=== PATIENT | female | born 1955 | race Caucasian/White ===

== ENCOUNTER 2018-04-08 07:31 | Emergency (ER) | payer MEDICAID, SELFPAY ==
[2018-04-08 07:36] VITALS: BP 130/79; PULSE 72; RESP 18; TEMP 36.3; O2SAT 100
--- NOTE | 2018-04-08 08:12 | DI.REPORT_ITS ---
SYMPTOM/DIAGNOSIS; DISTANT TRAUMA, LT WRIST AND ELBOW PAIN, 'GOUT' LEFT FOREARM: Comparison is made with left elbow dated 19 Oct 2017. Noted is a previous resection of the radial head and severe degenerative changes of the elbow joint. There is no evidence of an acute fracture/dislocation.
--- NOTE | 2018-04-08 08:29 | ED.GENADUL ---
Disposition Clinical Impression: Gouty arthritis left arm Disposition: HOME Condition: Good Instructions: Gout (ED) Additional Instructions: Take medications as prescribed Continue your regular medications. Return to the emergency room for any acute concerns or if you develop fever, or redness. Sling to reduce pain. May use Tylenol in addition to the above medicines. May apply ice to reduce discomfort. Perform range of motion exercises daily. Prescriptions: Colchicine 0.6 mg PO DAILY 4 Days #4 tab Prednisone 40 mg PO DAILY #10 tablet Medical Decision Making - Lab Data Laboratory Results - last 24 hr 04/08/18 04/08/18 08:27 08:27 WBC 14.28 H RBC 4.62 Hgb 14.8 Hct 43.9 MCV 95.0 MCH 32.0 MCHC 33.7 RDW 13.6 Plt Count 227 MPV 10.8 Immature Gran % 0.3 Neutrophils % 65.8 Lymphocytes % 17.8 Monocytes % 15.5 Eosinophils % 0.4 Basophils % 0.2 Absolute Neutrophils 9.40 H Absolute Lymphocytes 2.54 Absolute Monocytes 2.21 H Absolute Eosinophils 0.06 Absolute Basophils 0.03 Sodium 140 Potassium 3.8 Chloride 105 Carbon Dioxide 27.1 Anion Gap 7.9 BUN 11 Creatinine 0.68 Estimated GFR/1.73 m2 >= 60.00 Glucose 110 H Uric Acid 4.0 Calcium 9.0 C-Reactive Protein 5.68 H Results reviewed for labs ordered during visit: Yes - Radiology Data Radiology results: report reviewed, image reviewed - Medical Decision Making 62-year-old female with history of gout presents with left elbow and wrist pain over hours time. She is afebrile, well-appearing. Diffusely tender throughout her forearm including elbow and wrist joints, no significant joint effusion. No fever or redness, do not feel cellulitis is likely, she does not have pain with passive joint movement, as above no significant joint effusion amenable to aspiration. X-ray with no radial or ulnar shaft fracture. Degenerative changes of the humeral ulnar joint. Degenerative changes in the radiocarpal joint. Given her history of gout, elevated CRP, stress demargination of white blood cell count, I do feel gouty arthritis is most likely. We will treat with a short, low-dose course of colchicine as well as steroids. She understands follow-up precautions if not improving. History of Present Illness - General Chief complaint: Orthopedic Stated complaint: GOUT Time Seen by Provider: 04/08/18 08:11 Source: patient, RN notes reviewed Mode of arrival: ambulatory Limitations: no limitations - History of Present Illness Initial comments: Left arm pain: 62-year-old female with a history of gout as well as traumatic left elbow injury distantly. She presents with the gradual onset over hours time yesterday of an achy, moderate to severe, left elbow pain that is worse with movement and radiates with movement. It is ameliorated with rest. She has not had fever. She has not had any new motor weakness. She denies any new traumatic injury - Related Data Ergocalciferol (Vitamin D2) [Vitamin D] 2 tab-cap PO DAILY tab-cap 04/21/16 Nicotine [Nicoderm Cq] 1 each TD DAILY #30 script 10/29/16 Estradiol [Vagifem] 10 mcg VG Twice Weekly #24 tab-cap 04/15/17 Omeprazole 1 cap PO DAILY #90 tab-cap 04/15/17 Topiramate [Topamax] 2 tab PO HS #180 tab-cap 04/15/17 Albuterol Sulfate [Proair Hfa] 1 - 2 puff IH Q4H PRN #2 inhaler 05/31/17 Diphenhydramine HCl [Benadryl] 2 cap PO HS 10/19/17 Lactobacillus Acidophilus [Probiotic] 1 each PO DAILY 12/29/17 Magnesium Oxide 400 mg PO DAILY 03/17/18 Riboflavin 100 mg PO DAILY 03/17/18 Tears Naturale Ii 2 drop OU QID 03/17/18 Colchicine 0.6 mg PO DAILY 4 Days #4 tab 04/08/18 Prednisone 40 mg PO DAILY #10 tablet 04/08/18 Allergies Allergy/AdvReac Type Severity Reaction Status Date / Time ceftriaxone Allergy Intermediate ITCHING; Unverified 04/08/18 07:41 RASH Sulfa (Sulfonamide Allergy Intermediate ITCHY RASH Unverified 04/08/18 07:41 Antibiotics) rosuvastatin AdvReac Intermediate NAUSEA Unverified 04/08/18 07:41 sertraline AdvReac Intermediate diarrhea Unverified 04/08/18 07:41 Review of Systems Other: 6 systems reviewed, otherwise negative Past Medical History - Past Medical History Medical history: GERD, hyperlipidemia Migraine headache - Social History Alcohol use: none General Exam - General Limitations: no limitations General appearance: alert, in no apparent distress, anxious - Head Head exam: Present: atraumatic, normocephalic - Eye Eye exam: Present: normal apperance, PERRL, EOMI - Neck Neck exam: Present: normal inspection, full ROM - Respiratory Respiratory exam: Present: normal lung sounds bilaterally. Absent: respiratory distress - Cardiovascular Cardiovascular Exam: Present: regular rate, normal rhythm - GI/Abdominal GI/Abdominal exam: Present: soft. Absent: distended, tenderness - Extremities Exam Extremities exam: Present: tenderness, normal capillary refill, other (2+ radial pulse bilateral upper extremity. Right upper extremity unremarkable. Left upper extremity swollen tender at the elbow and left wrist. These joints are tender with movement. Patient able to tolerate nearly full range of passive movement. Active movement limited by pain. Motor would rate of 4 out of 5 throughout the left upper extremity. Sensation intact throughout) - Back Exam Back exam: Present: normal inspection. Absent: tenderness, vertebral tenderness - Neurological Exam Neurological exam: Present: alert, oriented X3 - Psychiatric Psychiatric exam: Present: normal affect, normal mood, anxious, other (Mildly anxious) - Skin Skin exam: Present: warm, dry, intact. Absent: rash Course Vital Signs - 24 hr 04/08/18 07:36 Temperature 36.3 C L Pulse 72 Respiratory 18 Rate Blood Pressure 130/79 Pulse Oximetry 100
[2018-04-08 08:34] LABS: Abs Immature Grans 0.04 k/cumm (0.0-0.09); Absolute Basophil Count 0.03 k/cumm (0.0-0.2); Absolute Lymphocyte Count 2.54 k/cumm (1.2-3.4); Absolute Monocyte Count 2.21 k/cumm (0.11-0.7); Basophils % 0.2; Eosinophils % 0.4; HCT 43.9 % (36.0-46.0); HGB 14.8 g/dL (12.0-15.5); Immature Grans % 0.3; Lymphocytes % 17.8; Mean Corp. HGB Concentration 33.7 g/dL (32.0-36.0); Mean Platelet Volume 10.8 fL (8.0-11.0); Monocytes % 15.5; Neutrophils % 65.8; Platelet Count 227 x1000/uL (130-400); RBC 4.62 m/cumm (4.00-5.20); RBC Distribution Width 13.6 % (11.7-14.6); White Blood Cell Count 14.28 k/cumm (4.4-10.8)
[2018-04-08 08:35] LABS: Absolute Eosinophil Count 0.06 k/cumm (0.0-0.7)
[2018-04-08 08:44] LABS: Anion Gap 7.9 mmol/L (3-11); BUN 11 mg/dL (7-18); C-Reactive Protein 5.68 mg/dL (0.0-0.3); CO2 27.1 mmol/L (21.0-32.0); CREATININE 0.68 mg/dL (0.55-1.02); Chloride 105 mmol/L (98-107); Glucose 110 mg/dL (70-100); Potassium 3.8 mmol/L (3.5-5.1); Sodium 140 mmol/L (136-145)
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
[2018-04-08 10:20] VITALS: TEMP 37
== END 2018-04-08 10:20 | disposition home or self-care (01) ==
PROVIDERS: Emergency Provider Emergency Medicine; PCP Emergency Medicine
DX: M10.9 Gout, unspecified (principal)
CPT/HCPCS: 80048; 99283; 73090; 84550; 85025; 86140; L3650

== ENCOUNTER 2018-04-19 15:30 | Outpatient (RCR) | payer MEDICAID, SELFPAY ==
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
--- NOTE | 2018-03-30 11:47 | PTTR_ITS ---
DATE: 03/30/18 SUBJECTIVE: Lubna states she saw Josie Ch DPT for a vestibular eval. I talked to Lubna about having a conversation with Josie, as well, discussing the Halpike and Yuly correction maneuver. She states these did not really seem to effect her symptoms that much, but overall is feeling less dizzy with rotation to the right. OBJECTIVE: Manual therapy: ([id number]). Cervical mobs, up slips, down slopes, lateral glides, METs into rotation left and right. She achieved 70 of right rotation without any episodes of dizziness. * [x] Electrical Stim Unattended - 05389l[1]: x15 min. Direct treatment time: 8:30 til 9:00 A.M. JOSE C/marianne
--- NOTE | 2018-04-10 09:00 | PTTR_ITS ---
DATE: 04/10/18 Co-treat with supervising PT Delta Paul DPT. OBJECTIVE: Manual therapy: (17604u8). Soft tissue mobilization while in supine consisting of PRT to upper traps, lev scap and splenius capitis. Tendon massage along the occiput and cervical vertebrae was also performed. Therapeutic procedures (11422j1). * x HEP review: Issued phase 1 isometric cervical stab program, which she was able to demonstrate appropriately while in clinic today. Given written instructions, see photocopy located in patient's file. 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 Direct treatment time: 25 minutes Total treatment time: 25 minutes
--- NOTE | 2018-04-10 11:41 | PTTR_ITS ---
DATE: 04/10/18 SUBJECTIVE: Lubna states she had a difficult weekend, dealing with gout in her left elbow. Had to go to the E.R. Did receive meds for this. Is complaining of right sided cervical spine pain. She had a good visit with Neurology. She does not need to go back for 6 mos. Denies any balance deficits at this time. OBJECTIVE: Manual therapy: (65209c1). Performed cervical mobs, up slips, down slopes, lateral glides, OA release followed by hold relax mobs into rotation in both directions achieving 70 to 75 right and 80 left. Then performed upper trapezius stretching in supine position using hold relax techniques through the upper trapezius. Direct treatment time: 8:30 til 9:00 A.M. Soft tissue mobs were performed by the YARN INSPECTOR to the right cervical paraspinals as well as instruction in cervical spine stabilization strengthening: Phase 1 Plan: Continue as indicated above progressing cervical stabilization to tolerance. MM/gc
--- NOTE | 2018-04-19 14:02 | PTTR_ITS ---
DATE: 04/19/18 SUBJECTIVE: Lubna reports that her neck has been feeling great. Hasn't had any dizziness, and is now able to drive with the windows open in her car without feeling light headed or dizzy. Does feel as though the vestibular correction helped. OBJECTIVE: Manual therapy: (00138u1). Cervical mobs, up slips, down slopes, lateral glides and OA release followed by soft tissue mobs consisting of PRTs to bilateral upper traps, friction massage over the origin of the levator scap on the right and we discussed further POC. Reviewed her HEP of cervical stabs. Direct treatment time: 30 minutes Plan: Recheck Lubna x3 wks. If she is doing well at that time will D/c. MM/gc
== END 2018-04-28 23:59 | disposition home or self-care (01) ==
LOC: PT 15:30
PROVIDERS: PCP Emergency Medicine; Referring Provider Emergency Medicine; Visit Provider Emergency Medicine
DX: M54.2 Cervicalgia (principal); M47.22 Other spondylosis with radiculopathy, cervical region; R42 Dizziness and giddiness
CPT/HCPCS: 97014; 97110; 97112; 97140; 97162

== ENCOUNTER 2019-01-01 10:11 | Outpatient (REF) | payer MEDICAID, SELFPAY ==
--- NOTE | 2019-01-01 10:00 | PAPFT_PTH ---
PATIENT: Lubna Handley LOC: [facility] U#:[id number] AGE/SX: 63/F ROOM: RE01/01/[address]: PATTI Ayers : 1955 BED: DIS: 01/01/2019 SPEC #: [id number] RECD: 01/01/19 12:53 STATUS: CECY REQ #: [id number] CHARLEY: 01/01/19 10:[address]: Adri Anna DEPT: [facility] Cytology RECD BY: Michaelle Morataya ENTERED: 01/01/19 12:53 SP TYPE: PAPFT DAVID DR: Hua Hernandez, Tissues: 1 - CX/ENDOCX FOR PAP SMEARS Procedures: PAP THIN PREP/UVM Screening HPV DNA PROBE Comments: [id number]
== END 2019-01-01 10:31 ==
LOC: LBN 10:11
PROVIDERS: PCP Emergency Medicine; Visit Provider Nurse Practitioner Family
DX: Z12.4 Encounter for screening for malignant neoplasm of cervix (principal); Z11.51 Encounter for screening for human papillomavirus (HPV)
CPT/HCPCS: 88142; 87624

== ENCOUNTER 2019-01-09 01:03 | Outpatient (CLI) | payer MEDICAID, SELFPAY ==
--- NOTE | 2019-01-09 08:33 | DI.MAMMO_ITS ---
SYMPTOM/DIAGNOSIS: SCREENING, PERSONAL H/O BREAST CA, Z12.31 MAMMOGRAMS: Mammograms were interpreted according to the usual protocol including computer analysis with CAD system, tomosynthesis and C view imaging. The patient has a history of lumpectomy in the upper outer quadrant of the left breast. Comparison is made with exams from 1298-3102. The breasts are composed of scattered fibroglandular densities, breast density, Category B. The area of scarring in the upper outer quadrant of the left breast appears unchanged. No new masses or suspicious calcifications are identified in either breast. IMPRESSION: Category 2, negative mammogram with benign findings. Yearly screening mammography is recommended. MQSA ASSESSMENT OF FINDINGS: Negative with benign findings. Category 2. Patient will receive a letter notifying them of these results. BI-RADS category B. There are scattered areas of fibroglandular density.
== END 2019-01-09 01:23 ==
PROVIDERS: PCP Emergency Medicine; Visit Provider Nurse Practitioner Family
DX: Z12.31 Encounter for screening mammogram for malignant neoplasm of breast (principal); Z85.3 Personal history of malignant neoplasm of breast; Z98.890 Other specified postprocedural states
CPT/HCPCS: 77063; 77067

== ENCOUNTER 2019-03-30 09:03 | Day surgery (SDC) | payer MEDICAID, SELFPAY ==
[2019-03-30 09:15] VITALS: BP 130/75; PULSE 80; RESP 16; TEMP 36.2; O2SAT 97
[2019-03-30] MEDS: Lactated Ringers 1,000 ML 80 ML IV (09:45)
--- NOTE | 2019-03-30 09:49 | W.PM.DSUDISC ---
Discharge Plan Disposition Patient Disposition: HOME Condition: Good Discharge Details Reason For Visit: EGD, colonoscopy Attending Provider: Mary Schmidt Primary Care Provider: Hua Hernandez Home Meds and New Rx's Prescriptions: Continued cannabidiol (CBD) extract 100 mg/mL solution See Rx Instructions PO QHS RF: 0 riboflavin (vitamin B2) 250 mg tablet extended release 250 mg PO RF: 0 ergocalciferol (vitamin D2) 400 UNIT tablet 2 tab-cap PO DAILY RF: 0 Probiotic 1 EACH capsule 1 ea PO DAILY RF: 0 tears naturale ii 2 drp OU QID RF: 0 magnesium oxide 400 MG tablet 400 mg PO DAILY Qty: 90 RF: 3 albuterol sulfate [ProAir HFA] 90 mcg/actuation HFA aerosol inhaler 1 - 2 puff Inhalation Q4H PRN Qty: 2 RF: 6 estradiol [Vagifem] 10 mcg tablet 10 mcg VG Twice Weekly Qty: 24 RF: 0 omeprazole 20 mg capsule,delayed release(DR/EC) 20 mg PO DAILY Qty: 90 RF: 3 Discontinued polyethylene glycol 3350 17 gram/dose powder 238 g PO ONCE Qty: 238 RF: 0 bisacodyl [Dulcolax (bisacodyl)] 5 mg tablet,delayed release (DR/EC) 5 mg PO ONCE Qty: 4 RF: 0 Discharge Instructions Additional Instructions: Your EGD showed a small hiatal hernia. No Barretts esophagus was noted. One small polyp was removed from the colon. My office will send a letter with biopsy results. Activity:: Activity as Tolerated Diet:: As Tolerated Discharge Orders Discharge Orders: Discharge Order (Routine); Ordered 03/30/19 Ordered By: Mary Schmidt DS: Diagnosis Discharge Diagnosis (1) Colon polyp: Start date: 03/30/19 Start time: 10:48 Status: Acute (2) S/P colonoscopy:
[2019-03-30] MEDS: Sodium Citrate 30 ML CUP (10:00)
--- NOTE | 2019-03-30 10:35 | BOWEL_PTH ---
PATIENT: Lubna Handley LOC: [facility] U#:[id number] AGE/SX: 63/F ROOM: RE03/30/[address]: Mary Schmidt MD : 1955 BED: DIS: 03/30/2019 SPEC #: [id number] RECD: 03/30/19 12:26 STATUS: CECY REQ #: [id number] CHARLEY: 03/30/19 10:[address]: Mary Schmidt DEPT: Surgical Specimen RECD BY: Michaelle Morataya ENTERED: 03/30/19 12:26 SP TYPE: Bowel OTHR DR: Hua Hernandez DO Tissues: 1 - BIOPSY BOWEL Procedures: GROSS AND MICRO LEVEL 4 Comments: [id number]
[2019-03-30 11:15] VITALS: BP 110/72; PULSE 68; RESP 18; TEMP 36.2; O2SAT 95
--- NOTE | 2019-03-30 13:36 | ROE_ITS ---
DATE OF PROCEDURE: March 30, 2019 PREOPERATIVE DIAGNOSIS: 1. Reflux. 2. History of Kuhn's esophagus. 3. Screening colonoscopy. POSTOPERATIVE DIAGNOSIS: 1. Small hiatal hernia. 2. Rectal polyp. PROCEDURE: 1. Esophagogastroduodenoscopy. 2. Colonoscopy with biopsy. SURGEON: Mary Schmidt M.D. ANESTHESIA: Monitored Anesthesia Care. INDICATIONS: This is a 63-year-old woman whose last screening colonoscopy in 2008 was unremarkable. She has no family history of colon cancer or symptoms. The patient also reports a history of Soham t's esophagus, although apparently her most-recent in 2015 was negative for Kuhn's. She does repo rt poorly-controlled reflux. No dysphagia. PROCEDURE: She was placed in the left Chao position. Propofol was titrated to sedation. The scope was advanced into her esophagus under direct visualization and down into the stomach and duodenum. T here was no duodenitis or ulcers noted. The stomach itself appeared normal, including on retroflex v iew of the fundus and lesser curvature. She was noted to have a small hiatal hernia. The GE junctio n was carefully inspected and showed no evidence of Kuhn's, inflammation or strictures. The air w as suctioned from the stomach and the scope withdrawn with no other esophageal lesions found. Digital rectal examination revealed no abnormalities. The scope was advanced to the cecum without di fficulty. The ileocecal valve and appendiceal orifice were clearly identified. Her prep was good. The scope was slowly withdrawn with no abnormalities seen within the ascending, transverse, descendin g or sigmoid colon. In the distal rectum there was a < 1 cm polyp that was removed with the cold for ceps. This does have the appearance of a hyperplastic polyp. Retroflex view showed no other abnorma lities. She tolerated the procedure well and was stable to recovery. I don't think follow-up EGD's will be indicated, although certainly should be done for worsening symp toms or dysphagia. She will need a follow-up colonoscopy either in five to ten years depending on the polyp pathology. My office will contact her with pathology results and recommendations. cc: Hua Hernandez D.O.
== END 2019-03-30 11:30 | disposition home or self-care (01) ==
PROVIDERS: PCP Emergency Medicine; Visit Provider Surgery
PROC: (CPT 45380; principal; 2019-03-30 10:00)
DX: Z12.11 Encounter for screening for malignant neoplasm of colon (principal); Z86.010 Personal history of colon polyps; K20.9 Esophagitis, unspecified; K62.1 Rectal polyp; K62.6 Ulcer of anus and rectum; K44.9 Diaphragmatic hernia without obstruction or gangrene
CPT/HCPCS: 45380; 43239; 88305

== ENCOUNTER 2019-05-01 16:09 | Outpatient (CLI) | payer MEDICAID, SELFPAY ==
--- NOTE | 2019-05-01 12:15 | DI.RAD_ITS ---
SYMPTOMS/DIAGNOSIS: CERVICALGIA WITH TENDERNESS C4, C5 IN MIDLINE, NECK PAIN, M54.2 CERVICAL SPINE: Comparison is made with [id number]. There is again noted to be fusion at C 5 - 6. There is narrowing of the C 4 - 5 as well as C 6 - 7 disc spaces and endplate osteophytes which have enlarged when compared with the previous exam. There is now severe right neural foraminal narrowing at C 6 - 7 and mild left sided neural foraminal narrowing at C 6 - 7. Neural foraminal narrowing is also noted on the right at C 3 - 4 and C 4 - 5. IMPRESSION: Degenerative changes greatest at C 6 - 7 where there is bilateral neural foraminal narrowing, right greater than left.
== END 2019-05-01 16:29 ==
PROVIDERS: PCP Emergency Medicine; Visit Provider Family Medicine
DX: M54.2 Cervicalgia (principal); M50.323 Other cervical disc degeneration at C6-C7 level; Z98.1 Arthrodesis status
CPT/HCPCS: 72050

== ENCOUNTER 2019-05-29 00:49 | Outpatient (CLI) | payer MEDICAID, SELFPAY ==
--- NOTE | 2019-05-29 15:10 | DI.MRI_ITS ---
EXAM: MR CERVICAL SPINE WO CLINICAL HISTORY: CERVICALGIA X YEARS, M54.2, HX CERVICAL FUSION WITH 2 DISCS REMOVED, RT NECK TRAPE ZIUS PAIN, RT ARM PAIN TECHNIQUE: Multiplanar multisequence MRI of the cervical spine was performed without intravenous con trast. COMPARISON: No exams were available for comparison FINDINGS: BONES: There are postsurgical changes of a fusion of the C5-C6 disc space. Intervertebral disc space s are normal. There is straightening of the normal cervical lordosis. Endplate degenerative signal c hanges are noted at C4-5 and C6-C7. CERVICAL CORD: Craniovertebral junction is unremarkable. The cervical cord is normal size and signal intensity. SOFT TISSUES: Unremarkable. C2-3: No disc herniation or bulge is identified. C3-4: No disc herniation or bulge is identified. There is prominence of the osteophyte-disc complex. There are hypertrophic changes of the right uncovertebral joint. This causes moderate narrowing of the right neural foramen. There is mild narrowing of the central spinal canal. C4-5: No disc herniation or bulge is identified. There is prominence of the osteophyte-disc complex. There is effacement of the anterior subarachnoid space. There is mild narrowing of the central spin al canal. There are degenerative changes of the uncovertebral joints. This results in mild narrowin g of the neural foramina bilaterally. C5-6: No disc herniation or bulge is identified. No central spinal canal or neural foraminal stenosi s is present. C6-7: No disc herniation or bulge is identified. There are degenerative changes at the uncovertebral joints. There is moderate left neural foraminal narrowing. No significant central spinal canal emma nosis or right neural foraminal stenosis is present C7-T1: No disc herniation or bulge is identified. No central spinal canal or neural foraminal stenos is is present. IMPRESSION: Multilevel degenerative changes of the cervical spine. The findings result in multilevel central spi nal canal and neural foraminal stenosis as described above.
== END 2019-05-29 01:09 ==
PROVIDERS: PCP Emergency Medicine; Visit Provider Nurse Practitioner
DX: M54.2 Cervicalgia (principal); Z98.1 Arthrodesis status; M50.30 Other cervical disc degeneration, unspecified cervical region; M48.02 Spinal stenosis, cervical region; M99.51 Intervertebral disc stenosis of neural canal of cervical region
CPT/HCPCS: 72141

== ENCOUNTER 2019-10-05 13:54 | Emergency (ER) | payer MEDICAID, SELFPAY ==
[2019-10-05 13:58] VITALS: BP 187/120; PULSE 90; RESP 18; TEMP 36.8; O2SAT 100
--- NOTE | 2019-10-05 14:17 | ED.GENADUL_ITS ---
Discharge Plan Disposition Patient Disposition: HOME Condition: Stable Discharge Details Chief Complaint: Orthopedic Clinical Impression: Gout attack Primary Care Provider: Hua Hernandez ED Provider: Jordyn Eason Home Meds and New Rx's Prescriptions: New prednisolone sodium phosphate 30 mg tablet,disintegrating 30 mg PO DAILY Qty: 7 RF: 0 colchicine 0.6 mg tablet 0.6 mg PO DAILY Qty: 7 RF: 0 clindamycin HCl 300 mg capsule 300 mg PO BID 7 Days Qty: 14 RF: 0 Continued riboflavin (vitamin B2) 250 mg tablet extended release 250 mg PO RF: 0 ergocalciferol (vitamin D2) 400 UNIT tablet 2 tab-cap PO DAILY RF: 0 Probiotic 1 EACH capsule 1 ea PO DAILY RF: 0 tears naturale ii 2 drp OU QID RF: 0 albuterol sulfate [ProAir HFA] 90 mcg/actuation HFA aerosol inhaler 1 - 2 puff Inhalation Q4H PRN Qty: 2 RF: 6 estradiol [Vagifem] 10 mcg tablet 10 mcg VG Twice Weekly Qty: 24 RF: 0 omeprazole 20 mg capsule,delayed release(DR/EC) 20 mg PO DAILY Qty: 90 RF: 3 magnesium oxide 400 mg (241.3 mg magnesium) tablet 400 mg PO DAILY Qty: 90 RF: 3 Discharge Instructions Instructions: Gout (ED) Additional Instructions: Take medications as directed. Follow up with primary care provider in 3-5 days. Return to ED sooner if any worsening or concerns. Increase oral fluids. Return sooner if any worsening swelling, worsening pain, red streaks up the arm or fever. Referrals: Hua Hernandez, [Primary Care Provider] - Medical Decision Making 63-year-old female presents with right hand and wrist pain and swelling. Patient states that started this morning. She does have a history of gout and thinks that this is a gout flare denies trauma, fever or chills. Labs obtained including CBC CMP and a uric acid 3 view x-ray obtained of her right wrist. Uric acid was within normal limits, does have white blood cell count of 12 with a left shift. CMP is within normal limits. X-ray shows an internal hardware of her right wrist and previous right ulnar surgery. Nothing acute noted on the x-ray. Upon further questioning of the patient she states that she broke her arm in 6 grade and had reconstructive surgery in the 90s. Given the patient's history of gout being treated for gout in the past this is most likely a gout flare. However I cannot fully exclude cellulitis at this time. Discussed treatment options with patient, verbalizes understanding. Prescribed Clindamycin for possible cellulitis. Also given Prednisolone and Colchicine. Patient given 1 tablet Hydrocodone-Acetametaphin 5/325mg in department. This text was generated using [employer] dictation system, please disregard any oddities of phrase or misspellings. HPI General Mode of arrival: ambulatory . Date/Time Provider Initiated Documentation: 10/05/19 13:58 . Limitations to Documentation: no limitations . Information obtained by: patient . HPI Narrative: 63-year-old female presents to the ED with right hand, wrist swelling and tenderness. She states I have gout. She believes she has undiagnosed gout. Denies drinking alcohol. She is a smoker. Denies any trauma or falls. No fever, no chills. No right axillary lymphadenopathy. Related Data Home Medications Medication Instructions Recorded Confirmed ergocalciferol (vitamin D2) 2 tab-cap PO DAILY tab-cap 04/21/10/05/19 Probiotic 1 ea PO DAILY 12/29/17 10/05/19 Tears Naturale Ii 2 drp OU QID 03/17/18 10/05/19 albuterol sulfate 90 mcg/actuation 1 - 2 puff INHALATION Q4H PRN #2 11/24/18 10/05/19 aerosol inhaler inhaler estradiol 10 mcg vaginal tablet 10 mcg VG Twice Weekly #24 tab-cap 12/07/18 10/05/19 omeprazole 20 mg capsule,delayed 20 mg PO DAILY #90 tab-cap 12/07/18 10/05/19 release riboflavin (vitamin B2) 250 mg 250 mg PO tab 01/01/19 05/29/19 tablet,extended release magnesium oxide 400 mg (241.3 mg 400 mg PO DAILY #90 tab 07/02/19 10/05/19 magnesium) tablet clindamycin HCl 300 mg PO BID 7 Days #14 cap 10/05/19 colchicine 0.6 mg PO DAILY #7 tab 10/05/19 prednisolone sodium phosphate 30 mg PO DAILY #7 tab 10/05/19 Previous Rx's Medication Instructions Recorded albuterol sulfate 90 mcg/actuation 1 - 2 puff INHALATION Q4H PRN #2 11/24/18 aerosol inhaler inhaler estradiol 10 mcg vaginal tablet 10 mcg VG Twice Weekly #24 tab-cap 12/07/18 omeprazole 20 mg capsule,delayed 20 mg PO DAILY #90 tab-cap 12/07/18 release magnesium oxide 400 mg (241.3 mg 400 mg PO DAILY #90 tab 07/02/19 magnesium) tablet clindamycin HCl 300 mg PO BID 7 Days #14 cap 10/05/19 colchicine 0.6 mg PO DAILY #7 tab 10/05/19 prednisolone sodium phosphate 30 mg PO DAILY #7 tab 10/05/19 Allergies Allergy/AdvReac Type Severity Reaction Status Date / Time ceftriaxone Allergy Intermediate ITCHING; Verified 10/05/19 14:02 RASH Sulfa (Sulfonamide Allergy Intermediate ITCHY RASH Verified 10/05/19 14:02 Antibiotics) rosuvastatin AdvReac Intermediate NAUSEA Verified 10/05/19 14:02 sertraline AdvReac Intermediate diarrhea Verified 10/05/19 14:02 General Stated Complaint: Orthopedic ANTHONY: 3 Review of Systems Narrative: Constitutional: Negative for weight loss, alert and oriented, well groomed, normal body habitus, appears uncomfortable. HEENT: Denies trauma, headaches, blurry vision, nasal discharge, sore throat, trouble swallowing. Chest: Denies chest pain, palpitations, irregular rhythm, hypertension. Respiratory: Denies Shortness of breath, cough, hemoptysis. GI: Denies abdominal pain, nausea, vomiting, diarrhea, constipation. : Denies dysuria, hematuria, flank pain, rectal bleeding. Neuro: Denies dizziness, blurry vision, weakness, syncope, headache or facial numbness. Hematologic: Denies easy bruising, intolerance to heat or cold, hair loss. Extremities: Right hand and wrist swelling mild erythema noted. Reports right hand pain which radiates up into her right forearm PFSH Medical History Anxiety (Chronic) Kuhn's esophagus (Chronic) EGD neg 2016 Cervical radiculopathy at C6 (Acute) Colon polyp (Acute) Depressive disorder (Chronic) Esophagitis (Chronic 05/19/16) Gastritis (Chronic 05/19/16) Gastroesophageal reflux disease (Chronic) gastritis; HH Hiatal hernia (Chronic) Hyperlipidemia (Chronic 01/02/13) Malignant neoplasm of female breast (Chronic 07/28/93) stage I; lumpectomy, radiation, axillary resection Migraine with aura (Chronic) Neural foraminal stenosis of cervical spine (Acute) Peripheral neuralgia (Chronic) Seborrheic keratosis (Chronic 01/29/16) Smoker (Chronic) Surgical History Biopsy of breast (~2001) Breast, Lumpectomy (~1993) left Cholecystectomy EGD - IV Sedation (05/10/16) Ligation of fallopian tube Reduction mammoplasty (~1994) right S/P colonoscopy (Acute) 03/30/19 Tonsillectomy (~195) Family History Mother Personal history of malignant neoplasm SKIN Father Essential hypertension Hyperlipidemia Stroke Grandfather No problems noted. Grandfather No problems noted. Grandmother Personal history of malignant neoplasm BREAST Grandmother No problems noted. Brother Essential hypertension Personal history of malignant neoplasm THYROID Hyperlipidemia Brother No problems noted. Brother No problems noted. Brother No problems noted. Daughter No problems noted. Daughter No problems noted. Social History Smoking/Tobacco Use Status: Current every day Tobacco Type: cigarettes Alcohol Intake: current Alcohol Intake frequency: holidays/special occasions only Drug use: Never Substance use type: does not use What type of physical activity do you participate in: none Do you feel safe at home: Yes Do you feel safe in your relationship?: Yes History History 3 Para 2 Hx # Term Pregnancies Multiple births Hx # Pregnancies Ectopic pregnancies AB induced Hx Number of Living Children AB spontaneous Exam Narrative Exam Narrative: Constitutional: Allert and oriented x3. Appears stated age. Normal body habitus. Head: Normocephalic, no trauma. Eyes: Pupils PERRLA, Red reflex noted, EOM's intact. Chest: RRR, Normal S1, S2, distal radial pulses intact. Resp: Lungs clear to auscultation bilaterally, no wheezes, rales, or rhonchi. Musculoskeletal: Normal gait, Right hand swelling and tenderness. Skin: No suspicious rashes or lesions. Capillary refill less than 2 sec. Mildly ereythemic right hand and significant swelling noted. Neurologic: Alert and oriented x 3. Hematologic/Lymphatic: No ecchymosis, no lymphadenopathy. Course Vital Signs Vital signs: Vital Signs Temperature 36.8 C 10/05/19 13:58 Pulse 90 10/05/19 13:58 Respiratory Rate 18 10/05/19 13:58 Blood Pressure 187/120 H 10/05/19 13:58 Pulse Oximetry 100 10/05/19 13:58 Temperature 36.8 C 10/05/19 13:58 Temperature Source Temporal Artery Scan 10/05/19 13:58 Pulse 90 10/05/19 13:58 Respiratory Rate 18 10/05/19 13:58 Respiratory Effort Non-Labored 10/05/19 14:04 Blood Pressure 187/120 H 10/05/19 13:58 Pulse Oximetry 100 10/05/19 13:58 Oxygen Delivery Method Room Air 10/05/19 13:58 Oxygen Flow Rate 0 10/05/19 13:58 Pain Level 10 10/05/19 14:14
[2019-10-05] MEDS: predniSONE 20 MG TAB 40 MG PO (14:23)
[2019-10-05] MEDS: Colchicine 0.6 MG TAB PO (14:23)
[2019-10-05 14:35] LABS: Abs Immature Grans 0.03 k/cumm (0.0-0.09); Absolute Eosinophil Count 0.15 k/cumm (0.0-0.7); Absolute Lymphocyte Count 3.53 k/cumm (1.2-3.4); Absolute Monocyte Count 1.15 k/cumm (0.11-0.7); Basophils % 0.2; Eosinophils % 1.2; HCT 42.5 % (36.0-46.0); HGB 14.4 g/dL (12.0-15.5); Immature Grans % 0.2 %; Lymphocytes % 29.2; Mean Corp. HGB Concentration 33.9 g/dL (32.0-36.0); Mean Corpuscular Hemoglobin 32.6 pg (27.0-33.0); Mean Corpuscular Volume 96.2 fL (80-95); Mean Platelet Volume 10.6 fL (8.0-11.0); Monocytes % 9.5; Neutrophils % 59.7; Platelet Count 279 x1000/uL (130-400); RBC 4.42 m/cumm (4.00-5.20); RBC Distribution Width 12.5 % (11.7-14.6)
[2019-10-05 14:36] LABS: Absolute Basophil Count 0.02 k/cumm (0.0-0.2); Absolute Neutrophil Count 7.22 k/cumm (1.2-6.7)
--- NOTE | 2019-10-05 14:41 | DI.RAD_ITS ---
EXAM: XR WRIST RT COMPLETE CLINICAL HISTORY: Right wrist swelling, pain TECHNIQUE: COMPARISON: No exams were available for comparison FINDINGS: Three views were obtained. There is resection of the distal ulna sparing the most distal portion of the ulna which is affixed to distal radius with the a single fixation screw. There is flattening of the navicular and radius at the radial navicular joint. There is malalignment at the navicular capi burns joint. Moderate degenerative changes noted. No acute fracture seen. IMPRESSION:
[2019-10-05 14:46] LABS: ALT 19 U/L (14-59); AST 20 U/L (15-37); Alkaline Phosphatase 62 U/L (46-116); Anion Gap 10.6 mmol/L (3-11); BUN 10 mg/dL (7-18); Bilirubin, Total 0.3 mg/dL (0.2-1.0); CO2 26.4 mmol/L (21.0-32.0); CREATININE 0.74 mg/dL (0.55-1.02); Calcium 9.2 mg/dL (8.5-10.1); Chloride 105 mmol/L (98-107); Glucose 91 mg/dL (74-106); Potassium 4.2 mmol/L (3.5-5.1); Sodium 142 mmol/L (136-145); Total Protein 7.3 g/dL (6.4-8.2)
[2019-10-05 14:55] LABS: Uric Acid 4.6 mg/dL (2.6-6.0)
[2019-10-05] MEDS: HYDROcodone 5/Acetaminophen 325 TAB PO (15:24)
== END 2019-10-05 15:33 | disposition home or self-care (01) ==
PROVIDERS: Emergency Provider Registered Nurse Emergency; PCP Emergency Medicine
DX: M10.9 Gout, unspecified (principal)
CPT/HCPCS: 36415; 80053; 99283; 73110; 84550; 85025; J7512

== ENCOUNTER 2019-12-14 13:33 | Outpatient (REF) | payer MEDICAID, SELFPAY | END 2019-12-14 13:53 | LOC: LBN 13:33 | PROVIDERS: PCP Emergency Medicine; Visit Provider Surgery | DX: Z22.322 Carrier or suspected carrier of Methicillin resistant Staphylococcus aureus (principal) | CPT/HCPCS: 87081 ==

== ENCOUNTER 2020-01-24 08:22 | Outpatient (CLI) | payer MEDICAID, SELFPAY ==
--- NOTE | 2020-01-24 06:00 | DI.RAD_ITS ---
EXAM: XR PAIN CLINIC CERVICAL SP 2V CLINICAL HISTORY: Dx: Cervical Radiculopathy,CERVICAL EPIDURAL STEROID INJECTION TECHNIQUE: Fluoroscopy was provided for the referring physician for guidance with performing injecti on procedure. COMPARISON: No exams were available for comparison FINDINGS: Please see procedure note for details. FLUORO TIME: 53.3 seconds RADIATION DOSE DELIVERED:
[2020-01-24 08:41] VITALS: BP 114/72; PULSE 74; RESP 16; TEMP 36.8; O2SAT 98
[2020-01-24] MEDS: Lactated Ringers 1,000 ML 80 ML IV (09:48)
[2020-01-24] MEDS: Midazolam 2 MG/2 ML VIAL IVP (09:51)
[2020-01-24 10:11] VITALS: BP 137/76; PULSE 64; RESP 13; O2SAT 96
--- NOTE | 2020-01-24 10:13 | PDOC.PAIN ---
Pain Clinic Procedure Note Procedure Note Procedure Note: Cervical Epidural Steroid Injection BOBBY CARROLL has been referred to the [facility] for cervical epidural steroid injection. COMMENTS: SHe was evaluated in our clinic on 10/30/19 and I did review that note. She had a cervical MRI on 05/29/19 and I did review the imaging. She has had lumbar injections in the past and believes that she needed something to relax. I did give her 1 mg of Versed via IV. DX: Cervical radiculopathy GLEN was interviewed and the medical record reviewed. There were no medical, pharmacologic, radiographic or other structural contraindications to attempting fluoroscopically guided epidural steroid injection. Risks and expected side effects as well as potential benefit of the procedure were reviewed with GLEN , and GLEN voiced concerns addressed. The printed consent form was signed and witnessed. Standard time-out procedure was performed. The patient was placed in the prone position on the fluoroscopy table and automated blood pressure cuff and pulse oximeter applied. The skin entry point for entering the epidural space by a midline C7-T1 interlaminar approach was identified under fluoroscopy and marked. Following thorough Chlorhexadine preparation of the skin and draping and 1% lidocaine infiltration of the skin entry point and subcutaneous tissues, an 18 gauge Tuohy needle was placed under fluoroscopic guidance and with loss of resistance technique into the C7-T1 epidural space. Upon needle placement and loss of resistance there were no paresthesiae or return of blood or CSF through the needle. 1 cc of Omnipaque 240 was injected with clear epidural spread in the A/P, lateral and oblique views. 15 mg of preservative free Dexomethasone was injected with no unusual discomfort expressed by GLEN. This was flushed with 1 cc of normal saline. GLEN 's vital signs were stable throughout the procedure and were as recorded in the docflowsheet by the nursing staff. Follow up plans and appointments were discussed with the GLEN. Post procedure instruction was given as documented in nursing documentation and having met discharge criteria, GLEN was discharged from the [facility]. COMMENTS: *If she does well with the procedure, it can be completed up to 3 times every 12 months. CC: Hua Hernandez,
[2020-01-24] MEDS: Dexamethasone Sod. Phos./Pres-Free 10 MG/ML VIAL IJ (10:20)
[2020-01-24] MEDS: Omnipaque 240 MG/ML 50 ML BTL IJ (10:20)
== END 2020-01-24 08:42 ==
PROVIDERS: PCP Emergency Medicine; Visit Provider Preventive Medicine Occupational Medicine
DX: M54.12 Radiculopathy, cervical region (principal)
CPT/HCPCS: 62321; 72040; J2250; Q9967

== ENCOUNTER 2020-02-28 00:57 | Outpatient (CLI) | payer MEDICAID, SELFPAY ==
--- NOTE | 2020-02-28 07:00 | DI.US_ITS ---
EXAM: US PELVIS TRANSVAGINAL CLINICAL HISTORY: LLQ pain, R10.32. TECHNIQUE: Transabdominal and transvaginal pelvic ultrasound was performed using standard protocol. COMPARISON: US PELVIS TRANSVAG from 05/28/2010 FINDINGS: KIDNEYS: Kidneys are symmetric in size. No evidence of renal calculi. No evidence of hydronephrosis. No renal mass or cyst identified. UTERUS: Position: Anteverted. Size: 5.0 long by 2.5 AP by 4.3 transverse cm Endometrium: 0.2 cm. Normal for patient's menstrual status. Myometrium: Unremarkable. Cervix: Unremarkable. OVARIES: Right: 2 x 1.3 x 1.3 cm Cyst or mass: None. Left: 1.7 x 1.1 x 1.2 cm Cyst or mass: None. DOPPLER: Color: Symmetric and uniform flow to both ovaries. No hyperemia. Duplex: Normal ovarian arterial waveforms visualized. CUL-DE-SAC: Free fluid: None. Other: None. IMPRESSION: 1. Normal sonographic appearance of the kidneys. 2. Normal-appearing uterus with endometrial stripe within normal limits. 3. Unremarkable bilateral ovaries. DATA REPOSITORY:
--- NOTE | 2020-02-28 09:40 | DI.MAMMO_ITS ---
EXAM: MG MAMMO SCREENING 60 MIN DUR CLINICAL HISTORY: breast cancer screening, Z12.39, PERSONAL H/O LT BREAST CA TECHNIQUE: Bilateral full field digital CC and MLO mammographic images were obtained with 3D tomosyn thesis and utilizing computer aided detection (CAD). COMPARISON: Available for comparison. FINDINGS: Masses/Architectural Distortion: Patient is status post left lumpectomy. No suspicious masses are pr esent. Microcalcifications: No suspicious pleomorphic-type are seen. Skin Thickening/Nipple Retraction: None. IMPRESSION: 1. No significant interval change with no specific features of malignancy noted. 2. Unless there is more urgent need, screening mammography is recommended, as per [employer] guidelines. BI-RADS Category 2 - Benign Findings Breast Density - Category B - Scattered areas of fibroglandular density The findings were discussed with the patient on the date of the examination. A negative radiographic report should not delay biopsy if a dominant or clinically suspicious mass is present. Up to ten percent of cancers are not identified on mammography. A negative report may reinforce clinical impression. Adenosis and dense breasts may obscure an underlying neoplasm. False positive reports average 6 to 10%. Patient will receive a letter notifying them of these results.
== END 2020-02-28 01:17 ==
PROVIDERS: PCP Emergency Medicine; Visit Provider Nurse Practitioner Family
DX: Z12.31 Encounter for screening mammogram for malignant neoplasm of breast (principal); Z85.3 Personal history of malignant neoplasm of breast; R10.32 Left lower quadrant pain
CPT/HCPCS: 77063; 77067; 76830; 76856

== ENCOUNTER 2020-03-04 00:43 | Outpatient (CLI) | payer MEDICAID, SELFPAY ==
--- NOTE | 2020-03-04 10:50 | DI.MRI_ITS ---
EXAM: MR CERVICAL SPINE WO CLINICAL HISTORY: RADICULOPATHY OF CERVICAL REGION, M54.12, PROGRESSING RT ARM NUMBNESS AND L TECHNIQUE: Multiplanar multisequence MRI of the cervical spine was performed without intravenous con trast. COMPARISON: MR MR CERVICAL SPINE WO from 05/29/2019 CR XR WRIST RT COMPLETE from 10/05/2019 FINDINGS: BONES: Vertebral body heights are maintained. Alignment is normal. Bone marrow signal intensity is wi thin normal limits. CERVICAL CORD: Craniovertebral junction is unremarkable. The cervical cord is normal size and signal intensity. SOFT TISSUES: Unremarkable. C2-3: No disc herniation or bulge is identified. No narrowing of the central canal or neural foramen . C3-4: There are again noted to be disc osteophytes eccentric toward the right, causing severe right n eural foraminal narrowing as well as narrowing of the AP dimension of the central canal. There are ri ght-sided facet degenerative changes. C4-5: There are circumferential disc osteophytes causing effacement of the central canal as well as b oth neural foramen. C5-6: Prior surgery with fusion at the disc space. No narrowing of the central canal or neural raudel en. C6-7: There is loss of disc height and circumferential disc osteophytes which mildly efface the anter ior CSF space. There is severe neural foraminal narrowing greater on the right. C7-T1: No disc herniation or bulge is identified. IMPRESSION: Postsurgical changes at C5-6. Degenerative disc changes and facet degenerative changes at C3-4, C4-5 and C6-7 causing bilateral amari ral foraminal narrowing. Narrowing of the AP dimension of the central canal is seen greatest at C4-5 . DATA REPOSITORY:
== END 2020-03-04 01:03 ==
PROVIDERS: PCP Emergency Medicine; Visit Provider Nurse Practitioner
DX: M54.12 Radiculopathy, cervical region (principal); M79.601 Pain in right arm; R20.0 Anesthesia of skin; M50.31 Other cervical disc degeneration, high cervical region; M50.321 Other cervical disc degeneration at C4-C5 level; M50.323 Other cervical disc degeneration at C6-C7 level
CPT/HCPCS: 72141

== ENCOUNTER 2020-04-17 00:27 | Outpatient (CLI) | payer MEDICAID, SELFPAY ==
--- NOTE | 2020-04-17 08:38 | DI.RAD_ITS ---
EXAM: XR CERVICAL SP MARIE TRAUMA 2-3V CLINICAL HISTORY: RADICULOPATHY CERVICAL REGION,M54.12, S/P ACDF 03/28/20. TECHNIQUE: 2D digital imaging was performed. COMPARISON: CR XR cervical spine comp 4-5V from 05/01/2019 DX c-spine from 05/10/2019 MR MR CERVICAL SPINE WO from 03/04/2020 FINDINGS: The patient is now status post fusion with disc spacers at the C3-4 and C4-5 levels. Previous fusion at the C5-6 level is noted. Degenerative disc changes are with narrowing and endplate osteophyte fo rmation is seen at C6-7. There are prominent facet degenerative changes at C3-4 and C6-7 as well as C7-T1. The airway is unremarkable. There is no abnormal gas collection.. IMPRESSION: Degenerative and postsurgical changes. DATA REPOSITORY: RADIATION DOSE DELIVERED:
== END 2020-04-17 00:47 ==
PROVIDERS: PCP Emergency Medicine; Visit Provider Neurological Surgery
DX: M50.11 Cervical disc disorder with radiculopathy, high cervical region (principal); M50.323 Other cervical disc degeneration at C6-C7 level; Z98.1 Arthrodesis status
CPT/HCPCS: 72040

== ENCOUNTER 2020-08-08 03:30 | Outpatient (CLI) | payer MEDICAID, SELFPAY ==
[2020-08-10 17:10] LABS: COVID-19 RT-PCR Result NEGATIVE (Negative)
== END 2020-08-08 03:50 ==
PROVIDERS: PCP Emergency Medicine; Visit Provider Emergency Medicine
DX: Z11.59 Encounter for screening for other viral diseases (principal)
CPT/HCPCS: U0003

== ENCOUNTER 2020-09-19 01:38 | Outpatient (CLI) | payer MEDICAID, SELFPAY ==
[2020-09-20 17:48] LABS: COVID-19 RT-PCR Result Positive (Negative)
== END 2020-09-19 01:58 ==
PROVIDERS: PCP Emergency Medicine; Visit Provider Emergency Medicine
DX: Z20.822 Contact with and (suspected) exposure to COVID-19 (principal)
CPT/HCPCS: U0003

== ENCOUNTER 2020-09-30 01:05 | Outpatient (CLI) | payer MEDICAID, SELFPAY ==
--- NOTE | 2020-09-30 07:00 | DI.US_ITS ---
EXAM: US BREAST LT COMPLETE CLINICAL HISTORY: Pain in left breast, ? lump,personal h/o breast ca,z85.3, TECHNIQUE: Ultrasound left breast performed using standard protocol. COMPARISON: Comparison is made with prior mammograms. FINDINGS: There is an area of architectural distortion at the 1 o'clock position of the left breast 3 cm from t he nipple corresponding to the patient's lumpectomy site. The area appears represent surgical scar t issue. The area measures 0.4 x 0.8 x 1.5 cm. No discrete mass is appreciated. All 4 quadrants of t he breast were evaluated sonographically. A sonographically benign-appearing lymph node is seen in t he left axilla. It measures 1.3 x 0.5 x 1.0 cm. IMPRESSION: 1. Area at the 1 o'clock position of the left breast 3 cm from the nipple corresponds to the patient' s lumpectomy site and sonographically suggest scar tissue. No discrete mass is seen. 2. Findings were discussed with the patient on the date of the examination. BI-RADS Category 2 - Benign Findings DATA REPOSITORY:
== END 2020-09-30 01:06 | disposition home or self-care (01) ==
LOC: DI 01:05
PROVIDERS: PCP Emergency Medicine; Visit Provider Physical Therapy Assistant
DX: N64.4 Mastodynia (principal); Z85.3 Personal history of malignant neoplasm of breast
CPT/HCPCS: 76642

== ENCOUNTER 2020-12-17 07:19 | Emergency (ER) | payer MEDICAID, SELFPAY ==
[2020-12-17 07:26] VITALS: BP 157/97; PULSE 101; RESP 18; TEMP 36.8; O2SAT 98
--- NOTE | 2020-12-17 07:45 | DI.RAD_ITS ---
EXAM: XR WRIST RT COMPLETE CLINICAL HISTORY: R wrist pain, r/o acute fx. TECHNIQUE: 2D digital imaging was performed. COMPARISON: CR XR WRIST RT COMPLETE from 10/05/2019 FINDINGS: Again noted is resection of distal ulna with sparing of the most distal aspect of the ulna which is a ffixed to the distal radius with a single fixation screw. There are significant degenerative changes in the radiocarpal joint, most evident between the distal radius and the scaphoid-navicular bone. S mall ossified density seen off the lateral aspect of this joint. Malalignment of the navicular-capit ate joint is again noted. IMPRESSION: As above but no obvious acute fracture. Minimal if any significant radiographic change compared to F ebruary 2019. DATA REPOSITORY: RADIATION DOSE DELIVERED:
--- NOTE | 2020-12-17 07:52 | W.ED.GENAD ---
Discharge Plan Disposition Patient Disposition: HOME Condition: Stable Discharge Details Clinical Impression: Sprain of right wrist, Chronic pain of right wrist, History of surgery on right wrist Primary Care Provider: Hua Hernandez ED Provider: Sanna Rai Home Meds and New Rx's Prescriptions: New oxycodone 5 mg tablet 5 mg PO Q6H PRN (Reason: pain) Qty: 10 RF: 0 ibuprofen 600 mg tablet 600 mg PO Q6H Qty: 20 RF: 0 Continued riboflavin (vitamin B2) 250 mg tablet extended release 250 mg PO DAILY AM RF: 0 Probiotic 1 EACH capsule 1 ea PO DAILY RF: 0 tears naturale ii 2 drp OU QID RF: 0 albuterol sulfate [ProAir HFA] 90 mcg/actuation HFA aerosol inhaler 1 - 2 puff Inhalation Q4H PRN Qty: 2 RF: 6 estradiol [Vagifem] 10 mcg tablet 10 mcg VG Twice Weekly Qty: 24 RF: 0 magnesium oxide 400 mg (241.3 mg magnesium) tablet 400 mg PO DAILY Qty: 90 RF: 3 ergocalciferol (vitamin D2) 10 mcg (400 unit) tablet 20 mcg PO DAILY Qty: 180 RF: 0 omeprazole 20 mg capsule,delayed release(DR/EC) 20 mg PO DAILY Qty: 90 RF: 3 colchicine 0.6 mg tablet 0.6 mg PO DAILY Qty: 7 RF: 0 Discharge Instructions Instructions: Chronic Pain (ED), Wrist Sprain (ED) Additional Instructions: Rest, ice, and elevate the affected area as much as possible. Your prescriptions have been sent electronically to your pharmacy. Call the pharmacy to make sure your prescriptions are ready before pickup. Take the prescriptions as directed. Call the orthopedics office today to schedule a follow-up appointment for reevaluation in the next 1 to 2 weeks. Return immediately to the emergency department if you develop any worsening or new concerning symptoms. Referrals: Kevin Deng MD [ [facility] STAFF PHYSICIAN] - Discharge Data Discharge Date/Time-TO BE ENTERED AT DEPARTURE: 12/17/20 08:00 Discharge Physician: Sanna Rai Medical Decision Making 65-year-old female with a history of chronic right wrist pain status post fracture as a child with surgery for chronic ulnar malformation and pain in her 30s presents for right wrist pain for the past few weeks, worse since last night. She states she was active yesterday at home cleaning around the house. She is right-handed. She does not take any medication for pain. Her right hand and wrist appears mild to moderately edematous. There is no erythema and the area is not hot to touch. She does have a history of gout but states this feels different than this. Suspect most likely wrist and hand sprain, strain, overuse injury. Does not appear consistent with septic arthritis. Will give a dose of oxycodone ibuprofen and obtain a right wrist x-ray. Right wrist x-ray notes degenerative changes but no acute findings. Patient reassessed and her pain is improved. Will place a right wrist splint. She is advised on importance of RICE. She is advised to take ibuprofen every 6 hours for the next few days and take oxycodone as needed for breakthrough pain. Patient was placed on orthopedic follow-up list to reassess within the next 1 to 2 weeks as she may need additional imaging, physical therapy, or steroid injection, etc. Usual and customary return precautions given prior to discharge. Medical Records Medical records reviewed: Yes I reviewed the patient's medical records. Imaging Data Radiologic Study: Radiologist's impression: XR WRIST RT COMPLETE CLINICAL HISTORY: R wrist pain, r/o acute fx. TECHNIQUE: 2D digital imaging was performed. COMPARISON: CR XR WRIST RT COMPLETE from 10/05/2019 FINDINGS: Again noted is resection of distal ulna with sparing of the most distal aspect of the ulna which is affixed to the distal radius with a single fixation screw. There are significant degenerative changes in the radiocarpal joint, most evident between the distal radius and the scaphoid-navicular bone. Small ossified density seen off the lateral aspect of this joint. Malalignment of the navicular-capitate joint is again noted. IMPRESSION: As above but no obvious acute fracture. Minimal if any significant radiographic change compared to September 2019. HPI General Mode of arrival: ambulatory. Date/Time Provider Initiated Documentation: 12/17/20 07:38. Limitations to Documentation: no limitations. Information obtained by: patient. HPI Narrative: Pt is a 65-year-old female with a history of chronic right wrist pain status post fracture as a child with surgery for chronic ulnar malformation and pain in her 30s presents for right wrist pain for the past few weeks, worse since last night. She denies any known injury but states she is right handed and has been doing a lot of housework lately. Pt states she has been having difficulty moving her wrist or hand since yesterday due to pain. Pt has not taken anything for pain today. Related Data Home Medications Medication Instructions Recorded Confirmed Probiotic 1 ea PO DAILY 12/29/17 09/12/20 Tears Naturale Ii 2 drp OU QID 03/17/18 09/12/20 riboflavin (vitamin B2) 250 mg 250 mg PO DAILY AM tab 01/01/19 12/17/20 tablet,extended release colchicine 0.6 mg PO DAILY #7 tab 10/05/19 09/12/20 albuterol sulfate 90 mcg/actuation 1 - 2 puff INHALATION Q4H PRN #2 02/01/20 12/17/20 aerosol inhaler inhaler estradiol 10 mcg vaginal tablet 10 mcg VG Twice Weekly #24 tab-cap 08/12/20 12/17/20 magnesium oxide 400 mg (241.3 mg 400 mg PO DAILY #90 tab 08/23/20 12/17/20 magnesium) tablet ergocalciferol (vitamin D2) 10 mcg 20 mcg PO DAILY #180 tab-cap 11/07/20 12/17/20 (400 unit) tablet omeprazole 20 mg capsule,delayed 20 mg PO DAILY #90 tab-cap 11/25/20 12/17/20 release ibuprofen 600 mg PO Q6H #20 tab 12/17/20 oxycodone 5 mg PO Q6H PRN #10 tab 12/17/20 Previous Rx's Medication Instructions Recorded colchicine 0.6 mg PO DAILY #7 tab 10/05/19 albuterol sulfate 90 mcg/actuation 1 - 2 puff INHALATION Q4H PRN #2 02/01/20 aerosol inhaler inhaler estradiol 10 mcg vaginal tablet 10 mcg VG Twice Weekly #24 tab-cap 08/12/20 magnesium oxide 400 mg (241.3 mg 400 mg PO DAILY #90 tab 08/23/20 magnesium) tablet ergocalciferol (vitamin D2) 10 mcg 20 mcg PO DAILY #180 tab-cap 11/07/20 (400 unit) tablet omeprazole 20 mg capsule,delayed 20 mg PO DAILY #90 tab-cap 11/25/20 release ibuprofen 600 mg PO Q6H #20 tab 12/17/20 oxycodone 5 mg PO Q6H PRN #10 tab 12/17/20 Allergies Allergy/AdvReac Type Severity Reaction Status Date / Time ceftriaxone Allergy Intermediate ITCHING; Verified 12/17/20 07:31 RASH Sulfa (Sulfonamide Allergy Intermediate ITCHY RASH Verified 12/17/20 07:31 Antibiotics) rosuvastatin AdvReac Intermediate NAUSEA Verified 12/17/20 07:31 sertraline AdvReac Intermediate diarrhea Verified 12/17/20 07:31 General Stated Complaint: Orthopedic ANTHONY: 3 Review of Systems All systems reviewed & are unremarkable except as noted in HPI and below PFSH Medical History Anxiety Kuhn's esophagus EGD neg 2016 Cervical radiculopathy at C6 Colon polyp Depressive disorder Esophagitis (05/19/16) Gastritis (05/19/16) Gastroesophageal reflux disease gastritis; HH Hiatal hernia Hyperlipidemia (01/02/13) Malignant neoplasm of female breast (07/28/93) stage I; lumpectomy, radiation, axillary resection Migraine with aura MRSA exposure Neural foraminal stenosis of cervical spine Peripheral neuralgia Pseudogout of hand Seborrheic keratosis (01/29/16) Smoker Surgical History (Updated 12/17/20 @ 08:49 by Sanna Rai DO) Biopsy of breast (~2001) Breast, Lumpectomy (~1993) left Cholecystectomy EGD - IV Sedation (05/10/16) Ligation of fallopian tube Reduction mammoplasty (~1994) right S/P colonoscopy 03/30/19 Tonsillectomy (~1958) Family History Mother Personal history of malignant neoplasm SKIN Father Essential hypertension Hyperlipidemia Stroke Grandfather No problems noted. Grandfather No problems noted. Grandmother Personal history of malignant neoplasm BREAST Grandmother No problems noted. Brother Essential hypertension Personal history of malignant neoplasm THYROID Hyperlipidemia Brother No problems noted. Brother No problems noted. Brother No problems noted. Daughter No problems noted. Daughter No problems noted. Social History (Updated 10/30/19 @ 09:54 by Emili Cano) Smoking/Tobacco Use Status: Current every day Tobacco Type: cigarettes Smoking risk assessment performed?: Yes Alcohol Intake: never Drug use: Never Substance use type: does not use Household members: significant other and family Housing: house Number of Children: 2 current occupation: Disabled What type of physical activity do you participate in: walking and independent ambulation Do you feel safe at home: Yes Do you feel safe in your relationship?: Yes History History 3 Para 2 Hx # Term Pregnancies Multiple births Hx # Pregnancies Ectopic pregnancies AB induced Hx Number of Living Children AB spontaneous Exam Const General: cooperative, healthy appearing and no acute distress HENMT Head: normal to inspection Mouth: oral mucosae normal Eyes General: appearance normal, both eyes and all related structures Neck Neck: normal visual inspection Resp Effort & Inspection: normal respiratory effort and able to speak in complete sentences Cardio Rate: regular rate Skin General skin exam: no rashes or lesions noted Neuro General: patient alert, patient awake and patient oriented x3 Motor: muscle tone normal throughout Extrem Other: Tenderness to palpation of right dorsal and volar wrist. Mild to moderate edema noted to right wrist and throughout entire hand. There is no erythema and hand and wrist does not feel hot to touch. She has limitation of range of motion of right hand and wrist which appears to be due to pain. Right radial and ulnar pulses intact. Psych Appearance: grossly normal Affect: normal affect Course Vital Signs Vital signs: Vital Signs Temperature 98.2 F 12/17/20 07:26 Pulse 101 H 12/17/20 07:26 Respiratory Rate 18 12/17/20 07:26 Blood Pressure 157/97 H 12/17/20 07:26 Pulse Oximetry 98 12/17/20 07:26 Temperature 98.2 F 12/17/20 07:26 Temperature Source Temporal Artery Scan 12/17/20 07:26 Pulse 101 H 12/17/20 07:26 Respiratory Rate 18 12/17/20 07:26 Blood Pressure 157/97 H 12/17/20 07:26 Blood Pressure Position Sitting 12/17/20 07:26 Pulse Oximetry 98 12/17/20 07:26 Oxygen Delivery Method Room Air 12/17/20 07:26 Oxygen Flow Rate 0 12/17/20 07:26 Pain Level 10 12/17/20 07:26
[2020-12-17] MEDS: Ibuprofen 600 MG TAB PO (07:57)
[2020-12-17] MEDS: oxyCODONE 5 MG TAB PO (07:58)
== END 2020-12-17 08:00 | disposition home or self-care (01) ==
PROVIDERS: Emergency Provider Physician Assistant; PCP Emergency Medicine
DX: S63.591A Other specified sprain of right wrist, initial encounter (principal); X58.XXXA Exposure to other specified factors, initial encounter; G89.29 Other chronic pain; M25.531 Pain in right wrist
CPT/HCPCS: 29125; 99283; 73110

== ENCOUNTER 2021-03-03 02:59 | Outpatient (CLI) | payer MEDICAID, SELFPAY ==
--- NOTE | 2021-03-03 08:30 | DI.MAMMO_ITS ---
Exam(s) MG MAMMO SCREENING 60 MIN DUR EXAM: MG MAMMO SCREENING 60 MIN DUR CLINICAL HISTORY: breast cancer screening,PERSONAL H/O BREAST CA,Z85.3,Z12.39 TECHNIQUE: Bilateral full field digital CC and MLO mammographic images were obtained with 3D tomosyn thesis and utilizing computer aided detection (CAD). COMPARISON: Available for comparison. FINDINGS: Masses/Architectural Distortion: Status post left lumpectomy. No suspicious masses. Microcalcifications: No suspicious pleomorphic-type are seen. Skin Thickening/Nipple Retraction: None. IMPRESSION: 1. No significant interval change with no specific features of malignancy noted. 2. Unless there is more urgent need, screening mammography is recommended, as per [place] [employer] guidelines. 3. Findings were discussed with the patient on the date of the examination. BI-RADS Category 2 - Benign Findings Breast Density - Category B - Scattered areas of fibroglandular density Breast density category C or D implies that the patient has dense breast tissue. Dense breast tissue is very common and is not abnormal but dense breast tissue can make it harder to find cancer on a ma mmogram. Also, dense breast tissue may increase their breast cancer risk. This information about the result of the mammogram report was provided to the patient to raise their awareness. Use this report when you speak with the patient about their risks for breast cancer, which includes their family hist ory. At that time, you may recommend for more screening tests (Ultrasound or MRI) as they might be us eful based on their risk. A negative radiographic report should not delay biopsy if a dominant or clinically suspicious mass is present. Up to ten percent of cancers are not identified on mammography. A negative report may reinforce clinical impression. Adenosis and dense breasts may obscure an underlying neoplasm. False positive reports average 6 to 10%. Patient will receive a letter notifying them of these results.
== END 2021-03-03 03:19 ==
PROVIDERS: PCP Emergency Medicine; Visit Provider Emergency Medicine
DX: Z12.31 Encounter for screening mammogram for malignant neoplasm of breast (principal); R92.8 Other abnormal and inconclusive findings on diagnostic imaging of breast; Z85.3 Personal history of malignant neoplasm of breast
CPT/HCPCS: 77063; 77067

== ENCOUNTER 2021-03-19 01:38 | Outpatient (CLI) | payer MEDICAID, SELFPAY ==
--- NOTE | 2021-03-19 07:00 | DI.CT_ITS ---
Exam(s) CT HEAD CERVICAL SPINE WO EXAM: CT HEAD CERVICAL SPINE WO CLINICAL HISTORY: dizziness,headache,dysequilibrium,r42,r51.9. TECHNIQUE: Imaging Protocol: Axial computed tomography images with coronal and sagittal reformatted images were created and reviewed COMPARISON: No exams were available for comparison FINDINGS: BRAIN: There are no skull fractures nor fluid in the visualized paranasal sinuses. There is no evidence of intracranial hemorrhage, mass effect, or shift of midline structures. There are no extra-axial fluid collections. The ventricles are not enlarged or shifted and there is no blo od within the ventricular system nor within the basal cisterns. CERVICAL SPINE: There is evidence of previous surgery. There are intervertebral disc space devices at C 3-4 and C4-5 levels as well as a fusion device at the C5-6 level with affective fusion at this level. Advanced c hronic degenerative disc space narrowing at C6-7 level is noted. None of the intervertebral disc spa ce devices extend beyond the posterior cortices of the vertebral bodies. There are no fractures evident. There is facet arthropathy on the right side at C2-3. C3-4 facets a re fused. Moderate degenerative changes right facet C4-5 and below. On the left side the C 3-4 face ts are not truly fused but exhibits some degenerative change as does facet joints at C4-5 level. Par tial fusion left facet C5-6. there is no evidence of facet joint malalignment. No osseous lesions. Difficult to determine if there disc herniations here given the amount of artifact. However, there i s no tight spinal canal stenosis. IMPRESSION: No acute intracranial findings on this noninfused CT scan of the brain. No evidence of cervical spine fracture, malalignment, nor acute compromise of the cervical spinal can al. Multilevel surgical findings in the cervical spine as described above at C 3-4, C4-5, and C5-6 l evels. There is no evidence of tight spinal canal stenosis. RADIATION DOSE DELIVERED: 1,014.47mGy.cm Total DLP DATA REPOSITORY: All CT scans at this facility are submitted to the National Radiology Data Registry (NRDR) Dose Index Registry (DIR) with the [employer] ([employer]). RADIATION OPTIMIZATION: All CT scans at this facility use at least one of these dose optimization te chniques: automated exposure control; mA and/or kV adjustment per patient size (includes targeted exa ms where dose is matched to clinical indication); or iterative reconstruction.
== END 2021-03-19 01:58 ==
PROVIDERS: PCP Emergency Medicine; Visit Provider Nurse Practitioner
DX: R42 Dizziness and giddiness (principal); R51.9 Headache, unspecified
CPT/HCPCS: 70450; 72125

== ENCOUNTER 2021-06-29 02:18 | Outpatient (CLI) | payer MEDICAID, SELFPAY ==
[2021-06-29 11:31] LABS: Source Nasal/Nares
[2021-06-29 16:27] LABS: COVID-19 PCR Negative (Negative)
== END 2021-06-29 02:19 | disposition home or self-care (01) ==
LOC: LBO 02:18
PROVIDERS: PCP Emergency Medicine; Visit Provider Student in an Organized Health Care Education/Training Program
DX: Z20.822 Contact with and (suspected) exposure to COVID-19 (principal)
CPT/HCPCS: 87635

== ENCOUNTER 2021-06-30 11:52 | Day surgery (SDC) | payer MEDICAID, SELFPAY ==
[2021-06-30 12:39] VITALS: BP 141/66; PULSE 90; RESP 18; TEMP 36.3; O2SAT 98
[2021-06-30] MEDS: Lactated Ringers 1,000 ML 80 ML IV (13:01)
--- NOTE | 2021-06-30 14:31 | W.PM.DSUDISC ---
Discharge Plan Disposition Patient Disposition: HOME Condition: Good Discharge Details Reason For Visit: Right wrist painful hardware/CTS Attending Provider: Fidel Nam Primary Care Provider: Hua Hernandez Home Meds and New Rx's Prescriptions: New acetaminophen 500 mg tablet 500 mg PO Q6H PRN (Reason: pain) Qty: 60 RF: 2 ibuprofen 600 mg tablet 600 mg PO TID PRN (Reason: pain) Qty: 60 RF: 0 hydrocodone-acetaminophen 5-325 mg tablet 1 tab PO Q6H PRN (Reason: severe pain) Qty: 6 RF: 0 Continued riboflavin (vitamin B2) 250 mg tablet extended release 250 mg PO DAILY AM RF: 0 colchicine 0.6 mg tablet 0.6 mg PO DAILY PRNRF: 0 albuterol sulfate [ProAir HFA] 90 mcg/actuation HFA aerosol inhaler 1 - 2 puff Inhalation Q4H PRN Qty: 2 RF: 6 Probiotic 1 EACH capsule 1 ea PO DAILY RF: 0 tears naturale ii 2 drp OU QID RF: 0 estradiol [Vagifem] 10 mcg tablet 10 mcg VG Twice Weekly Qty: 24 RF: 0 magnesium oxide 400 mg (241.3 mg magnesium) tablet 400 mg PO DAILY Qty: 90 RF: 3 ergocalciferol (vitamin D2) 10 mcg (400 unit) tablet 20 mcg PO DAILY Qty: 180 RF: 0 omeprazole 20 mg capsule,delayed release(DR/EC) 20 mg PO HS RF: 0 Discontinued ibuprofen 600 mg tablet 600 mg PO Q6H Qty: 60 RF: 2 Discharge Instructions Additional Instructions: Wrist Hardware Removal/Carpal Tunnel Release/Injection Under Fluroscopy Discharge Instructions Activity: You should keep the hand/wrist elevated for the first few days. You may use the other fingers as tolerated but avoid trying to do too much too soon. You may perform light activities with the dressing in place. Dressing/Cast: Your dressing may stay in place for 2-3 days. You can then bathe and dry the incision. Cover with a light dressing or band-aide daily until follow-up. Medications: - You should take Tylenol and Ibuprofen for baseline pain control. - You have been prescribed a stronger pain medication, Hydrocodone, for breakthrough pain. - You may apply ice over the wrist, just double bag so it doesn't get wet. Follow-up: 10-14 days Stand Alone Forms: [place] C. Tunnel Release Activity:: Elevate Remove Dressings/Wound Care:: 72 hours Shower/Bathe:: 72 hours Diet:: As Tolerated Discharge Orders Discharge Orders: Discharge Order (Routine); Ordered 06/30/21 Ordered By: Hedy Etienne DS: Diagnosis Discharge Diagnosis (1) Chronic pain of right wrist: Status: Acute (2) History of surgery on right wrist: Status: Acute (3) Arthritis of right wrist: Status: Acute (4) Painful orthopaedic hardware: Status: Acute (5) Carpal tunnel syndrome of right wrist: Status: Acute
--- NOTE | 2021-06-30 14:43 | ANES.PREOP_ITS ---
General Info Date of Service Date Performed: 06/30/21 Height: 5 ft 2 in Weight: 74.1 kg Body Mass Index (BMI): 29.8 Surgical Procedure: Operation Date: 06/30/21 13:55 Proposed Procedures Side Surgeon p Wrist ECTR Right Fidel Nam MD s Injection rt wrist with fluro Right Fidel Nam MD s Hardware removal rt wrist Right Fidel Nam MD Meds Allergies and Home Medications Allergies Allergy/AdvReac Type Severity Reaction Status Date / Time ceftriaxone Allergy Intermediate ITCHING; Verified 06/30/21 12:50 RASH Sulfa (Sulfonamide Allergy Intermediate ITCHY RASH Verified 06/30/21 12:50 Antibiotics) rosuvastatin AdvReac Intermediate NAUSEA Verified 06/30/21 12:50 sertraline AdvReac Intermediate diarrhea Verified 06/30/21 12:50 Home Medication Medication Instructions Recorded Probiotic 1 ea PO DAILY 12/29/17 Tears Naturale Ii 2 drp OU QID 03/17/18 riboflavin (vitamin B2) 250 mg 250 mg PO DAILY AM tab 01/01/19 tablet,extended release estradiol 10 mcg vaginal tablet 10 mcg VG Twice Weekly #24 tab-cap 08/12/20 magnesium oxide 400 mg (241.3 mg 400 mg PO DAILY #90 tab 08/23/20 magnesium) tablet ergocalciferol (vitamin D2) 10 mcg 20 mcg PO DAILY #180 tab-cap 11/07/20 (400 unit) tablet colchicine 0.6 mg tablet 0.6 mg PO DAILY PRN tab 03/17/21 albuterol sulfate 90 mcg/actuation 1 - 2 puff INHALATION Q4H PRN #2 04/23/21 aerosol inhaler inhaler omeprazole 20 mg PO HS 06/29/21 acetaminophen 500 mg PO Q6H PRN #60 tab 06/30/21 hydrocodone-acetaminophen 1 tab PO Q6H PRN #6 tab 06/30/21 ibuprofen 600 mg PO TID PRN #60 tab 06/30/21 Current Visit Medications: Current Medications Generic Name Dose Route Start Last Admin Trade Name Freq PRN Reason Stop Dose Admin Acetaminophen 650 mg 06/30/21 14:30 Acetaminophen 325 Mg Tab PO Q4H PRN PRN Hydrocodone Bitart/Acetaminophen 0 tab 06/30/21 14:30 Hydrocodone 5/Acetaminophen 325 Tab PO Q3H PRN PRN Pain Ringer's Solution 1,000 mls @ 80 mls/hr 06/30/21 06:00 06/30/21 13:01 IV 07/29/21 23:59 80 mls/hr INFUSION OSMANI Administration Cefazolin Sodium/Dextrose 2 gm in 50 mls @ 100 mls/hr 06/30/21 06:00 Ancef Duplex IVPB 07/29/21 23:59 PREOP OSMANI IV Miscellaneous Supplies 1 each 06/30/21 06:00 Iv Access IV 07/29/21 23:59 DIRECTED OSMANI Sodium Chloride 0 ml 06/30/21 06:00 Normal Saline Flush 10 Ml Syr IV 07/29/21 23:59 PRN PRN Sodium Chloride 0 ml 06/30/21 06:00 Normal Saline 10 Ml Vial IJ 07/29/21 23:59 DIRECTED PRN Sterile Water 0 ml 06/30/21 06:00 Water,Injection,Sterile 10 Ml Vial IJ 07/29/21 23:59 DIRECTED PRN PFSH Active Problems Active Problems: Problem Status Onset Code Carpal tunnel syndrome of right wrist G56.01 Concussion ~1975 S06.0X9A Encounter for screening colonoscopy Z12.11 Visual field defect H53.40 Status post tonsillectomy Z90.89 Status post cholecystectomy Z90.49 Status post breast lumpectomy Z98.890 Status post breast biopsy Z98.890 History of cervical discectomy Z98.890 History of bilateral ligation of fallopian tubes Z98.51 Sprain of right wrist S63.501A Chronic pain of right wrist M25.531, G89.29 History of surgery on right wrist Z98.890 Arthritis of right wrist M19.031 Dizziness R42 Disequilibrium R42 Headache R51.9 Painful orthopaedic hardware T84.84XA MRSA exposure Z20.818 Pseudogout of hand M11.249 Neural foraminal stenosis of cervical spine M99.81 Cervical radiculopathy at C6 M54.12 Colon polyp K63.5 Esophagitis 05/19/16 K20.9 Gastritis 05/19/16 K29.70 Gastroesophageal reflux disease K21.9 Smoker F17.200 Seborrheic keratosis 01/29/16 L82.1 Peripheral neuralgia M79.2 Migraine with aura G43.109 Malignant neoplasm of female breast 07/28/93 C50.919 Hyperlipidemia 01/02/13 E78.5 Hiatal hernia K44.9 Depressive disorder F32.9 Kuhn's esophagus K22.70 Anxiety F41.9 Medical History Medical History Anxiety Kuhn's esophagus EGD neg 2015 Carpal tunnel syndrome of right wrist Cervical radiculopathy at C6 Colon polyp COVID-19 08/2020 Depressive disorder Esophagitis (05/19/16) Gastritis (05/19/16) Gastroesophageal reflux disease gastritis; HH Hiatal hernia Hyperlipidemia (01/02/13) Malignant neoplasm of female breast (07/28/93) stage I; lumpectomy, radiation, axillary resection Migraine with aura MRSA exposure Neural foraminal stenosis of cervical spine Peripheral neuralgia Pseudogout of hand Seborrheic keratosis (01/29/16) Smoker Surgical History Surgical History Biopsy of breast (~2001) Breast, Lumpectomy (~1993) left Cholecystectomy EGD - IV Sedation (05/10/16) Ligation of fallopian tube Reduction mammoplasty (~1994) right S/P colonoscopy 03/30/19 Tonsillectomy (~1958) Tobacco Smoking/Tobacco Use Status: Current every day Tobacco Type: cigarettes Smoking c igarettes per day: 10 Passive smoking exposure: No Alcohol Alcohol Intake: never Substance Use Substance use: Never Substance use type: does not use Prental History History 3 Para 2 Hx # Term Pregnancies Multiple births Hx # Pregnancies Ectopic pregnancies AB induced Hx Number of Living Children AB spontaneous Vital Signs and Lab Results Vital Signs Most Recent Vital Signs in EMR: Most Recent Vital Signs Temp Pulse Resp BP Pulse Ox 36.3 C L 90 18 141/66 H 98 06/30/21 12:39 06/30/21 12:39 06/30/21 12:39 06/30/21 12:39 06/30/21 12:39 Lab Results Blood Type / Crossmatch: No Data to Display Complete Blood Count: No Data to Display Complete Metabolic Panel: No Data to Display Liver Function Panel: No Data to Display Coagulation Panel: No Data to Display Cardiac Panel: No Data to Display Arterial Blood Gas: No Data to Display Venous Blood Gas: No Data to Display Pancreas Panel: No Data to Display Thyroid Panel: No Data to Display Infectious Disease: Coronavirus (COVID-19)(PCR) Negative (Negative) 06/29/21 09:10 06/29/21 Coronavirus 2019 Source Nasal/Nares 06/29/21 09:10 06/29/21 Blood Cultures: No Data to Display Toxicology Panel: No Data to Display Anesthesia Assessment and Plan Anesthesia History Personal History: No History of Anesthesia Complications Family History: No Family History of Anesthesia Complications Exercise Tolerance Exercise Tolerance: Metabolic Equivalents>4 Pertinent Negatives Pertinent Negatives: No Symptoms of GERD, No Major Cardiovascular Symptoms or Complaints, No Major Pulmonary Symptoms or Complaints and No History of CVA/TIA Cardiac & Pulmonary Exam Cardiac Exam: Normal S1/S2 Heart Sounds Pulmonary Exam: Clear Bilateral Breath Sounds Airway Exam Known Difficult Airway: No Mallampati Class: 2 Mouth Opening: Normal (> 3cm) Thyromental Distance: Greater than 3 cm Neck Range of Motion: Full ROM Neck Circumference: Normal Teeth Condition: Generalized Poor Dentition and Removable Dentures/Plates Upper ASA Classification ASA Score: ASA 3 Emergency Case?: No NPO Status NPO Status: NPO Clears >2 hours, Solids >8 hours Anesthesia Plan Resuscitation Status: Full Code Anesthesia Technique: General Anesthesia Airway Planned: Natural Airway Monitors Used: Standard Monitors
--- NOTE | 2021-06-30 14:45 | DI.RAD_ITS ---
Exam(s) XR WRIST RT LIMITED EXAM: XR WRIST RT LIMITED CLINICAL HISTORY: injection w/fluro; hardware removal. TECHNIQUE: 2D and realtime digital imaging was performed. CONTRAST MATERIAL: Oral barium Oral water soluble contrast was administered. COMPARISON: No exams were available for comparison FINDINGS: Fluoroscopy was fight a during wrist arthrogram. Images reveal contrast in injected into the radioca rpal joint. Total fluoroscopy time 0.03 seconds. IMPRESSION: RADIATION DOSE DELIVERED: Marryr=0.0061 mGy
--- NOTE | 2021-06-30 15:05 | HPE_ITS ---
Date of service: 06/30/21 Time of Service: 15:06 Assessment and Plan Assessment and plan (1) Carpal tunnel syndrome of right wrist: Status: Acute (2) Chronic pain of right wrist: Status: Acute (3) Arthritis of right wrist: Status: Acute (4) Painful orthopaedic hardware: Status: Acute Assessment and plan: Lubna is a 65-year-old who has carpal tunnel syndrome of the right hand as well as painful hardware and a painful right wrist with arthritis. Under the recommendations of [facility] I offered endoscopic carpal tunnel release, hardware removal, and intra-articular right wrist injection. I discussed this with her in detail. I reviewed the risk of the procedure to include bleeding, infection, pain, stiffness, damage to nerves and vessels, damage to muscles and tendons, continued numbness. Despite these risk, she elects to proceed. History of Present Illness History of Present Illness Chief Complaint: Right Hand Numbness and Pain Narrative: Lubna is a 65-year-old who I seen previously for right hand pain and numbness and tingling. She has a complex history about her hand with previous distal ulnar fusion and significant carpal arthritis. She was seen at [facility] who recommended carpal tunnel release, hardware removal, and wrist injection under fluoroscopy. She desired that this be done locally which I agreed to proceed with. She continues to have the pain and the numbness about the hand. Review of Systems All systems reviewed & are unremarkable except as noted in HPI and below PFSH Medical History Anxiety Kuhn's esophagus EGD neg 2015 Carpal tunnel syndrome of right wrist Cervical radiculopathy at C6 Colon polyp COVID-19 08/2020 Depressive disorder Esophagitis (05/19/16) Gastritis (05/19/16) Gastroesophageal reflux disease gastritis; HH Hiatal hernia Hyperlipidemia (01/02/13) Malignant neoplasm of female breast (07/28/93) stage I; lumpectomy, radiation, axillary resection Migraine with aura MRSA exposure Neural foraminal stenosis of cervical spine Peripheral neuralgia Pseudogout of hand Seborrheic keratosis (01/29/16) Smoker Surgical History Biopsy of breast (~2001) Breast, Lumpectomy (~1993) left Cholecystectomy EGD - IV Sedation (05/10/16) Ligation of fallopian tube Reduction mammoplasty (~1994) right S/P colonoscopy 03/30/19 Tonsillectomy (~1958) Family History Mother Personal history of malignant neoplasm SKIN Father Essential hypertension Hyperlipidemia Stroke Grandfather No problems noted. Grandfather No problems noted. Grandmother Personal history of malignant neoplasm BREAST Grandmother No problems noted. Brother Essential hypertension Personal history of malignant neoplasm THYROID Hyperlipidemia Brother No problems noted. Brother No problems noted. Brother No problems noted. Daughter No problems noted. Daughter No problems noted. Social History Smoking/Tobacco Use Status: Current every day Tobacco Type: cigarettes Smoking risk assessment performed?: Yes Alcohol Intake: never Drug use: Never Substance use type: does not use Household members: significant other and family Housing: house Number of Children: 2 current occupation: Disabled What type of physical activity do you participate in: walking and independent ambulation Do you feel safe at home: Yes Do you feel safe in your relationship?: Yes History History 3 Para 2 Hx # Term Pregnancies Multiple births Hx # Pregnancies Ectopic pregnancies AB induced Hx Number of Living Children AB spontaneous Meds Allergies and Home Medications Allergies Allergy/AdvReac Type Severity Reaction Status Date / Time ceftriaxone Allergy Intermediate ITCHING; Verified 06/30/21 12:50 RASH Sulfa (Sulfonamide Allergy Intermediate ITCHY RASH Verified 06/30/21 12:50 Antibiotics) rosuvastatin AdvReac Intermediate NAUSEA Verified 06/30/21 12:50 sertraline AdvReac Intermediate diarrhea Verified 06/30/21 12:50 Home Medications Medication Instructions Recorded Confirmed Type Probiotic 1 ea PO DAILY 12/29/17 06/30/21 History Tears Naturale Ii 2 drp OU QID 03/17/18 06/30/21 History riboflavin (vitamin B2) 250 mg 250 mg PO DAILY AM tab 01/01/19 06/30/21 History tablet,extended release estradiol 10 mcg vaginal tablet 10 mcg VG Twice Weekly #24 tab-cap 08/12/20 06/30/21 Rx magnesium oxide 400 mg (241.3 mg 400 mg PO DAILY #90 tab 08/23/20 06/30/21 Rx magnesium) tablet ergocalciferol (vitamin D2) 10 mcg 20 mcg PO DAILY #180 tab-cap 11/07/20 06/30/21 Rx (400 unit) tablet colchicine 0.6 mg tablet 0.6 mg PO DAILY PRN tab 03/17/21 06/30/21 History albuterol sulfate 90 mcg/actuation 1 - 2 puff INHALATION Q4H PRN #2 04/23/21 06/30/21 Rx aerosol inhaler inhaler omeprazole 20 mg PO HS 06/29/21 06/30/21 History acetaminophen 500 mg PO Q6H PRN #60 tab 06/30/21 Rx hydrocodone-acetaminophen 1 tab PO Q6H PRN #6 tab 06/30/21 Rx ibuprofen 600 mg PO TID PRN #60 tab 06/30/21 Rx Exam Narrative Exam Narrative: Evaluation of the right hand shows well-healed incision. There is a radial tilt to the wrist. The screw of the distal ulna is prominent. This is also painful to palpation. Slight decrease sensation in the median nerve distribution. No overlying skin changes or abnormalities. Resp Effort & Inspection: normal respiratory effort Auscultation: clear to auscultation bilaterally Cardio Rate: regular rate Rhythm: regular rhythm Results Last Vital Signs Temp 36.3 C L 06/30/21 12:39 Pulse 90 06/30/21 12:39 Resp 18 06/30/21 12:39 BP 141/66 H 06/30/21 12:39 Pulse Ox 98 06/30/21 12:39
[2021-06-30 15:16] VITALS: BMI 29.8
[2021-06-30] MEDS: ceFAZolin 2 GM/50 ML BAG IVPB (15:50)
[2021-06-30] MEDS: Bupivacaine 0.5% Pres-Free 30 ML VIAL (16:00)
[2021-06-30] MEDS: methylPREDNISolone ACETATE 80 MG/ML VIAL (16:00)
[2021-06-30] MEDS: Omnipaque 300 MG/ML 50 ML BTL (16:00)
[2021-06-30 16:16] VITALS: BP 120/66; PULSE 77; RESP 22; TEMP 36.4; O2SAT 96
--- NOTE | 2021-06-30 16:18 | W.ANESPOSTOP ---
Postoperative Evaluation Date, Time and Location Date Performed: 06/30/21 Time Performed: 16:18 Patient Location: Day Surgery Unit Vital Signs Most Recent Imported Vital Signs: Most Recent Vital Signs Temp Pulse Resp BP Pulse Ox 36.3 C L 90 18 141/66 H 98 06/30/21 12:39 06/30/21 12:39 06/30/21 12:39 06/30/21 12:39 06/30/21 12:39 Most Recent Manually Entered Vital Signs: Adult Blood Pressure: 120/66 Heart Rate: 75 Respirations: 19 Oxygen Saturation (%): 99 Temperature (C): 36.4 C Pain Score (0-10 Scale): 0 Pain Score Most Recent Pain Score: Most Recent Pain Score Pain Level 0 06/30/21 12:39 Assessment Mental Status: Awake (Alert & Oriented to Patient Baseline) Airway and Respiratory Function: Patent airway with normal (patient baseline) respiratory exam Cardiovascular Function: Hemodynamically Stable Hydration Status: Adequately Hydrated Nausea & Vomiting: No Nausea or Vomiting Pain: Pt. Denies Any Pain Peripheral Nerve Block: Patient did not receive a nerve block
[2021-06-30 16:19] VITALS: BP 120/66; PULSE 75; RESP 19; TEMPC 36.4; O2SAT 99
[2021-06-30] MEDS: HYDROcodone 5/Acetaminophen 325 TAB PO (16:37)
[2021-06-30 16:45] VITALS: BP 148/84; PULSE 67; RESP 18; TEMP 36.4; O2SAT 95
--- NOTE | 2021-07-01 21:25 | ROE_ITS ---
Date of service: 06/30/21 Time of Service: 14:26 Operative Note Operative Note DATE OF PROCEDURE: 06/30/21 PRE-OP DIAGNOSIS: Right Carpal Tunnel Syndrome, Right Wrist Arthritis, Painful Retained Orthopaedic Hardware of Right Wrist POST-OP DIAGNOSIS: same PROCEDURE: Right Endoscopic Carpal Tunnel Release, Removal of Hardware (Deep) from the Right Wrist, Right Wrist Injection under Fluoroscopic Guidance SURGEON: Fidel Nam ANESTHESIA TYPE: General:No Airway Refer to Anesthesia Record ESTIMATED BLOOD LOSS: 0 PATHOLOGY: none sent TOURNIQUET TIME: 8 COMPLICATIONS: None Patient was transported to: same day Patient's condition: stable Indications: I have seen Lubna in clinic for symptoms of carpal tunnel syndrom e. The numbness, tingling, and pain limited function. She also continued to have pain about the right wrist as well as pain from a prominent screw from previous distal ulnar surgery. Nonoperative measures such as bracing, time, activity modifications had been tried but disability and pain persisted. I discussed carpal tunnel release with the patient as well as fluoroscopic wrist injection and removal of the screw. I reviewed the risks of the procedure to include, but not limited to, bleeding, infection, pain, stiffness, incomplete release, damage to nerves or vessels, persistent numbness, recurrence. Despite these risks, the patient elected to proceed. Findings: The carpal tunnel didn't feel exquisitely tight but was somewhat oddly positioned and entered without difficulty. This was dilated and released successfully with the endoscopic with increased space within the tunnel. The antebrachial fascia was released proximally freeing the median nerve at the wrist. The single screw from the distal ulna was removed. Additionally, a fluoroscopically guided injection of the wrist joint was performed with confirmation of Omnipaque solution into the radiocarpal joint. Procedure Description: Lubna was greeted in the preoperative holding area where the correct side was identified and marked. The consent was reviewed with the patient and signed. The history and physical was updated. All questions were answered. Lubna was taken back to the operating room. The patient was placed into the supine position on the operating room table with the right arm on an arm board. All bony prominences were well padded. Prophylactic antibiotics in the form of Cefazolin were administered. The right arm was then prepped with Chloraprep and draped in a standard fashion with stockinette and extremity drape. A timeout to confirm correct identity, side and site, procedure, allergies, anesthesia, and medical concerns was performed. The surgical site was marked in the volar wrist creases in line with the radial border of the fourth ray. This area was anesthetized with approximately 6cc of 1% Lidocaine. The limb was then exsanguinated with an Esmarch and an Esmarch tourniquet was applied to the forearm since IV access had to be on this side. The skin was incised with a 15 blade, approximately 1cm. The skin only was cut and the deeper tissue was dissected bluntly with a tenotomy scissor, avoiding passing nerve and venous structures. The fascia was penetrated and opened bl untly. A two-prong skin hook was placed under this proximal fascial edge. A series of hamate finders were used to identify and dilate the carpal tunnel. Synovial elevator was used to free synovial attachments to the underside of the transverse carpal ligament. My thumb was kept in the palm to nicole the distal extent of the carpal tunnel and correctly position the hand. The orientation of the carpal tunnel was somewhat different given the positioning of her wrist and her hand compared to her forearm. However, the Microaire endoscope was inserted without difficulty and without resistance. Excellent visualization showed horizontally running fibers of the transverse carpal ligament (TCL). The distal extent of the TCL was visualized and the end of the scope palpated with the thumb. The blade was elevated and withdrawn from distal to proximal. The TCL was split into two flaps. The endoscope was reinserted to confirm complete release and any remnant ligament was incised. The scope was withdrawn and the proximal aspect of the carpal tunnel was grossly inspected and appeared release with the median nerve visible. The antebrachial fascia at the level of the wrist was then freed from the overlying skin and then the underlying median nerve with blunt dissection. This was transected longitudinally for about 3cm proximal to the wrist incision. The wound was then irrigated with easy flow of irrigant distally and proximally. The incision was closed with a single 4-0 Nylon suture. The screw from the distal ulna was then removed. An approximately 1 second incision was made overlying the screw. Deeper dissection was carried down through the deep fascia and the periosteum of the distal ulna. Screw was identified in the periosteal tissue was elevated around the screw. Screw was then removed without significant difficulty. This wound was closed with a single 4-0 nylon suture. Lastly, using fluoroscopy, a radiocarpal injection was performed. With a distal radial starting point between the radius and the scaphoid, a needle was inserted into the radiocarpal joint. A small amount of Omnipaque solution was injected which confirmed to correctly be within the radiocarpal joint I then injected the joint with 1.5 cc of 0.5% bupivacaine and 40 mg of Depo-Medrol. The 2 wounds were dressed with Xeroform, Gauze, Kerlix and Magno. The tourniquet was deflated with the initial dressing and held with some pressure. Blood flow returned easily to all digits with capillary refill less than 2 seconds. The patient tolerated the procedure well and was returned to the Same Day Surgery area in a stable condition suffering no known complication.
== END 2021-06-30 17:12 | disposition home or self-care (01) ==
PROVIDERS: PCP Emergency Medicine; Visit Provider Student in an Organized Health Care Education/Training Program
PROC: 01N54ZZ Release Median Nerve, Percutaneous Endoscopic Approach (ICD-10-PCS; CPT 29848; principal; 2021-06-30 13:45)
PROC: (CPT 29848; 2021-06-30 13:45)
PROC: (CPT 29848; 2021-06-30 13:45)
DX: G56.01 Carpal tunnel syndrome, right upper limb (principal); M19.031 Primary osteoarthritis, right wrist; T84.84XA Pain due to internal orthopedic prosthetic devices, implants and grafts, initial encounter; G89.29 Other chronic pain; M25.531 Pain in right wrist
CPT/HCPCS: 29848; 20680; 20605; 76000; 73100; J0690; J1040; J2001; J2405; Q9967

== ENCOUNTER 2021-09-09 14:46 | Outpatient (REF) | payer MEDICAID, SELFPAY | END 2021-09-09 14:47 | disposition home or self-care (01) | LOC: LBN 14:46 | PROVIDERS: PCP Emergency Medicine; Visit Provider Nurse Practitioner Women's Health | DX: R30.0 Dysuria (principal) | CPT/HCPCS: 87086 ==

== ENCOUNTER 2021-09-28 14:48 | Outpatient (REF) | payer MEDICAID, SELFPAY | END 2021-09-28 14:49 | disposition home or self-care (01) | LOC: LBN 14:48 | PROVIDERS: PCP Family Medicine; Visit Provider Nurse Practitioner Women's Health | DX: R30.0 Dysuria (principal); N76.0 Acute vaginitis | CPT/HCPCS: 87086; 87480; 87510; 87660 ==

== ENCOUNTER 2022-01-01 10:26 | Outpatient (CLI) | payer MEDICARE, MEDICAID, SELFPAY ==
--- NOTE | 2022-01-01 10:15 | RT.EKG_ITS ---
APPROVED REPORT Exam: Resting ECG Reason for Exam: welcome to medicare Patient Location: O HR:70 bpm ECG Measurements Heart Rate 70 AXIS PA 177 P 54 QRSd 86 QRS -66 QT 388 T 23 QTc 419 Conclusion Sinus rhythm...normal P axis, V-rate 60- 99 LAFB Poor R wave progression
== END 2022-01-01 10:27 | disposition home or self-care (01) ==
LOC: DI.CM 10:28
PROVIDERS: PCP Family Medicine; Visit Provider Family Medicine
DX: Z00.00 Encounter for general adult medical examination without abnormal findings (principal)
CPT/HCPCS: 93010

== ENCOUNTER 2022-01-08 02:46 | Outpatient (CLI) | payer OTHER, MEDICAID, SELFPAY ==
[2022-01-08 07:23] LABS: HCT 42.4 % (36.0-46.0); HGB 13.8 g/dL (11.2-15.7); MCH 31.7 pg (27.0-33.0); MCHC 32.5 % (32.0-36.0); MCV 97 fL (80-95); MPV 10.2 fL (8.0-11.0); Platelet Count 290 10^3/uL (130-400); RBC 4.36 10^6/uL (3.93-5.22); RDW 12.9 % (11.7-14.6); RDW-SD 46.2 fL; WBC 10.42 10^3/uL (4.4-10.8)
[2022-01-08 08:23] LABS: ALT 17 U/L (14-59); AST 14 U/L (15-37); Albumin 3.9 g/dL (3.4-5.0); Alkaline Phosphatase 67 U/L (46-116); Anion Gap 8.9 mmol/L (3-11); BUN 13 mg/dL (7-18); Bilirubin, Total 0.4 mg/dL (0.2-1.0); CO2 30.1 mmol/L (21.0-32.0); CREATININE 0.8 mg/dL (0.55-1.02); Calcium 9.2 mg/dL (8.5-10.1); Calculated LDL 209 mg/dL (<100); Chloride 106 mmol/L (98-107); Cholesterol 301 mg/dL (<200); Glucose 89 mg/dL (74-106); HDL Cholesterol 35 mg/dL (40-60); Potassium 4.8 mmol/L (3.5-5.1); Sodium 145 mmol/L (136-145); Total Protein 7.1 g/dL (6.4-8.2); Triglyceride 289 mg/dL (<150)
[2022-01-08 08:32] LABS: Lipase 102 U/L (73-393)
[2022-01-11 10:22] LABS: Hepatitis C Ab w Rflx HCV PCR Negative (Negative)
[2022-01-11 10:48] LABS: HIV-1/2 Ag & Ab Screen Negative (Negative)
== END 2022-01-08 02:47 | disposition home or self-care (01) ==
LOC: LBO 02:47
PROVIDERS: PCP Nurse Practitioner Family; Visit Provider Family Medicine
DX: E78.5 Hyperlipidemia, unspecified (principal); F17.200 Nicotine dependence, unspecified, uncomplicated; F32.9 Major depressive disorder, single episode, unspecified; Z11.59 Encounter for screening for other viral diseases; Z13.6 Encounter for screening for cardiovascular disorders; I10 Essential (primary) hypertension; R10.9 Unspecified abdominal pain
CPT/HCPCS: 36415; 80053; 80061; 83690; 85027; 86803; 87389

== ENCOUNTER 2022-02-04 02:47 | Outpatient (CLI) | payer OTHER, MEDICAID, SELFPAY ==
[2022-02-04] MEDS: Albuterol HFA 18 GM 200 PUFF INH IH (08:51)
[2022-02-04] MEDS: Inhaler, Assist Device 1 EACH MC (08:51)
--- NOTE | 2022-02-05 07:51 | W.PFT ---
Date of service: 02/04/22 Time of Service: 08:07 Pulmonary Function Test Result Requesting Provider Jose Baldwin Indications: COPD FAULKNER Interpretation Spirometry: There is no airflow limitation. There is no significant bronchodilator response. Impression Normal spirometry Clinical Correlation therefore is recommended.
== END 2022-02-04 02:48 | disposition home or self-care (01) ==
LOC: RT 02:47
PROVIDERS: PCP Nurse Practitioner Family; Visit Provider Family Medicine
DX: F17.210 Nicotine dependence, cigarettes, uncomplicated (principal); J44.9 Chronic obstructive pulmonary disease, unspecified
CPT/HCPCS: 94060

== ENCOUNTER → 2022-02-12 00:31 | Outpatient (CLI) | payer OTHER, MEDICAID, SELFPAY ==
--- NOTE | 2022-02-12 07:15 | DI.DEXA_ITS ---
Exam(s) XR DEXA BONE DENSITY W/WO KRISTIAN EXAM: XR DEXA BONE DENSITY W/WO KRISTIAN CLINICAL HISTORY: SCREENING FOR OSTEOPOROSIS IN POSTMENOPAUSAL WOMAN,Z78.0 TECHNIQUE: COMPARISON: CR LEFT FOREARM from 04/08/2018 FINDINGS: DEXA scan was performed according to the usual protocol. Please see the accompanying data sheets. F indings for left hip scanning are T-score -1.1 with left femoral neck T-score -2.0. Findings for lumbar spine scanning are T-score -0.4. Findings for left forearm scanning are T-score -0.5. IMPRESSION: DEXA scan findings consistent with osteopenia according to WHO criteria. The lateral vertebral scano gram shows no evidence of a vertebral compression fracture. RADIATION DOSE DELIVERED: Total DLP
== END ==
PROVIDERS: PCP Nurse Practitioner Family; Visit Provider Family Medicine
DX: Z78.0 Asymptomatic menopausal state; Z13.820 Encounter for screening for osteoporosis
CPT/HCPCS: 77080

== ENCOUNTER → 2022-02-22 02:23 | Outpatient (CLI) | payer OTHER, MEDICAID, SELFPAY ==
--- NOTE | 2022-02-22 07:45 | DI.CTLCSR_ITS ---
Exam(s) CT CHEST LUNG CANCER SCREEN EXAM: CT CHEST LUNG CANCER SCREEN CLINICAL HISTORY: Screening for lung cancer,SMOKER, F17.210. TECHNIQUE: Imaging Protocol: Low Dose Technique CONTRAST MATERIAL: None COMPARISON: No exams were available for comparison FINDINGS: CHEST: LUNGS: Left apical scarring noted. There are no ominous pulmonary nodules. There are no confluent in filtrates. No pleural effusions. MEDIASTINUM: There is no obvious hilar nor mediastinal adenopathy. CARDIAC: Heart size is normal. There is slight thickening of the pericardium over the cardiac apex, exhibiting a thickness of 5 millimeters, consistent with small pericardial effusion. Caliber thoraci c aorta is within normal limits. OTHER: Gallbladder surgically absent. No adrenal masses evident. Area of hypodensity in the medial aspect of the right hepatic lobe, difficult to evaluate on this type of noninfused low-dose study. T his area measures approximately 2.2 x 1.4 cm. OSSEOUS: No significant osseous lesions.Schmorl's node invagination in the superior endplates of few lower thoracic vertebral bodies incidentally noted. There are no compression. No listhesis. IMPRESSION: 1. No significant concerning pulmonary nodules nor infiltrates. 2. No pleural effusions nor intrathoracic adenopathy. Small pericardial effusion evident. 3. Lung RADS Cat 1S - Negative: No nodules and definitely benign nodules Is note that this patient has small pericardial effusion Lung-RADS 1.0 CATEGORIES: Category 0 - Prior chest CT exam(s) being located for comparison. Category 1 - Annual screening in 12 months. No nodules or definitely benign nodules. Category 2 - Annual screening in 12 months. Benign appearance. Nodules with low likelihood of becomin g active cancer. Category 3 - 6-month follow-up. Probably benign. Short-term follow-up suggested. Nodules with low lik elihood of becoming active cancer. Category 4A - 3-month follow-up and CT/PET if >8 mm in size. Suspicious finding. Findings which requi re additional testing. Category 4B - Findings which require additional testing and tissue sampling. Category 4X - Category 3 or 4 nodules with additional features or imaging findings that increases the suspicion of malignancy. Modifier S- Potentially clinically significant findings (non lung cancer) RADIATION DOSE DELIVERED: 69.51mGy.cm Total DLP 1.84mGy CTDIvol DATA REPOSITORY: All CT scans at this facility are submitted to the National Radiology Data Registry (NRDR) Dose Index Registry (DIR) with the [employer] (ACR). RADIATION OPTIMIZATION: All CT scans at this facility use at least one of these dose optimization te chniques: automated exposure control; mA and/or kV adjustment per patient size (includes targeted exa ms where dose is matched to clinical indication); or iterative reconstruction.
--- NOTE | 2022-02-22 14:45 | DI.US_ITS ---
APPROVED REPORT EXAM: Comprehensive 2D, Doppler, and color-flow Echocardiogram Patient Location: Out-Patient [employer]: Suni Lloyd RDCS (AE) Indications: Abnormal EKG Other Information Study Quality: Adequate Conclusion Normal left ventricular wall thickness and chamber size. Estimated ejection fraction is 55 to 60%. Wall motion is normal Normal right ventricular size and systolic function Both atria are normal in size There is no structural or hemodynamically significant valvular disease Wall motion Left Ventricle The left ventricle is normal size. The left ventricular systolic function is normal. The left ventric ular ejection fraction is within the normal range. There is normal left ventricular wall thickness. T here is normal LV segmental wall motion. There is no ventricular septal defect visualized. LVEF is 56 %. Right Ventricle The right ventricle is normal size. The right ventricular systolic function is normal. Atria The left atrium size is normal. The right atrium size is normal. The interatrial septum is intact wit h no evidence for an atrial septal defect. Aortic Valve The aortic valve is normal in structure. Aortic valve is trileaflet. There is no aortic valvular sten osis. No aortic regurgitation is present. Mitral Valve The mitral valve is normal in structure. No evidence of mitral valve stenosis. Trace mitral regurgita tion. Tricuspid Valve The tricuspid valve is normal in structure. There is no tricuspid valve stenosis. Trace tricuspid reg urgitation. Unable to assess PA pressure. Pulmonic Valve The pulmonary valve is normal in structure. There is no pulmonic valvular stenosis. Trace pulmonic re gurgitation. Great Vessels The aortic root is normal in size. The ascending aorta is normal in size. Aortic arch is not well vis ualized. IVC is normal in size and collapses >50% with inspiration. Pericardium There is no pericardial effusion. 2D Dimensions IVSD d PLAX 0.88 cm F: 0.6-1.0 LV Vol A2C d MOD 57.4 mL LVPW d PLAX 0.82 cm F: 0.6 - 1.0 LV Vol A4C d MOD 69.3 mL LVID d PLAX 4.41 cm F: 3.8 - 5.2 LA vol/ BSA A2C s A-L 27.1 mL/m2 LVDs 3.20 cm F: 2.2 - 3.5 LA vol/ BSA A4C s A-L 19.5 mL/m2 Ao Root d 2.77 cm F: 2.7 - 3.3 LA Vol/ BSA Biplane s A-L 23.3 mL/m2 RA Area A4C 9.10 cm2 LA Area A4C s MOD 14.00 cm2 RA Vol/ BSA A4C s A-L 10.4 mL/m2 LA Area A2C s MOD 16.27 cm2 Ao Asc Diam d 2.62 cm F: 2.3 - 3.1 LV EF A4C MOD 57.8 % LV EF Teichholz 51.9 % LV EF A2C MOD 56.6 % LVEF (Argueta's) 57.76 % F: 54 - 74 LV EF Biplane MOD 57.8 % LV Volume 50.83 mL F: 46 - 106 SV 37.28 mL LV Volume Index 29.21 mL/m2 F: 29 - 61 SV Index 21.44 mL/m2 LV Vol Biplane MOD 64.5 mL FS 26.35 % M-Mode TAPSE 2.17 cm (M/F) >1.7 LV Diastology MV E' medial 0.073 (>0.07 m/s) E/A Ratio 1.5 LV E/e MED 14.90 (<14) MV E Vmax 1.09 (0.4-1.3 m/s) MV E' lateral 0.097 (>0.1 m/s) MV A Vmax 0.75 (0.4-1.3 m/s) LV E/e LAT 11.30 (<14) MV E/A Ratio 1.39 MV E/E' medial 14.92 MV E/E' lateral 11.31 Aortic Valve LVOT Area 2.67 cm2 AoV Area Vmax 2.24 cm2 LVOT Vmax 1.03 m/s AoV Area/ BSA (Vmax) 1.29 cm2/m2 LVOT Mean Charles. 0.80 m/s UNIQUE Mean Charles. 2.47 cm2 LVOT Peak Grad 4.2 mmHg UNIQUE Mean Charles. Index 1.42 cm2/m2 LVOT Mean Grad 2.8 mmHg LVOT VTI 0.223 m LVOT Diam s 1.80 cm AoV Vmax 1.22 m/s Velocity Ratio 0.84 AoV Mean Charles. 0.87 m/s AoV Peak Grad 6.0 mmHg LVOT SV 59.57 mL AoV Mean Grad 3.3 mmHg AoV VTI 0.270 m AoV Area VTI 2.21 cm2 AoV Area/ BSA (VTI) 1.27 cm/m2 Mitral Valve MV DT 174 (160-240 msec) MV PHT 50 msec MV Area PHT 4.36 cm2 MV VTI 0.289 m MV Area VTI 2.06 (4.0-6.0 cm2) Pulmonary Valve PV Vmax 1.34 (0.5-1.5 m/s) RVOT Peak Gr. 2.06 mmHg PV Peak Grad 7.2 mmHg RVOT Mean Gr. 1.20 mmHg PV Mean Grad 3.2 mmHg RVOT VTI 0.166 m PV VTI 0.260 m RVOT Vmax 0.72 m/s
== END ==
PROVIDERS: PCP Nurse Practitioner Family; Visit Provider Family Medicine
DX: R94.31 Abnormal electrocardiogram [ECG] [EKG] (principal); F17.210 Nicotine dependence, cigarettes, uncomplicated
CPT/HCPCS: 71271; 93306

== ENCOUNTER → 2022-02-25 01:27 | Outpatient (CLI) | payer OTHER, MEDICAID, SELFPAY ==
--- NOTE | 2022-02-25 05:45 | ETT_ITS ---
APPROVED REPORT Exam: Exercise Treadmill Patient Location: Out-Patient Room/Bed: Stress Nurse: Kristal Cortez RN Ordering Provider:LINSEY YEN, Contact Number: [phone] BMI: 29.26 Baseline Rhythm: Sinus Rhythm Indications: Dyspnea on exertion. Smoker. Diaphoresis Medical History Medical History: COPD. GERD. Current smoker. HLD. Cardiac Medications: Albuterol. Omeprazole Allergies: Sulfa. Ceftriaxone. Rosuvastatin. Sertraline. Cardiac Risk Factors: Family Hx. Current smoker. HLD. Asthma. Previous Cardiac Procedures: None Pretest Chest Pain Characteristics: None Exercise History: Sedentary Physical Disabilities: None Lung Sounds: Clear to auscultation Heart Sounds: Regular Stress Test Details Test: Exercise stress testing was performed using a Ronak protocol. Rest Stress HR Resting HR Supine: 74 bpm Max Heart Rate (APMHR): 155 bpm Resting HR Standin bpm Target HR (85% APMHR): 131 bpm Max HR Achieved: 143 bpm % of APMHR: 92 Recovery HR: 90 bpm HR response to stress: Normal HR response to stress BP Resting BP Supine: 116/78 mmHg Resting BP Standin/76 mmHg Max BP: 154/68 mmHg Recovery BP: 122/72 mmHg BP response to stress: Normal blood pressure response to stress. ECG Resting ECG: Sinus Rhythm Ectopy: None Stress ECG: Sinus Tachycardia ST Change: No significant ST segment changes noted Arrhythmia: None Recovery ECG: Sinus Rhythm Recovery ST Change: No significant ST segment changes noted Recovery Arrhythmia: None Clinical Reason for Termination: Dyspnea, Fatigue Stress Symptoms: Dyspnea, General Fatigue Exercise duration: 6 min0 sec Highest Stage Reached: Stage 2: 2.5 mph at 12% grade. Exercise capacity: 7 METs Angina Score: None Lin Treadmill Score: 5.7 Rate Pressure Product: [id number] Stress ECG Conclusion 1. The resting electrocardiogram shows left anterior fascicular block, poor R wave progression 2. The patient exercised on the Ronak protocol and completed a workload of 7 METS, limited by shortne ss of breath and general fatigue 3. Normal heart rate and blood pressure response to exercise. Patient achieved 92% of predicted hear t rate for age 4. There was no electrocardiographic evidence of myocardial ischemia 5. There were no dysrhythmias Lin Treadmill Score is 5.7 which is Low risk. Stress Test Summary STAGE Time (mins) Speed (mph) Grade (%) HR BP SYMPTOMS METS Supine 74 116/78 SP02 98% Standing 98 106/76 1 3 1.7 10 94 118/76 4.6 2 6 2.5 12 97 132/70 Moderate dyspnea, SP02 97% 7 1 min recovery 130 122/60 3 min recovery 94 154/68 Dyspnea resolved, SP02 98% 6 min recovery 90 122/72
== END ==
PROVIDERS: PCP Nurse Practitioner Family; Visit Provider Family Medicine
DX: F17.200 Nicotine dependence, unspecified, uncomplicated (principal); R06.00 Dyspnea, unspecified; R61 Generalized hyperhidrosis
CPT/HCPCS: 93016; 93018; 93017

== ENCOUNTER 2022-03-08 03:04 | Outpatient (CLI) | payer OTHER, MEDICAID, SELFPAY | END 2022-03-08 03:05 | disposition home or self-care (01) | LOC: LOS 03:04 | PROVIDERS: PCP Nurse Practitioner Family; Visit Provider Family Medicine ==

== ENCOUNTER 2022-03-11 02:23 | Outpatient (CLI) | payer OTHER, MEDICAID, SELFPAY ==
[2022-03-15 20:26] LABS: TB Interpretation Negative (Negative); TB1 Ag minus Nil 0.03 IU/ml; TB2 Ag minus Nil 0.07 IU/mL
== END 2022-03-11 02:24 | disposition home or self-care (01) ==
LOC: LBO 02:23
PROVIDERS: PCP Nurse Practitioner Family; Visit Provider Family Medicine
DX: R06.00 Dyspnea, unspecified (principal); R61 Generalized hyperhidrosis; I31.3 Pericardial effusion (noninflammatory)
CPT/HCPCS: 36415; 84443; 86480

== ENCOUNTER → 2022-03-12 00:28 | Outpatient (CLI) | payer OTHER, MEDICAID, SELFPAY ==
--- NOTE | 2022-03-12 10:42 | DI.MAMMO_ITS ---
Exam(s) MG MAMMO SCREENING 60 MIN DUR EXAM: MG MAMMO SCREENING 60 MIN DUR CLINICAL HISTORY: breast cancer screening,h/o breast ca, z85.3,z12.39 TECHNIQUE: Bilateral full field digital CC and MLO mammographic images were obtained with 3D tomosyn thesis and utilizing computer aided detection (CAD). COMPARISON: Available for comparison. FINDINGS: Masses/Architectural Distortion: The patient is status post left lumpectomy. The scarring in the upp er outer quadrant of the left breast appears stable. No suspicious masses are present. Microcalcifications: No suspicious pleomorphic-type are seen. Skin Thickening/Nipple Retraction: None. IMPRESSION: 1. No significant interval change with no specific features of malignancy noted. 2. Unless there is more urgent need, screening mammography is recommended, as per [employer] guidelines. 3. Results of this exam have been verbally communicated with provider. BI-RADS Category 2 - Benign Findings Breast Density - Category B - Scattered areas of fibroglandular density Breast density category C or D implies that the patient has dense breast tissue. Dense breast tissue is very common and is not abnormal but dense breast tissue can make it harder to find cancer on a ma mmogram. Also, dense breast tissue may increase their breast cancer risk. This information about the result of the mammogram report was provided to the patient to raise their awareness. Use this report when you speak with the patient about their risks for breast cancer, which includes their family hist ory. At that time, you may recommend for more screening tests (Ultrasound or MRI) as they might be us eful based on their risk. A negative radiographic report should not delay biopsy if a dominant or clinically suspicious mass is present. Up to ten percent of cancers are not identified on mammography. A negative report may reinforce clinical impression. Adenosis and dense breasts may obscure an underlying neoplasm. False positive reports average 6 to 10%. Patient will receive a letter notifying them of these results.
== END ==
PROVIDERS: PCP Nurse Practitioner Family; Visit Provider Family Medicine
DX: Z12.31 Encounter for screening mammogram for malignant neoplasm of breast (principal); Z85.3 Personal history of malignant neoplasm of breast; Z98.890 Other specified postprocedural states
CPT/HCPCS: 77063; 77067

== ENCOUNTER 2022-09-02 02:25 | Outpatient (CLI) | payer OTHER, MEDICAID, SELFPAY ==
[2022-09-02 12:13] LABS: Calculated LDL 190 mg/dL (<100); Cholesterol 271 mg/dL (<200); HDL Cholesterol 43 mg/dL (40-60); Magnesium 1.9 mg/dL (1.8-2.4); Triglyceride 192 mg/dL (<150)
[2022-09-02 12:14] LABS: Vitamin B12 > 2000 pg/mL (193-986)
[2022-09-02 12:22] LABS: Vitamin D 25 Total 34.3 ng/mL (30-100)
[2022-09-06 16:31] LABS: Metanephrines, U 58 mcg/24 h; Normetanephrine, U 227 mcg/24 h; Total Metanephrines, U 285 mcg/24 h; Urine Volume 800 mL
[2022-09-08 12:41] LABS: Urine Volume 800 mL
== END 2022-09-02 02:26 | disposition home or self-care (01) ==
LOC: LBO 02:25
PROVIDERS: PCP Nurse Practitioner; Visit Provider Nurse Practitioner
DX: E55.9 Vitamin D deficiency, unspecified (principal); R20.8 Other disturbances of skin sensation; E78.5 Hyperlipidemia, unspecified; R61 Generalized hyperhidrosis
CPT/HCPCS: 36415; 80061; 82306; 81050; 82384; 82607; 83735; 83835

== ENCOUNTER 2022-09-12 08:56 | Emergency (ER) | payer OTHER, MEDICAID, SELFPAY ==
[2022-09-12 09:13] VITALS: BP 107/76; PULSE 84; RESP 16; TEMP 36.8; O2SAT 99
--- NOTE | 2022-09-12 09:15 | RT.EKG_ITS ---
APPROVED REPORT Exam: Resting ECG Reason for Exam: back pain radiating to shoulder Patient Location: E HR:73 bpm ECG Measurements Heart Rate 73 AXIS SD 161 P 51 QRSd 83 QRS -74 QT 353 T 28 QTc 390 Conclusion Sinus rhythm...normal P axis, V-rate 60- 99 Inferior infarct, old...Q >35mS, II III aVF sinus rhythm, left axis, normal intervals, non ischemic
[2022-09-12 09:47] LABS: Bilirubin Negative (Negative); Blood Trace-lysed (Negative); Clarity Cloudy (Clear); Glucose Negative (Negative); Ketones Negative (Negative); Leukocyte Esterase Moderate (Negative); Nitrite Negative (Negative); Specific Gravity 1.025 (1.005-1.025); Urobilinogen 0.2 EU/dL (Up TO 0.2); pH 5.5 (5-8)
[2022-09-12 09:58] LABS: Bacteria Many HPF (Negative); C & S Indicated? No/Sq. Contamination; Casts Negative LPF (Negative); Crystals Negative HPF (Negative); Epithelial Cells Many HPF (Negative); Mucus Negative (Negative); RBC 0-2 HPF (0-2); WBC >50 HPF (0-5)
[2022-09-12 10:05] LABS: Abs Immature Grans 0.03 10^3/uL (0.0-0.06); Absolute Eosinophil Count 0.16 10^3/uL (0.0-0.7); Absolute Neutrophil Count 6.72 10^3/uL (1.2-6.7); Basophils % 0.5; Eosinophils % 1.5; HCT 43.6 % (36.0-46.0); HGB 14.2 g/dL (11.2-15.7); Immature Grans % 0.3; Lymphocytes % 25.7; MCH 31.8 pg (27.0-33.0); MCHC 32.6 % (32.0-36.0); MCV 98 fL (80-95); MPV 10.9 fL (8.0-11.0); Monocytes % 10.4; Neutrophils % 61.6; Platelet Count 245 10^3/uL (130-400); RBC 4.46 10^6/uL (3.93-5.22); RDW 12.1 % (11.7-14.6); RDW-SD 43.8 fL; WBC 10.91 10^3/uL (4.4-10.8)
[2022-09-12 10:08] LABS: Absolute Basophil Count 0.05 10^3/uL (0.0-0.2); Absolute Monocyte Count 1.13 10^3/uL (0.1-0.8)
[2022-09-12] MEDS: diazePAM 2 MG TAB PO (10:19)
[2022-09-12] MEDS: Acetaminophen 500 MG TAB 1000 MG PO (10:19)
[2022-09-12 10:28] VITALS: BP 150/64; PULSE 70; RESP 18; TEMP 37.2; O2SAT 98
[2022-09-12 10:51] LABS: ALT 11 U/L (14-59); AST 12 U/L (15-37); Albumin 3.6 g/dL (3.4-5.0); Alkaline Phosphatase 76 U/L (46-116); Anion Gap 5.7 mmol/L (3-11); BUN 20 mg/dL (7-18); Bilirubin, Total 0.3 mg/dL (0.2-1.0); CO2 28.3 mmol/L (21.0-32.0); Calcium 8.9 mg/dL (8.5-10.1); Chloride 107 mmol/L (98-107); Estimated GFR 62.52 (mL/min/1.73m2); Glucose 110 mg/dL (74-106); Lipase 78 U/L (73-393); Potassium 3.9 mmol/L (3.5-5.1); Sodium 141 mmol/L (136-145); Total Protein 6.9 g/dL (6.4-8.2); Troponin I < 50 ng/L (<or=60)
[2022-09-12 10:58] LABS: D-Dimer 513 ng/mlFEU (<500)
--- NOTE | 2022-09-12 11:00 | DI.RAD_ITS ---
Exam(s) XR CHEST 2V PA LATERAL EXAM: XR CHEST 2V PA LATERAL CLINICAL HISTORY: flank and chest pain TECHNIQUE: 2D digital imaging was performed of the chest. Two images were obtained. PA and lateral views were obtained. COMPARISON: No exams were available for comparison FINDINGS: MEDIASTINUM: Normal. HEART: Normal. PULMONARY VASCULATURE: Normal. LUNGS: Clear. PLEURAL SPACE: No pleural effusion or pneumothorax. BONE:Within normal limits for the patient's age. OTHER FINDINGS:Normal. IMPRESSION: No acute pulmonary findings. DATA REPOSITORY: RADIATION DOSE DELIVERED:
--- NOTE | 2022-09-12 11:22 | ED.GENADUL_ITS ---
Discharge Plan Disposition Patient Disposition: Home Condition: Stable Discharge Details Clinical Impression: Acute pyelonephritis Primary Care Provider: Delisa Velazquez ED Provider: Michaelle Martini Home Meds and New Rx's Prescriptions: New ciprofloxacin HCl [Cipro] 500 mg tablet 500 mg PO BID Qty: 14 0RF oxycodone 5 mg capsule 5 mg PO BID PRNQty: 5 0RF Continued omeprazole 20 mg capsule,delayed release(DR/EC) 20 mg PO BID Qty: 180 3RF ibuprofen 600 mg tablet 600 mg PO TID PRN (Reason: pain) Qty: 60 3RF clonidine HCl 0.1 mg tablet 0.1 mg PO QHS Qty: 20 1RF riboflavin (vitamin B2) 250 mg tablet extended release 250 mg PO DAILY AM colchicine 0.6 mg tablet 0.6 mg PO DAILY PRN Label Comments: 12/17/20 has not been taking lately Probiotic 1 EACH capsule 1 ea PO DAILY Label Comments: Patient may take more than 1 per day, depends on bloating. ct tears naturale ii 2 drp OU QID magnesium oxide 400 mg (241.3 mg magnesium) tablet 400 mg PO DAILY Qty: 90 3RF ergocalciferol (vitamin D2) 10 mcg (400 unit) tablet 20 mcg PO DAILY Qty: 180 0RF albuterol sulfate [ProAir HFA] 90 mcg/actuation HFA aerosol inhaler 1 - 2 puff Inhalation Q4H PRN Qty: 2 6RF estradiol [Vagifem] 10 mcg tablet 10 mcg VG Twice Weekly Qty: 24 12RF bupropion HCl [Wellbutrin SR] 150 mg tablet sustained-release 12 hr 150 mg PO BID Qty: 60 5RF acetaminophen 500 mg tablet 500 mg PO Q6H PRN (Reason: pain) Qty: 60 2RF Discharge Instructions Instructions: Urinary Tract Infection in Women (ED) Additional Instructions: Please follow-up with your primary care physician for reassessment You have been started on antibiotics for a suspected urinary tract infection we will call you if there is any discrepancy with your urine culture Please be rechecked by your primary care physician in 24 to 48 hours Take Tylenol as needed for pain You have also been prescribed oxycodone, this medication is addictive and can make you constipated, use caution while taking it Please return earlier should he develop fever, chills, or with any new or worsen ing complaints Referrals: Delisa Velazquez NP [Primary Care Provider] - Discharge Data Discharge Date/Time-TO BE ENTERED AT DEPARTURE: 09/12/22 13:32 Medical Decision Making This 66-year-old female with history of cervical and breast cancer, hypertension, hyperlipidemia presents with report of back pain in the upper thoracic and flank region which started approximately 3 days ago., Secondary to age and comorbidities will order chest x-ray and CT abdomen and pelvis Chest x-ray was ordered secondary to thoracic discomfort and was negative per radiology interpretation my review CT abdomen pelvis is ordered secondary to greater than 50 red blood cells in urine with flank pain, there is no evidence of obstructive uropathy on this scan per radiology interpretation my review diagnostic labs showed very mild leukocytosis at 10.8, D-dimer 513, using age-adjusted no indication for emergent CTA of patient's chest Patient is afebrile and nontoxic throughout this encounter, her predominant complaint is pain, she was treated for pain and given a small amount of opiate analgesia with risk of addiction associated reviewed Opiate consent obtained Placed on antibiotics, secondary to patient's allergies, she was written for ciprofloxacin, 10-day supply with suspected pyelonephritis She is encouraged to follow-up with her primary care physician tomorrow Return precautions reviewed and patient expressed understanding She is remained stable throughout this encounter Medical Records Medical records reviewed: Yes I reviewed the patient's medical records. Lab Data Lab results reviewed: Yes I reviewed the patient's lab results. HPI General Date/Time Provider Initiated Documentation: 09/12/22 09:20 . HPI Narrative: This 66-year-old female presents with upper flank and thoracic back pain on the left which started approximately 3 days ago. Denies history of same. Denies known traumatic injury. Worsens with movement and intermittently with breathing. Denies fever or chills. Denies any nausea or vomiting. Denies any anterior chest pain or abdominal pain. Related Data Home Medications Medication Instructions Recorded Confirmed Lactobacillus acidophilus 10 1 ea PO DAILY 12/29/17 09/12/22 billion cell capsule (Probiotic) Tears Naturale Ii 2 drp OU QID 03/17/18 09/12/22 riboflavin (vitamin B2) 250 mg 250 mg PO DAILY AM 01/01/19 09/12/22 tablet,extended release colchicine 0.6 mg tablet 0.6 mg PO DAILY PRN 03/17/21 09/12/22 acetaminophen 500 mg tablet 500 mg PO Q6H PRN pain #60 tabs 06/30/21 09/12/22 ergocalciferol (vitamin D2) 10 mcg 20 mcg PO DAILY #180 tab-caps 08/25/21 09/12/22 (400 unit) tablet magnesium oxide 400 mg (241.3 mg 400 mg PO DAILY #90 tabs 08/25/21 09/12/22 magnesium) tablet omeprazole 20 mg capsule,delayed 20 mg PO BID #180 caps 01/26/22 09/12/22 release ibuprofen 600 mg tablet 600 mg PO TID PRN pain #60 tabs 02/23/22 09/12/22 albuterol sulfate 90 mcg/actuation 1 - 2 puff inhalation Q4H PRN ##2 03/11/22 09/12/22 aerosol inhaler (ProAir HFA) estradiol 10 mcg vaginal tablet 10 mcg vaginal Twice Weekly #24 06/07/22 09/12/22 (Vagifem) tab-caps bupropion HCl 150 mg tablet,12 hr 150 mg PO BID #60 tabs 07/07/22 09/12/22 sustained-release (Wellbutrin SR) clonidine HCl 0.1 mg tablet 0.1 mg PO QHS #20 tabs 09/09/22 09/12/22 ciprofloxacin HCl 500 mg tablet 500 mg PO BID #14 tabs 09/12/22 (Cipro) oxycodone 5 mg capsule 5 mg PO BID PRN #5 caps 09/12/22 Previous Rx's Medication Instructions Recorded acetaminophen 500 mg tablet 500 mg PO Q6H PRN pain #60 tabs 06/30/21 ergocalciferol (vitamin D2) 10 mcg 20 mcg PO DAILY #180 tab-caps 08/25/21 (400 unit) tablet magnesium oxide 400 mg (241.3 mg 400 mg PO DAILY #90 tabs 08/25/21 magnesium) tablet omeprazole 20 mg capsule,delayed 20 mg PO BID #180 caps 01/26/22 release ibuprofen 600 mg tablet 600 mg PO TID PRN pain #60 tabs 02/23/22 albuterol sulfate 90 mcg/actuation 1 - 2 puff inhalation Q4H PRN ##2 03/11/22 aerosol inhaler (ProAir HFA) estradiol 10 mcg vaginal tablet 10 mcg vaginal Twice Weekly #24 06/07/22 (Vagifem) tab-caps bupropion HCl 150 mg tablet,12 hr 150 mg PO BID #60 tabs 07/07/22 sustained-release (Wellbutrin SR) clonidine HCl 0.1 mg tablet 0.1 mg PO QHS #20 tabs 09/09/22 ciprofloxacin HCl 500 mg tablet 500 mg PO BID #14 tabs 09/12/22 (Cipro) oxycodone 5 mg capsule 5 mg PO BID PRN #5 caps 09/12/22 Allergies Allergy/AdvReac Type Severity Reaction Status Date / Time ceftriaxone Allergy Intermediate ITCHING; Verified 09/12/22 09:17 RASH Sulfa (Sulfonamide Allergy Intermediate ITCHY RASH Verified 09/12/22 09:17 Antibiotics) rosuvastatin AdvReac Intermediate NAUSEA Verified 09/12/22 09:17 sertraline AdvReac Intermediate diarrhea Verified 09/12/22 09:17 General Stated Complaint: Nk/Back Pain ANTHONY: 3 Review of Systems All systems reviewed & are unremarkable except as noted in HPI and below PFSH All Active Problems (Updated 09/12/22 @ 13:17 by DAVID Almodovar) Acute pyelonephritis (Acute) Cervical cancer screening (Acute) To 2021. Previous testing 2015. Currently overdue. Generalized hyperhidrosis (Acute) COPD (chronic obstructive pulmonary disease) (Chronic) 01/2022-clinical diagnosis recurrent mild wheezing a smoker, normal PFTs Nicotine dependence (Acute) 12/2021- 1/4-1/2 ppd, 25 pk yr hx Visual field defect (Acute) Painful orthopaedic hardware (Acute) Pseudogout of hand (Acute) Cervical radiculopathy at C6 (Acute) Gastroesophageal reflux disease (Chronic) gastritis; HH Peripheral neuralgia (Chronic) Migraine with aura (Chronic) Malignant neoplasm of female breast (Chronic 07/28/93) stage I; lumpectomy, radiation, axillary resection, occurred remotely in her 30s as of 12/2021 no sign of recurrence, yearly mammogram Hyperlipidemia (Chronic 01/02/13) Depressive disorder (Chronic) Kuhn's esophagus (Chronic) EGD neg 2016 Anxiety (Chronic) Medical History (Updated 09/12/22 @ 13:17 by DAVID Almodovar) COVID-19 08/2020 Surgical History (Updated 08/03/22 @ 11:19 by Staci Kendall) Biopsy of breast (~2001) Breast, Lumpectomy (~1993) left Cholecystectomy EGD - IV Sedation (05/10/16) H/O right wrist surgery Ligation of fallopian tube Reduction mammoplasty (~1994) right S/P colonoscopy 03/30/19 Tonsillectomy (~1958) Family History Mother Personal history of malignant neoplasm SKIN Father Essential hypertension Hyperlipidemia Stroke Grandfather No problems noted. Grandfather No problems noted. Grandmother Personal history of malignant neoplasm BREAST Grandmother No problems noted. Brother Essential hypertension Personal history of malignant neoplasm THYROID Hyperlipidemia Brother No problems noted. Brother No problems noted. Brother No problems noted. Daughter No problems noted. Daughter No problems noted. Social History (Updated 09/11/22 @ 17:20 by Rebecca Rangel MD) Smoking/Tobacco Use Status: Current every day Tobacco Type: cigarettes Years smoked: 50 Quit status: considering quitting Smoking risk assessment performed?: Yes Alcohol Intake: current Alcohol Intake frequency: holidays/special occasions only Drug use: Occasionally Substance use type: marijuana Adopted: No Caregiver/Support person: No Foster care: No Household members: family Housing: house Number of Children: 2 number of grandchildren: 3 Communication Needs: None and Corrective Lenses Education Level: high school Do you need help understanding health information?: Rarely current occupation: Disabled-has results of issues related to her breast cancer surgery Pets and animals: Yes Pets and animals: dog(s) Do you think of yourself as: straight/heterosexual Current gender identity: female What is your relationship status?: living with partner How often do you talk on the phone with friends or family?: decline to answer How often do you get together with friends or relatives?: decline to answer How often do you attend pentecostal or quaker services?: decline to answer Do you belong to any clubs or organized social groups?: no Panel score (0-1 are the most socially isolated patients): 1 What type of physical activity do you participate in: none Jessenia/[employer]-Ism: [employer] Seatbelt use: always Helmet use: No Drive intox or ride w/intox route driver salesperson: No Working smoke detector in home: Yes Fire extinguisher in home: Yes Carbon monox detector in home: Yes Do you feel safe at home: Yes Do you feel safe in your relationship?: Yes History History 3 Para 2 Hx # Term Pregnancies Multiple births Hx # Pregnancies Ectopic pregnancies AB induced Hx Number of Living Children AB spontaneous Exam Const General: cooperative, comfortable and no acute distress HENMT Head: normal to inspection Eyes Sclera: sclerae normal Resp Effort & Inspection: normal respiratory effort Auscultation: clear to auscultation bilaterally Cardio Rate: regular rate Rhythm: regular rhythm Other: Distal pulses intact GI Other: Mild left CVA tenderness, no anterior abdominal tenderness Back/Spine/Pelvis Back/spine/pelvis image: 1. Tenderness with palpation, no rashes or lesions, no crepitus Skin General skin exam: no rashes or lesions noted Neuro General: patient alert and patient oriented x3 Course Vital Signs Vital signs: Vital Signs Temperature 36.8 C 09/12/22 09:13 Pulse 84 09/12/22 09:13 Respiratory Rate 16 09/12/22 09:13 Blood Pressure 107/76 09/12/22 09:13 Pulse Oximetry 99 09/12/22 09:13 Temperature 37.2 C 09/12/22 10:28 Temperature Source Tympanic 09/12/22 10:28 Pulse 70 09/12/22 10:28 Respiratory Rate 18 09/12/22 10:28 Respiratory Effort 09/12/22 09:17 Blood Pressure 150/64 H 09/12/22 10:28 Blood Pressure Position Sitting 09/12/22 09:13 Pulse Oximetry 98 09/12/22 10:28 Oxygen Delivery Method Room Air 09/12/22 10:28 Oxygen Flow Rate 0 09/12/22 10:28 Pain Level 3 09/12/22 10:28 Lab/Test Results Lab/Test Results: Laboratory Tests Range/Units 09/12/22 09/12/22 09/12/22 09:40 09:55 09:55 WBC (4.4-10.8) 10^3/uL 10.91 H RBC (3.93-5.22) 10^6/uL 4.46 Hgb (11.2-15.7) g/dL 14.2 Hct (36.0-46.0) % 43.6 MCV (80-95) fL 98 H MCH (27.0-33.0) pg 31.8 MCHC (32.0-36.0) % 32.6 RDW (11.7-14.6) % 12.1 Plt Count (130-400) 10^3/uL 245 MPV (8.0-11.0) fL 10.9 Immature Gran % 0.3 Neutrophils % 61.6 Lymphocytes % 25.7 Monocytes % 10.4 Eosinophils % 1.5 Basophils % 0.5 Nucleated RBC % (0.0-0.3) % 0.0 Absolute Neutrophils (1.2-6.7) 10^3/uL 6.72 H Absolute Lymphocytes (1.2-3.4) 10^3/uL 2.80 Absolute Monocytes (0.1-0.8) 10^3/uL 1.13 H Absolute Eosinophils (0.0-0.7) 10^3/uL 0.16 Absolute Basophils (0.0-0.2) 10^3/uL 0.05 D-Dimer (<500) ng/mlFEU Sodium (136-145) mmol/L 141 Potassium (3.5-5.1) mmol/L 3.9 Chloride (98-107) mmol/L 107 Carbon Dioxide (21.0-32.0) mmol/L 28.3 Anion Gap (3-11) mmol/L 5.7 BUN (7-18) mg/dL 20 H Creatinine (0.55-1.02) mg/dL 1.0 Est GFR (CKD-EPI 2020) (mL/min/1.73m2) 62.52 Glucose (74-106) mg/dL 110 H Calcium (8.5-10.1) mg/dL 8.9 Total Bilirubin (0.2-1.0) mg/dL 0.3 AST (15-37) U/L 12 L ALT (14-59) U/L 11 L Alkaline Phosphatase (46-116) U/L 76 Troponin I (<or=60) ng/L < 50 Total Protein (6.4-8.2) g/dL 6.9 Albumin (3.4-5.0) g/dL 3.6 Lipase (73-393) U/L 78 Urine Color (Yellow) Yellow Urine Clarity (Clear) Cloudy Urine pH (5-8) 5.5 Ur Specific [place] (1.005-1.025) 1.025 Urine Protein (Negative) mg/dL Negative Urine Ketones (Negative) mg/dL Negative Urine Blood (Negative) Trace-lysed H Urine Nitrite (Negative) Negative Urine Bilirubin (Negative) Negative Urine Urobilinogen (Up TO 0.2) EU/dL 0.2 Ur Leukocyte Esterase (Negative) Moderate H Urine RBC (0-2) HPF 0-2 Urine WBC (0-5) HPF >50 H Ur Epithelial Cells (Negative) HPF Many Urine Crystals (Negative) HPF Negative Urine Bacteria (Negative) HPF Many Urine Casts (Negative) LPF Negative Urine Mucus (Negative) Negative Ur Culture Indicated? No/Sq. Contamination Urine Glucose (Negative) mg/dL Negative Range/Units 09/12/22 10:24 WBC (4.4-10.8) 10^3/uL RBC (3.93-5.22) 10^6/uL Hgb (11.2-15.7) g/dL Hct (36.0-46.0) % MCV (80-95) fL MCH (27.0-33.0) pg MCHC (32.0-36.0) % RDW (11.7-14.6) % Plt Count (130-400) 10^3/uL MPV (8.0-11.0) fL Immature Gran % Neutrophils % Lymphocytes % Monocytes % Eosinophils % Basophils % Nucleated RBC % (0.0-0.3) % Absolute Neutrophils (1.2-6.7) 10^3/uL Absolute Lymphocytes (1.2-3.4) 10^3/uL Absolute Monocytes (0.1-0.8) 10^3/uL Absolute Eosinophils (0.0-0.7) 10^3/uL Absolute Basophils (0.0-0.2) 10^3/uL D-Dimer (<500) ng/mlFEU 513 H Sodium (136-145) mmol/L Potassium (3.5-5.1) mmol/L Chloride (98-107) mmol/L Carbon Dioxide (21.0-32.0) mmol/L Anion Gap (3-11) mmol/L BUN (7-18) mg/dL Creatinine (0.55-1.02) mg/dL Est GFR (CKD-EPI 2020) (mL/min/1.73m2) Glucose (74-106) mg/dL Calcium (8.5-10.1) mg/dL Total Bilirubin (0.2-1.0) mg/dL AST (15-37) U/L ALT (14-59) U/L Alkaline Phosphatase (46-116) U/L Troponin I (<or=60) ng/L Total Protein (6.4-8.2) g/dL Albumin (3.4-5.0) g/dL Lipase (73-393) U/L Urine Color (Yellow) Urine Clarity (Clear) Urine pH (5-8) Ur Specific [place] (1.005-1.025) Urine Protein (Negative) mg/dL Urine Ketones (Negative) mg/dL Urine Blood (Negative) Urine Nitrite (Negative) Urine Bilirubin (Negative) Urine Urobilinogen (Up TO 0.2) EU/dL Ur Leukocyte Esterase (Negative) Urine RBC (0-2) HPF Urine WBC (0-5) HPF Ur Epithelial Cells (Negative) HPF Urine Crystals (Negative) HPF Urine Bacteria (Negative) HPF Urine Casts (Negative) LPF Urine Mucus (Negative) Ur Culture Indicated? Urine Glucose (Negative) mg/dL
--- NOTE | 2022-09-12 11:30 | DI.CT_ITS ---
Exam(s) CT ABDOMEN PELVIS WO EXAM: CT ABDOMEN PELVIS WO CLINICAL HISTORY: left flank pain. TECHNIQUE: Imaging Protocol: Axial computed tomography images with coronal and sagittal reformatted images were created and reviewed. COMPARISON: No exams were available for comparison FINDINGS: ABDOMEN: Lung Bases: Normal where visualized. Liver: Normal density. Hepatic cysts are present. The largest measures 1.6 cm. No follow-up is iliana mmended. Gallbladder and biliary tract: Status post cholecystectomy. No significant biliary ductal dilatation . Pancreas: Normal density, no abnormal calcifications or inflammatory process. Spleen: Normal. Kidneys: Normal size, contour and axis.No radiodense stones or obstructive uropathy. No masses seen. Note is made of a retroaortic left renal vein. Adrenal glands: No mass is seen. Lymph nodes: Within normal limits. Abdominal Aorta: Abdominal portion non-dilated. Atherosclerosis is present. PELVIS: Bladder:Symmetric distention, no gross wall thickening. Bowel: No obstruction or bowel wall thickening. No evidence of appendicitis. There are few scattered diverticula but no evidence of acute diverticulitis. Peritoneal cavity: No ascites, collection or mesenteric inflammatory response. No free air. Reproductive organs: Unremarkable as visualized. Bones: Within normal limits. Soft Tissues: Within normal limits. IMPRESSION: No evidence of nephrolithiasis or hydronephrosis. RADIATION DOSE DELIVERED: 980.33mGy.cm Total DLP DATA REPOSITORY: All CT scans at this facility are submitted to the National Radiology Data Registry (NRDR) Dose Index Registry (DIR) with the [employer] ([employer]). RADIATION OPTIMIZATION: All CT scans at this facility use at least one of these dose optimization te chniques: automated exposure control; mA and/or kV adjustment per patient size (includes targeted exa ms where dose is matched to clinical indication); or iterative reconstruction.
[2022-09-12] MEDS: Omnipaque 350 MG/ML 100 ML BTL IJ (11:31)
[2022-09-12] MEDS: Normal Saline - Diluent 50 ML VIAL IV (11:32)
[2022-09-12] MEDS: Normal Saline Flush 10 ML SYR IJ (11:33)
[2022-09-12 11:54] VITALS: PULSE 68; O2SAT 98
--- NOTE | 2022-09-12 12:06 | DI.VRAD_ITS ---
PROCEDURE INFORMATION: Exam: XR Chest Exam date and time: 09/12/2022 11:28 AM Age: 66 years old Clinical indication: Other: Flank and chest pain TECHNIQUE: Imaging protocol: Radiologic exam of the chest. Views: 2 views. COMPARISON: CT CHEST LUNG CANCER SCREEN 02/22/2022 2:03 PM FINDINGS: Lungs: Unremarkable. No consolidation. Pleural spaces: Unremarkable. No pleural effusion. No pneumothorax. Heart/Mediastinum: Unremarkable. No cardiomegaly. Bones/joints: Unremarkable. IMPRESSION: No acute findings. Dictated and Authenticated by: Alisson Aguilar MD. Ordering:MILADIS Braswell MD
--- NOTE | 2022-09-12 12:32 | DI.VRAD_ITS ---
PROCEDURE INFORMATION: Exam: CT Abdomen And Pelvis Without Contrast Exam date and time: 09/12/2022 11:44 AM Age: 66 years old Clinical indication: Abdominal pain; Prior surgery TECHNIQUE: Imaging protocol: Computed tomography of the abdomen and pelvis without contrast. COMPARISON: CT ABDOMEN PELVIS W 09/12/2022 11:29 AM FINDINGS: Lungs: Right basilar atelectasis Liver: 17 mm simple cyst right lobe of the liver . No follow-up imaging recommended . Subcentimeter low attenuation area in the liver is too small for characterization. Gallbladder and bile ducts: Cholecystectomy Pancreas: Normal. No ductal dilation. Spleen: Normal. No splenomegaly. Adrenal glands: Normal. No mass. Kidneys and ureters: Mild dilatation of the right collecting system. No dilatation of the right ureter. No ureteral calculus.. There is no evidence of renal or ureteral calcifications. Stomach and bowel: Unremarkable. No obstruction. No mucosal thickening. Appendix: Normal appendix Intraperitoneal space: Unremarkable. No free air. No significant fluid collection. Vasculature: Unremarkable. No abdominal aortic aneurysm. Lymph nodes: Unremarkable. No enlarged lymph nodes. Urinary bladder: Unremarkable as visualized. Reproductive: Unremarkable as visualized. Bones/joints: Unremarkable. No acute fracture. Soft tissues: Unremarkable. IMPRESSION: Mild dilatation of the right collecting system. No dilatation of the right ureter. No ureteral calculus.. The findings could be due to a recently passed stone, a noncalcified stone or clot or soft tissue process in the right ureter, or an infectious/inflammatory process of the right collecting system. Dictated and Authenticated by: Alisson Aguilar MD. Ordering:MILADIS Braswell MD
[2022-09-12 13:20] VITALS: BP 174/83; PULSE 72; TEMP 36.5; O2SAT 98
== END 2022-09-12 13:32 | disposition home or self-care (01) ==
PROVIDERS: Emergency Provider Physician Assistant; PCP Nurse Practitioner
DX: N10 Acute pyelonephritis (principal); I10 Essential (primary) hypertension; D72.829 Elevated white blood cell count, unspecified; M54.6 Pain in thoracic spine
CPT/HCPCS: 80053; 83690; 93005; 96374; 99284; 71046; 74176; 81003; 81015; 84484; 85025; 85379; 93010; J3490

== ENCOUNTER → 2022-09-16 10:13 | Outpatient (BNVA) | payer OTHER, MEDICAID, SELFPAY | PROVIDERS: PCP Nurse Practitioner; Referring Provider Nurse Practitioner; Visit Provider Surgery | DX: J44.9 Chronic obstructive pulmonary disease, unspecified (principal); K21.9 Gastro-esophageal reflux disease without esophagitis; G43.109 Migraine with aura, not intractable, without status migrainosus; C50.919 Malignant neoplasm of unspecified site of unspecified female breast; K22.70 Barrett's esophagus without dysplasia | CPT/HCPCS: 99212; 99214 ==

== ENCOUNTER 2022-09-24 09:50 | Day surgery (SDC) | payer OTHER, MEDICAID, SELFPAY ==
[2022-09-24 11:28] VITALS: BP 124/92; PULSE 95; RESP 16; TEMP 36.4; O2SAT 97
[2022-09-24] MEDS: Lactated Ringers 1,000 ML 80 ML IV (11:45)
--- NOTE | 2022-09-24 12:38 | ANES.PREOP_ITS ---
General Info Date of Service Date Performed: 09/24/22 Height: 5 ft 2 in Weight: 74.7 kg Body Mass Index (BMI): 30.1 Surgical Procedure: Operation Date: 09/24/22 12:05 Proposed Procedure Side Surgeon p Gastroscopy w/Biopsy Prasanth Jj MD Meds Allergies and Home Medications Allergies Allergy/AdvReac Type Severity Reaction Status Date / Time ceftriaxone Allergy Intermediate ITCHING; Verified 09/24/22 11:20 RASH Sulfa (Sulfonamide Allergy Intermediate ITCHY RASH Verified 09/24/22 11:20 Antibiotics) rosuvastatin AdvReac Intermediate NAUSEA Verified 09/24/22 11:20 sertraline AdvReac Intermediate diarrhea Verified 09/24/22 11:20 Home Medication Medication Instructions Recorded Lactobacillus acidophilus 10 1 ea PO DAILY 12/29/17 billion cell capsule (Probiotic) Tears Naturale Ii 2 drp OU QID 03/17/18 riboflavin (vitamin B2) 250 mg 250 mg PO DAILY AM 01/01/19 tablet,extended release colchicine 0.6 mg tablet 0.6 mg PO DAILY PRN 03/17/21 acetaminophen 500 mg tablet 500 mg PO Q6H PRN pain #60 tabs 06/30/21 ergocalciferol (vitamin D2) 10 mcg 20 mcg PO DAILY #180 tab-caps 08/25/21 (400 unit) tablet magnesium oxide 400 mg (241.3 mg 400 mg PO DAILY #90 tabs 08/25/21 magnesium) tablet ibuprofen 600 mg tablet 600 mg PO TID PRN pain #60 tabs 02/23/22 albuterol sulfate 90 mcg/actuation 1 - 2 puff inhalation Q4H PRN ##2 03/11/22 aerosol inhaler (ProAir HFA) estradiol 10 mcg vaginal tablet 10 mcg vaginal Twice Weekly #24 06/07/22 (Vagifem) tab-caps bupropion HCl 150 mg tablet,12 hr 150 mg PO BID #60 tabs 07/07/22 sustained-release (Wellbutrin SR) clonidine HCl 0.1 mg tablet 0.1 mg PO QHS #20 tabs 09/09/22 oxycodone 5 mg capsule 5 mg PO BID PRN #5 caps 09/12/22 cyclobenzaprine 5 mg tablet 5 mg PO BID #20 tabs 09/13/22 pantoprazole 40 mg tablet,delayed 40 mg PO DAILY #30 tabs 09/16/22 release (Protonix) Current Visit Medications: Current Medications Generic Name Dose Route Start Last Admin Trade Name Freq PRN Reason Stop Dose Admin Ringer's Solution 1,000 mls @ 80 mls/hr 09/24/22 06:00 09/24/22 11:45 IV 10/23/22 23:59 80 mls/hr INFUSION OSMANI Administration IV Miscellaneous Supplies 1 each 09/24/22 06:00 Iv Access IV 10/23/22 23:59 DIRECTED OSMANI Sodium Chloride 0 ml 09/24/22 06:00 Normal Saline Flush 10 Ml Syr IV 10/23/22 23:59 PRN PRN Sodium Chloride 0 ml 09/24/22 06:00 Normal Saline 10 Ml Vial IJ 10/23/22 23:59 DIRECTED PRN Sterile Water 0 ml 09/24/22 06:00 Water,Injection,Sterile 10 Ml Vial IJ 10/23/22 23:59 DIRECTED PRN PFSH Active Problems Active Problems: Problem Status Onset Code Anxiety F41.9 Kuhn's esophagus K22.70 Depressive disorder F32.9 Gastroesophageal reflux disease K21.9 Hyperlipidemia 01/02/13 E78.5 Malignant neoplasm of female breast 07/28/93 C50.919 Migraine with aura G43.109 Peripheral neuralgia M79.2 Cervical radiculopathy at C6 M54.12 Visual field defect H53.40 Pseudogout of hand M11.249 Painful orthopaedic hardware T84.84XA Nicotine dependence F17.200 COPD (chronic obstructive pulmonary disease) J44.9 Generalized hyperhidrosis R61 Cervical cancer screening Z12.4 Acute pyelonephritis N10 Episodic cannabis use F12.90 Medical History Medical History COVID-19 08/2020 Surgical History Surgical History (Updated 09/24/22 @ 11:26 by Romy Carballo) Biopsy of breast (~2001) Breast, Lumpectomy (~1993) left Cholecystectomy EGD - IV Sedation (05/10/16) H/O right wrist surgery Hx of neck surgery Ligation of fallopian tube Reduction mammoplasty (~1994) right S/P colonoscopy 03/30/19 Tonsillectomy (~1958) Tobacco Smoking/Tobacco Use Status: Current every day Tobacco Type: cigarettes Smoking cigarettes per day: 1 Years smoked: 50 Passive smoking exposure: No Alcohol Alcohol Intake: current Alcohol intake frequency: holidays/special occasions only Alcohol type: hard liquor Substance Use Substance use: Occasionally Substance use type: marijuana Details: last alcohol: new years. Marijuana: t-14 Prental History History 3 Para 2 Hx # Term Pregnancies Multiple births Hx # Pregnancies Ectopic pregnancies AB induced Hx Number of Living Children AB spontaneous Vital Signs and Lab Results Vital Signs Most Recent Vital Signs in EMR: Most Recent Vital Signs Temp Pulse Resp BP Pulse Ox 36.4 C L 95 H 16 124/92 H 97 09/24/22 11:28 09/24/22 11:28 09/24/22 11:28 09/24/22 11:28 09/24/22 11:28 Lab Results Blood Type / Crossmatch: No Data to Display Complete Blood Count: White Blood Count 10.91 10^3/uL (4.4-10.8) H 09/12/22 09:55 Red Blood Count 4.46 10^6/uL (3.93-5.22) 09/12/22 09:55 Hemoglobin 14.2 g/dL (11.2-15.7) 09/12/22 09:55 Hematocrit 43.6 % (36.0-46.0) 09/12/22 09:55 Platelet Count 245 10^3/uL (130-400) 09/12/22 09:55 Complete Metabolic Panel: Sodium 141 mmol/L (136-145) 09/12/22 09:55 Potassium 3.9 mmol/L (3.5-5.1) 09/12/22 09:55 Chloride 107 mmol/L (98-107) 09/12/22 09:55 Carbon Dioxide 28.3 mmol/L (21.0-32.0) 09/12/22 09:55 BUN 20 mg/dL (7-18) H 09/12/22 09:55 Creatinine 1.0 mg/dL (0.55-1.02) 09/12/22 09:55 Est GFR (CKD-EPI 2020) 62.52 (mL/min/1.73m2) 09/12/22 09:55 Magnesium 1.9 mg/dL (1.8-2.4) 09/02/22 10:55 Calcium 8.9 mg/dL (8.5-10.1) 09/12/22 09:55 Albumin 3.6 g/dL (3.4-5.0) 09/12/22 09:55 Glucose 110 mg/dL (74-106) H 09/12/22 09:55 Liver Function Panel: Alanine Aminotransferase (ALT/SGPT) 11 U/L (14-59) L 09/12/22 0 9:55 Aspartate Amino Transf (AST/SGOT) 12 U/L (15-37) L 09/12/22 09: 55 Coagulation Panel: D-Dimer 513 ng/mlFEU (<500) H 09/12/22 10:24 Cardiac Panel: Troponin I < 50 ng/L (<or=60) 09/12/22 Arterial Blood Gas: 2 No Data to Display Venous Blood Gas: No Data to Display Pancreas Panel: Lipase 78 U/L (73-393) 09/12/22 09:55 Thyroid Panel: No Data to Display Infectious Disease: No Data to Display Blood Cultures: No Data to Display Toxicology Panel: No Data to Display Imaging and Studies Imaging and Studies Study information below may be from another EMR and interpreted by another provider. Please see original notes in EMR for more complete details. Stress Test Summary: 02/25/2022: Stress ECG Conclusion 1. The resting electrocardiogram shows left anterior fascicular block, poor R wave progression 2. The patient exercised on the Ronak protocol and completed a workload of 7 METS, limited by shortness of breath and general fatigue 3. Normal heart rate and blood pressure response to exercise. Patient achieved 92% of predicted heart rate for age 4. There was no electrocardiographic evidence of myocardial ischemia 5. There were no dysrhythmias Lin Treadmill Score is 5.7 which is Low risk. Echocardiogram Summary: 02/22/2022: Conclusion Normal left ventricular wall thickness and chamber size. Estimated ejection fraction is 55 to 60%. Wall motion is normal Normal right ventricular size and systolic function Both atria are normal in size There is no structural or hemodynamically significant valvular disease Pulmonary Function Summary: 02/05/2022: Interpretation Spirometry: There is no airflow limitation. There is no significant bronchodilator response. Impression Normal spirometry Clinical Correlation therefore is recommended. Anesthesia Assessment and Plan Anesthesia History Personal History: No History of Anesthesia Complications Family History: No Family History of Anesthesia Complications Exercise Tolerance Exercise Tolerance: Metabolic Equivalents>4 Pertinent Negatives Pertinent Negatives: No Major Cardiovascular Symptoms or Complaints and No Major Pulmonary Symptoms or Complaints Cardiac & Pulmonary Exam Cardiac Exam: Normal S1/S2 Heart Sounds Pulmonary Exam: Clear Bilateral Breath Sounds Implantable Cardiac Device Does patient have a Pacemaker or an ICD?: No Airway Exam Known Difficult Airway: No Mallampati Class: 2 Mouth Opening: Normal (> 3cm) Thyromental Distance: Greater than 3 cm Neck Range of Motion: Full ROM Neck Circumference: Normal Teeth Condition: Generalized Poor Dentition and Removable Dentures/Plates Upper ASA Classification ASA Score: ASA 2 Emergency Case?: No NPO Status NPO Status: NPO Clears >2 hours, Solids >8 hours Anesthesia Plan Resuscitation Status: Full Code Anesthesia Technique: General Anesthesia Airway Planned: Natural Airway Monitors Used: Standard Monitors
[2022-09-24 12:42] VITALS: BMI 30.1
--- NOTE | 2022-09-24 12:56 | STOM_PTH ---
PATIENT: Lubna Handley LOC: [facility] U#:[id number] AGE/SX: 66/F ROOM: RE09/24/[address]: Prasanth Jj : 1955 BED: DIS: 09/24/2022 SPEC #: [id number] RECD: 09/24/22 16:43 STATUS: CECY RE #: [id number] CHARLEY: 09/24/22 12:[address]: Prasanth Jj DEPT: Surgical Specimen RECD BY: Michaelle Morataya ENTERED: 09/24/22 16:44 SP TYPE: STOMACH OTHR DR: Delisa Velazquez APRN Tissues: 1 - STOMACH BIOPSY 2 - ESOPHAGUS BIOPSY Procedures: GROSS AND MICRO LEVEL 4 Comments: [id number]
--- NOTE | 2022-09-24 13:04 | ENDO_ITS ---
Date of service: 09/24/22 Time of Service: 13:04 Endoscopy Report PROCEDURE DESCRIPTION: Procedures performed: 1.? 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 She has had these issues for years and does not have any usual/typical risk factors. BMI is borderline at 30. Findings: - D3, D2 and D1 - normal - no inflammation or ulcers - Pylorus - patent.? No bile reflux visualized during procedure. - Antrum - looks normal visually - biopsies taken to rule out incidental H. pylori - Stomach Body - normal appearance, no polyps or inflammation.? - Fundus -? Normal.? No polyps. - Hiatus - Retroflexion showed a moderate?size type III paraesophageal hernia. The GE junction slides and overall is about 3-4 cm above the hiatus. - Esophagus - distal esophagus does not look visibly inflamed however some small mucosal breaks are present consistent with grade a esophagitis. Cold forceps b iopsies were taken here.? No stricture or visible evidence of Kuhn's.? The mid and proximal esophagus were normal. - Cords/hypopharynx - Normal OVERALL - moderate?size type III paraesophageal hernia is the likely contributor to her reflux which is causing the mild esophagitis found. Surveillance/follow-up recommendations: In the absence of other risk factors, for patients at borderline BMI I recommend aggressive(10?pound min) weight loss and strict dietary structure. If these changes do not resolve the reflux it can be concluded that the paraesophageal hernia is the underlying problem and repair can/should be considered. Complications: None Blood loss: Minimal Specimens:? YES Procedure in detail: Written consent was obtained from the patient who was in agreement with the risks, benefits and indications of the procedure.? We went to the endoscopy suite and laid the patient in left lateral decubitus position.? Anesthesia was administered which was tolerated well.? A timeout was performed and when we are all in agreement we began the procedure. A well?lubricated endoscope was advanced without difficulty down the esophagus, into the stomach, through a patent pylorus and into the duodenum.? It was then slowly pulled back with findings noted above. The scope was then removed and the patient tolerated the procedure well and was then turned for the colonoscopy portion of the procedure (see separate procedure note)
[2022-09-24 13:10] VITALS: BP 118/76; PULSE 90; RESP 16; TEMP 36.4; O2SAT 96
[2022-09-24 13:30] VITALS: BP 124/92; PULSE 80; RESP 16; TEMP 36.2; O2SAT 95
--- NOTE | 2022-09-24 15:48 | W.ANESPOSTOP ---
Postoperative Evaluation Date, Time and Location Date Performed: 09/24/22 Time Performed: 13:10 Patient Location: Day Surgery Unit Vital Signs Most Recent Imported Vital Signs: Most Recent Vital Signs Temp Pulse Resp BP Pulse Ox 36.2 C L 80 16 124/92 H 95 09/24/22 13:30 09/24/22 13:30 09/24/22 13:30 09/24/22 13:30 09/24/22 13:30 Pain Score Most Recent Pain Score: Most Recent Pain Score Pain Level 0 09/24/22 13:30 Assessment Mental Status: Awake (Alert & Oriented to Patient Baseline) Airway and Respiratory Function: Patent airway with normal (patient baseline) respiratory exam Cardiovascular Function: Hemodynamically Stable Hydration Status: Adequately Hydrated Nausea & Vomiting: No Nausea or Vomiting Pain: Pt. Denies Any Pain Peripheral Nerve Block: Patient did not receive a nerve block
== END 2022-09-24 14:19 | disposition home or self-care (01) ==
PROVIDERS: PCP Nurse Practitioner; Visit Provider Student in an Organized Health Care Education/Training Program
PROC: 0DJ68ZZ Inspection of Stomach, Via Natural or Artificial Opening Endoscopic (ICD-10-PCS; CPT 43235; principal; 2022-09-24 12:00)
DX: K21.00 Gastro-esophageal reflux disease with esophagitis, without bleeding (principal); K44.9 Diaphragmatic hernia without obstruction or gangrene
CPT/HCPCS: 43239; 88305; J2704

== ENCOUNTER 2023-03-21 03:14 | Outpatient (CLI) | payer OTHER, MEDICAID, SELFPAY ==
--- NOTE | 2023-03-21 07:30 | DI.CTLCSR_ITS ---
Exam(s) CT CHEST LUNG CANCER SCREEN EXAM: CT CHEST LUNG CANCER SCREEN CLINICAL HISTORY: Screening for lung cancer,CURRENT SMOKER, F17.210 TECHNIQUE: Imaging Protocol: Axial computed tomography images with coronal and sagittal reformatted images were created and reviewed COMPARISON: CT CT CHEST LUNG CANCER SCREEN from 02/22/[address] ABDOMEN PELVIS WO from 09/12/2022 FINDINGS: Tracheobronchial tree: Patent where visualized. Pulmonary parenchyma: No consolidation or dominant measurable mass. Small subpleural blebs are seen i n the lungs. No focal consolidating infiltrates are seen. Nonspecific ground-glass opacities are pr esent in the lungs. This may reflect atelectasis. Nonspecific infectious or inflammatory process ca nnot be excluded. Lung Nodules: None. Mediastinum and Alexia: No dominant adenopathy or fluid collection. The esophagus is unremarkable. Thyroid gland: Unremarkable. Lymph nodes: Unremarkable. Pleura: No effusion or pneumothorax. Heart: The heart is not dilated. Mild coronary artery calcification. No pericardial effusion. Aorta: Thoracic aorta non-dilated.Atherosclerosis. Upper abdomen: There are known hepatic cysts. The patient is status post cholecystectomy. Soft Tissues: Scarring is seen in the left breast consistent with the patient's prior lumpectomy. Bones: Within normal limits. IMPRESSION: 1. No pulmonary nodules. 2. Nonspecific ground-glass opacities in the lungs. This may reflect atelectasis. Nonspecific infla mmatory infectious process cannot be excluded. Please correlate clinically. Lung RADS Cat 1S - Negative: No nodules and definitely benign nodules. Other: Clinically Significant or Potentially Clinically Significant Findings (non lung cancer) Lung-RADS 1.0 CATEGORIES: Category 0 - Prior chest CT exam(s) being located for comparison. Category 1 - Annual screening in 12 months. No nodules or definitely benign nodules. Category 2 - Annual screening in 12 months. Benign appearance. Nodules with low likelihood of becomin g active cancer. Category 3 - 6-month follow-up. Probably benign. Short-term follow-up suggested. Nodules with low lik elihood of becoming active cancer. Category 4A - 3-month follow-up and CT/PET if >8 mm in size. Suspicious finding. Findings which requi re additional testing. Category 4B - Findings which require additional testing and tissue sampling. Suspicious finding. Category 4X - Category 3 or 4 nodules with additional features or imaging findings that increases the suspicion of malignancy. Modifier S- Potentially clinically significant finding. (Non lung cancer) RADIATION DOSE DELIVERED: Total DLP Total DLP DATA REPOSITORY: All CT scans at this facility are submitted to the National Radiology Data Registry (NRDR) Dose Index Registry (DIR) with the [employer] (A[employer]). RADIATION OPTIMIZATION: All CT scans at this facility use at least one of these dose optimization te chniques: automated exposure control; mA and/or kV adjustment per patient size (includes targeted exa ms where dose is matched to clinical indication); or iterative reconstruction.
--- NOTE | 2023-03-21 07:30 | DI.MAMMO_ITS ---
Exam(s) MG MAMMO SCREENING 60 MIN DUR EXAM: MG MAMMO SCREENING 60 MIN DUR CLINICAL HISTORY: breast cancer screening,PERSONAL H/O BREAST CA,C50.919,Z12.39 TECHNIQUE: Bilateral full field digital CC and MLO mammographic images were obtained with 3D tomosyn thesis and utilizing computer aided detection (CAD). COMPARISON: Available for comparison. FINDINGS: Masses/Architectural Distortion: The patient is status post left lumpectomy. Stable scarring is seen in the upper outer quadrant of the left breast. Microcalcifications: No suspicious pleomorphic-type are seen. Stable calcifications are seen in the l eft breast. Skin Thickening/Nipple Retraction: None. IMPRESSION: 1. No significant interval change with no specific features of malignancy noted. 2. Unless there is more urgent need, screening mammography is recommended, as per [employer] guidelines. 3. Findings were discussed with the patient on the date of the examination. BI-RADS Category 2 - Benign Findings Breast Density - Category B - Scattered areas of fibroglandular density Breast density category C or D implies that the patient has dense breast tissue. Dense breast tissue is very common and is not abnormal but dense breast tissue can make it harder to find cancer on a ma mmogram. Also, dense breast tissue may increase their breast cancer risk. This information about the result of the mammogram report was provided to the patient to raise their awareness. Use this report when you speak with the patient about their risks for breast cancer, which includes their family hist ory. At that time, you may recommend for more screening tests (Ultrasound or MRI) as they might be us eful based on their risk. A negative radiographic report should not delay biopsy if a dominant or clinically suspicious mass is present. Up to ten percent of cancers are not identified on mammography. A negative report may reinforce clinical impression. Adenosis and dense breasts may obscure an underlying neoplasm. False positive reports average 6 to 10%. Patient will receive a letter notifying them of these results.
== END 2023-03-21 03:34 ==
LOC: DI 03:15
PROVIDERS: PCP Nurse Practitioner; Visit Provider Nurse Practitioner
DX: F17.210 Nicotine dependence, cigarettes, uncomplicated (principal); Z12.2 Encounter for screening for malignant neoplasm of respiratory organs; Z12.31 Encounter for screening mammogram for malignant neoplasm of breast
CPT/HCPCS: 71271; 77063; 77067

== ENCOUNTER 2023-03-30 08:28 | Emergency (ER) | payer OTHER, MEDICAID, SELFPAY ==
[2023-03-30] VITALS (13 sets, daily range): BP systolic 164–176; BP diastolic 80–91; PULSE 72–91; RESP 22; TEMP 36.4; O2SAT 84–100
--- NOTE | 2023-03-30 08:45 | DI.RAD_ITS ---
Exam(s) XR SHOULDER RT COMPLETE 2+V EXAM: XR SHOULDER RT COMPLETE 2+V CLINICAL HISTORY: right shoulder. TECHNIQUE: 2D digital imaging was performed. COMPARISON: No exams were available for comparison FINDINGS: Two views. There is anterior dislocation of the humeral head relative to the glenoid fossa. No obvious fracture s identified. AC joint appears unremarkable as does the clavicle. No adjacent rib fractures noted. IMPRESSION: Anterior dislocation of the humeral head. DATA REPOSITORY: RADIATION DOSE DELIVERED:
--- NOTE | 2023-03-30 08:49 | ED.GENADUL_ITS ---
Discharge Plan Disposition Patient Disposition: Home Discharge Details Clinical Impression: Anterior dislocation of left shoulder Primary Care Provider: Delisa Velazquez ED Provider: Michaelle Martini Home Meds and New Rx's Prescriptions: New ondansetron HCl 4 mg tablet 4 mg PO DAILY 5 Days Qty: 5 0RF Continued ibuprofen 600 mg tablet 600 mg PO TID PRN (Reason: pain) Qty: 60 3RF vit B [id number]-[id number] ac-zinc 800 mcg- 12.5 mg tablet 1 tab PO DAILY doxycycline monohydrate 100 mg capsule 100 mg PO BID Qty: 14 0RF albuterol sulfate [ProAir HFA] 90 mcg/actuation HFA aerosol inhaler 1 - 2 puff Inhalation Q4H PRN Qty: 2 6RF cyclobenzaprine 5 mg tablet 5 mg PO BID Qty: 20 0RF pantoprazole [Protonix] 40 mg tablet,delayed release (DR/EC) 40 mg PO DAILY Qty: 30 12RF Probiotic 1 EACH capsule 1 ea PO DAILY Patient Comments: Patient may take more than 1 per day, depends on bloating. ct tears naturale ii 2 drp OU QID magnesium oxide 400 mg (241.3 mg magnesium) tablet 400 mg PO DAILY Qty: 90 3RF estradiol [Vagifem] 10 mcg tablet 10 mcg VG Twice Weekly Qty: 24 12RF bupropion HCl [Wellbutrin SR] 150 mg tablet sustained-release 12 hr 150 mg PO BID Qty: 180 3RF acetaminophen 500 mg tablet 500 mg PO Q6H PRN (Reason: pain) Qty: 60 2RF Discharge Instructions Additional Instructions: You have suffered from a shoulder dislocation, keep your sling in place Refrain from using your shoulder until you are cleared by orthopedics, call them to follow-up if you do not hear from them tomorrow Please continue to move your fingers in your hand and you may lightly move the shoulder in your sling Should you develop recurrent symptoms of pain, strength or sensation change, or with any new or worsening complaints, please be reassessed I am giving you several tablets of Zofran, this is for nausea if you need it You should not any pain medication but may take Tylenol as needed for discomfort Referrals: Kevin Deng MD [ [facility] STAFF PHYSICIAN] - Discharge Data Discharge Date/Time-TO BE ENTERED AT DEPARTURE: 03/30/23 13:47 Medical Decision Making 67-year-old female presents after a fall while tripping over her dog, landed on right shoulder, x-ray shows evidence of anterior dislocation, GCS 15, no visible sign of head trauma or neck pain, no abdominal pain, chest pain, pupils equal round reactive to light and accommodation, alert and oriented x4 Given increments of Dilaudid, 2 mg of Dilaudid given, with Mejia reduction of shoulder dislocation, patient tolerated this procedure with slight difficulty and that she had nausea and vomiting likely secondary to opioid analgesia And her vitals remained stable She was given several antiemetics and able to tolerate p.o. challenge, repeat x- ray was ordered with successful reduction of patient's shoulder dislocation on right She is asymptomatic at time of reassessment, feels symptomatically improved, placed on orthopedic list for follow-up and placed in sling Return precautions reviewed and patient expressed understanding, several exams performed without any additional acute injuries noted HPI General Date/Time Provider Initiated Documentation: 03/30/23 08:47 . HPI Narrative: This 67-year-old female with history of hyperlipidemia, breast cancer, GERD presents with report of trip and fall over her dog landing directly on her right shoulder. She denies any additional injuries. She states she is in excruciating pain and I am also able to move her shoulder since the event occurred approximately half an hour prior to arrival. Denies any neck pain. Denies any history of anticoagulation. Related Data Home Medications Medication Instructions Recorded Confirmed Lactobacillus acidophilus 10 1 ea PO DAILY 12/29/17 02/17/23 billion cell capsule (Probiotic) Tears Naturale Ii 2 drp OU QID 03/17/18 02/17/23 acetaminophen 500 mg tablet 500 mg PO Q6H PRN pain #60 tabs 06/30/21 03/30/23 magnesium oxide 400 mg (241.3 mg 400 mg PO DAILY #90 tabs 08/25/21 03/30/23 magnesium) tablet ibuprofen 600 mg tablet 600 mg PO TID PRN pain #60 tabs 02/23/22 03/30/23 estradiol 10 mcg vaginal tablet 10 mcg vaginal Twice Weekly #24 06/07/22 03/30/23 (Vagifem) tab-caps cyclobenzaprine 5 mg tablet 5 mg PO BID #20 tabs 09/13/22 02/17/23 pantoprazole 40 mg tablet,delayed 40 mg PO DAILY #30 tabs 09/16/22 03/30/23 release (Protonix) albuterol sulfate 90 mcg/actuation 1 - 2 puff inhalation Q4H PRN ##2 02/17/23 03/30/23 aerosol inhaler (ProAir HFA) bupropion HCl 150 mg tablet,12 hr 150 mg PO BID #180 tabs 02/17/23 03/30/23 sustained-release (Wellbutrin SR) doxycycline monohydrate 100 mg 100 mg PO BID #14 caps 02/17/23 02/17/23 capsule vitamin B complex with vit C-folic 1 tab PO DAILY 02/17/23 03/30/23 acid 800 mcg-zinc 12.5 mg tablet ondansetron HCl 4 mg tablet 4 mg PO DAILY 5 days #5 tabs 03/30/23 Previous Rx's Medication Instructions Recorded acetaminophen 500 mg tablet 500 mg PO Q6H PRN pain #60 tabs 06/30/21 magnesium oxide 400 mg (241.3 mg 400 mg PO DAILY #90 tabs 08/25/21 magnesium) tablet ibuprofen 600 mg tablet 600 mg PO TID PRN pain #60 tabs 02/23/22 estradiol 10 mcg vaginal tablet 10 mcg vaginal Twice Weekly #24 06/07/22 (Vagifem) tab-caps cyclobenzaprine 5 mg tablet 5 mg PO BID #20 tabs 09/13/22 pantoprazole 40 mg tablet,delayed 40 mg PO DAILY #30 tabs 09/16/22 release (Protonix) albuterol sulfate 90 mcg/actuation 1 - 2 puff inhalation Q4H PRN ##2 02/17/23 aerosol inhaler (ProAir HFA) bupropion HCl 150 mg tablet,12 hr 150 mg PO BID #180 tabs 02/17/23 sustained-release (Wellbutrin SR) doxycycline monohydrate 100 mg 100 mg PO BID #14 caps 02/17/23 capsule ondansetron HCl 4 mg tablet 4 mg PO DAILY 5 days #5 tabs 03/30/23 Allergies Allergy/AdvReac Type Severity Reaction Status Date / Time ceftriaxone Allergy Intermediate ITCHING; Verified 03/30/23 08:40 RASH Sulfa (Sulfonamide Allergy Intermediate ITCHY RASH Verified 03/30/23 08:40 Antibiotics) rosuvastatin AdvReac Intermediate NAUSEA Verified 03/30/23 08:40 sertraline AdvReac Intermediate diarrhea Verified 03/30/23 08:40 General Stated Complaint: Orthopedic ANTHONY: 3 PFSH All Active Problems (Updated 03/30/23 @ 12:38 by DAVID Almodovar) Anterior dislocation of left shoulder (Acute) Anxiety (Chronic) Kuhn's esophagus (Chronic) EGD neg 2015 Depressive disorder (Chronic) Gastroesophageal reflux disease (Chronic) gastritis; HH Hyperlipidemia (Chronic 01/02/13) Malignant neoplasm of female breast (Chronic 07/28/93) stage I; lumpectomy, radiation, axillary resection, occurred remotely in her 30s as of 12/2021 no sign of recurrence, yearly mammogram Migraine with aura (Chronic) Peripheral neuralgia (Chronic) Cervical radiculopathy at C6 (Acute) Visual field defect (Acute) Pseudogout of hand (Acute) Painful orthopaedic hardware (Acute) Nicotine dependence (Acute) 12/2021- 09/01-08/30 ppd, 25 pk yr hx COPD (chronic obstructive pulmonary disease) (Chronic) 01/2022-clinical diagnosis recurrent mild wheezing a smoker, normal PFTs Generalized hyperhidrosis (Acute) Cervical cancer screening (Acute) To 2021. Previous testing 2015. Currently overdue. Episodic cannabis use (Acute) Medical History (Updated 03/30/23 @ 12:38 by DAVID Almodovar) COVID-19 08/2020 Surgical History (Updated 09/24/22 @ 11:26 by Romy Carballo) Biopsy of breast (~2001) Breast, Lumpectomy (~1993) left Cholecystectomy EGD - IV Sedation (05/10/16) H/O right wrist surgery Hx of neck surgery Ligation of fallopian tube Reduction mammoplasty (~1994) right S/P colonoscopy 03/30/19 Tonsillectomy (~1958) Family History Mother Personal history of malignant neoplasm SKIN Father Essential hypertension Hyperlipidemia Stroke Grandfather No problems noted. Grandfather No problems noted. Grandmother Personal history of malignant neoplasm BREAST Grandmother No problems noted. Brother Essential hypertension Personal history of malignant neoplasm THYROID Hyperlipidemia Brother No problems noted. Brother No problems noted. Brother No problems noted. Daughter No problems noted. Daughter No problems noted. Social History Smoking/Tobacco Use Status: Current every day Tobacco Type: cigarettes Years smoked: 50 Quit status: considering quitting Smoking risk assessment performed?: Yes Alcohol Intake: current Alcohol Intake frequency: holidays/special occasions only Alcohol type: hard liquor Drug use: Occasionally Substance use type: marijuana Details: last alcohol: new years. Marijuana: t-14 Adopted: No Caregiver/Support person: No Foster care: No Household members: family Housing: house Number of Children: 2 number of grandchildren: 3 Communication Needs: None and Corrective Lenses Education Level: high school Do you need help understanding health information?: Rarely current occupation: Disabled-has results of issues related to her breast cancer surgery Pets and animals: Yes Pets and animals: dog(s) Do you think of yourself as: straight/heterosexual Current gender identity: female What is your relationship status?: living with partner How often do you talk on the phone with friends or family?: decline to answer How often do you get together with friends or relatives?: decline to answer How often do you attend confucianist or anabaptism services?: decline to answer Do you belong to any clubs or organized social groups?: no Panel score (0-1 are the most socially isolated patients): 1 What type of physical activity do you participate in: none Jessenia/Faith: Moravian Seatbelt use: always Helmet use: No Drive intox or ride w/intox haul truck driver: No Working smoke detector in home: Yes Fire extinguisher in home: Yes Carbon monox detector in home: Yes Do you feel safe at home: Yes Do you feel safe in your relationship?: Yes History History 3 Para 2 Hx # Term Pregnancies Multiple births Hx # Pregnancies Ectopic pregnancies AB induced Hx Number of Living Children AB spontaneous Course Vital Signs Vital signs: Vital Signs Temperature 36.4 C 03/30/23 08:34 Pulse 86 03/30/23 08:34 Respiratory Rate 22 03/30/23 08:34 Blood Pressure 176/80 H 03/30/23 08:34 Pulse Oximetry 98 03/30/23 08:34 Temperature 36.4 C 03/30/23 08:34 Pulse 86 03/30/23 08:34 Respiratory Rate 22 03/30/23 08:34 Respiratory Effort Normal, Non-Labored 03/30/23 08:37 Blood Pressure 176/80 H 03/30/23 08:34 Pulse Oximetry 98 03/30/23 08:34 Oxygen Delivery Method Room Air 03/30/23 08:34 Oxygen Flow Rate 0 03/30/23 08:34 Comment BP left calf 03/30/23 08:34 Procedures Orthopedic Joint Reduction Joint #1: Time Out Performed: Yes Side: right Joint Reduction Location: shoulder Analgesia: hematoma block Local Anesthesia: Bupivicaine 0.25% Amount of anesthesic used (mL): 10 Shoulder Technique Used (if applicable): Jackie Post-reduction neuro exam: intact Post-reduction vascular: intact Post Reduction X-Ray Results: reduced Splint Applied: Yes Patient Tolerated Procedure: well PAWSS Have you Been Recently Intoxicated or Drunk Within the Last 30 days?: No Have you Ever Experienced Previous Episodes of Alcohol Withdrawal?: No Have you ever Experienced Withdrawal Seizures?: No Have you ever Experienced Delirium Tremens(DT)s?: No Have you ever undergone Alcohol Rehabilitation Treatment (i.e, inpt ot outpatient treatment programs)?: No Have you ever Experienced Blackouts?: No Have you ever Combined Alcohol with other Downers within the last 90 days?: No Have you ever Combined Alcohol with any other Substance of Abuse during the last 90 days?: No Result: 0
[2023-03-30] MEDS: HYDROmorphone 2 MG/ML SYR 0.5 MG IVP ×2 (09:04→09:27)
[2023-03-30] MEDS: HYDROmorphone 2 MG/ML SYR 1 MG IVP ×2 (10:28)
--- NOTE | 2023-03-30 10:29 | NUR.NOTE ---
Nursing Note: PA ordered two individual 1 mg doses of Dilaudid in attempt to give one dose of pain management and then one dose for reduction. PA at the bedside stated to give them back to back in attempt to control pain. No reduction attempted.
--- NOTE | 2023-03-30 10:45 | DI.RAD_ITS ---
Exam(s) XR SHOULDER RT COMPLETE 2+V EXAM: XR SHOULDER RT COMPLETE 2+V CLINICAL HISTORY: right shoulder. TECHNIQUE: 2D digital imaging was performed. COMPARISON: CR XR SHOULDER RT COMPLETE 2+V from 03/30/2023 FINDINGS: Four views. There has been successful realignment of the glenohumeral joint. No fracture evident in the humeral head and osseous glenoid. Subacromial space is not diminished. AC joint not distracted. IMPRESSION: Successful realignment of the right glenohumeral joint. No fractures evident. DATA REPOSITORY: RADIATION DOSE DELIVERED:
[2023-03-30] MEDS: Ondansetron 4 MG/2 ML VIAL ×2 (11:10→11:44)
[2023-03-30] MEDS: Prochlorperazine 10 MG/2 ML VIAL 5 MG IVP (13:06)
--- NOTE | 2023-03-30 13:26 | NUR.NOTE ---
Nursing Note: this RN Assisted patient to commode at BedSide. Patient reports no dizzyness just tired. appears steady on feet call light within reach of patient at this time of writing.
== END 2023-03-30 13:47 | disposition home or self-care (01) ==
PROVIDERS: Emergency Provider Physician Assistant; PCP Nurse Practitioner
DX: S43.014A Anterior dislocation of right humerus, initial encounter (principal); W01.0XXA Fall on same level from slipping, tripping and stumbling without subsequent striking against object, initial encounter
CPT/HCPCS: 23650; 23655; 96374; 96375; 96376; 99284; 73030; J0780; J1170; J2405

== ENCOUNTER → 2023-04-13 12:32 | Outpatient (BNVA) | payer OTHER, MEDICAID, SELFPAY | PROVIDERS: PCP Nurse Practitioner; Referring Provider Nurse Practitioner; Visit Provider Student in an Organized Health Care Education/Training Program | DX: S43.014A Anterior dislocation of right humerus, initial encounter (principal); W01.0XXA Fall on same level from slipping, tripping and stumbling without subsequent striking against object, initial encounter | CPT/HCPCS: 99203; 99213 ==

== ENCOUNTER 2023-04-19 04:58 | Outpatient (CLI) | payer OTHER, MEDICAID, SELFPAY ==
[2023-04-19] MEDS: Inhaler, Assist Device 1 EACH MC (14:15)
[2023-04-19] MEDS: Albuterol HFA 18 GM 200 PUFF INH IH (14:15)
--- NOTE | 2023-04-22 07:07 | W.PFT ---
Date of service: 04/19/23 Time of Service: 13:01 Pulmonary Function Test Result Indications: ILD Interpretation Spirometry: There is no airflow limitation.No significant bronchodilator response. Lung Volumes: Normal lung volumes. Diffusion Capacity: Normal diffusion Airway Pressure: Normal airways resistance Impression Normal pulmonary function testing. Clinical Correlation therefore is recommended.
== END 2023-04-19 04:59 | disposition home or self-care (01) ==
LOC: RT 04:58
PROVIDERS: PCP Nurse Practitioner; Visit Provider Student in an Organized Health Care Education/Training Program
DX: J84.9 Interstitial pulmonary disease, unspecified (principal)
CPT/HCPCS: 94060; 94726; 94729

== ENCOUNTER 2023-04-22 02:23 | Outpatient (CLI) | payer OTHER, MEDICAID, SELFPAY ==
[2023-04-22 18:42] LABS: Rheumatoid Factor <8.6 IU/mL (<12.0)
[2023-04-25 08:27] LABS: Cyclic Citrullinated Peptide <2.5 U/mL (<5.0)
[2023-04-26 14:23] LABS: ANA Interpretation Positive (Negative)
== END 2023-04-22 02:24 | disposition home or self-care (01) ==
LOC: LOS 02:23
PROVIDERS: PCP Nurse Practitioner; Visit Provider Student in an Organized Health Care Education/Training Program
DX: J84.9 Interstitial pulmonary disease, unspecified (principal)
CPT/HCPCS: 36415; 86200; 86038; 86431

== ENCOUNTER 2023-05-03 05:56 | Day surgery (SDC) | payer OTHER, MEDICAID, SELFPAY ==
--- NOTE | 2023-05-02 18:23 | W.ANESPRE ---
General Info Date of Service Date Performed: 05/03/23 Height: 5 ft 2 in Weight: 74.843 kg Body Mass Index (BMI): 30.2 Surgical Procedure: Operation Date: 05/03/23 07:40 Proposed Procedure Side Surgeon p Bronchoscopy w/BAL and Transbronchial Biopsies Skylar Lopez MD Meds Allergies and Home Medications Allergies Allergy/AdvReac Type Severity Reaction Status Date / Time ceftriaxone Allergy Intermediate ITCHING; Verified 05/03/23 06:38 RASH Sulfa (Sulfonamide Allergy Intermediate ITCHY RASH Verified 05/03/23 06:38 Antibiotics) rosuvastatin AdvReac Intermediate NAUSEA Verified 05/03/23 06:38 sertraline AdvReac Intermediate diarrhea Verified 05/03/23 06:38 Home Medication Medication Instructions Recorded Lactobacillus acidophilus 10 1 ea PO DAILY 12/29/17 billion cell capsule (Probiotic) Tears Naturale Ii 2 drp OU QID 03/17/18 acetaminophen 500 mg tablet 500 mg PO Q6H PRN pain #60 tabs 06/30/21 magnesium oxide 400 mg (241.3 mg 400 mg PO DAILY #90 tabs 08/25/21 magnesium) tablet ibuprofen 600 mg tablet 600 mg PO TID PRN pain #60 tabs 02/23/22 estradiol 10 mcg vaginal tablet 10 mcg vaginal Twice Weekly #24 06/07/22 (Vagifem) tab-caps pantoprazole 40 mg tablet,delayed 40 mg PO DAILY #30 tabs 09/16/22 release (Protonix) albuterol sulfate 90 mcg/actuation 1 - 2 puff inhalation Q4H PRN ##2 02/17/23 aerosol inhaler (ProAir HFA) bupropion HCl 150 mg tablet,12 hr 150 mg PO BID #180 tabs 02/17/23 sustained-release (Wellbutrin SR) vitamin B complex with vit C-folic 1 tab PO DAILY 02/17/23 acid 800 mcg-zinc 12.5 mg tablet Current Visit Medications: Current Medications Generic Name Dose Route Start Last Admin Trade Name Freq PRN Reason Stop Dose Admin Ringer's Solution 1,000 mls @ 80 mls/hr 05/03/23 06:00 IV 05/03/23 23:59 INFUSION OSMANI IV Miscellaneous Supplies 1 each 05/03/23 06:00 Iv Access IV 05/03/23 23:59 DIRECTED OSMANI Sodium Chloride 0 ml 05/03/23 06:00 Normal Saline Flush 10 Ml Syr IV 05/03/23 23:59 PRN PRN Sodium Chloride 0 ml 05/03/23 06:00 Normal Saline 10 Ml Vial IJ 05/03/23 23:59 DIRECTED PRN Sterile Water 0 ml 05/03/23 06:00 Water,Injection,Sterile 10 Ml Vial IJ 05/03/23 23:59 DIRECTED PRN PFSH Active Problems Active Problems: Problem Status Onset Code Anterior dislocation of right shoulder 03/30/23 S43.014A ILD (interstitial lung disease) J84.9 Anxiety F41.9 Kuhn's esophagus K22.70 Depressive disorder F32.9 Gastroesophageal reflux disease K21.9 Hyperlipidemia 01/02/13 E78.5 Malignant neoplasm of female breast 07/28/93 C50.919 Migraine with aura G43.109 Peripheral neuralgia M79.2 Cervical radiculopathy at C6 M54.12 Visual field defect H53.40 Pseudogout of hand M11.249 Painful orthopaedic hardware T84.84XA Nicotine dependence F17.200 Generalized hyperhidrosis R61 Cervical cancer screening Z12.4 Episodic cannabis use F12.90 Medical History Medical History COVID-19 08/2020 Surgical History Surgical History Biopsy of breast (~2001) Breast, Lumpectomy (~1993) left Cholecystectomy EGD - IV Sedation (05/10/16) H/O right wrist surgery Hx of neck surgery Ligation of fallopian tube Reduction mammoplasty (~1994) right S/P colonoscopy 03/30/19 Tonsillectomy (~1958) Tobacco Smoking/Tobacco Use Status: Current every day Tobacco Type: cigarettes Smoking cigarettes per day: 2 Years smoked: 50 Passive smoking exposure: No Alcohol Alcohol Intake: current Alcohol intake frequency: holidays/special occasions only Alcohol type: hard liquor Substance Use Substance use: Occasionally Substance use type: marijuana Details: last alcohol: new years. Marijuana: t-14 Prental History History 3 Para 2 Hx # Term Pregnancies Multiple births Hx # Pregnancies Ectopic pregnancies AB induced Hx Number of Living Children AB spontaneous Vital Signs and Lab Results Vital Signs Most Recent Vital Signs in EMR: Temp Pulse Resp BP Pulse Ox 36.6 C 95 H 20 150/85 H 91 L 05/03/23 06:40 05/03/23 06:40 05/03/23 06:40 05/03/23 06:40 05/03/23 06:40 Lab Results Blood Type / Crossmatch: No Data to Display Complete Blood Count: No Data to Display Complete Metabolic Panel: No Data to Display Liver Function Panel: No Data to Display Coagulation Panel: No Data to Display Cardiac Panel: No Data to Display Arterial Blood Gas: No Data to Display Venous Blood Gas: No Data to Display Pancreas Panel: No Data to Display Thyroid Panel: No Data to Display Infectious Disease: No Data to Display Blood Cultures: No Data to Display Toxicology Panel: No Data to Display Imaging and Studies Imaging and Studies Study information below may be from another EMR and interpreted by another provider. Please see original notes in EMR for more complete details. EKG Summary: 09/20: sinus. Stress Test Summary: 02/25/2022: Stress ECG Conclusion 1. The resting electrocardiogram shows left anterior fascicular block, poor R wave progression 2. The patient exercised on the Ronak protocol and completed a workload of 7 METS, limited by shortness of breath and general fatigue 3. Normal heart rate and blood pressure response to exercise. Patient achieved 92% of predicted heart rate for age 4. There was no electrocardiographic evidence of myocardial ischemia 5. There were no dysrhythmias Lin Treadmill Score is 5.7 which is Low risk. Echocardiogram Summary: 02/22/2022: Conclusion Normal left ventricular wall thickness and chamber size. Estimated ejection fraction is 55 to 60%. Wall motion is normal Normal right ventricular size and systolic function Both atria are normal in size There is no structural or hemodynamically significant valvular disease Pulmonary Function Summary: 04/20: normal. 02/05/2022: Interpretation Spirometry: There is no airflow limitation. There is no significant bronchodilator response. Impression Normal spirometry Clinical Correlation therefore is recommended. Anesthesia Assessment and Plan Anesthesia History Personal History: No History of Anesthesia Complications Family History: No Family History of Anesthesia Complications Exercise Tolerance Exercise Tolerance: Metabolic Equivalents>4 Cardiac & Pulmonary Exam Cardiac Exam: Normal S1/S2 Heart Sounds Pulmonary Exam: Clear Bilateral Breath Sounds Implantable Cardiac Device Does patient have a Pacemaker or an ICD?: No Airway Exam Known Difficult Airway: No Mallampati Class: 2 Mouth Opening: Normal (> 3cm) Thyromental Distance: Greater than 3 cm Neck Range of Motion: Full ROM Neck Circumference: Normal Teeth Condition: Generalized Poor Dentition and Removable Dentures/Plates Upper ASA Classification ASA Score: ASA 2 Emergency Case?: No NPO Status NPO Status: NPO Clears >2 hours, Solids >8 hours Anesthesia Plan Resuscitation Status: Full Code Anesthesia Technique: General Anesthesia Airway Planned: Endotracheal Tube Monitors Used: Standard Monitors Preoperative Comments:: 67 yo female for bronch. Sig PMHx: barretts (GERD), anxiety/depression, smoker, occ EtOH. Previous Anes: - EGD, prop, natural airway, no issues. - ECTR, prop, natural airway, no issues. - colo/egd, prop, natural airway, no issues.
[2023-05-03] VITALS (9 sets, daily range): BP systolic 138–166; BP diastolic 60–85; PULSE 59–95; RESP 14–20; TEMP 36.2–36.6; O2SAT 91–99; BMI 30.2
--- NOTE | 2023-05-03 | DI.RAD_ITS ---
Exam(s) XR PORTABLE CHEST AP EXAM: XR PORTABLE CHEST AP CLINICAL HISTORY: s/p transbronchial biopsies, assess for PNX. TECHNIQUE: 2D digital imaging was performed. COMPARISON: CR,XR XR CHEST 2V PA LATERAL from 09/12/2022 FINDINGS: Single AP portable view. Heart size normal. Mediastinum is not widened There is significant infiltrate bilaterally. The left side this is most prominent in the left lower lobe. Right-sided infiltrate in the parahilar and infrahilar regions noted. Possible small amount o f pleural fluid on the left. No obvious pleural fluid on the right. No pneumothorax. No fractures. IMPRESSION: Significant bilateral lung infiltrates now evident. Also probable small left pleural effusion. DATA REPOSITORY: RADIATION DOSE DELIVERED:
--- NOTE | 2023-05-03 07:00 | DI.RAD_ITS ---
Exam(s) XR FLOURO OR C-ARM <1 HR EXAM: XR FLOURO OR C-ARM <1 HR CLINICAL HISTORY: Bronchoscopy with biopsies - ILD. TECHNIQUE: 2D digital imaging was performed. COMPARISON: No exams were available for comparison FINDINGS: Proximally was provided during bronchoscopy See procedure report for details. Total fluoroscopy time 21.7 seconds IMPRESSION: Radiation exposure index/cumulative dose: Marryr= 2.23mGy DATA REPOSITORY: RADIATION DOSE DELIVERED:
[2023-05-03] MEDS: Lactated Ringers 1,000 ML 80 ML IV (07:06)
--- NOTE | 2023-05-03 08:01 | PAPNONF_PTH ---
PATIENT: Lubna Handley LOC: [facility] U#:[id number] AGE/SX: 67/F ROOM: RE05/03/[address]: Skylar Lopez MD : [id number] BED: DIS: 05/03/2023 SPEC #: [id number] RECD: 05/03/23 13:27 STATUS: CECY REQ #: [id number] CHARLEY: 05/03/23 08:[address]: Skylar Lopez DEPT: [facility] Cytology RECD BY: Michaelle Morataya ENTERED: 05/03/23 13:27 SP TYPE: KEILY HERNANDEZ DR: Delisa Velazquez APRN Tissues: 1 - BODY FLUID CYTO(NOT S/U/N/EM)[facility] Procedures: BODY FLUID CYTO(NOT SPU/UR/NIP/ENDOM)[facility] Comments: [id number] (TV = 15 ml, [facility] (REFR[facility]ATED)
[2023-05-03] MEDS: Lidocaine 1% Pres-Free 30 ML VIAL (08:49)
--- NOTE | 2023-05-03 08:58 | ROE_ITS ---
Date of service: 05/03/23 Time of Service: 07:30 Operative Note Operative Note Refer to Anesthesia Record Procedure Description: Bronchoscopy Indication:Interstitial Lung Disease Procedure performed: Flexible bronchoscopy with BAL and transbronchial biopsies of RUL and RLL Sedation plan: General anesthesia Informed consent was obtained after the risks and benefits or the procedure were discussed. The patient was sedated and intubated by anesthesia. A proper and complete OR compliant time out was performed. The therapeutic 6.2mm Olympus bronchoscope was inserted through the endotracheal tube. The bronch oscope was inserted into the airways, were 3cc in total of 1% topical lidocaine was used the anesthetize the airways. The trachea was midline and without lesion or injury. The mucosa appeared normal and there were no signs of tracheomalacia. The lucinda was sharp. All bronchial subsegments were visualized within each lobe and showed scant white and easy to suction secretions. There were also a moderate amount of diverticuli present. A bronchoalveolar lavage was performed in the RUL . A total of 120 cc of saline was administered with a return of 75 cc. The fluid was slightly cloudy in appearance with visible mucus plugs. Next 2 attempts at a RUL transbronchial biopsy were made with one attempt only having mucus present. The second transbronchial biopsy in the RUL had satisfactory tissue. 3cc cold saline was used to improve visualization and hemostasis. Next 2 transbronchial biopsies were obtain in the RLL with satisfactory tissue present. Again 3 cc colid saline used for irrigation and hemostasis. All biopsies completed under fluroscopy guidance. Airway exam confirmed lack of active bleeding. No evidence of PNX on fluoroscopy at any point during the procedure. CXR completed in PACUS shows no pneumothorax. The bronchoscope was then removed and the case terminated. The patient was taken to PACU in stable condition. Samples collected:RUL BAL, bronchial washings, RUL transbronchial biopsy x1, RLL transbronchial biopsy x2 Testing ordered:Bacteria, fungal, AFB cultures, cytopathology, cell diff, biopsies are for Envisia testing and sent seperately. Complications:None Skylar Lopez MD Pulmonary & Critical Care Medicine
--- NOTE | 2023-05-03 09:09 | W.ANESPOSTOP ---
Postoperative Evaluation Date, Time and Location Date Performed: 05/03/23 Time Performed: 09:09 Patient Location: PACU Vital Signs Most Recent Imported Vital Signs: Most Recent Vital Signs Temp Pulse Resp BP Pulse Ox 36.2 C L 69 15 140/60 97 05/03/23 08:50 05/03/23 08:50 05/03/23 08:50 05/03/23 08:50 05/03/23 08:50 Assessment Mental Status: Awake (Alert & Oriented to Patient Baseline) Airway and Respiratory Function: Patent airway with normal (patient baseline) respiratory exam Cardiovascular Function: Hemodynamically Stable Hydration Status: Adequately Hydrated Nausea & Vomiting: No Nausea or Vomiting Pain: Pt. Denies Any Pain Peripheral Nerve Block: Patient did not receive a nerve block
[2023-05-03] MEDS: fentaNYL 100 MCG/2 ML VIAL IVP (09:20)
[2023-05-04 10:28] LABS: Lymphocytes Fluid Relative 2 %; Mono/Macrophage Fluid Relative 92 %; Neutrophils Fluid Relative 5 %
[2023-05-04 10:29] LABS: Eosinophils Fluid Relative 1 %
[2023-05-05 12:21] LABS: Gram Smear Result Neutrophils Present
[2023-05-31 13:42] LABS: Fungus Smear No Fungi Seen
[2023-05-31 14:06] LABS: Fungus Smear No Fungi Seen
[2023-06-09 08:16] LABS: Result See Comments
[2023-06-09 08:17] LABS: Result See Comments
== END 2023-05-03 11:17 | disposition home or self-care (01) ==
PROVIDERS: PCP Nurse Practitioner; Visit Provider Student in an Organized Health Care Education/Training Program
PROC: 0BJ08ZZ Inspection of Tracheobronchial Tree, Via Natural or Artificial Opening Endoscopic (ICD-10-PCS; CPT 31622; principal; 2023-05-03 07:30)
DX: J84.9 Interstitial pulmonary disease, unspecified (principal); Z79.899 Other long term (current) drug therapy
CPT/HCPCS: 31628; 31624; 31632; 76000; 80162; 87070; 87102; 87116; 87205; 87206; 71045; 87107; 88104; J2250; J2405; J2704; J3010; J3490

== ENCOUNTER 2023-05-06 14:00 | Outpatient (CLI) | payer OTHER, MEDICAID, SELFPAY ==
[2023-05-09 12:03] LABS: Myeloperoxidase Ab IgG <0.2 U; Proteinase 3 Ab (PR3) <0.2 U; Scl 70 Antibodies, IgG <0.2 U
[2023-05-10 13:18] LABS: dsDNA Ab, IgG <12.3 IU/mL (<30.0)
[2023-05-10 14:50] LABS: SS-A Antibody 2.1 Units (<20.0); SS-B (La) Ab, IgG 1.1 Units (<20.0); Sm (Smith) Ab, IgG 1.3 Units (<20.0)
[2023-05-21 02:11] LABS: Anti-EJ Ab Negative (Negative); Anti-Jo-1 Ab <20 Units (<20); Anti-Ku Ab Negative (Negative); Anti-MDA-5 Ab (CADM-140) <20 Units (<20); Anti-Mi-2-Ab Negative (Negative); Anti-NXP-2 (P140) Ab <20 Units (<20); Anti-OJ Ab Negative (Negative); Anti-PL-12 Ab Negative (Negative); Anti-PL-7 Ab Negative (Negative); Anti-PM/Scl-100 Ab <20 Units (<20); Anti-SRP Ab Negative (Negative); Anti-SS-A 52kD Ab, IgG <20 Units (<20); Anti-TIF-1gamma Ab <20 Units (<20); Anti-U1 RNP Ab <20 Units (<20); Anti-U2 RNP Ab Negative (Negative); Anti-U3 RNP (Fibrillarin) Negative (Negative)
== END 2023-05-06 14:01 | disposition home or self-care (01) ==
LOC: LBO 14:00
PROVIDERS: PCP Nurse Practitioner; Visit Provider Student in an Organized Health Care Education/Training Program
DX: J84.9 Interstitial pulmonary disease, unspecified (principal)
CPT/HCPCS: 36415; 83516; 86235; 86225

== ENCOUNTER → 2023-06-14 12:55 | Outpatient (BNVA) | payer OTHER, MEDICAID, SELFPAY | PROVIDERS: PCP Nurse Practitioner; Referring Provider Nurse Practitioner; Visit Provider Student in an Organized Health Care Education/Training Program | DX: X58.XXXA Exposure to other specified factors, initial encounter (principal); M75.101 Unspecified rotator cuff tear or rupture of right shoulder, not specified as traumatic; S42.014A Posterior displaced fracture of sternal end of right clavicle, initial encounter for closed fracture | CPT/HCPCS: 99213 ==

== ENCOUNTER → 2023-06-27 02:29 | Outpatient (CLI) | payer OTHER, MEDICAID, SELFPAY ==
--- NOTE | 2023-06-27 09:00 | DI.MRI_ITS ---
Exam(s) MR UPPER JOINT RT WO EXAM: MR UPPER JOINT RT WO CLINICAL HISTORY: RECENT DISLOCATION ANTERIOR RT SHOULDER, S43.014A. TECHNIQUE: Multiplanar multisequence MRI was performed. COMPARISON: Plain film April 20 FINDINGS: Exam mildly limited by motion. BONES: There is no fracture or contusion pattern. JOINTS:The acromioclavicular joint shows mild spurring and a small amount of fluid. The glenohumeral joint shows a small amount of fluid. TENDONS: Supraspinatus: Thickening and edema without visible focal tear. Infraspinatus: Unremarkable. Subscapularis: Unremarkable. Teres Minor: Unremarkable. Biceps and [place]: Unremarkable. MUSCLES: Unremarkable. GLENOID LABRUM: Unremarkable on this noncontrast examination. SOFT TISSUES: Unremarkable. OTHER: Subacromial and subdeltoid bursae show small amount of fluid.. Foot small amount fluid in toussaint bcoracoid bursa. IMPRESSION: Thickening of the supraspinatus tendon but no focal tear. Small joint effusion. No evidence of Hill-Sachs or Bankart lesions. DATA REPOSITORY:
== END ==
PROVIDERS: PCP Nurse Practitioner; Visit Provider Student in an Organized Health Care Education/Training Program
DX: S43.014A Anterior dislocation of right humerus, initial encounter (principal); X58.XXXA Exposure to other specified factors, initial encounter
CPT/HCPCS: 73221

== ENCOUNTER → 2023-07-05 12:59 | Outpatient (BNVA) | payer OTHER, MEDICAID, SELFPAY | PROVIDERS: PCP Nurse Practitioner; Referring Provider Nurse Practitioner; Visit Provider Student in an Organized Health Care Education/Training Program | DX: S43.014D Anterior dislocation of right humerus, subsequent encounter (principal); X58.XXXD Exposure to other specified factors, subsequent encounter | CPT/HCPCS: 99213 ==

== ENCOUNTER 2023-09-24 02:22 | Emergency (ER) | payer OTHER, MEDICAID, SELFPAY ==
[2023-09-24] VITALS (24 sets, daily range): BP systolic 107–173; BP diastolic 67–138; PULSE 53–99; RESP 11–27; O2SAT 94–100
--- NOTE | 2023-09-24 02:15 | RT.EKG_ITS ---
APPROVED REPORT Exam: Resting ECG Reason for Exam: chest pain Patient Location: E HR:70 bpm ECG Measurements Heart Rate 70 AXIS ME 162 P 50 QRSd 87 QRS 259 QT 387 T 105 QTc 419 Conclusion Sinus rhythm...normal P axis, V-rate 60- 99 Inferior infarct, acute...ST>0.10mV, T upright, II III aVF Probable anterolateral infarct, acute...ST >0.15mV, V2-V6,I,aVL Agree, ST elevation in II, III, aVF, with Q waves and reciprocal changes in I and aVL. Mild ST eleva tion in V1-V3. (+) STEMI. Significantly changed from previous.
[2023-09-24] MEDS: nitroGLYcerin 0.4 MG TAB SL (02:28)
[2023-09-24] MEDS: nitroGLYcerin in D5W 50 MG/250 ML BTL IV (02:30)
--- NOTE | 2023-09-24 02:30 | DI.CT_ITS ---
Exam(s) CT CHEST PE CTA EXAM: CT CHEST PE CTA CLINICAL HISTORY: rule out aortic dissection. TECHNIQUE: Imaging Protocol: Axial CT angiography was performed with multi-slice acquisition and mu lti-planar and/or 3D reconstructions. CONTRAST MATERIAL: Intravenous: Omnipaque 350 contrast volume:100 mL COMPARISON: CT CT CHEST LUNG CANCER SCREEN from 02/22/[address] ABDOMEN PELVIS WO from 09/12/2022 MG MG MAMMO SCREENING 60 MIN DUR from 03/21/[address] CHEST LUNG CANCER SCREEN from 03/21/2023 FINDINGS: Tracheobronchial tree: Patent where visualized. Pulmonary parenchyma: Mild paraseptal emphysematous changes. No architectural distortion. Pulmonary Arteries: No evidence of filling defect to suggest pulmonary emboli. Mediastinum and Alexia: No dominant adenopathy or fluid collection. The esophagus is unremarkable. Visualized thyroid gland: Unremarkable. Pleura: No effusion or pneumothorax. Heart: The heart is not dilated. No coronary artery calcifications are seen. No pericardial effusion. Aorta: Thoracic aorta non-dilated. No evidence of dissection. Mild atherosclerosis. Upper abdomen: There is a stable hepatic cyst. The patient is status post cholecystectomy. Soft tissues: The patient is status post left lumpectomy. There is scarring again seen in the upper outer quadrant of the left breast. Bones: Within normal limits for the patient's age. IMPRESSION: No evidence of pulmonary embolism, thoracic aortic dissection or aneurysm. RADIATION DOSE DELIVERED: 477.64mGy.cm Total DLP DATA REPOSITORY: All CT scans at this facility are submitted to the National Radiology Data Registry (NRDR) Dose Index Registry (DIR) with the [employer] (ACR). RADIATION OPTIMIZATION: All CT scans at this facility use at least one of these dose optimization te chniques: automated exposure control; mA and/or kV adjustment per patient size (includes targeted exa ms where dose is matched to clinical indication); or iterative reconstruction.
[2023-09-24] MEDS: Clopidogrel 300 MG TAB PO ×2 (02:31→03:02)
--- NOTE | 2023-09-24 02:37 | ED.GENADUL_ITS ---
HPI General Date/Time Provider Initiated Documentation: 09/24/23 02:37 . Limitations to Documentation: no limitations . Information obtained by: patient and EMS . HPI Narrative: Time seen was on arrival in bed 2. The patient is a 67-year-old female, previous smoker with a history of hyperlipidemia who has had substernal chest pain radiating to the back for 2 days. The chest pain initially was intermittent and became constant about an hour prior to arrival. EMS was called and the patient had minimal pain when they arrived. They gave her a full loading dose of aspirin and 1 sublingual nitroglycerin and shortly thereafter her chest pain became worse. A repeat EKG showed changes which were dynamic and consistent with unstable angina possibly acute IA with inferior ST depression and ST elevation in aVR. The patient states the pain is severe and radiating to the back. She was noted to be diaphoretic. She was not hypotensive or bradycardic on arrival. She has no known history of coronary artery disease. She describes the chest pain as heartburn but it is located in the center of her chest. She denies any shortness of breath or pleuritic chest pain. She denies any dizziness fever or chills. Related Data Home Medications Medication Instructions Recorded Confirmed Lactobacillus acidophilus 10 1 ea PO DAILY 12/29/17 09/24/23 billion cell capsule (Probiotic) Tears Naturale Ii 2 drp OU QID 03/17/18 09/24/23 acetaminophen 500 mg tablet 500 mg PO Q6H PRN pain #60 tabs 06/30/21 09/24/23 magnesium oxide 400 mg (241.3 mg 400 mg PO DAILY #90 tabs 08/25/21 09/24/23 magnesium) tablet ibuprofen 600 mg tablet 600 mg PO TID PRN pain #60 tabs 02/23/22 09/24/23 estradiol 10 mcg vaginal tablet 10 mcg vaginal Twice Weekly #24 06/07/22 09/24/23 (Vagifem) tab-caps albuterol sulfate 90 mcg/actuation 1 - 2 puff inhalation Q4H PRN ##2 02/17/23 09/24/23 aerosol inhaler (ProAir HFA) bupropion HCl 150 mg tablet,12 hr 150 mg PO BID #180 tabs 02/17/23 09/24/23 sustained-release (Wellbutrin SR) vitamin B complex with vit C-folic 1 tab PO DAILY 02/17/23 09/24/23 acid 800 mcg-zinc 12.5 mg tablet pantoprazole 40 mg tablet,delayed See Rx Instructions .Route 07/17/23 09/24/23 release .COMPLEX #30 tabs cholecalciferol (vitamin D3) 10 10 mcg PO DAILY 09/24/23 09/24/23 mcg (400 unit) capsule Previous Rx's Medication Instructions Recorded acetaminophen 500 mg tablet 500 mg PO Q6H PRN pain #60 tabs 06/30/21 magnesium oxide 400 mg (241.3 mg 400 mg PO DAILY #90 tabs 08/25/21 magnesium) tablet ibuprofen 600 mg tablet 600 mg PO TID PRN pain #60 tabs 02/23/22 estradiol 10 mcg vaginal tablet 10 mcg vaginal Twice Weekly #24 06/07/22 (Vagifem) tab-caps albuterol sulfate 90 mcg/actuation 1 - 2 puff inhalation Q4H PRN ##2 02/17/23 aerosol inhaler (ProAir HFA) bupropion HCl 150 mg tablet,12 hr 150 mg PO BID #180 tabs 02/17/23 sustained-release (Wellbutrin SR) pantoprazole 40 mg tablet,delayed See Rx Instructions .Route 07/17/23 release .COMPLEX #30 tabs Allergies Allergy/AdvReac Type Severity Reaction Status Date / Time ceftriaxone Allergy Intermediate ITCHING; Verified 09/24/23 02:36 RASH Sulfa (Sulfonamide Allergy Intermediate ITCHY RASH Verified 09/24/23 02:36 Antibiotics) rosuvastatin AdvReac Intermediate NAUSEA Verified 09/24/23 02:36 sertraline AdvReac Intermediate diarrhea Verified 09/24/23 02:36 General Stated Complaint: Chest Pain ANTHONY: 1 Review of Systems Narrative: see hpi Exam Narrative Exam Narrative: The patient is a well-developed well-nourished female who is ill-appearing. She is normotensive. She is not bradycardic. She is diaphoretic and pale. She is alert and oriented her GCS is 15. Const General: cooperative, healthy appearing, well developed, well groomed and well hydrated Nutritional Appearance: average body habitus and well nourished Orientation: alert, awake and oriented x3 HENMT Head: normal to inspection, normocephalic and atraumatic Ears: hearing grossly normal bilaterally and external ears normal General nose exam: external nose normal, nares normal and no nasal discharge Face and sinus: normal facial exam, sinuses nontender and face symmetric Mouth: oral mucosae normal, lip normal, tongue normal, oropharynx normal, moist mucous membranes and other (Normal phonation. The patient is handling secretions.) Throat: posterior oropharynx normal and uvula midline Eyes General: appearance normal, both eyes and all related structures Eyelids: eyelids normal Conjunctivae: conjunctivae normal Sclera: sclerae normal Cornea: corneas normal Pupils: PERRL EOM: EOM intact bilaterally and No nystagmus Neck Neck: normal visual inspection, full ROM, no lymphadenopathy, no meningeal signs, trachea midline and supple Lymphatic: no lymphadenopathy noted Chest Chest: normal inspection of the chest Other: Surgical scars of the left breast. Radiation tattoos noted Resp Effort & Inspection: normal respiratory effort, able to speak in complete sentences, no audible wheezes, no nasal flaring, no respiratory distress, no retractions, no stridor, not tachypneic, no tracheal deviation, no use of acces flower muscles, No prolonged expiratory phase and other (Normal inspiratory to expiratory ratio.) Auscultation: clear to auscultation bilaterally, no rales, no rhonchi, no wheeze s and no rubs Tactile Fremitus: tactile fremitus absent Cardio Jugular venous pressure: no JVD Palpation: normal PMI Rate: regular rate Rhythm: regular rhythm Heart Sounds: S1 normal, S2 normal, no gallops, no murmurs and no rubs Pulses: brachial pulses present GI Inspection: normal to inspection and non-distended Palpation: soft, no hepatosplenomegaly, no guarding and nontender Percussion: normal to percussion Auscultation: normal bowel sounds General: No CVA tenderness Back/Spine/Pelvis Back: no CVA tenderness and No back tenderness Cervical Spine: normal cervical lordosis, cervical ROM normal, No cervical muscular tenderness, No pain with cervical ROM, No cervical spinal tenderness and No step off deformity Thoracic/Lumbar Spine: thoracic and lumbar spine normal to inspection, No thoracic spinal tenderness and No lumbar spinal tenderness Pelvis: no pain with anterior-posterior compression and no pain with lateral compression Skin General skin exam: no rashes or lesions noted, turgor normal, no petechiae and no purpura Lesions: no lesions Rashes: no rashes Trauma: no lacerations or abrasions Other: Diaphoretic and pale Neuro General: patient alert, patient awake, patient oriented x3, moves all extremities, no meningeal signs, no focal motor deficits and CN's II-XI intact bilaterally Cranial Nerves: CN's II-XI intact bilaterally, PERRL, accommodation normal, EOM intact bilaterally, no nystagmus, facial strength normal, tongue midline, hearing normal and no nystagmus Cognition: normal cognition Speech: speech normal Motor: muscle tone normal throughout and strength 5/5 throughout Sensory Exam: no sensory deficits noted Extrem General: normal to inspection, full ROM, capillary refill normal, no clubbing, cyanosis or edema and no calf tenderness Psych Appearance: grossly normal Affect: normal affect Attitude: cooperative Thought Process: normal Thought Content: normal Insight: insight good Judgment: judgment good Other: The patient appears to have capacity make medical decisions. Course 2:44 AM I have reviewed the patient's prehospital EKG as well as EKG. She is having ST elevation IA in leads II III and F with reciprocal changes. I have spoken with cardiology at [facility] and we have transmitted the EKG to them and I discussed the case with the transfer center. I have ordered a CTA of the chest to rule out dissection since the patient's chest pain is radiating to the back. 2:52 AM I have discussed the case with Dr. Barrientos on-call for cardiology. She has accepted the patient. She wanted an additional [address] Osuna this is the accepting physician and he will be going straight to the Education Research Analyst 3:30 AM patient is currently pain-free. Vital Signs Vital signs: Vital Signs Pulse 78 09/24/23 02:25 Respiratory Rate 18 09/24/23 02:25 Blood Pressure 143/93 H 09/24/23 02:25 Pulse Oximetry 94 09/24/23 02:25 Pulse 78 09/24/23 02:25 Respiratory Rate 20 09/24/23 02:33 Respiratory Effort Incrsd Work of Breathing 09/24/23 02:33 Respiratory Depth Normal 09/24/23 02:33 Respiratory Pattern Normal 09/24/23 02:33 Blood Pressure 143/93 H 09/24/23 02:25 Blood Pressure Position Sitting 09/24/23 02:25 Pulse Oximetry 94 09/24/23 02:25 Oxygen Delivery Method Nasal Cannula 09/24/23 02:25 Oxygen Flow Rate 4 09/24/23 02:25 Pain Level 10 09/24/23 02:33 Lab/Test Results Lab/Test Results: Pending at the time of discharge Medical Decision Making This is a 67-year-old female who presents with substernal chest pain radiating to the back. Her EKG is consistent with inferior septal IA. She received aspirin en route. We will give her Plavix and start her on a nitro drip with heparin. I will repeat 3 sublingual nitroglycerin in the department and consult cardiology. Because she is inferior changes with back pain I will order a CT angio of her chest to rule out thoracic dissection. I will not wait for her lab work before obtaining that exam. We will watch for bradycardia and hypotension associated with inferior myocardial infarction. We will check a comprehensive metabolic panel to evaluate her electrolytes renal function liver function and glucose. I will obtain a CBC to evaluate for anemia. We will titrate her nitro drip and consult cardiology at [facility] which is where she is requesting to be transported if necessary. She does have risk factors of hyperlipidemia tobacco use. She denies cocaine use. Differential Diagnosis Differential Diagnosis: Inferior IA, right-sided IA, aortic dissection Medical Records Medical records reviewed: Yes I reviewed the patient's medical records. Imaging Data Radiologic Study: Imaging: CT Scan (CT angio chest) Radiologist's impression: vRad impression:No acute abnormality in the chest. No evidence of thoracic aortic dissection as clinically questioned. No pulmonary emboli. Lab Data Lab results reviewed: Yes I reviewed the patient's lab results. ECG Data Attestation: I personally reviewed and interpreted this ECG (s) as follows: Prior ECG tracings: available for review Core Measures AMI Core Measures Followed: Yes Quality:[facility] Health Related Social Needs: No Data to Display Critical Care Time Critical Care Time Total Critical Care Time: 41 Attestation: This includes time at the bedside. Review of the patient's prehospital and ED EKGs. This includes review of medications and discussion with cardiology at [facility]. This includes review of the CT scans and past medical record and discussion and updating the patient's on her condition. Review of the lab work [facility] All Active Problems (Updated 09/24/23 @ 09:48 by Rose Barajas MD) ST elevation (STEMI) myocardial infarction (Acute) Right rotator cuff tear (Acute) Anterior dislocation of right shoulder (Acute 03/30/23) ILD (interstitial lung disease) (Acute) Anxiety (Chronic) Kuhn's esophagus (Chronic) EGD neg 2016 Depressive disorder (Chronic) Gastroesophageal reflux disease (Chronic) gastritis; HH Hyperlipidemia (Chronic 01/02/13) Malignant neoplasm of female breast (Chronic 07/28/93) stage I; lumpectomy, radiation, axillary resection, occurred remotely in her 30s as of 12/2021 no sign of recurrence, yearly mammogram Migraine with aura (Chronic) Peripheral neuralgia (Chronic) Cervical radiculopathy at C6 (Acute) Visual field defect (Acute) Pseudogout of hand (Acute) Painful orthopaedic hardware (Acute) Nicotine dependence (Acute) 12/2021- 09/01-08/30 ppd, 25 pk yr hx Generalized hyperhidrosis (Acute) Cervical cancer screening (Acute) To 2021. Previous testing 2015. Currently overdue. Episodic cannabis use (Acute) Medical History COVID-19 08/2020 Surgical History Hx of neck surgery H/O right wrist surgery S/P colonoscopy 03/30/19 Ligation of fallopian tube Tonsillectomy (~1958) EGD - IV Sedation (05/10/16) Cholecystectomy Reduction mammoplasty (~1994) right Breast, Lumpectomy (~1993) left Biopsy of breast (~2001) Family History Mother Personal history of malignant neoplasm SKIN Father Essential hypertension Hyperlipidemia Stroke Grandfather No problems noted. Grandfather No problems noted. Grandmother Personal history of malignant neoplasm BREAST Grandmother No problems noted. Brother Essential hypertension Personal history of malignant neoplasm THYROID Hyperlipidemia Brother No problems noted. Brother No problems noted. Brother No problems noted. Daughter No problems noted. Daughter No problems noted. Social History Smoking/Tobacco Use Status: Current every day Tobacco Type: cigarettes Years smoked: 50 Quit status: considering quitting Smoking risk assessment performed?: Yes Alcohol Intake: current Alcohol Intake frequency: 0-2 drinks per day Alcohol type: hard liquor Drug use: Occasionally Substance use type: marijuana Adopted: No Caregiver/Support person: No Foster care: No Household members: family Housing: house Number of Children: 2 number of grandchildren: 3 Communication Needs: None and Corrective Lenses Education Level: high school Do you need help understanding health information?: Rarely current occupation: Disabled-has results of issues related to her breast cancer surgery Pets and animals: Yes Pets and animals: dog(s) Do you think of yourself as: straight/heterosexual Current gender identity: female What is your relationship status?: living with partner How often do you talk on the phone with friends or family?: decline to answer How often do you get together with friends or relatives?: decline to answer How often do you attend islam or mandaeism services?: decline to answer Do you belong to any clubs or organized social groups?: no Panel score (0-1 are the most socially isolated patients): 1 What type of physical activity do you participate in: none Jessenia/Restorationist: Temple Seatbelt use: always Helmet use: No Drive intox or ride w/intox driver license examiner: No Working smoke detector in home: Yes Fire extinguisher in home: Yes Carbon monox detector in home: Yes Do you feel safe at home: Yes History History 3 Para 2 Hx # Term Pregnancies Multiple births Hx # Pregnancies Ectopic pregnancies AB induced Hx Number of Living Children AB spontaneous Discharge Plan Disposition Patient Disposition: Transfer-Acute Inpatient Care Specific Acute Inpt Facility: [facility] Discharge Details Clinical Impression: Hyperlipidemia, ST elevation (STEMI) myocardial infarction Primary Care Provider: Delisa Velazquez ED Provider: Rose Barajas Home Meds and New Rx's Prescriptions: No Action ibuprofen 600 mg tablet 600 mg PO TID PRN (Reason: pain) Qty: 60 3RF vit B [id number] ac-zinc 800 mcg- 12.5 mg tablet 1 tab PO DAILY albuterol sulfate [ProAir HFA] 90 mcg/actuation HFA aerosol inhaler 1 - 2 puff Inhalation Q4H PRN Qty: 2 6RF Probiotic 1 EACH capsule 1 ea PO DAILY Patient Comments: Patient may take more than 1 per day, depends on bloating. ct tears naturale ii 2 drp OU QID magnesium oxide 400 mg (241.3 mg magnesium) tablet 400 mg PO DAILY Qty: 90 3RF estradiol [Vagifem] 10 mcg tablet 10 mcg VG Twice Weekly Qty: 24 12RF bupropion HCl [Wellbutrin SR] 150 mg tablet sustained-release 12 hr 150 mg PO BID Qty: 180 3RF pantoprazole 40 mg tablet,delayed release (DR/EC) See Rx Instructions .ROUTE .COMPLEX Qty: 30 0RF Dose Instruction: TAKE 1 TABLET BY MOUTH DAILY Rx Instructions: TAKE 1 TABLET BY MOUTH DAILY cholecalciferol (vitamin D3) 10 mcg (400 unit) capsule 10 mcg PO DAILY acetaminophen 500 mg tablet 500 mg PO Q6H PRN (Reason: pain) Qty: 60 2RF Discharge Data Discharge Date/Time-TO BE ENTERED AT DEPARTURE: 09/24/23 03:48 Discharge Physician: Rose Barajas
[2023-09-24] MEDS: fentaNYL 100 MCG/2 ML VIAL (02:41)
[2023-09-24] MEDS: Heparin in 0.45% NaCl 25,000 UNIT/250 ML BAG 10 UNIT IV (02:48)
[2023-09-24 02:51] LABS: Abs Immature Grans 0.03 10^3/uL (0.0-0.06); Absolute Basophil Count 0.08 10^3/uL (0.0-0.2); Absolute Eosinophil Count 0.15 10^3/uL (0.0-0.7); Absolute Lymphocyte Count 3.82 10^3/uL (1.2-3.4); Absolute Monocyte Count 1.47 10^3/uL (0.1-0.8); Basophils % 0.6; Eosinophils % 1.1; HCT 38.7 % (36.0-46.0); Immature Grans % 0.2; Lymphocytes % 28.9; MCHC 33.6 % (32.0-36.0); MCV 92 fL (80-95); MPV 10.1 fL (8.0-11.0); Monocytes % 11.1; Neutrophils % 58.1; Platelet Count 286 10^3/uL (130-400); RBC 4.19 10^6/uL (3.93-5.22); RDW 12.3 % (11.7-14.6); RDW-SD 41.6 fL; WBC 13.23 10^3/uL (4.4-10.8)
[2023-09-24 02:54] LABS: Absolute Neutrophil Count 7.69 10^3/uL (1.2-6.7)
[2023-09-24 03:04] LABS: INR 1.3 (0.9-1.1); PTT Activated 28.3 sec (23.6-32.8); Prothrombin Time 12.4 sec (9.1-11.1)
--- NOTE | 2023-09-24 03:09 | NUR.NOTE ---
Nursing Note: Patient arrived at 0220 ASA 324mg and 1 nitro 0.4mg administered by EMS, 20G R AC established by EMS 0228 SL nitro 0.4mg given 0230 nitro gtt @5mcg/min 0231 clopidogrel 300mg PO 0235 Nitro gtt increased to 10mcg/min 0242 SL nitro 0.4mg 0246 hep bolus 10ml/hr, 4900unit initial bolus 0247 SL nitro 0.4mg 0250 CT scan 0301 300mg clopidgrel 0304 Pain free at this time
[2023-09-24] MEDS: Omnipaque 350 MG/ML 100 ML BTL IJ (03:11)
[2023-09-24] MEDS: Normal Saline - Diluent 50 ML VIAL IJ (03:12)
[2023-09-24 03:13] LABS: ALT 19 U/L (14-59); AST 17 U/L (15-37); Albumin 3.7 g/dL (3.4-5.0); Alkaline Phosphatase 63 U/L (46-116); BUN 17 mg/dL (7-18); Bilirubin, Total 0.4 mg/dL (0.2-1.0); Calcium 10.5 mg/dL (8.5-10.1); Chloride 104 mmol/L (98-107); Estimated GFR 62.13 (mL/min/1.73m2); Glucose 132 mg/dL (74-106); NT-proBNP 166 pg/mL (<300); Potassium 3.8 mmol/L (3.5-5.1); Sodium 145 mmol/L (136-145); Total Protein 7.2 g/dL (6.4-8.2); Troponin I 53 ng/L (< or =60)
[2023-09-24] MEDS: Normal Saline Flush 10 ML SYR IVP (03:13)
--- NOTE | 2023-09-24 04:54 | DI.VRAD_ITS ---
PROCEDURE INFORMATION: Exam: CTA Chest With Contrast Exam date and time: 09/24/2023 2:55 AM Age: 67 years old Clinical indication: Chest pressure and chest wall pain; Additional info: R/O aortic dissection TECHNIQUE: Imaging protocol: Computed tomographic angiography of the chest with contrast. Exam focused on the arteries. 3D rendering (Not supervised by radiologist): MIP and/or 3D reconstructed images were created by the technologist. Contrast material: OMNI 350; Contrast volume: 100 ml; Contrast route: INTRAVENOUS (IV); COMPARISON: CT CHEST LUNG CANCER SCREEN 03/21/2023 10:27 AM FINDINGS: Pulmonary arteries: No filling defects in the central, lobar, or proximal segmental pulmonary arteries to suggest pulmonary emboli. Normal caliber main pulmonary artery. Aorta: Normal caliber thoracic aorta with very mild atherosclerotic mural calcification. No aneurysm or dissection. Lungs: Mild upper lobe predominant paraseptal emphysema. No consolidation or mass. The trachea and central main airways are patent and normal in caliber. Pleural spaces: No pleural effusion or pneumothorax. Heart: Heart size is normal. There are no visible coronary artery calcifications. No pericardial effusion. Lymph nodes: Unremarkable. No pathologically enlarged mediastinal, hilar, or axillary lymph nodes. Bones/joints: Degenerative changes. No suspicious osseous lesions. Soft tissues: Unremarkable. IMPRESSION: No acute abnormality in the chest. No evidence of thoracic aortic dissection as clinically questioned. No pulmonary emboli. Dictated and Authenticated by: Carol Mcleod MD. Ordering:CLAUDIA Rose MD
--- NOTE | 2023-09-26 09:40 | NUR.NOTE ---
Accessed chart to determine orders for EKG and to determine whether or not one needs to be cancelled. Duplicate order cancelled. Nursing Note:
== END 2023-09-24 03:48 | disposition short-term general hospital (02) ==
PROVIDERS: Emergency Provider Emergency Medicine Emergency Medical Services; PCP Nurse Practitioner
DX: I21.3 ST elevation (STEMI) myocardial infarction of unspecified site (principal); R07.9 Chest pain, unspecified; E78.5 Hyperlipidemia, unspecified; F17.210 Nicotine dependence, cigarettes, uncomplicated; Z79.899 Other long term (current) drug therapy
CPT/HCPCS: 71275; 80053; 93005; 96365; 96375; 96376; 99291; 83735; 83880; 84484; 85025; 85610; 85730; 93010; J1644; J2305; J3010; J3490

== ENCOUNTER 2023-09-27 12:40 | Observation (INO) | payer OTHER, MEDICAID, SELFPAY ==
[2023-09-27] VITALS (62 sets, daily range): BP systolic 96–139; BP diastolic 44–95; PULSE 60–88; RESP 7–21; TEMP 36.5; O2SAT 89–100
--- NOTE | 2023-09-27 12:30 | RT.EKG_ITS ---
APPROVED REPORT Exam: Resting ECG Reason for Exam: Chest Pain Patient Location: E HR:58 bpm ECG Measurements Heart Rate 58 AXIS MS 181 P 227 QRSd 81 QRS -75 QT 412 T 152 QTc 406 Conclusion Sinus or ectopic atrial bradycardia...P axis (-45,135), rate< 60 Multiform ventricular premature complexes...short R-R, variable morphology Sinus pause with ventricular escape...long R-R interval, wide QRS Aberrant conduction of SV complex(es)...aberrant shape, MS 80-220 Inferior infarct, old...Q >35mS, II III aVF Nonspecific T abnormalities, lateral leads...T <-0.10mV, I aVL V5 V6 Physician: notable improvement from prior stemi 3 days ago
--- NOTE | 2023-09-27 12:44 | W.ED.GENAD ---
HPI General Date/Time Provider Initiated Documentation: 09/27/23 12:43. HPI Narrative: 67 year-old female presents to ED today by EMS with a chief complaint of chest pain with onset just prior to arrival, 20-30 minutes. Patient was seen her Tuesday for STEMI, transferred to [facility] and had two stents placed. Quality described as exactly the same as her chest pain on Tuesday, no radiation to sweating, endorses shortness of breath, and heavy chest pain, denies nausea/weakness, denies syncope, denies fever or cough since procedure. Severity is described as 7/10 at onset, 2/10 now. Palliating factors include 1 dose SL nitro at-home and 324mg chewable ASA by EMS with improvement. Provoking factors include nothing specific. Patient not anticoagulated. Related Data Home Medications Medication Instructions Recorded Confirmed Lactobacillus acidophilus 10 1 ea PO DAILY 12/29/17 09/27/23 billion cell capsule (Probiotic) Tears Naturale Ii 2 drp OU QID 03/17/18 09/27/23 acetaminophen 500 mg tablet 500 mg PO Q6H PRN pain #60 tabs 06/30/21 09/27/23 magnesium oxide 400 mg (241.3 mg 400 mg PO DAILY #90 tabs 08/25/21 09/27/23 magnesium) tablet ibuprofen 600 mg tablet 600 mg PO TID PRN pain #60 tabs 02/23/22 09/27/23 estradiol 10 mcg vaginal tablet 10 mcg vaginal Twice Weekly #24 06/07/22 09/27/23 (Vagifem) tab-caps albuterol sulfate 90 mcg/actuation 1 - 2 puff inhalation Q4H PRN ##2 02/17/23 09/27/23 aerosol inhaler (ProAir HFA) bupropion HCl 150 mg tablet,12 hr 150 mg PO BID #180 tabs 02/17/23 09/27/23 sustained-release (Wellbutrin SR) vitamin B complex with vit C-folic 1 tab PO DAILY 02/17/23 09/27/23 acid 800 mcg-zinc 12.5 mg tablet pantoprazole 40 mg tablet,delayed See Rx Instructions .Route 07/17/23 09/27/23 release .COMPLEX #30 tabs cholecalciferol (vitamin D3) 10 10 mcg PO DAILY 09/24/23 09/27/23 mcg (400 unit) capsule aspirin 81 mg tablet,delayed 81 mg PO DAILY 09/27/23 09/27/23 release atorvastatin 80 mg tablet 80 mg PO QPM 09/27/23 09/27/23 clopidogrel 75 mg tablet 75 mg PO DAILY 09/27/23 09/27/23 doxycycline monohydrate 100 mg 100 mg PO 2XD 09/27/23 09/27/23 capsule lisinopril 10 mg tablet 10 mg PO DAILY 09/27/23 09/27/23 metoprolol tartrate 25 mg tablet 25 mg PO 2XD 09/27/23 09/27/23 nitroglycerin 0.4 mg sublingual 0.4 mg sublingual PRN chest pain 09/27/23 tablet Previous Rx's Medication Instructions Recorded acetaminophen 500 mg tablet 500 mg PO Q6H PRN pain #60 tabs 06/30/21 magnesium oxide 400 mg (241.3 mg 400 mg PO DAILY #90 tabs 08/25/21 magnesium) tablet ibuprofen 600 mg tablet 600 mg PO TID PRN pain #60 tabs 02/23/22 estradiol 10 mcg vaginal tablet 10 mcg vaginal Twice Weekly #24 06/07/22 (Vagifem) tab-caps albuterol sulfate 90 mcg/actuation 1 - 2 puff inhalation Q4H PRN ##2 02/17/23 aerosol inhaler (ProAir HFA) bupropion HCl 150 mg tablet,12 hr 150 mg PO BID #180 tabs 02/17/23 sustained-release (Wellbutrin SR) pantoprazole 40 mg tablet,delayed See Rx Instructions .Route 07/17/23 release .COMPLEX #30 tabs Allergies Allergy/AdvReac Type Severity Reaction Status Date / Time ceftriaxone Allergy Intermediate ITCHING; Verified 09/27/23 12:40 RASH Sulfa (Sulfonamide Allergy Intermediate ITCHY RASH Verified 09/27/23 12:40 Antibiotics) rosuvastatin AdvReac Intermediate NAUSEA Verified 09/27/23 12:40 sertraline AdvReac Intermediate diarrhea Verified 09/27/23 12:40 General Stated Complaint: Chest Pain ANTHONY: 3 Review of Systems All systems reviewed & are unremarkable except as noted in HPI and below Exam Narrative Exam Narrative: GENERAL APPEARANCE: Well-nourished, non-toxic, awake and alert, atraumatic, no acute distress. SKIN: Warm, pink, dry, intact, mild bruising to R radial wrist HEAD: Normocephalic, atraumatic, normal hair distribution for gender/age. EYES: Pupils PERRLA, EOMs intact without nystagmus, normal conjunctiva, no exudates on lids/lashes. ENT: Nares patent, no circumoral cyanosis, no facial swelling NECK: Supple, trachea midline, painless cervical ROM. LUNGS/CHEST: Lungs CTA bilaterally- no rhonchi/rales/wheezes diffusely, non-labored respirations, normal A/P diameter, symmetrical expansion, no chest wall deformity HEART (CV/PV): Regular rate and rhythm without murmur, no peripheral edema, no JVD. ABDOMEN: Soft, non-distended, no guarding, no tenderness. MSK: Normal ROM, no swelling/deformity to bilateral UEs or LEs, moving all extremities without weakness, no cyanosis, spine midline without tenderness, normal curvature. NEURO: Mental Status AAOx4 - alert to person, place, time, events No facial droop, no forehead involvement. Motor: No focal weakness - strength 5/5 in bilateral UEs and LEs, proximal and distal, symmetric. Sensory: sensation intact to light touch globally. Gait normal: patient ambulated without ataxia into ED room. PSYCH: euthymic, cooperative, pleasant, appropriate speech Course Vital Signs Vital signs: Vital Signs Pulse 69 09/27/23 12:34 Respiratory Rate 18 09/27/23 12:34 Blood Pressure 130/65 09/27/23 12:34 Pulse Oximetry 97 09/27/23 12:34 Pulse 69 09/27/23 12:34 Respiratory Rate 18 09/27/23 12:34 Respiratory Effort Normal 09/27/23 12:39 Blood Pressure 130/65 09/27/23 12:34 Pulse Oximetry 97 09/27/23 12:34 Oxygen Delivery Method Room Air 09/27/23 12:34 Oxygen Flow Rate 0 09/27/23 12:34 Medical Decision Making This dictation utilizes [id number] dictation software and may contain unedited grammatical errors. 67 y/o F presents to ED today with a chief complaint of onset of chest pain, seen here Tuesday for STEMI, took 1 SL nitro and 324mg ASA prior to arrival with almost complete resolution of chest pain. Patient had two stents placed at [facility] two days ago. Patient denies severe dizziness, diaphoresis, endorses some shortness of breath at onset, denies fever/cough since procedure. Patients' medical history: STEMI, anxiety, interstitial lung disease, GERD, peripheral neuralgia, nicotine dependence. Family and social history: lives at home with . Pertinent exam findings / vital signs include benign cardiopulmonary exam, no murmur to auscultation, lungs CTA, neuro baseline, benign abdomen, mild bruising to right radial wrist. Differential / pathologies of concern include Re-infarction, ACS, stent thrombosis, unlikely aortic dissection. Diagnostic studies of: -EKG, CBC, CMP, lipase, BNP, troponin I. -EKG shows sinus rhythm at 58 bpm multifocal P waves question movement artifact, poor R wave progression, no ST elevation/depressions. -CBC shows WBCs 11.38 trending down from priors, HgB wnl -CMP shows no major electrolyte abnormality, renal function wnl, mild BUN elev -lipase wnl -BNP 222 -Trop I initial 192, [facility] Interventions of: -none in ED, 324 mg ASA and 1 nitro completely controlled CP. Will obtain [facility] consult after trending troponin for timing of follow-up vs transfer. ED Course/Assessment/Plan: 67-year-old female was seen here Tuesday for STEMI and transferred to [facility] where she had 2 stents placed, she had resurgence of chest pain today 30 minutes prior to arrival that was completely controlled with 124 mg aspirin and 1 dose nitro, her EKG shows no STEMI at this time, initial troponin 192 with other labs within normal limits, plan to get a 3-hour troponin value to gauge for reinfarction and consult with [facility] for disposition planning. Patient signed out to [facility] provider Tati Eason at shift change. Findings not consistent with large re-infarction. Disposition of Chest Pain of Uncertain Cause. Patient verbalized understanding of the plan and return to ED criteria and engaged in shared decision making. Medical Records Medical records reviewed: Yes I reviewed the patient's medical records. Lab Data Lab results reviewed: Yes I reviewed the patient's lab results. Labs: Laboratory Tests Range/Units 09/27/23 13:05 WBC (4.4-10.8) 10^3/uL 11.38 H RBC (3.93-5.22) 10^6/uL 4.08 Hgb (11.2-15.7) g/dL 12.7 Hct (36.0-46.0) % 38.7 MCV (80-95) fL 95 MCH (27.0-33.0) pg 31.1 MCHC (32.0-36.0) % 32.8 RDW (11.7-14.6) % 12.5 Plt Count (130-400) 10^3/uL 273 MPV (8.0-11.0) fL 10.4 Immature Gran % 0.4 Neutrophils % 59.5 Lymphocytes % 27.3 Monocytes % 11.0 Eosinophils % 1.2 Basophils % 0.6 Nucleated RBC % (0.0-0.3) % 0.0 Absolute Neutrophils (1.2-6.7) 10^3/uL 6.77 H Absolute Lymphocytes (1.2-3.4) 10^3/uL 3.11 Absolute Monocytes (0.1-0.8) 10^3/uL 1.25 H Absolute Eosinophils (0.0-0.7) 10^3/uL 0.14 Absolute Basophils (0.0-0.2) 10^3/uL 0.07 Sodium (136-145) mmol/L 141 Potassium (3.5-5.1) mmol/L 4.3 Chloride (98-107) mmol/L 103 Carbon Dioxide (21.0-32.0) mmol/L 30.1 Anion Gap (3-11) mmol/L 7.9 BUN (7-18) mg/dL 22 H Creatinine (0.55-1.02) mg/dL 1.0 Est GFR (CKD-EPI 2020) (mL/min/1.73m2) 62.13 Glucose (74-106) mg/dL 95 Calcium (8.5-10.1) mg/dL 9.6 Total Bilirubin (0.2-1.0) mg/dL 0.3 AST (15-37) U/L 34 ALT (14-59) U/L 34 Alkaline Phosphatase (46-116) U/L 67 Troponin I (< or =60) ng/L 192 H* NT-Pro-B Natriuret Pep (<300) pg/mL 222 Total Protein (6.4-8.2) g/dL 7.5 Albumin (3.4-5.0) g/dL 3.9 Lipase (16-77) U/L 30 Quality:SDOH Health Related Social Needs: No Data to Display PFSH All Active Problems (Updated 09/27/23 @ 14:53 by DAVID Franco) Chest pain of uncertain etiology (Acute) ST elevation (STEMI) myocardial infarction (Acute) Right rotator cuff tear (Acute) Anterior dislocation of right shoulder (Acute 03/30/23) ILD (interstitial lung disease) (Acute) Anxiety (Chronic) Kuhn's esophagus (Chronic) EGD neg 2015 Depressive disorder (Chronic) Gastroesophageal reflux disease (Chronic) gastritis; HH Hyperlipidemia (Chronic 01/02/13) Malignant neoplasm of female breast (Chronic 07/28/93) stage I; lumpectomy, radiation, axillary resection, occurred remotely in her 30s as of 12/2021 no sign of recurrence, yearly mammogram Migraine with aura (Chronic) Peripheral neuralgia (Chronic) Cervical radiculopathy at C6 (Acute) Visual field defect (Acute) Pseudogout of hand (Acute) Painful orthopaedic hardware (Acute) Nicotine dependence (Acute) 12/2021- 09/01-08/30 ppd, 25 pk yr hx Generalized hyperhidrosis (Acute) Cervical cancer screening (Acute) To 2021. Previous testing 2015. Currently overdue. Episodic cannabis use (Acute) Medical History COVID-19 08/2020 Surgical History Hx of neck surgery H/O right wrist surgery S/P colonoscopy 03/30/19 Ligation of fallopian tube Tonsillectomy (~1958) EGD - IV Sedation (05/10/16) Cholecystectomy Reduction mammoplasty (~1994) right Breast, Lumpectomy (~1993) left Biopsy of breast (~2001) Family History Mother Personal history of malignant neoplasm SKIN Father Essential hypertension Hyperlipidemia Stroke Grandfather No problems noted. Grandfather No problems noted. Grandmother Personal history of malignant neoplasm BREAST Grandmother No problems noted. Brother Essential hypertension Personal history of malignant neoplasm THYROID Hyperlipidemia Brother No problems noted. Brother No problems noted. Brother No problems noted. Daughter No problems noted. Daughter No problems noted. Social History Smoking/Tobacco Use Status: Current every day Tobacco Type: cigarettes Years smoked: 50 Quit status: considering quitting Smoking risk assessment performed?: Yes Alcohol Intake: current Alcohol Intake frequency: 0-2 drinks per day Alcohol type: hard liquor Drug use: Occasionally Substance use type: marijuana Adopted: No Caregiver/Support person: No Foster care: No Household members: family Housing: house Number of Children: 2 number of grandchildren: 3 Communication Needs: None and Corrective Lenses Education Level: high school Do you need help understanding health information?: Rarely current occupation: Disabled-has results of issues related to her breast cancer surgery Pets and animals: Yes Pets and animals: dog(s) Do you think of yourself as: straight/heterosexual Current gender identity: female What is your relationship status?: living with partner How often do you talk on the phone with friends or family?: decline to answer How often do you get together with friends or relatives?: decline to answer How often do you attend anabaptist or yazdanism services?: decline to answer Do you belong to any clubs or organized social groups?: no Panel score (0-1 are the most socially isolated patients): 1 What type of physical activity do you participate in: none Jessenia/Buddhism: Uatsdin Seatbelt use: always Helmet use: No Drive intox or ride w/intox trailer driver: No Working smoke detector in home: Yes Fire extinguisher in home: Yes Carbon monox detector in home: Yes Do you feel safe at home: Yes History History 3 Para 2 Hx # Term Pregnancies Multiple births Hx # Pregnancies Ectopic pregnancies AB induced Hx Number of Living Children AB spontaneous Discharge Plan Discharge Details Chief Complaint: Chest Pain Clinical Impression: Chest pain of uncertain etiology Primary Care Provider: Delisa Velazquez ED Provider: Raulito Roman Home Meds and New Rx's Prescriptions: No Action ibuprofen 600 mg tablet 600 mg PO TID PRN (Reason: pain) Qty: 60 3RF vit B [id number] ac-zinc 800 mcg- 12.5 mg tablet 1 tab PO DAILY albuterol sulfate [ProAir HFA] 90 mcg/actuation HFA aerosol inhaler 1 - 2 puff Inhalation Q4H PRN Qty: 2 6RF Probiotic 1 EACH capsule 1 ea PO DAILY Hold Instructions: ran out Patient Comments: Patient may take more than 1 per day, depends on bloating. ct tears naturale ii 2 drp OU QID magnesium oxide 400 mg (241.3 mg magnesium) tablet 400 mg PO DAILY Qty: 90 3RF estradiol [Vagifem] 10 mcg tablet 10 mcg VG Twice Weekly Qty: 24 12RF bupropion HCl [Wellbutrin SR] 150 mg tablet sustained-release 12 hr 150 mg PO BID Qty: 180 3RF pantoprazole 40 mg tablet,delayed release (DR/EC) See Rx Instructions .ROUTE .COMPLEX Qty: 30 0RF Dose Instruction: TAKE 1 TABLET BY MOUTH DAILY Rx Instructions: TAKE 1 TABLET BY MOUTH DAILY cholecalciferol (vitamin D3) 10 mcg (400 unit) capsule 10 mcg PO DAILY aspirin 81 mg tablet,delayed release (DR/EC) 81 mg PO DAILY Patient Comments: TAKE 1 TABLET BY MOUTH DAILY atorvastatin 80 mg tablet 80 mg PO QPM Patient Comments: TAKE 1 TABLET BY MOUTH EVERY EVENING clopidogrel 75 mg tablet 75 mg PO DAILY Patient Comments: TAKE 1 TABLET BY MOUTH DAILY doxycycline monohydrate 100 mg capsule 100 mg PO 2XD Patient Comments: TAKE 1 CAPSULE BY MOUTH TWICE DAILY lisinopril 10 mg tablet 10 mg PO DAILY Patient Comments: TAKE 1 TABLET BY MOUTH DAILY metoprolol tartrate 25 mg tablet 25 mg PO 2XD Patient Comments: TAKE 1 TABLET BY MOUTH TWICE DAILY nitroglycerin 0.4 mg tablet, sublingual 0.4 mg sublingual PRN (Reason: chest pain) Patient Comments: DISSOLVE ONE TABLET UNDER TONGUE NEEDED FOR CHEST PAIN EVERY 5 MINUTES FOR UP TO 3 DOSES acetaminophen 500 mg tablet 500 mg PO Q6H PRN (Reason: pain) Qty: 60 2RF
[2023-09-27 13:08] LABS: Abs Immature Grans 0.04 10^3/uL (0.0-0.06); Absolute Basophil Count 0.07 10^3/uL (0.0-0.2); Absolute Eosinophil Count 0.14 10^3/uL (0.0-0.7); Absolute Lymphocyte Count 3.11 10^3/uL (1.2-3.4); Absolute Monocyte Count 1.25 10^3/uL (0.1-0.8); Absolute Neutrophil Count 6.77 10^3/uL (1.2-6.7); Basophils % 0.6; Eosinophils % 1.2; HCT 38.7 % (36.0-46.0); HGB 12.7 g/dL (11.2-15.7); Immature Grans % 0.4; Lymphocytes % 27.3; MCH 31.1 pg (27.0-33.0); MCHC 32.8 % (32.0-36.0); MCV 95 fL (80-95); MPV 10.4 fL (8.0-11.0); Neutrophils % 59.5; Platelet Count 273 10^3/uL (130-400); RBC 4.08 10^6/uL (3.93-5.22); RDW 12.5 % (11.7-14.6); RDW-SD 43.5 fL; WBC 11.38 10^3/uL (4.4-10.8)
[2023-09-27 13:30] LABS: ALT 34 U/L (14-59); AST 34 U/L (15-37); Albumin 3.9 g/dL (3.4-5.0); Alkaline Phosphatase 67 U/L (46-116); Anion Gap 7.9 mmol/L (3-11); BUN 22 mg/dL (7-18); Bilirubin, Total 0.3 mg/dL (0.2-1.0); CO2 30.1 mmol/L (21.0-32.0); Calcium 9.6 mg/dL (8.5-10.1); Chloride 103 mmol/L (98-107); Estimated GFR 62.13 (mL/min/1.73m2); Glucose 95 mg/dL (74-106); Lipase 30 U/L (16-77); NT-proBNP 222 pg/mL (<300); Potassium 4.3 mmol/L (3.5-5.1); Sodium 141 mmol/L (136-145); Total Protein 7.5 g/dL (6.4-8.2)
[2023-09-27 13:31] LABS: Troponin I 192 ng/L (< or =60)
--- NOTE | 2023-09-27 15:05 | W.EDPROG ---
Date of service: 09/27/23 Time of Service: 15:05 Medical Decision Making Care assumed from provider (DAVID Bueno) Please see their initial HPI, PE, and documentation. Discussed patient details and case and pending workup and disposition. Patient is hemodynamically stable, and alert and oriented. At the time of signout awaiting serial troponin and possible [facility] consult with cardiology. In short patient is a 67-year-old female who is recently seen for chest pain few days ago was transferred to [facility] had two stents placed presents with chest pain approximately 2 hours prior to arrival which was relieved by 1 nitro and aspirin. Chest pain is currently resolved. Serial troponin 194, Initial trop 192. 1635: [facility] Called to consult cardiology. Patient has remained Chest Pain free throughout the remainder of her stay. 1745: Dr. Espinal with cardiology consulted he states that inflammatory markers could be checked, he states that he would recommend admission overnight to trend troponins and observe. Will discuss options with patient and offer admission. He also recommends eventual cardiac rehab. Discussed options with patient and family, they are agreeable to admission and observation for trending troponins. Will page Hospitalist. 1823: Spoke with Dr. Saavedra he request ED admission orders for observation and Atorvastatin 80mg. Orders placed. This text was generated using [employer] dictation system, please disregard any oddities of phrase or misspellings. Lab Data Lab results reviewed: Yes I reviewed the patient's lab results. Quality:[facility] Health Related Social Needs: No Data to Display Sign Out Sign Out Data: Sign Out Comment: Patient had 2 stents placed [facility] 2 days ago post-stemi seen here, CP resolved with ASA/nitro pre-arrival. Needs repeat trop at 1605, consult [facility] for follow-up timeline vs transfer Last updated by Raulito Roman PA at 09/27/23 14:54 Discharge Plan Disposition Patient Disposition: Admit to [facility] Condition: Stable Discharge Details Clinical Impression: Chest pain of uncertain etiology, Status post coronary artery stent placement Admit Date/Time: 09/27/23 18:21 Admit Provider: Fidel Inman Attending Provider: Fidel Inman Primary Care Provider: Delisa Velazquez ED Provider: Jordyn Eason Discharge Data Discharge Date/Time-TO BE ENTERED AT DEPARTURE: 09/27/23 19:10
[2023-09-27 16:27] LABS: Troponin I 194 ng/L (< or =60)
--- NOTE | 2023-09-27 19:13 | HPE_ITS ---
Date of service: 09/27/23 Time of Service: 19:13 Assessment and Plan Assessment and plan (1) Atypical chest pain: Start date: 09/27/23 Status: Acute Assessment and plan: This is a 67-year-old lady with recent STEMI and having post stenting pain which is similar to her angina upon presentation of 09/24/2023. She took 1 aspirin 1 nitroglycerin at home and the pain did resolve and has not returned. Troponin was slightly elevated but trending down. Continue to trend troponins and increase activity with discussion with [facility] cardiology before discharge. We may advance her metoprolol if her blood pressure tolerates or if needed. She states her blood pressure has been slightly increased since her heart attack. It is normal now. She is having some slight discomfort in her abdomen with diarrhea that does not appear to be causing her chest discomfort. She has had no cough or respiratory symptoms does have a history of interstitial lung disease having quit smoking just this last fall in 2022. She will be continued on her usual medications with CRP to be checked in the morning. As stated, we should discuss with [facility] cardiology prior to discharge with patient having follow-up with them in October which is 1 month from now. She is a full code. (2) Status post coronary artery stent placement: Status: Resolved Assessment and plan: Patient had a STEMI in the inferior region. Stents were placed x 2 presumed in the right coronary artery system records can be checked as to procedure notes. Continue Plavix and aspirin. (3) ST elevation (STEMI) myocardial infarction: Status: Resolved Assessment and plan: Status post inferior STEMI with EKG showing no acute changes with recurrent chest pain. Check inflammatory markers, trend troponins which are going down and follow-up at [facility]. Qualifiers: Involved coronary artery: right coronary artery Qualified Code(s): I 21.11 - ST elevation (STEMI) myocardial infarction involving right coronary artery (4) Diarrhea: Start date: 09/27/23 Status: Acute Assessment and plan: Check C. difficile antigen and if negative will give Imodium for symptomatic care. This may be functional with her recent stress. Qualifiers: Diarrhea type: unspecified type Qualified Code(s): R19.7 - Diarrhea, unspecified (5) Hyperlipidemia: Status: Chronic Assessment and plan: Continue high-dose atorvastatin and trend labs. Qualifiers: Hyperlipidemia type: mixed hyperlipidemia Qualified Code(s): E78.2 - Mixed hyperlipidemia History of Present Illness History of Present Illness Chief Complaint: Chest pain Narrative: This is a 67-year-old female patient recently had a inferior STEMI being transferred to [facility] and having 2 stents most likely in the right coronary artery system but documents are not available. While prior to presentation to the ED this visit she had returning chest discomfort similar to her chest pain upon presentation with her STEMI with mostly in the back. She does take 1 nitroglycerin sublingually and 1 aspirin at home and had residual pain when she first presented and this did completely resolve prior to admission. She remains pain-free. She does have risk factors with hyperlipidemia and is presently on high-dose atorvastatin with metoprolol low-dose. This will be continued with patient to have trending labs overnight. [facility] cardiology did recommend checking inflammatory markers will be done in the morning. Patient to stop smoking in March 2023 which that she had COPD. Blood pressure has been variably elevated since her heart attack but she was not following her blood pressures at home prior to her heart attack. She has had loose stools since her hospitalization but no blood has been seen and she does have mild discomfort in her lower abdomen with no focalization. Patient offers no other complaints. She is a full code. Review of Systems Narrative: 13 point review of systems otherwise unrevealing or stable. PFSH All Active Problems (Updated 09/28/23 @ 06:35 by Fidel Inman) Diarrhea (Acute) Atypical chest pain (Acute) S/P cardiac catheterization (Acute) With DIETER to prox OM 1 and Mid RCA 09/24/2023 at [facility] Chest pain of uncertain etiology (Acute) Right rotator cuff tear (Acute) Anterior dislocation of right shoulder (Acute 03/30/23) ILD (interstitial lung disease) (Acute) Anxiety (Chronic) Kuhn's esophagus (Chronic) EGD neg 2016 Depressive disorder (Chronic) Gastroesophageal reflux disease (Chronic) gastritis; HH Hyperlipidemia (Chronic 01/02/13) Malignant neoplasm of female breast (Chronic 07/28/93) stage I; lumpectomy, radiation, axillary resection, occurred remotely in her 30s as of 12/2021 no sign of recurrence, yearly mammogram Migraine with aura (Chronic) Peripheral neuralgia (Chronic) Cervical radiculopathy at C6 (Acute) Visual field defect (Acute) Pseudogout of hand (Acute) Painful orthopaedic hardware (Acute) Nicotine dependence (Acute) 12/2021- 09/01-1 ppd, 25 pk yr hx Generalized hyperhidrosis (Acute) Cervical cancer screening (Acute) To 2021. Previous testing 2015. Currently overdue. Episodic cannabis use (Acute) Medical History COVID-19 08/2020 Surgical History Hx of neck surgery H/O right wrist surgery S/P colonoscopy 03/30/19 Ligation of fallopian tube Tonsillectomy (~1958) EGD - IV Sedation (05/10/16) Cholecystectomy Reduction mammoplasty (~1994) right Breast, Lumpectomy (~1993) left Biopsy of breast (~2001) Family History Mother Personal history of malignant neoplasm SKIN Father Essential hypertension Hyperlipidemia Stroke Grandfather No problems noted. Grandfather No problems noted. Grandmother Personal history of malignant neoplasm BREAST Grandmother No problems noted. Brother Essential hypertension Personal history of malignant neoplasm THYROID Hyperlipidemia Brother No problems noted. Brother No problems noted. Brother No problems noted. Daughter No problems noted. Daughter No problems noted. Social History Smoking/Tobacco Use Status: Current every day Tobacco Type: cigarettes Years smoked: 50 Quit status: considering quitting Smoking risk assessment performed?: Yes Alcohol Intake: current Alcohol Intake frequency: 0-2 drinks per day Alcohol type: hard liquor Drug use: Occasionally Substance use type: marijuana Adopted: No Caregiver/Support person: No Foster care: No Household members: family Housing: house Number of Children: 2 number of grandchildren: 3 Communication Needs: None and Corrective Lenses Education Level: high school Do you need help understanding health information?: Rarely current occupation: Disabled-has results of issues related to her breast cancer surgery Pets and animals: Yes Pets and animals: dog(s) Do you think of yourself as: straight/heterosexual Current gender identity: female What is your relationship status?: living with partner How often do you talk on the phone with friends or family?: decline to answer How often do you get together with friends or relatives?: decline to answer How often do you attend congregation or orthodoxy services?: decline to answer Do you belong to any clubs or organized social groups?: no Panel score (0-1 are the most socially isolated patients): 1 What type of physical activity do you participate in: none Jessenia/Restoration: Nondenominational Seatbelt use: always Helmet use: No Drive intox or ride w/intox non emergency services ambulance driver: No Working smoke detector in home: Yes Fire extinguisher in home: Yes Carbon monox detector in home: Yes Do you feel safe at home: Yes History History 2 3 Para 2 Hx # Term Pregnancies Multiple births Hx # Pregnancies Ectopic pregnancies AB induced Hx Number of Living Children AB spontaneous Meds Allergies and Home Medications Allergies Allergy/AdvReac Type Severity Reaction Status Date / Time ceftriaxone Allergy Intermediate ITCHING; Verified 09/27/23 12:40 RASH Sulfa (Sulfonamide Allergy Intermediate ITCHY RASH Verified 09/27/23 12:40 Antibiotics) rosuvastatin AdvReac Intermediate NAUSEA Verified 09/27/23 12:40 sertraline AdvReac Intermediate diarrhea Verified 09/27/23 12:40 Home Medications Medication Instructions Recorded Confirmed Type Lactobacillus acidophilus 10 1 ea PO DAILY 12/29/17 09/27/23 History billion cell capsule (Probiotic) Tears Naturale Ii 2 drp OU QID 03/17/18 09/27/23 History acetaminophen 500 mg tablet 500 mg PO Q6H PRN pain #60 tabs 06/30/21 09/27/23 Rx magnesium oxide 400 mg (241.3 mg 400 mg PO DAILY #90 tabs 08/25/21 09/27/23 Rx magnesium) tablet ibuprofen 600 mg tablet 600 mg PO TID PRN pain #60 tabs 02/23/22 09/27/23 Rx estradiol 10 mcg vaginal tablet 10 mcg vaginal Twice Weekly #24 06/07/22 09/27/23 Rx (Vagifem) tab-caps albuterol sulfate 90 mcg/actuation 1 - 2 puff inhalation Q4H PRN ##2 02/17/23 09/27/23 Rx aerosol inhaler (ProAir HFA) bupropion HCl 150 mg tablet,12 hr 150 mg PO BID #180 tabs 02/17/23 09/27/23 Rx sustained-release (Wellbutrin SR) vitamin B complex with vit C-folic 1 tab PO DAILY 02/17/23 09/27/23 History acid 800 mcg-zinc 12.5 mg tablet pantoprazole 40 mg tablet,delayed See Rx Instructions .Route 07/17/23 09/27/23 Rx release .COMPLEX #30 tabs cholecalciferol (vitamin D3) 10 10 mcg PO DAILY 09/24/23 09/27/23 History mcg (400 unit) capsule aspirin 81 mg tablet,delayed 81 mg PO DAILY 09/27/23 09/27/23 History release atorvastatin 80 mg tablet 80 mg PO QPM 09/27/23 09/27/23 History clopidogrel 75 mg tablet 75 mg PO DAILY 09/27/23 09/27/23 History lisinopril 10 mg tablet 10 mg PO DAILY 09/27/23 09/27/23 History metoprolol tartrate 25 mg tablet 25 mg PO 2XD 09/27/23 09/27/23 History nitroglycerin 0.4 mg sublingual 0.4 mg sublingual Q5M PRN chest 09/27/23 09/27/23 History tablet pain Exam Narrative Exam Narrative: General: Patient appears older than stated age, alert and oriented x 3 and in no acute distress. Slight pressured speech. HEENT: Normocephalic, coarsened facial features. Eyes with pupils equal and react to light symmetrically, extraocular move intact and sclera anicteric. Oropharynx with moist mucosa and fair dentition. Neck: Supple without JVD. Back: Kyphotic without CVA tenderness. Lungs: Normal aeration and clear to auscultation and percussion with no focalizing rales or rhonchi. Breast: Exam deferred. Heart: Regular rate and rhythm with no appreciable murmur or gallop. Abdomen: Scaphoid contour, slight discomfort left lower quadrant without guarding or rebound. Bowel sounds decreased but positive all quadrants. No palpable hepatosplenomegaly. Genitalia/rectal: Exam deferred. Extremities: Without clubbing, cyanosis or pitting edema with patient having increased fat over lower extremities with minimal skin changes. Capillary refill normal. Skin: Normal color, warm and dry. Neuro: Cranial nerves II through XII grossly intact, no focalizing motor deficits. No tremor. Psych: Slightly pressured speech but not anxious and normal mood. No abnormal thought processes. Remote and recent memory intact. Results Labs 09/27/23 13:05 09/27/23 13:05 Labs: Laboratory Results - last 24 hr 09/27/23 09/27/23 13:05 16:00 WBC 11.38 H RBC 4.08 Hgb 12.7 Hct 38.7 MCV 95 MCH 31.1 MCHC 32.8 RDW 12.5 Plt Count 273 MPV 10.4 Immature Gran % 0.4 Neutrophils % 59.5 Lymphocytes % 27.3 Monocytes % 11.0 Eosinophils % 1.2 Basophils % 0.6 Nucleated RBC % 0.0 Absolute Neutrophils 6.77 H Absolute Lymphocytes 3.11 Absolute Monocytes 1.25 H Absolute Eosinophils 0.14 Absolute Basophils 0.07 Sodium 141 Potassium 4.3 Chloride 103 Carbon Dioxide 30.1 Anion Gap 7.9 BUN 22 H Creatinine 1.0 Est GFR (CKD-EPI 2020) 62.13 Glucose 95 Calcium 9.6 Total Bilirubin 0.3 AST 34 ALT 34 Alkaline Phosphatase 67 Troponin I 192 H* 194 H* NT-Pro-B Natriuret Pep 222 Total Protein 7.5 Albumin 3.9 Lipase 30 Last Vital Signs Pulse 70 09/27/23 19:09 Resp 16 09/27/23 19:09 BP 139/74 09/27/23 19:09 Pulse Ox 98 09/27/23 19:09 Time Spent Time spent with Patient: >75 minutes Time was spent: preparing to see the patient(eg.review tests), obtaining and/or reviewing separately otained hiistory, ordering medications,tests, procedures, indepentently interpreting results, counseling the patient and care coordination
[2023-09-27] MEDS: Heparin 5,000 UNITS/ML VIAL 5000 UNITS SC (19:39)
[2023-09-27] MEDS: Atorvastatin 40 MG TAB 80 MG PO (19:40)
[2023-09-27] MEDS: Refresh PLUS Eye Drops 0.4ml 2 EACH OU (20:21)
[2023-09-27] MEDS: Metoprolol 12.5 MG TAB 25 MG PO (20:22)
[2023-09-27] MEDS: buPROPion-CR 150 MG TABCR PO (20:22)
[2023-09-27] MEDS: Normal Saline Flush 10 ML SYR IVP (23:01)
[2023-09-27 23:18] LABS: TSH (W/Ref FT4) 6.04 uIU/mL (0.36-3.74)
[2023-09-27 23:20] LABS: Troponin I 192 ng/L (< or =60)
[2023-09-27 23:36] LABS: FREE T4 1.13 ng/dL (0.76-1.46)
[2023-09-28 02:42] VITALS: BP 111/73; PULSE 68; RESP 18; TEMP 36.4; O2SAT 96
[2023-09-28 03:22] LABS: Troponin I 179 ng/L (< or =60)
[2023-09-28] MEDS: Heparin 5,000 UNITS/ML VIAL 5000 UNITS SC ×2 (05:21→12:48)
[2023-09-28 05:37] LABS: C Diff PCR Negative (Negative)
[2023-09-28] MEDS: Loperamide 2 MG CAP PO (06:41)
[2023-09-28 07:07] LABS: HCT 42.5 % (36.0-46.0); MCH 31.3 pg (27.0-33.0); MCHC 32.9 % (32.0-36.0); MCV 95 fL (80-95); MPV 10.8 fL (8.0-11.0); Platelet Count 300 10^3/uL (130-400); RBC 4.48 10^6/uL (3.93-5.22); RDW 12.4 % (11.7-14.6); RDW-SD 43.1 fL; WBC 13.02 10^3/uL (4.4-10.8)
[2023-09-28 07:38] VITALS: BP 104/66; PULSE 68; RESP 18; TEMP 36.7; O2SAT 96
[2023-09-28 07:43] LABS: ALT 47 U/L (14-59); AST 37 U/L (15-37); Alkaline Phosphatase 72 U/L (46-116); Anion Gap 9.5 mmol/L (3-11); BUN 20 mg/dL (7-18); Bilirubin, Total 0.4 mg/dL (0.2-1.0); C-Reactive Protein 0.36 mg/dL (0.0-0.3); CO2 24.5 mmol/L (21.0-32.0); CREATININE 0.9 mg/dL (0.55-1.02); Calcium 9.3 mg/dL (8.5-10.1); Chloride 105 mmol/L (98-107); Estimated GFR 70.51 (mL/min/1.73m2); Glucose 95 mg/dL (74-106); Magnesium 2.2 mg/dL (1.8-2.4); Potassium 4.4 mmol/L (3.5-5.1); Sodium 139 mmol/L (136-145); Total Protein 7.8 g/dL (6.4-8.2)
[2023-09-28 07:45] LABS: Troponin I 126 ng/L (< or =60)
[2023-09-28] MEDS: Magnesium Oxide 400 MG TAB PO (08:53)
[2023-09-28] MEDS: Metoprolol 12.5 MG TAB 25 MG PO (08:53)
[2023-09-28] MEDS: Aspirin E.C. 81 MG TABEC PO (08:54)
[2023-09-28] MEDS: Pantoprazole 40 MG TABCR PO (08:54)
[2023-09-28] MEDS: Refresh PLUS Eye Drops 0.4ml 2 EACH OU ×2 (08:54→12:03)
[2023-09-28] MEDS: Cholecalciferol (Vitamin D3) 400 UNIT TAB PO (08:54)
[2023-09-28] MEDS: Clopidogrel 75 MG TAB PO (08:54)
[2023-09-28] MEDS: Lisinopril 10 MG TAB PO (08:54)
[2023-09-28] MEDS: buPROPion-CR 150 MG TABCR PO (08:54)
[2023-09-28] MEDS: Isosorbide Mononitrate 30 MG TABCR PO (08:54)
[2023-09-28] MEDS: Normal Saline Flush 10 ML SYR IVP (08:56)
--- NOTE | 2023-09-28 09:17 | PDOC.CMIN ---
Date of service: 09/28/23 Time of Service: 09:18 Care Management Initial Assmt Initial Assessment REASON FOR HOSPITALIZATION:: atypical chest pain PREVIOUS FUNCTIONAL STATUS/SOCIAL/FAMILY SUPPORTS:: [place] lives in [place] ADVANCE DIRECTIVES:: none Has patient been provided with info about the portal/API?: Yes Did the patient sign up for the portal?: Yes CODE STATUS:: Full Code INSURANCE COVERAGE / FINANCIAL ISSUES:: [employer] PRIMARY CARE PHYSICIAN:: Delisa Velazquez POTENTIAL DISCHARGE NEEDS:: follow up with Cardiology and PCP PATIENT/FAMILY EDUCATION NEEDS:: Review of discharge instructions, activity, limitations, follow up plan, discuss [employer] TRANSPORTATION:: via private vehicle PLAN:: Anticipate Shonna will be discharged home with no new services. She will follow up with her community providers both locally and at [facility] and will transport with family. CM will follow ands support discharge planning needs. PFSH All Active Problems (Updated 09/28/23 @ 06:35 by Fidel Inman) Diarrhea (Acute) Atypical chest pain (Acute) S/P cardiac catheterization (Acute) With DIETER to prox OM 1 and Mid RCA 09/24/2023 at [facility] [place] Chest pain of uncertain etiology (Acute) Right rotator cuff tear (Acute) Anterior dislocation of right shoulder (Acute 03/30/23) ILD (interstitial lung disease) (Acute) Anxiety (Chronic) Kuhn's esophagus (Chronic) EGD neg 2015 Depressive disorder (Chronic) Gastroesophageal reflux disease (Chronic) gastritis; HH Hyperlipidemia (Chronic 01/02/13) Malignant neoplasm of female breast (Chronic 07/28/93) stage I; lumpectomy, radiation, axillary resection, occurred remotely in her 30s as of 12/2021 no sign of recurrence, yearly mammogram Migraine with aura (Chronic) Peripheral neuralgia (Chronic) Cervical radiculopathy at C6 (Acute) Visual field defect (Acute) Pseudogout of hand (Acute) Painful orthopaedic hardware (Acute) Nicotine dependence (Acute) 12/2021- 09/01-1/ ppd, 25 pk yr hx Generalized hyperhidrosis (Acute) Cervical cancer screening (Acute) To 2021. Previous testing 2015. Currently overdue. Episodic cannabis use (Acute) Medical History COVID-19 08/2020 Surgical History Hx of neck surgery H/O right wrist surgery S/P colonoscopy 03/30/19 Ligation of fallopian tube Tonsillectomy (~1958) EGD - IV Sedation (05/10/16) Cholecystectomy Reduction mammoplasty (~1994) right Breast, Lumpectomy (~1993) left Biopsy of breast (~2001) Family History Mother Personal history of malignant neoplasm SKIN Father Essential hypertension Hyperlipidemia Stroke Grandfather No problems noted. Grandfather No problems noted. Grandmother Personal history of malignant neoplasm BREAST Grandmother No problems noted. Brother Essential hypertension Personal history of malignant neoplasm THYROID Hyperlipidemia Brother No problems noted. Brother No problems noted. Brother No problems noted. Daughter No problems noted. Daughter No problems noted. Social History Smoking/Tobacco Use Status: Current every day Tobacco Type: cigarettes Years smoked: 50 Quit status: considering quitting Smoking risk assessment performed?: Yes Alcohol Intake: current Alcohol Intake frequency: 0-2 drinks per day Alcohol type: hard liquor Drug use: Occasionally Substance use type: marijuana Adopted: No Caregiver/Support person: No Foster care: No Household members: family Housing: house Number of Children: 2 number of grandchildren: 3 Communication Needs: None and Corrective Lenses Education Level: high school Do you need help understanding health information?: Rarely current occupation: Disabled-has results of issues related to her breast cancer surgery Pets and animals: Yes Pets and animals: dog(s) Do you think of yourself as: straight/heterosexual Current gender identity: female What is your relationship status?: living with partner How often do you talk on the phone with friends or family?: decline to answer How often do you get together with friends or relatives?: decline to answer How often do you attend presybeterian or roman catholic services?: decline to answer Do you belong to any clubs or organized social groups?: no Panel score (0-1 are the most socially isolated patients): 1 What type of physical activity do you participate in: none Jessenia/Jewish: Religious Seatbelt use: always Helmet use: No Drive intox or ride w/intox truck driver instructor: No Working smoke detector in home: Yes Fire extinguisher in home: Yes Carbon monox detector in home: Yes Do you feel safe at home: Yes History History 3 Para 2 Hx # Term Pregnancies Multiple births Hx # Pregnancies Ectopic pregnancies AB induced Hx Number of Living Children AB spontaneous SDOH(Care Management) Screening Will the Patient Participate in the Screening?: Yes Do you worry about having a steady place to live?: no In the past 12 months, have you had to go without electric, gas, oil or water in your home?: no Have you or anyone in your house had to go without enough food to eat?: no Has lack of transportation kept you from medical appointments or from doing things needed for daily living?: no Has anyone in your support network made you feel unsafe for any reason?: no
[2023-09-28 10:58] VITALS: BP 108/69; PULSE 66; RESP 18; TEMP 36.1; O2SAT 95
[2023-09-28] MEDS: Acetaminophen 325 MG TAB PO (11:06)
--- NOTE | 2023-09-28 12:04 | W.PM.DS.N ---
Date of service: 09/28/23 Time of Service: 12:05 DS: Diagnosis Discharge Diagnosis (1) Atypical chest pain: Status: Acute (2) Status post coronary artery stent placement: Status: Resolved (3) ST elevation (STEMI) myocardial infarction: Status: Resolved (4) Diarrhea: Status: Acute (5) Hyperlipidemia: Status: Chronic Discharge Plan Disposition Patient Disposition: Home Condition: Stable Discharge Details Reason For Visit: Atypical chest pain,CAD status/post STEMIw/stentin Admit Date/Time: 09/27/23 18:21 Admit Provider: Fidel Inman Attending Provider: Fidel Inman Primary Care Provider: Delisa Velazquez Hospital Course Hospital Course: This is a 67-year-old female patient who presented to the emergency department by EMS after experiencing a sudden onset of chest pain. She was just released from [facility] after having a STEMI with 2 stents placed. Her initial evaluation showed a troponin of 192. Her case was discussed with cardiology and plan was to observe here overnight under hospitalist services. Overnight she remained asymptomatic. Troponin remained flat and trending downward today at 126. Her case was discussed with cardiology when they are in agreement with continuing isosorbide at discharge and will see her in follow-up as scheduled. Hemodynamically she is remained stable she was remained chest pain-free. No dysrhythmias on telemetry no acute ischemic changes on her EKG. She is stable for discharge to home with no new services. Discharge discussed with Dr Rodriguez Home Meds and New Rx's Prescriptions: New isosorbide mononitrate 30 mg Tablet Extended Release 24 Hr 30 mg PO DAILY Qty: 30 0RF Continued ibuprofen 600 mg tablet 600 mg PO TID PRN (Reason: pain) Qty: 60 3RF vit B [id number] ac-zinc 800 mcg- 12.5 mg tablet 1 tab PO DAILY albuterol sulfate [ProAir HFA] 90 mcg/actuation HFA aerosol inhaler 1 - 2 puff Inhalation Q4H PRN Qty: 2 6RF Probiotic 1 EACH capsule 1 ea PO DAILY Hold Instructions: ran out Patient Comments: Patient may take more than 1 per day, depends on bloating. ct tears naturale ii 2 drp OU QID magnesium oxide 400 mg (241.3 mg magnesium) tablet 400 mg PO DAILY Qty: 90 3RF estradiol [Vagifem] 10 mcg tablet 10 mcg VG Twice Weekly Qty: 24 12RF bupropion HCl [Wellbutrin SR] 150 mg tablet sustained-release 12 hr 150 mg PO BID Qty: 180 3RF pantoprazole 40 mg tablet,delayed release (DR/EC) See Rx Instructions .ROUTE .COMPLEX Qty: 30 0RF Dose Instruction: TAKE 1 TABLET BY MOUTH DAILY Rx Instructions: TAKE 1 TABLET BY MOUTH DAILY cholecalciferol (vitamin D3) 10 mcg (400 unit) capsule 10 mcg PO DAILY aspirin 81 mg tablet,delayed release (DR/EC) 81 mg PO DAILY Patient Comments: TAKE 1 TABLET BY MOUTH DAILY atorvastatin 80 mg tablet 80 mg PO QPM Patient Comments: TAKE 1 TABLET BY MOUTH EVERY EVENING clopidogrel 75 mg tablet 75 mg PO DAILY Patient Comments: TAKE 1 TABLET BY MOUTH DAILY lisinopril 10 mg tablet 10 mg PO DAILY Patient Comments: TAKE 1 TABLET BY MOUTH DAILY metoprolol tartrate 25 mg tablet 25 mg PO 2XD Patient Comments: TAKE 1 TABLET BY MOUTH TWICE DAILY nitroglycerin 0.4 mg tablet, sublingual 0.4 mg sublingual Q5M PRN (Reason: chest pain) Patient Comments: DISSOLVE ONE TABLET UNDER TONGUE NEEDED FOR CHEST PAIN EVERY 5 MINUTES FOR UP TO 3 DOSES acetaminophen 500 mg tablet 500 mg PO Q6H PRN (Reason: pain) Qty: 60 2RF Discharge Instructions Instructions: Chest Pain (DC) Additional Instructions: take all medication as prescribed. continue routine post cardiac care orders as per [facility] Referrals: Delisa Velazquez NP [Primary Care Provider] - Activity:: Activity as Tolerated Equipment/Supplies:: No Equipment Needed Diet:: As Tolerated Discharge Orders Discharge Orders: Discharge Order (Routine); Ordered 09/28/23 Ordered By: Nina Minor DS: Summary Time Spent with Patient providing and/or coordinating discharge services: Less than 30 minutes Status at Discharge Functional status at discharge: independent ambulation Overall status at discharge: patient is back to baseline Mental Status: mental status grossly normal Speech and Movement: speech and movement normal Mood: congruent mood Affect: normal affect Quality:SDOH Health Related Social Needs: No Data to Display Exam Const General: cooperative, healthy appearing and no acute distress HENMT Head: normal to inspection Mouth: oral mucosae normal Eyes General: appearance normal, both eyes and all related structures Neck Neck: normal visual inspection Resp Effort & Inspection: normal respiratory effort and able to speak in complete sentences Cardio Rate: regular rate Skin General skin exam: no rashes or lesions noted Neuro General: patient alert, patient awake and patient oriented x3 Motor: muscle tone normal throughout Psych Appearance: grossly normal Mental Status: mental status grossly normal Speech and Movement: speech and movement normal Mood: congruent mood Affect: normal affect DS: Data Vitals/I&O Vitals and I&O: Vital Signs Temperature 36.1 C L 09/28/23 10:58 Temperature Source Tympanic 09/28/23 10:58 Pulse 66 09/28/23 10:58 Pulse Rhythm Regular 09/28/23 04:07 Pulse 78 09/27/23 18:52 Respiratory Rate 18 09/28/23 10:58 Respiratory Effort Normal 09/28/23 04:07 Respiratory Depth Normal 09/28/23 04:07 Respiratory Pattern Normal 09/28/23 04:07 Blood Pressure 108/69 09/28/23 10:58 Blood Pressure Mean 93 09/27/23 18:51 Pulse Oximetry 95 09/28/23 10:58 Oxygen Delivery Method Room Air 09/28/23 10:58 Oxygen Flow Rate 0 09/28/23 10:58 Pain Level 10 09/28/23 10:58 Comment wrong pt 09/27/23 23:05 Intake & Output 09/27/23 09/28/23 09/28/23 23:59 11:59 23:59 Intake Total Balance Weight 76.657 kg Intake: IV Other: Urine Color Yellow Urine Appearance Clear Stool Size Moderate Stool Characteristics Liquid Green Voiding Methods Toilet Data Completed and Pending Labs on day of discharge: Labs from last 24 hours 09/28/23 09/28/23 09/28/23 06:47 06:08 04:13 WBC 13.02 H RBC 4.48 Hgb 14.0 Hct 42.5 MCV 95 MCH 31.3 MCHC 32.9 RDW 12.4 Plt Count 300 MPV 10.8 Immature Gran % Neutrophils % Lymphocytes % Monocytes % Eosinophils % Basophils % Nucleated RBC % Absolute Neutrophils Absolute Lymphocytes Absolute Monocytes Absolute Eosinophils Absolute Basophils Sodium 139 Potassium 4.4 Chloride 105 Carbon Dioxide 24.5 Anion Gap 9.5 BUN 20 H Creatinine 0.9 Est GFR (CKD-EPI 2020) 70.51 Glucose 95 Calcium 9.3 Magnesium 2.2 Total Bilirubin 0.4 AST 37 ALT 47 Alkaline Phosphatase 72 Troponin I 126 H* C-Reactive Protein 0.36 H Cancelled NT-Pro-B Natriuret Pep Total Protein 7.8 Albumin 4.0 Lipase TSH Free T4 Stl C.difficile Tox PCR Negative 09/28/23 09/28/23 09/27/23 04:00 02:40 22:40 WBC RBC Hgb Hct MCV MCH MCHC RDW Plt Count MPV Immature Gran % Neutrophils % Lymphocytes % Monocytes % Eosinophils % Basophils % Nucleated RBC % Absolute Neutrophils Absolute Lymphocytes Absolute Monocytes Absolute Eosinophils Absolute Basophils Sodium Potassium Chloride Carbon Dioxide Anion Gap BUN Creatinine Est GFR (CKD-EPI 2020) Glucose Calcium Magnesium Total Bilirubin AST ALT Alkaline Phosphatase Troponin I Cancelled 179 H* 192 H* C-Reactive Protein NT-Pro-B Natriuret Pep Total Protein Albumin Lipase TSH 6.04 H Free T4 1.13 Stl C.difficile Tox PCR 09/27/23 09/27/23 16:00 13:05 WBC 11.38 H RBC 4.08 Hgb 12.7 Hct 38.7 MCV 95 MCH 31.1 MCHC 32.8 RDW 12.5 Plt Count 273 MPV 10.4 Immature Gran % 0.4 Neutrophils % 59.5 Lymphocytes % 27.3 Monocytes % 11.0 Eosinophils % 1.2 Basophils % 0.6 Nucleated RBC % 0.0 Absolute Neutrophils 6.77 H Absolute Lymphocytes 3.11 Absolute Monocytes 1.25 H Absolute Eosinophils 0.14 Absolute Basophils 0.07 Sodium 141 Potassium 4.3 Chloride 103 Carbon Dioxide 30.1 Anion Gap 7.9 BUN 22 H Creatinine 1.0 Est GFR (CKD-EPI 2020) 62.13 Glucose 95 Calcium 9.6 Magnesium Total Bilirubin 0.3 AST 34 ALT 34 Alkaline Phosphatase 67 Troponin I 194 H* 192 H* C-Reactive Protein NT-Pro-B Natriuret Pep 222 Total Protein 7.5 Albumin 3.9 Lipase 30 TSH Free T4 Stl C.difficile Tox PCR PFSH All Active Problems (Updated 09/28/23 @ 06:35 by Fidel Inman) Diarrhea (Acute) Atypical chest pain (Acute) S/P cardiac catheterization (Acute) With DIETER to prox OM 1 and Mid RCA 09/24/[address] [facility] [place] Chest pain of uncertain etiology (Acute) Right rotator cuff tear (Acute) Anterior dislocation of right shoulder (Acute 03/30/23) ILD (interstitial lung disease) (Acute) Anxiety (Chronic) Kuhn's esophagus (Chronic) EGD neg 2016 Depressive disorder (Chronic) Gastroesophageal reflux disease (Chronic) gastritis; HH Hyperlipidemia (Chronic 01/02/13) Malignant neoplasm of female breast (Chronic 07/28/93) stage I; lumpectomy, radiation, axillary resection, occurred remotely in her 30s as of 12/2021 no sign of recurrence, yearly mammogram Migraine with aura (Chronic) Peripheral neuralgia (Chronic) Cervical radiculopathy at C6 (Acute) Visual field defect (Acute) Pseudogout of hand (Acute) Painful orthopaedic hardware (Acute) Nicotine dependence (Acute) 12/2021- 09/01-08/30 ppd, 25 pk yr hx Generalized hyperhidrosis (Acute) Cervical cancer screening (Acute) To 2021. Previous testing 2015. Currently overdue. Episodic cannabis use (Acute) Medical History COVID-19 08/2020 Surgical History Hx of neck surgery H/O right wrist surgery S/P colonoscopy 03/30/19 Ligation of fallopian tube Tonsillectomy (~1958) EGD - IV Sedation (05/10/16) Cholecystectomy Reduction mammoplasty (~1994) right Breast, Lumpectomy (~1993) left Biopsy of breast (~2001) Family History Mother Personal history of malignant neoplasm SKIN Father Essential hypertension Hyperlipidemia Stroke Grandfather No problems noted. Grandfather No problems noted. Grandmother Personal history of malignant neoplasm BREAST Grandmother No problems noted. Brother Essential hypertension Personal history of malignant neoplasm THYROID Hyperlipidemia Brother No problems noted. Brother No problems noted. Brother No problems noted. Daughter No problems noted. Daughter No problems noted. Social History Smoking/Tobacco Use Status: Current every day Tobacco Type: cigarettes Years smoked: 50 Quit status: considering quitting Smoking risk assessment performed?: Yes Alcohol Intake: current Alcohol Intake frequency: 0-2 drinks per day Alcohol type: hard liquor Drug use: Occasionally Substance use type: marijuana Adopted: No Caregiver/Support person: No Foster care: No Household members: family Housing: house Number of Children: 2 number of grandchildren: 3 Communication Needs: None and Corrective Lenses Education Level: high school Do you need help understanding health information?: Rarely current occupation: Disabled-has results of issues related to her breast cancer surgery Pets and animals: Yes Pets and animals: dog(s) Do you think of yourself as: straight/heterosexual Current gender identity: female What is your relationship status?: living with partner How often do you talk on the phone with friends or family?: decline to answer How often do you get together with friends or relatives?: decline to answer How often do you attend religious or episcopalian services?: decline to answer Do you belong to any clubs or organized social groups?: no Panel score (0-1 are the most socially isolated patients): 1 What type of physical activity do you participate in: none Jessenia/Sabianist: Latter-Day Seatbelt use: always Helmet use: No Drive intox or ride w/intox route cdl driver: No Working smoke detector in home: Yes Fire extinguisher in home: Yes Carbon monox detector in home: Yes Do you feel safe at home: Yes History History 3 Para 2 Hx # Term Pregnancies Multiple births Hx # Pregnancies Ectopic pregnancies AB induced Hx Number of Living Children AB spontaneous Time Spent with Patient Time Spent with Patient: <45 minutes Time was spent: preparing to see the patient(eg.review tests), obtaining and/or reviewing separately otained hiistory, ordering medications,tests, procedures, referring, communicating with other health healthcare market consultant, indepentently interpreting results and counseling the patient
--- NOTE | 2023-09-28 16:08 | CHAPLAIN ---
Lubna was resting in bed when I visited. She said she expects to be discharged later today, and she was. She recently had a double bypass surgery at [facility] and talked about what that experience was like for her, and then having chest pains yesterday that brought her to the ED. Her was with her. I explained my role and offered support.
--- NOTE | 2023-09-28 16:21 | PDOC.CMPRO ---
Date of service: 09/28/23 Time of Service: 16:21 Care Management Progress Note Progress Note Text Progress Note Text: Lubna was admitted into Observation status on 09/27/23 with atypical chest pain. She was monitored overnight with no further chest pain or concerning arrhythmias. Her troponins were initially elevated but were decreasing by this morning. She was discharged home with outpatient cardiology followup. SDOH(Care Management) Screening Will the Patient Participate in the Screening?: Yes Do you worry about having a steady place to live?: no In the past 12 months, have you had to go without electric, gas, oil or water in your home?: no Have you or anyone in your house had to go without enough food to eat?: no Has lack of transportation kept you from medical appointments or from doing things needed for daily living?: no Has anyone in your support network made you feel unsafe for any reason?: no
== END 2023-09-28 13:10 | disposition home or self-care (01) ==
LOC: ER 18:36 → MS 19:07
PROVIDERS: Physician Assistant; Admitting Provider Family Medicine; Emergency Provider Registered Nurse Emergency; PCP Nurse Practitioner; Visit Provider Family Medicine
DX: R07.89 Other chest pain (principal); I21.19 ST elevation (STEMI) myocardial infarction involving other coronary artery of inferior wall; Z95.5 Presence of coronary angioplasty implant and graft; Z87.891 Personal history of nicotine dependence; R19.7 Diarrhea, unspecified; J84.9 Interstitial pulmonary disease, unspecified; F41.9 Anxiety disorder, unspecified; K22.70 Barrett's esophagus without dysplasia; F32.A Depression, unspecified; K21.9 Gastro-esophageal reflux disease without esophagitis; K29.70 Gastritis, unspecified, without bleeding; G43.109 Migraine with aura, not intractable, without status migrainosus; M54.12 Radiculopathy, cervical region; G62.9 Polyneuropathy, unspecified; Z79.899 Other long term (current) drug therapy
CPT/HCPCS: 00123; 36415; 80053; 83690; 85027; 87493; 93005; 96372; 99285; 83735; 83880; 84439; 84443; 84484; 85025; 86140; 93010; 99223; 99238; G0378; J1644; J3490

== ENCOUNTER 2023-10-24 10:00 | Outpatient (RCR) | payer OTHER, MEDICAID, SELFPAY | END 2023-10-27 23:59 | disposition home or self-care (01) | LOC: CR 10:00 | PROVIDERS: PCP Nurse Practitioner; Visit Provider Internal Medicine Cardiovascular Disease | DX: I21.3 ST elevation (STEMI) myocardial infarction of unspecified site (principal); Z95.5 Presence of coronary angioplasty implant and graft; Z51.89 Encounter for other specified aftercare | CPT/HCPCS: S9472 ==

== ENCOUNTER → 2023-11-15 08:50 | Outpatient (BNVA) | payer OTHER, MEDICAID, SELFPAY | PROVIDERS: PCP Nurse Practitioner; Referring Provider Nurse Practitioner; Visit Provider Physician Assistant Surgical | DX: J84.9 Interstitial pulmonary disease, unspecified (principal); F17.200 Nicotine dependence, unspecified, uncomplicated | CPT/HCPCS: 99214 ==

== ENCOUNTER 2023-11-25 09:50 | Outpatient (RCR) | payer OTHER, MEDICAID, SELFPAY | END 2023-11-27 23:59 | disposition home or self-care (01) | LOC: CR 09:50 | PROVIDERS: PCP Nurse Practitioner; Visit Provider Internal Medicine Cardiovascular Disease | DX: Z95.5 Presence of coronary angioplasty implant and graft (principal); I21.3 ST elevation (STEMI) myocardial infarction of unspecified site; Z51.89 Encounter for other specified aftercare | CPT/HCPCS: S9472 ==

== ENCOUNTER 2023-12-26 10:20 | Outpatient (RCR) | payer OTHER, MEDICAID, SELFPAY ==
--- NOTE | 2023-11-28 15:24 | NUR.NOTE ---
Nursing Note: On Tuesday11/28/23, pt. arrived at cardiac rehab and asked to speak with a nurse. This RN went and spoke privately with the pt. Pt. stated that she was supposed to start jury duty on December 28, 2023, but that she needed to be excused from jury duty in order to continue with the cardiac rehab program. This RN instructed pt. to speak with her data modeling specialist to obtain a note excusing her from jury duty. Pt. verbalized understanding and stated that she would do so.
== END 2023-12-27 23:59 | disposition home or self-care (01) ==
LOC: CR 10:20
PROVIDERS: PCP Nurse Practitioner; Visit Provider Internal Medicine Cardiovascular Disease
DX: I21.3 ST elevation (STEMI) myocardial infarction of unspecified site (principal); Z95.5 Presence of coronary angioplasty implant and graft; Z51.89 Encounter for other specified aftercare
CPT/HCPCS: S9472

== ENCOUNTER 2023-12-30 05:10 | Outpatient (CLI) | payer OTHER, MEDICAID, SELFPAY ==
[2023-12-30 09:24] LABS: Calculated LDL 68 mg/dL (<100); Cholesterol 138 mg/dL (<200); HDL Cholesterol 52 mg/dL (40-60); Triglyceride 93 mg/dL (<150)
== END 2023-12-30 05:11 | disposition home or self-care (01) ==
LOC: LBO 05:10
PROVIDERS: PCP Nurse Practitioner; Visit Provider Nurse Practitioner
DX: E78.2 Mixed hyperlipidemia (principal)
CPT/HCPCS: 36415; 80061

== ENCOUNTER 2024-01-27 10:40 | Outpatient (RCR) | payer OTHER, MEDICAID, SELFPAY | END 2024-01-27 23:59 | disposition home or self-care (01) | LOC: CR 10:40 | PROVIDERS: PCP Nurse Practitioner; Visit Provider Internal Medicine Cardiovascular Disease | DX: I21.19 ST elevation (STEMI) myocardial infarction involving other coronary artery of inferior wall (principal); Z95.5 Presence of coronary angioplasty implant and graft; Z51.89 Encounter for other specified aftercare | CPT/HCPCS: S9472 ==

== ENCOUNTER 2024-02-01 10:00 | Outpatient (RCR) | payer OTHER, MEDICAID, SELFPAY | END 2024-02-26 23:59 | disposition home or self-care (01) | LOC: CR 10:00 | PROVIDERS: PCP Nurse Practitioner; Visit Provider Internal Medicine Cardiovascular Disease | DX: I21.3 ST elevation (STEMI) myocardial infarction of unspecified site (principal) | CPT/HCPCS: S9472 ==

== ENCOUNTER → 2024-03-26 01:11 | Outpatient (CLI) | payer OTHER, MEDICAID, SELFPAY ==
--- NOTE | 2024-03-26 07:00 | DI.MAMMO_ITS ---
Exam(s) MG MAMMO SCREENING 60 MIN DUR EXAM: MG MAMMO SCREENING 60 MIN DUR CLINICAL HISTORY: breast cancer screening,personal h/o lt breast ca,z12.39,c50.919 TECHNIQUE: Mammograms were interpreted according to the usual protocol including computer analysis w [employer] CAD system, tomosynthesis and C-view imaging. COMPARISON: 2014 through 2022 FINDINGS: The breasts are composed of scattered fibroglandular densities, Breast Density category B. Patient is status post left lumpectomy. Stable area of scarring noted in upper outer quadrant. No suspicious masses or suspicious microcalcifications are seen. No skin thickening or abnormal axillary lymph nodes are seen. There has been no significant change from prior exams. IMPRESSION: BI-RADS Category 2 - Benign Findings Yearly screening mammography is recommended. Breast Density - Category B, scattered fibroglandular densities. A negative radiographic report should not delay biopsy if a dominant or clinically suspicious mass is present. Up to ten percent of cancers are not identified on mammography. A negative report may reinforce clinical impression. Adenosis and dense breasts may obscure an underlying neoplasm. False positive reports average 6 to 10%. Patient will receive a letter notifying them of these results.
== END ==
PROVIDERS: PCP Nurse Practitioner; Visit Provider Nurse Practitioner
DX: Z12.31 Encounter for screening mammogram for malignant neoplasm of breast (principal); Z85.3 Personal history of malignant neoplasm of breast; Z98.890 Other specified postprocedural states
CPT/HCPCS: 77063; 77067

== ENCOUNTER → 2024-05-15 08:54 | Outpatient (BNVA) | payer OTHER, MEDICAID, SELFPAY | PROVIDERS: PCP Nurse Practitioner; Referring Provider Nurse Practitioner; Visit Provider Physician Assistant Surgical | DX: J84.9 Interstitial pulmonary disease, unspecified (principal); F17.210 Nicotine dependence, cigarettes, uncomplicated | CPT/HCPCS: 99214 ==

== ENCOUNTER 2024-05-25 02:52 | Outpatient (CLI) | payer OTHER, MEDICAID, SELFPAY ==
[2024-05-25] MEDS: Inhaler, Assist Device 1 EACH MC (09:03)
[2024-05-25] MEDS: Levalbuterol HFA 15 GM INH 4 PUFF IH (09:03)
--- NOTE | 2024-05-29 16:30 | W.PFT ---
Date of service: 05/25/24 Time of Service: 08:00 Pulmonary Function Test Result Indications: ILD Interpretation Spirometry: There is no airflow obstruction. No bronchodilator response. Lung Volumes: Normal lung volumes Diffusion Capacity: Decreased diffusion Airway Pressure: Normal airways resistance Impression Isolated diffusion deficit, which may represent emphysema, ILD or pulmonary hypertension. Clinical Correlation therefore is recommended.
== END 2024-05-25 02:53 | disposition home or self-care (01) ==
LOC: RT 02:52
PROVIDERS: PCP Nurse Practitioner; Visit Provider Student in an Organized Health Care Education/Training Program
DX: J84.9 Interstitial pulmonary disease, unspecified (principal)
CPT/HCPCS: 94060; 94726; 94729

== ENCOUNTER 2024-06-09 12:36 | Emergency (ER) | payer OTHER, MEDICAID, SELFPAY ==
[2024-06-09 12:43] VITALS: BP 131/86; PULSE 85; RESP 20; TEMP 36.4; O2SAT 96
--- NOTE | 2024-06-09 13:06 | W.ED.GENAD ---
Discharge Plan Disposition Patient Disposition: Home Condition: Good Discharge Details Clinical Impression: Dog bite of right hand Primary Care Provider: Delisa Velazquez ED Provider: Raulito Reid Home Meds and New Rx's Prescriptions: New doxycycline hyclate 100 mg tablet 100 mg PO BID Qty: 20 0RF No Action vit B gmrnbhb-B-alkbv ac-zinc 800 mcg- 12.5 mg tablet 1 tab PO DAILY bupropion HCl [Wellbutrin SR] 150 mg tablet sustained-release 12 hr 150 mg PO BID Qty: 180 3RF pantoprazole 40 mg tablet,delayed release (DR/EC) See Rx Instructions .ROUTE .COMPLEX Qty: 30 0RF Dose Instruction: TAKE 1 TABLET BY MOUTH DAILY Rx Instructions: TAKE 1 TABLET BY MOUTH DAILY benzonatate 200 mg capsule 200 mg PO TID PRN (Reason: cough) Qty: 21 0RF albuterol sulfate [ProAir HFA] 90 mcg/actuation HFA aerosol inhaler 1 - 2 puff Inhalation Q4H PRN Qty: 2 6RF Probiotic 1 EACH capsule 1 ea PO DAILY Patient Comments: Patient may take more than 1 per day, depends on bloating. ct tears naturale ii 2 drp OU QID magnesium oxide 400 mg (241.3 mg magnesium) tablet 400 mg PO DAILY Qty: 90 3RF estradiol [Vagifem] 10 mcg tablet 10 mcg VG Twice Weekly Qty: 24 12RF fluticasone propion-salmeterol [Advair HFA] 115-21 mcg/actuation HFA aerosol inhaler 2 puff inhalation BID Qty: 12 12RF cholecalciferol (vitamin D3) 10 mcg (400 unit) capsule 10 mcg PO DAILY aspirin 81 mg tablet,delayed release (DR/EC) 81 mg PO DAILY Patient Comments: TAKE 1 TABLET BY MOUTH DAILY atorvastatin 80 mg tablet 80 mg PO QPM Patient Comments: TAKE 1 TABLET BY MOUTH EVERY EVENING clopidogrel 75 mg tablet 75 mg PO DAILY Patient Comments: TAKE 1 TABLET BY MOUTH DAILY lisinopril 10 mg tablet 10 mg PO DAILY Patient Comments: TAKE 1 TABLET BY MOUTH DAILY metoprolol tartrate 25 mg tablet 25 mg PO 2XD Patient Comments: TAKE 1 TABLET BY MOUTH TWICE DAILY nitroglycerin 0.4 mg tablet, sublingual 0.4 mg sublingual Q5M PRN (Reason: chest pain) Patient Comments: DISSOLVE ONE TABLET UNDER TONGUE NEEDED FOR CHEST PAIN EVERY 5 MINUTES FOR UP TO 3 DOSES isosorbide mononitrate 30 mg Tablet Extended Release 24 Hr 30 mg PO DAILY Qty: 30 0RF acetaminophen 500 mg tablet 500 mg PO Q6H PRN (Reason: pain) Qty: 60 2RF Discharge Instructions Instructions: Animal Bites ED Additional Instructions: At this time you have a small dog bite to your right hand. We did place 2 sutures in it to help diminish the bleeding. These will likely have some mild drainage. Please watch closely for redness swelling or fever. Please return in 7 to 10 days to have the sutures removed. Please the area dry. Please take the antibiotic as directed to prevent any severe infection. If you notice any worsening of your symptoms, or any new symptoms such as vomiting, diarrhea, fever, chills, shortness of breath, chest pain, numbness, weakness, or fainting , please return immediately to the emergency department for reevaluation. Please follow up with your primary care provider as soon as possible for reassessment and reevaluation. As always, it was a pleasure participating in your medical care today. Referrals: Delisa Velazquez NP [Primary Care Provider] - HPI General Date/Time Provider Initiated Documentation: 06/09/24 12:48. HPI Narrative: 68-year-old female with a past medical history of interstitial lung disease, previous cardiac disease, whose tetanus was last updated in 2022, who is on aspirin and Plavix daily, who presents today for evaluation of dog bite to the right hand. She is right-hand dominant. Patient states that she was bit by her dog and her family members dog that were fighting together when they tried to pull them apart. There is a single bite to the right hand. 3 small locations of skin disruption. She denies any numbness or tingling. She does admit to chronic pain in that area secondary to previously damaged bones years ago. She denies any significant new pain. She denies any other complaints at this time. No other modifying factors. Related Data Home Medications ?Medication ?Instructions ?Recorded ?Confirmed Lactobacillus acidophilus 10 1 ea PO DAILY 12/29/17 05/22/24 billion cell capsule (Probiotic) Tears Naturale Ii 2 drp OU QID 03/17/18 05/22/24 acetaminophen 500 mg tablet 500 mg PO Q6H PRN pain #60 tabs 06/30/21 05/22/24 magnesium oxide 400 mg (241.3 mg 400 mg PO DAILY #90 tabs 08/25/21 05/22/24 magnesium) tablet estradiol 10 mcg vaginal tablet 10 mcg vaginal Twice Weekly #24 06/07/22 05/22/24 (Vagifem) tab-caps vitamin B complex with vit C-folic 1 tab PO DAILY 02/17/23 05/22/24 acid 800 mcg-zinc 12.5 mg tablet cholecalciferol (vitamin D3) 10 10 mcg PO DAILY 09/24/23 05/22/24 mcg (400 unit) capsule aspirin 81 mg tablet,delayed 81 mg PO DAILY 09/27/23 05/22/24 release atorvastatin 80 mg tablet 80 mg PO QPM 09/27/23 05/22/24 clopidogrel 75 mg tablet 75 mg PO DAILY 09/27/23 05/22/24 lisinopril 10 mg tablet 10 mg PO DAILY 09/27/23 02/27/24 metoprolol tartrate 25 mg tablet 25 mg PO 2XD 09/27/23 05/22/24 nitroglycerin 0.4 mg sublingual 0.4 mg sublingual Q5M PRN chest 09/27/23 05/22/24 tablet pain isosorbide mononitrate 30 mg 30 mg PO DAILY #30 tabs 09/28/23 05/22/24 tablet,extended release 24 hr albuterol sulfate 90 mcg/actuation 1 - 2 puff inhalation Q4H PRN ##2 12/13/23 05/22/24 aerosol inhaler (ProAir HFA) benzonatate 200 mg capsule 200 mg PO TID PRN cough #21 caps 02/27/24 05/22/24 bupropion HCl 150 mg tablet,12 hr 150 mg PO BID #180 tabs 02/27/24 05/22/24 sustained-release (Wellbutrin SR) pantoprazole 40 mg tablet,delayed See Rx Instructions .Route 02/27/24 05/22/24 release .COMPLEX #30 tabs fluticasone propionate 115 2 puff inhalation BID #12 grams 03/05/24 mcg-salmeterol 21 mcg/actuation HFA inhaler (Advair HFA) doxycycline hyclate 100 mg tablet 100 mg PO BID #20 tabs 06/09/24 Previous Rx's ?Medication ?Instructions ?Recorded acetaminophen 500 mg tablet 500 mg PO Q6H PRN pain #60 tabs 06/30/21 magnesium oxide 400 mg (241.3 mg 400 mg PO DAILY #90 tabs 08/25/21 magnesium) tablet estradiol 10 mcg vaginal tablet 10 mcg vaginal Twice Weekly #24 06/07/22 (Vagifem) tab-caps isosorbide mononitrate 30 mg 30 mg PO DAILY #30 tabs 09/28/23 tablet,extended release 24 hr albuterol sulfate 90 mcg/actuation 1 - 2 puff inhalation Q4H PRN ##2 12/13/23 aerosol inhaler (ProAir HFA) benzonatate 200 mg capsule 200 mg PO TID PRN cough #21 caps 02/27/24 bupropion HCl 150 mg tablet,12 hr 150 mg PO BID #180 tabs 02/27/24 sustained-release (Wellbutrin SR) pantoprazole 40 mg tablet,delayed See Rx Instructions .Route 02/27/24 release .COMPLEX #30 tabs fluticasone propionate 115 2 puff inhalation BID #12 grams 03/05/24 mcg-salmeterol 21 mcg/actuation HFA inhaler (Advair HFA) doxycycline hyclate 100 mg tablet 100 mg PO BID #20 tabs 06/09/24 Allergies Allergy/AdvReac Type Severity Reaction Status Date / Time ceftriaxone Allergy Intermediate ITCHING; Verified 05/15/24 09:13 RASH Sulfa (Sulfonamide Allergy Intermediate ITCHY RASH Verified 05/15/24 09:13 Antibiotics) rosuvastatin AdvReac Intermediate NAUSEA Verified 05/15/24 09:13 sertraline AdvReac Intermediate diarrhea Verified 05/15/24 09:13 General Stated Complaint: AnimalBite ANTHONY: 4 Review of Systems All systems reviewed & are unremarkable except as noted in HPI and below Exam Narrative Exam Narrative: 1.Const: Well-nourished, Well-developed, appearing stated age 2.Eyes: PERRL, no conjunctival injection, and symmetrical lids. 3.ENT: Atraumatic external nose and ears. Moist MM. Neck: Symmetric, trachea midline, No thyromegaly. 4.CVS: +S1/S2, No murmurs or gallops. Peripheral pulses 2+ and equal in all extremities. Brisk capillary refill in all extremities. 5.RESP: Unlabored respiratory effort. Clear to auscultation bilaterally. No wheezes rales or rhonchi 6.GI: Soft, Nontender/Nondistended, No hepatosplenomegaly. No guarding or rebound. 7.MSK: Normocephalic/Atraumatic, Extremities w/o deformity or ttp No cyanosis or clubbing, Normal movement of all extremities 8.Skin: Right hand demonstrates 3 small lesions, all located on the dorsal aspect. The most distal is about 1.5 cm, mid lesion is about 1 cm, and proximal lesion is 3 mm. No active hemorrhage, but there is a slight ooze. Patient demonstrates excellent flexion and extension of all fingers distally, normal sensation, brisk capillary refill. 9.Neuro: food production associate II-XII grossly intact. Sensation grossly intact, no focal neurologic deficits. 10.Psych: (AAO) x3. Appropriate mood and affect Course Vital Signs Vital signs: Vital Signs Temperature 36.4 C 06/09/24 12:43 Pulse 85 06/09/24 12:43 Respiratory Rate 20 06/09/24 12:43 Blood Pressure 131/86 06/09/24 12:43 Pulse Oximetry 96 06/09/24 12:43 Temperature 36.4 C 06/09/24 12:43 Pulse 85 06/09/24 12:43 Respiratory Rate 20 06/09/24 12:43 Blood Pressure 131/86 06/09/24 12:43 Blood Pressure Position Sitting 06/09/24 12:43 Pulse Oximetry 96 06/09/24 12:43 Oxygen Delivery Method Room Air 06/09/24 12:43 Oxygen Flow Rate 0 06/09/24 12:43 Pain Level 5 06/09/24 12:43 Procedures Laceration Laceration 1: Site: hand Side (If applicable): right Size (cm): 1.5 Description: linear Depth: simple, single layer Local anesthetic: Lidocaine 1% and with Epi Amount of anesthesia used (mL): 3 Pre-repair: wound explored, irrigated extensively and deep structures intact Skin layer closed with: nylon Size (cm): 6-0 Number of sutures: 1 Technique: simple, interrupted Laceration 2: Site: hand Side (If applicable): right Size (cm): 1 Description: linear Depth: simple, single layer Local anesthetic: Lidocaine 1% and with Epi Amount of anesthesia used (mL): 1 Pre-repair: wound explored, irrigated extensively and deep structures intact Skin layer closed with: nylon Size (cm): 6-0 Number of sutures: 1 Technique: simple, interrupted Medical Decision Making 68-year-old female with a past medical history of interstitial lung disease, previous cardiac disease, whose tetanus was last updated in 2022, who is on aspirin and Plavix daily, who presents today for evaluation of dog bite to the right hand. Patient states that both dogs are up-to-date on their vaccinations including rabies. She is right-hand dominant. Patient states that she was bit by her dog and her family members dog that were fighting together when they tried to pull them apart. There is a single bite to the right hand. 3 small locations of skin disruption. She denies any numbness or tingling. She does admit to chronic pain in that area secondary to previously damaged bones years ago. She denies any significant new pain. She denies any other complaints at this time. No other modifying factors. Right hand demonstrates 3 small lesions, all located on the dorsal aspect. The most distal is about 1.5 cm, mid lesion is about 1 cm, and proximal lesion is 3 mm. No active hemorrhage, but there is a slight ooze. Patient demonstrates excellent flexion and extension of all fingers distally, normal sensation, brisk capillary refill. Because of the nature of the wound and their size I do feel that a single simple interrupted sutures certainly indicated to help with hemostasis, but there also needs to be some space for potential drainage if infection does develop. Patient is allergic to ceftriaxone and sulfa. We will avoid Augmentin. Will give doxycycline for treatment. 2 simple interrupted sutures were placed after anesthetization and cleaning. Patient tolerated this well. Tetanus is up-to-date. Dog's immunizations are all up-to-date. No indication for rabies shots or testing. Patient stable for discharge. Discussed red flags which to return. I have extensively reviewed the treatment plan and discharge instructions with the patient. I have addressed all patient concerns at this time. The patient was made aware of what symptoms to monitor for that would warrant a return to the emergency department. Discussed the plan with the patient, they demonstrate verbal understanding and agreement with our assessment and plan at this time. The documentation in this chart was dictated using [employer] dictation software. Please excuse any dictation errors. Quality:SDOH Health Related Social Needs: No Data to Display PFSH All Active Problems Dog bite of right hand (Acute) Diarrhea (Acute) Atypical chest pain (Acute) S/P cardiac catheterization (Acute) With DIETER to prox OM 1 and [place] [facility] [place] pain of uncertain etiology (Acute) Right rotator cuff tear (Acute) Anterior dislocation of right shoulder (Acute 03/30/23) ILD (interstitial lung disease) (Acute) Anxiety (Chronic) Kuhn's esophagus (Chronic) EGD neg 2015 Depressive disorder (Chronic) Gastroesophageal reflux disease (Chronic) gastritis; HH Hyperlipidemia (Chronic 01/02/13) Malignant neoplasm of female breast (Chronic 07/28/93) stage I; lumpectomy, radiation, axillary resection, occurred remotely in her 30s as of 12/2021 no sign of recurrence, yearly mammogram Migraine with aura (Chronic) Peripheral neuralgia (Chronic) Cervical radiculopathy at C6 (Acute) Visual field defect (Acute) Pseudogout of hand (Acute) Painful orthopaedic hardware (Acute) Nicotine dependence (Acute) 12/2021- 09/01-08/30 ppd, 25 pk yr hx Generalized hyperhidrosis (Acute) Cervical cancer screening (Acute) To 2021. Previous testing 2015. Currently overdue. Episodic cannabis use (Acute) Medical History COVID-19 08/2020 Surgical History Hx of neck surgery H/O right wrist surgery S/P colonoscopy 03/30/19 Ligation of fallopian tube Tonsillectomy (~1958) EGD - IV Sedation (05/10/16) Cholecystectomy Reduction mammoplasty (~1994) right Breast, Lumpectomy (~1993) left Biopsy of breast (~2001) Family History Mother Personal history of malignant neoplasm SKIN Father Essential hypertension Hyperlipidemia Stroke Grandfather No problems noted. Grandfather No problems noted. Grandmother Personal history of malignant neoplasm BREAST Grandmother No problems noted. Brother Essential hypertension Personal history of malignant neoplasm THYROID Hyperlipidemia Brother No problems noted. Brother No problems noted. Brother No problems noted. Daughter No problems noted. Daughter No problems noted. Social History Smoking/Tobacco Use Status: Former Tobacco Use Quit status: considering quitting Smoking risk assessment performed?: Yes Alcohol Intake: current Alcohol Intake frequency: 0-2 drinks per day Alcohol type: hard liquor Drug use: Occasionally Substance use type: marijuana Adopted: No Caregiver/Support person: No Foster care: No Household members: family Housing: house Number of Children: 2 number of grandchildren: 3 Communication Needs: None and Corrective Lenses Education Level: high school Do you need help understanding health information?: Rarely current occupation: Disabled-has results of issues related to her breast cancer surgery Pets and animals: Yes Pets and animals: dog(s) Do you think of yourself as: straight/heterosexual Current gender identity: female What is your relationship status?: living with partner How often do you talk on the phone with friends or family?: decline to answer How often do you get together with friends or relatives?: decline to answer How often do you attend latter-day or faith services?: decline to answer Do you belong to any clubs or organized social groups?: no Panel score (0-1 are the most socially isolated patients): 1 What type of physical activity do you participate in: none Jessenia/Adventism: Caodaism Seatbelt use: always Helmet use: No Drive intox or ride w/intox special client bus driver: No Working smoke detector in home: Yes Fire extinguisher in home: Yes Carbon monox detector in home: Yes Do you feel safe at home: Yes History History 3 Para 2 Hx # Term Pregnancies Multiple births Hx # Pregnancies Ectopic pregnancies AB induced Hx Number of Living Children AB spontaneous
[2024-06-09] MEDS: Lidocaine 1% Pres-Free W/EPI 1/200,000 30 ML VIAL (13:27)
[2024-06-09] MEDS: Doxycycline Hyclate 100 MG, 2 CAPS/BTL PO (13:27)
--- NOTE | 2024-06-09 15:24 | NUR.NOTE ---
Animal bite report form faxed to Damon Lott for follow up. Message left on [facility] [employer] phone notifying him of the animal bite. Nursing Note:
== END 2024-06-09 13:29 | disposition home or self-care (01) ==
LOC: ER 13:10
PROVIDERS: Emergency Provider Student in an Organized Health Care Education/Training Program; PCP Nurse Practitioner
DX: S61.451A Open bite of right hand, initial encounter (principal); W54.0XXA Bitten by dog, initial encounter
CPT/HCPCS: 12001; J2004

== ENCOUNTER 2024-09-01 11:04 | Emergency (ER) | payer OTHER, MEDICAID, SELFPAY ==
[2024-09-01] VITALS (15 sets, daily range): BP systolic 124–156; BP diastolic 60–109; PULSE 56–86; RESP 9–19; TEMP 36.9; O2SAT 88–96
--- NOTE | 2024-09-01 10:45 | RT.EKG_ITS ---
APPROVED REPORT Exam: Resting ECG Reason for Exam: chest pain Patient Location: E HR:66 bpm ECG Measurements Heart Rate 66 AXIS FL 176 P 55 QRSd 84 QRS -76 QT 396 T 53 QTc 416 Conclusion Sinus rhythm...normal P axis, V-rate 60- 99 Left anterior fascicular block...axis(240,-40), init forces inf I have reviewed and interpreted ECG and agree with software generated interpretation.
--- NOTE | 2024-09-01 11:15 | DI.RAD_ITS ---
Exam(s) XR PORTABLE CHEST AP EXAM: XR PORTABLE CHEST AP CLINICAL HISTORY: left chest pain. TECHNIQUE: 2D digital imaging was performed. COMPARISON: CR XR PORTABLE CHEST AP from 05/03/2023 FINDINGS: Single AP portable view. Heart size is upper normal. The mediastinum is not widened. Lungs are clear. No infiltrates nor obvious pleural effusions. IMPRESSION: No acute pulmonary findings on this single AP portable view of the chest. DATA REPOSITORY: RADIATION DOSE DELIVERED:
[2024-09-01 11:23] LABS: Abs Immature Grans 0.04 10^3/uL (0.0-0.06); Absolute Basophil Count 0.07 10^3/uL (0.0-0.2); Absolute Eosinophil Count 0.37 10^3/uL (0.0-0.7); Absolute Monocyte Count 1.36 10^3/uL (0.1-0.8); Absolute Neutrophil Count 6.49 10^3/uL (1.2-6.7); Basophils % 0.6 %; Eosinophils % 3.3 %; HCT 40.3 % (36.0-46.0); HGB 13.4 g/dL (11.2-15.7); Immature Grans % 0.4 %; Lymphocytes % 25.2 %; MCH 32.6 pg (27.0-33.0); MCHC 33.3 % (32.0-36.0); MCV 98 fL (80-95); MPV 10.2 fL (8.0-11.0); Monocytes % 12.2 %; Neutrophils % 58.3 %; Platelet Count 238 10^3/uL (130-400); RBC 4.11 10^6/uL (3.93-5.22); RDW 12.1 % (11.7-14.6); WBC 11.13 10^3/uL (4.4-10.8)
[2024-09-01 11:45] LABS: ALT 32 U/L (14-59); AST 23 U/L (15-37); Albumin 3.6 g/dL (3.4-5.0); Alkaline Phosphatase 75 U/L (46-116); Anion Gap 2.8 mmol/L (3-11); BUN 15 mg/dL (7-18); Bilirubin, Total 0.27 mg/dL (0.2-1.0); CO2 33.2 mmol/L (21.0-32.0); CREATININE 1.1 mg/dL (0.55-1.02); Calcium 9.1 mg/dL (8.5-10.1); Chloride 106 mmol/L (98-107); Estimated GFR 55.07 (mL/min/1.73m2); Glucose 100 mg/dL (74-106); NT-proBNP 992 pg/mL (<300); Potassium 4.4 mmol/L (3.5-5.1); Sodium 142 mmol/L (136-145); Total Protein 6.5 g/dL (6.4-8.2); Troponin I 4 ng/L (<or=51)
[2024-09-01 11:56] LABS: INR 1.2 (0.9-1.1); PTT Activated 24.5 sec (23.6-32.8); Prothrombin Time 12.1 sec (9.1-11.1)
--- NOTE | 2024-09-01 11:57 | W.ED.GENAD ---
Discharge Plan Disposition Patient Disposition: Home Condition: Good Discharge Details Clinical Impression: Chest discomfort Primary Care Provider: Delisa Velazquez ED Provider: Raluito Reid Home Meds and New Rx's Prescriptions: No Action vit B [id number] ac-zinc 800 mcg- 12.5 mg tablet 1 tab PO DAILY bupropion HCl [Wellbutrin SR] 150 mg tablet sustained-release 12 hr 150 mg PO BID Qty: 180 3RF albuterol sulfate [ProAir HFA] 90 mcg/actuation HFA aerosol inhaler 1 - 2 puff Inhalation Q4H PRN Qty: 2 6RF Probiotic 1 EACH capsule 1 ea PO DAILY Patient Comments: Patient may take more than 1 per day, depends on bloating. ct tears naturale ii 2 drp OU QID magnesium oxide 400 mg (241.3 mg magnesium) tablet 400 mg PO DAILY Qty: 90 3RF estradiol [Vagifem] 10 mcg tablet 10 mcg VG Twice Weekly Qty: 24 12RF fluticasone propion-salmeterol [Advair HFA] 115-21 mcg/actuation HFA aerosol inhaler 2 puff inhalation BID Qty: 12 12RF pantoprazole 40 mg tablet,delayed release (DR/EC) See Rx Instructions .ROUTE .COMPLEX Qty: 30 12RF Dose Instruction: TAKE 1 TABLET BY MOUTH DAILY Rx Instructions: TAKE 1 TABLET BY MOUTH DAILY cholecalciferol (vitamin D3) 10 mcg (400 unit) capsule 10 mcg PO DAILY aspirin 81 mg tablet,delayed release (DR/EC) 81 mg PO DAILY Patient Comments: TAKE 1 TABLET BY MOUTH DAILY atorvastatin 80 mg tablet 80 mg PO QPM Patient Comments: TAKE 1 TABLET BY MOUTH EVERY EVENING clopidogrel 75 mg tablet 75 mg PO DAILY Patient Comments: TAKE 1 TABLET BY MOUTH DAILY lisinopril 10 mg tablet 10 mg PO DAILY Patient Comments: TAKE 1 TABLET BY MOUTH DAILY nitroglycerin 0.4 mg tablet, sublingual 0.4 mg sublingual Q5M PRN (Reason: chest pain) Patient Comments: DISSOLVE ONE TABLET UNDER TONGUE NEEDED FOR CHEST PAIN EVERY 5 MINUTES FOR UP TO 3 DOSES isosorbide mononitrate 30 mg Tablet Extended Release 24 Hr 30 mg PO DAILY Qty: 30 0RF metoprolol succinate 50 mg tablet extended release 24 hr 50 mg PO DAILY Patient Comments: TAKE 1 TABLET BY MOUTH DAILY acetaminophen 500 mg tablet 500 mg PO Q6H PRN (Reason: pain) Qty: 60 2RF Discharge Instructions Instructions: Chest Pain, Adult ED Additional Instructions: At this time your cardiac workup does not show any evidence of significant heart attack or other notable abnormality. Your chest x-ray shows no evidence of pneumonia. Please follow-up closely with your primary care provider for reassessment. It would be prudent to perform a nonemergent outpatient stress test for further cardiac evaluation. If you notice any worsening of your symptoms, or any new symptoms such as vomiting, diarrhea, fever, chills, shortness of breath, chest pain, numbness, weakness, or fainting , please return immediately to the emergency department for reevaluation. Please follow up with your primary care provider as soon as possible for reassessment and reevaluation. As always, it was a pleasure participating in your medical care today. Referrals: Delisa Velazquez NP [Primary Care Provider] - Discharge Data Discharge Date/Time-TO BE ENTERED AT DEPARTURE: 09/01/24 13:53 HPI General Date/Time Provider Initiated Documentation: 09/01/24 11:04. HPI Narrative: 68-year-old female with a past medical history of cardiac stents x 2, interstitial lung disease, high cholesterol, who has stopped using tobacco products over a year ago, who is on dual antiplatelet therapy, who presents today for evaluation of left-sided chest discomfort. Patient was at home and at around 9:30 AM she developed a stabbing left-sided chest discomfort. There was no pleuritic component. No shortness of breath. She took nitroglycerin without any change. She took Tums without any change. She called EMS and on their arrival they gave 325 and aspirin which did seem to improve her symptoms. She does admit to mild cough without hemoptysis. No calf pain or tenderness. No recent long trips surgeries or procedures. Currently she states that she is chest pain-free. No exertional discomfort. Pain was in the left chest just under the left breast. Slight radiation towards the neck. No tearing or ripping sensation. Related Data Home Medications ?Medication ?Instructions ?Recorded ?Confirmed Lactobacillus acidophilus 10 1 ea PO DAILY 12/29/17 09/01/24 billion cell capsule (Probiotic) Tears Naturale Ii 2 drp OU QID 03/17/18 09/01/24 acetaminophen 500 mg tablet 500 mg PO Q6H PRN pain #60 tabs 06/30/21 09/01/24 magnesium oxide 400 mg (241.3 mg 400 mg PO DAILY #90 tabs 08/25/21 09/01/24 magnesium) tablet estradiol 10 mcg vaginal tablet 10 mcg vaginal Twice Weekly #24 06/07/22 09/01/24 (Vagifem) tab-caps vitamin B complex with vit C-folic 1 tab PO DAILY 02/17/23 09/01/24 acid 800 mcg-zinc 12.5 mg tablet cholecalciferol (vitamin D3) 10 10 mcg PO DAILY 09/24/23 09/01/24 mcg (400 unit) capsule aspirin 81 mg tablet,delayed 81 mg PO DAILY 09/27/23 09/01/24 release atorvastatin 80 mg tablet 80 mg PO QPM 09/27/23 09/01/24 clopidogrel 75 mg tablet 75 mg PO DAILY 09/27/23 09/01/24 lisinopril 10 mg tablet 10 mg PO DAILY 09/27/23 09/01/24 nitroglycerin 0.4 mg sublingual 0.4 mg sublingual Q5M PRN chest 09/27/23 09/01/24 tablet pain isosorbide mononitrate 30 mg 30 mg PO DAILY #30 tabs 09/28/23 09/01/24 tablet,extended release 24 hr albuterol sulfate 90 mcg/actuation 1 - 2 puff inhalation Q4H PRN ##2 12/13/23 09/01/24 aerosol inhaler (ProAir HFA) bupropion HCl 150 mg tablet,12 hr 150 mg PO BID #180 tabs 02/27/24 09/01/24 sustained-release (Wellbutrin SR) fluticasone propionate 115 2 puff inhalation BID #12 grams 03/05/24 09/01/24 mcg-salmeterol 21 mcg/actuation HFA inhaler (Advair HFA) pantoprazole 40 mg tablet,delayed See Rx Instructions .Route 08/08/24 09/01/24 release .COMPLEX #30 tabs metoprolol succinate 50 mg 50 mg PO DAILY 09/01/24 09/01/24 tablet,extended release 24 hr Previous Rx's ?Medication ?Instructions ?Recorded acetaminophen 500 mg tablet 500 mg PO Q6H PRN pain #60 tabs 06/30/21 magnesium oxide 400 mg (241.3 mg 400 mg PO DAILY #90 tabs 08/25/21 magnesium) tablet estradiol 10 mcg vaginal tablet 10 mcg vaginal Twice Weekly #24 06/07/22 (Vagifem) tab-caps isosorbide mononitrate 30 mg 30 mg PO DAILY #30 tabs 09/28/23 tablet,extended release 24 hr albuterol sulfate 90 mcg/actuation 1 - 2 puff inhalation Q4H PRN ##2 12/13/23 aerosol inhaler (ProAir HFA) bupropion HCl 150 mg tablet,12 hr 150 mg PO BID #180 tabs 02/27/24 sustained-release (Wellbutrin SR) fluticasone propionate 115 2 puff inhalation BID #12 grams 03/05/24 mcg-salmeterol 21 mcg/actuation HFA inhaler (Advair HFA) pantoprazole 40 mg tablet,delayed See Rx Instructions .Route 08/08/24 release .COMPLEX #30 tabs Allergies Allergy/AdvReac Type Severity Reaction Status Date / Time ceftriaxone Allergy Intermediate ITCHING; Verified 09/01/24 11:12 RASH Sulfa (Sulfonamide Allergy Intermediate ITCHY RASH Verified 09/01/24 11:12 Antibiotics) rosuvastatin AdvReac Intermediate NAUSEA Verified 09/01/24 11:12 sertraline AdvReac Intermediate diarrhea Verified 09/01/24 11:12 General Stated Complaint: Chest Pain ANTHONY: 2 Exam Narrative Exam Narrative: 1.Const: Well-nourished, Well-developed, appearing stated age 2.Eyes: PERRL, no conjunctival injection, and symmetrical lids. 3.ENT: Atraumatic external nose and ears. Moist MM. Neck: Symmetric, trachea midline, No thyromegaly. 4.CVS: +S1/S2, Peripheral pulses 2+ and equal in all extremities. Brisk capillary refill in all extremities. 5.RESP: Unlabored respiratory effort. Clear to auscultation bilaterally. No wheezes rales or rhonchi 6.GI: Soft, Nontender/Nondistended, No hepatosplenomegaly. No guarding or rebound. 7.MSK: Normocephalic/Atraumatic, Extremities w/o deformity or ttp No cyanosis or clubbing, Normal movement of all extremities 8.Skin: Warm, Dry. No rashes or lesions. No evidence of shingles 9.Neuro: speaker mounter II-XII grossly intact. Sensation grossly intact, no focal neurologic deficits. 10.Psych: (AAO) x3. Appropriate mood and affect Course Vital Signs Vital signs: Vital Signs Pulse 66 09/01/24 11:07 Respiratory Rate 9 L 09/01/24 11:07 Blood Pressure 134/77 09/01/24 11:07 Pulse Oximetry 93 09/01/24 11:07 Temperature 36.9 C 09/01/24 11:08 Temperature Source Oral 09/01/24 11:08 Pulse 59 L 09/01/24 11:34 Pulse 61 09/01/24 11:34 Respiratory Rate 16 09/01/24 11:39 Respiratory Effort Normal 09/01/24 11:39 Respiratory Depth Normal 09/01/24 11:39 Respiratory Pattern Normal 09/01/24 11:39 Blood Pressure 128/65 09/01/24 11:34 Blood Pressure Mean 86 09/01/24 11:34 Blood Pressure Position Supine 09/01/24 11:08 Pulse Oximetry 88 L 09/01/24 11:38 Oxygen Delivery Method Room Air 09/01/24 11:38 Oxygen Flow Rate 0 09/01/24 11:38 Pain Level 0 09/01/24 11:08 Lab/Test Results Lab/Test Results: Laboratory Tests Range/Units 09/01/24 11:13 WBC (4.4-10.8) 10^3/uL 11.13 H RBC (3.93-5.22) 10^6/uL 4.11 Hgb (11.2-15.7) g/dL 13.4 Hct (36.0-46.0) % 40.3 MCV (80-95) fL 98 H MCH (27.0-33.0) pg 32.6 MCHC (32.0-36.0) % 33.3 RDW (11.7-14.6) % 12.1 Plt Count (130-400) 10^3/uL 238 MPV (8.0-11.0) fL 10.2 Immature Gran % % 0.4 Neutrophils % % 58.3 Lymphocytes % % 25.2 Monocytes % % 12.2 Eosinophils % % 3.3 Basophils % % 0.6 Nucleated RBC % (0.0-0.3) % 0.0 Absolute Neutrophils (1.2-6.7) 10^3/uL 6.49 Absolute Lymphocytes (1.2-3.4) 10^3/uL 2.80 Absolute Monocytes (0.1-0.8) 10^3/uL 1.36 H Absolute Eosinophils (0.0-0.7) 10^3/uL 0.37 Absolute Basophils (0.0-0.2) 10^3/uL 0.07 PT Cancelled INR Cancelled APTT Cancelled Sodium (136-145) mmol/L 142 Potassium (3.5-5.1) mmol/L 4.4 Chloride (98-107) mmol/L 106 Carbon Dioxide (21.0-32.0) mmol/L 33.2 H Anion Gap (3-11) mmol/L 2.8 L BUN (7-18) mg/dL 15 Creatinine (0.55-1.02) mg/dL 1.1 H Est GFR (CKD-EPI 2020) (mL/min/1.73m2) 55.07 Glucose (74-106) mg/dL 100 Calcium (8.5-10.1) mg/dL 9.1 Total Bilirubin (0.2-1.0) mg/dL 0.27 AST (15-37) U/L 23 ALT (14-59) U/L 32 Alkaline Phosphatase (46-116) U/L 75 Troponin I (<or=51) ng/L 4 NT-Pro-B Natriuret Pep (<300) pg/mL 992 H Total Protein (6.4-8.2) g/dL 6.5 Albumin (3.4-5.0) g/dL 3.6 Medical Decision Making 68-year-old female with a past medical history of cardiac stents x 2, interstitial lung disease, high cholesterol, who has stopped using tobacco products over a year ago, who is on dual antiplatelet therapy, who presents today for evaluation of left-sided chest discomfort. Patient was at home and at around 9:30 AM she developed a stabbing left-sided chest discomfort. There was no pleuritic component. No shortness of breath. She took nitroglycerin without any change. She took Tums without any change. She called EMS and on their arrival they gave 325 and aspirin which did seem to improve her symptoms. She does admit to mild cough without hemoptysis. No calf pain or tenderness. No recent long trips surgeries or procedures. Currently she states that she is chest pain-free. No exertional discomfort. Pain was in the left chest just under the left breast. Slight radiation towards the neck. No tearing or ripping sensation. Exam demonstrates well-appearing female, pulses are equal throughout, vital signs notably stable. Patient has no chest pain at this time. No tearing or ripping sensation to suggest dissection. No pleuritic component or hemoptysis to suggest PE. No rash to suggest shingles. She does have a mild cough, which may be a component related to pneumonia. She has no exertional component to suggest significant ACS. She has had no trauma to suggest pneumothorax. Will evaluate for concerning etiologies, monitor closely and reassess. EKG appears benign with no evidence of STEMI. 1:30 PM X-ray results have returned normal, patient's vital signs remain notably normal and stable. Laboratory workup shows no evidence of significant white count bandemia or left shift. Electrolytes stable. Serial troponins are normal, proBNP is elevated at 990, however she has no significant peripheral edema, or evidence of CHF on chest x-ray. Patient feels well, no return of her chest pain. Discussed options of continued observation versus discharge, patient would like to go home. Patient will be discharged home with close follow-up with PCP. Recommend nonemergent outpatient stress testing. Symptoms at this time appear inconsistent with ACS, PE or dissection or pneumothorax. Discussed red flags for which to return. I have extensively reviewed the treatment plan and discharge instructions with the patient. I have addressed all patient concerns at this time. The patient was made aware of what symptoms to monitor for that would warrant a return to the emergency department. Discussed the plan with the patient, they demonstrate verbal understanding and agreement with our assessment and plan at this time. The documentation in this chart was dictated using Omate dictation software. Please excuse any dictation errors. FINDINGS: Lungs: Lungs are clear with no infiltrate or nodule. Pleural spaces: Unremarkable. No pleural effusion. No pneumothorax. Heart/Mediastinum: Cardiomediastinal silhouette is normal. Bones/joints: Unremarkable. IMPRESSION: No active cardiopulmonary disease. Thank you for allowing us to participate in the care of your patient. Dictated and Authenticated by: Yaw Carrington MD 09/01/2024 1:02 PM Eastern Time ([place] & [place]) Quality:SDOH Health Related Social Needs: No Data to Display PFSH All Active Problems (Updated 09/01/24 @ 13:35 by Raulito Reid DO) Chest discomfort (Acute) Diarrhea (Acute) Atypical chest pain (Acute) S/P cardiac catheterization (Acute) With DIETER to prox OM 1 and Mid RCA 09/24/2023 at [facility] Chest pain of uncertain etiology (Acute) Right rotator cuff tear (Acute) Anterior dislocation of right shoulder (Acute 03/30/23) ILD (interstitial lung disease) (Acute) Anxiety (Chronic) Kuhn's esophagus (Chronic) EGD neg 2015 Depressive disorder (Chronic) Gastroesophageal reflux disease (Chronic) gastritis; HH Hyperlipidemia (Chronic 01/02/13) Malignant neoplasm of female breast (Chronic 07/28/93) stage I; lumpectomy, radiation, axillary resection, occurred remotely in her 30s as of 12/2021 no sign of recurrence, yearly mammogram Migraine with aura (Chronic) Peripheral neuralgia (Chronic) Cervical radiculopathy at C6 (Acute) Visual field defect (Acute) Pseudogout of hand (Acute) Painful orthopaedic hardware (Acute) Nicotine dependence (Acute) 12/2021- 09/01-08/30 ppd, 25 pk yr hx Generalized hyperhidrosis (Acute) Cervical cancer screening (Acute) To 2021. Previous testing 2015. Currently overdue. Episodic cannabis use (Acute) Medical History COVID-19 08/2020 Surgical History Hx of neck surgery H/O right wrist surgery S/P colonoscopy 03/30/19 Ligation of fallopian tube Tonsillectomy (~1958) EGD - IV Sedation (05/10/16) Cholecystectomy Reduction mammoplasty (~1994) right Breast, Lumpectomy (~1993) left Biopsy of breast (~2001) Family History Mother Personal history of malignant neoplasm SKIN Father Essential hypertension Hyperlipidemia Stroke Grandfather No problems noted. Grandfather No problems noted. Grandmother Personal history of malignant neoplasm BREAST Grandmother No problems noted. Brother Essential hypertension Personal history of malignant neoplasm THYROID Hyperlipidemia Brother No problems noted. Brother No problems noted. Brother No problems noted. Daughter No problems noted. Daughter No problems noted. Social History Smoking/Tobacco Use Status: Former Tobacco Use Quit status: considering quitting Smoking risk assessment performed?: Yes Alcohol Intake: current Alcohol Intake frequency: 0-2 drinks per day Alcohol type: hard liquor Drug use: Occasionally Substance use type: marijuana Adopted: No Caregiver/Support person: No Foster care: No Household members: family Housing: house Number of Children: 2 number of grandchildren: 3 Communication Needs: None and Corrective Lenses Education Level: high school Do you need help understanding health information?: Rarely current occupation: Disabled-has results of issues related to her breast cancer surgery Pets and animals: Yes Pets and animals: dog(s) Do you think of yourself as: straight/heterosexual Current gender identity: female What is your relationship status?: living with partner How often do you talk on the phone with friends or family?: decline to answer How often do you get together with friends or relatives?: decline to answer How often do you attend presybeterian or adventism services?: decline to answer Do you belong to any clubs or organized social groups?: no Panel score (0-1 are the most socially isolated patients): 1 What type of physical activity do you participate in: none Jessenia/Protestant: Alevism Seatbelt use: always Helmet use: No Drive intox or ride w/intox driver's license examiner: No Working smoke detector in home: Yes Fire extinguisher in home: Yes Carbon monox detector in home: Yes Do you feel safe at home: Yes History History 3 Para 2 Hx # Term Pregnancies Multiple births Hx # Pregnancies Ectopic pregnancies AB induced Hx Number of Living Children AB spontaneous
[2024-09-01 12:49] LABS: Troponin I < 4 ng/L (<or=51)
--- NOTE | 2024-09-01 13:03 | DI.VRAD_ITS ---
PROCEDURE INFORMATION: Exam: XR Chest Exam date and time: 09/01/2024 11:45 AM Age: 68 years old Clinical indication: Pain; Left-sided TECHNIQUE: Imaging protocol: Radiologic exam of the chest. Views: 1 view. COMPARISON: CT CHEST PE CTA 09/24/2023 2:55 AM FINDINGS: Lungs: Lungs are clear with no infiltrate or nodule. Pleural spaces: Unremarkable. No pleural effusion. No pneumothorax. Heart/Mediastinum: Cardiomediastinal silhouette is normal. Bones/joints: Unremarkable. IMPRESSION: No active cardiopulmonary disease. Dictated and Authenticated by: Yaw Carrington MD. Ordering:YAAKOV Cabezas MD
== END 2024-09-01 13:53 | disposition home or self-care (01) ==
PROVIDERS: Emergency Provider Student in an Organized Health Care Education/Training Program; PCP Nurse Practitioner
DX: R07.9 Chest pain, unspecified (principal); E78.5 Hyperlipidemia, unspecified; J84.9 Interstitial pulmonary disease, unspecified; I44.4 Left anterior fascicular block; Z95.5 Presence of coronary angioplasty implant and graft; Z79.82 Long term (current) use of aspirin; Z79.02 Long term (current) use of antithrombotics/antiplatelets; Z87.891 Personal history of nicotine dependence
CPT/HCPCS: 36415; 80053; 93005; 99285; 71045; 83880; 84484; 85025; 85610; 85730; 93010; 99284

== ENCOUNTER 2024-10-01 00:08 | Outpatient (CLI) | payer MEDICARE, MEDICAID, SELFPAY ==
--- NOTE | 2024-10-01 07:30 | DI.NM_ITS ---
APPROVED REPORT Exam: Pharmacologic Patient Location: Out-Patient Room/Bed: Stress Nurse: Adri Lindsay RN Ordering Provider:ENEBRYAN ZACARIASE, Contact Number: [phone] BMI: 33.46 Baseline Rhythm: Sinus Rhythm Indications: Episode chest pain, atypical chest pain, s/p coronary artery stent placement, Medical History Medical History: STEMI, ILD, anxiety, flores's esophagus, GERD, HLD, breast CA, migraines, nicotine dependence, COVID 19 Cardiac Medications: Albuterol sulfate, aspirin, atorvastatin, bupropion, clopidogrel, estradiol, adv air, magnesium oxide, metoprolol succinate, nitro, pantoprazole, wegovy Allergies: Sulfa, rosuvastatin, sertraline, ceftriaxone Cardiac Risk Factors: HLD, CVD, prediabetes, smoker Previous Cardiac Procedures: S/p cardiac stent Pretest Chest Pain Characteristics: None Exercise History: Sedentary Physical Disabilities: None Lung Sounds: Clear to auscultation Heart Sounds: Regular Stress Test Details Test: Exercise stress converted to pharmacologic stress due to failure to obtain a diagnostic stress test. Reason for pharmacologic stress test: changed from exercise stress test due to inability to reach t arget heart rate. Nuclear Acquisition: Rest Tc-99m/Stress Tc-99m 1 day Rest Isotope: Tc-99m Sestamibi. Dose: 10.0 Date: 10/01/2024 Injection Time: 1110 Stress Isotope: Tc-99m Sestamibi. Dose: 30.0 Date: 10/01/2024 Injection Time: 1250 HR Resting HR Supine: 69 bpm Max Heart Rate (APMHR): 153 bpm Resting HR Standin bpm Target HR (85% APMHR): 130 bpm Max HR Achieved: 112 bpm % of APMHR: 73 Recovery HR: 95 bpm HR response to stress: Blunted HR response to stress BP Resting BP Supine: 146/80 mmHg Resting BP Standin/96 mmHg Max BP: 160/80 mmHg Recovery BP: 130/76 mmHg BP response to stress: Normal blood pressure response to stress. ECG Resting ECG: Sinus Rhythm, 1st degree AV block Ectopy: None Stress ECG: Sinus Tachycardia, 1st degree AV block ST Change: Nondiagnostic low heart rate Arrhythmia: None Recovery ECG: Sinus Rhythm, 1st degree AV block Recovery ST Change: Nondiagnostic low heart rate Recovery Arrhythmia: None Clinical Reason for Termination: Dyspnea Stress Symptoms: Mod FAULKNER Highest Stage Reached: Stage 1: 1.7 mph at 10% grade. Angina Score: None Rate Pressure Product: [id number] Stress ECG Conclusion 1. Resting EKG showed first-degree AV block, left anterior fascicular block late transition 2. Patient underwent testing using a combination of pharmacologic stress with regadenoson and low-lev el exercise. 3. Peak heart rate achieved was 73% of maximal predicted for age 4. The electrocardiographic portion of the test was nondiagnostic 5. See MPI report Stress Test Summary STAGE Time (mins) Speed (mph) Grade (%) HR BP SpO2 SYMPTOMS METS Supine 69 146/80 97% Standing 81 144/96 1 3 1.7 10 104 4.5 1 min post Lexiscan injection 102 160/80 92% 3 min post Lexiscan injection 100 140/82 93% 6 min post Lexiscan injection 95 130/76 MPI Conclusion Myocardial perfusion is normal. There is no ischemia or evidence of prior infarction Ejection fraction is 66% with normal wall motion
[2024-10-01] MEDS: Regadenoson 0.4 MG/5 ML SYR IVP (13:02)
== END 2024-10-01 00:28 ==
LOC: DI 00:08
PROVIDERS: PCP Nurse Practitioner; Visit Provider Internal Medicine Cardiovascular Disease
DX: R07.89 Other chest pain (principal); Z95.5 Presence of coronary angioplasty implant and graft; I25.2 Old myocardial infarction
CPT/HCPCS: 78452; 93016; 93018; 93017; J2785

== ENCOUNTER → 2024-12-18 07:27 | Outpatient (BNVA) | payer MEDICARE, MEDICAID, SELFPAY | PROVIDERS: PCP Nurse Practitioner; Referring Provider Nurse Practitioner; Visit Provider Physician Assistant Surgical | DX: J84.9 Interstitial pulmonary disease, unspecified (principal); Z87.891 Personal history of nicotine dependence | CPT/HCPCS: 99214; G0296 ==

== ENCOUNTER 2024-12-19 09:05 | Outpatient (CLI) | payer MEDICARE, MEDICAID, SELFPAY ==
--- NOTE | 2024-12-19 09:00 | DI.RAD_ITS ---
Exam(s) XR THORACIC SPINE COMPLETE EXAM: XR THORACIC SPINE COMPLETE CLINICAL HISTORY: ? compression fracture,acute back pain, m54.9. TECHNIQUE: 2D digital imaging was performed. COMPARISON: No exams were available for comparison FINDINGS: 3 views No evidence of acute fracture or listhesis. Mild disc space narrowing. No scoliosis. There is no a bnormal widening of the paraspinal lines. Bone density appears age-appropriate. There are no obviou s lytic nor blastic osseous lesions in the thoracic vertebral bodies. Incidentally noted is a left-sided coronary artery stent IMPRESSION: No acute osseous findings in the thoracic vertebral bodies. DATA REPOSITORY: RADIATION DOSE DELIVERED:
--- NOTE | 2024-12-19 09:00 | DI.RAD_ITS ---
Exam(s) XR LUMBAR SPINE COMPLETE EXAM: XR LUMBAR SPINE COMPLETE CLINICAL HISTORY: ? compression fx,acute back pain,m54.9. TECHNIQUE: 2D digital imaging was performed. COMPARISON: CR XR DEXA BONE DENSITY W/WO KRISTIAN from 02/12/[address] ABDOMEN PELVIS WO from 09/12/2022 FINDINGS: Five views There is no evidence of compression fracture. There is degenerative anterolisthesis of L4 upon L5 wi th 9 millimeter anterior slippage of L4 upon L5 noted related to facet arthrosis at this level. Ther e are no pars defects. There is no disc space narrowing at this level nor at the other levels in the lumbar spine with the exception of mild disc space narrowing posteriorly at L5-S1 level. Small Schmorl's node invagination is noted in the anterior 0 inferior endplate of L1 vertebral body, unchanged from CT scan of August 2022. There is facet arthropathy at the lower 3 levels. No significant scoliosis. Sacroiliac joints appea r unremarkable. Bone density normal. No osseous lesions in the lumbar vertebrae. IMPRESSION: Degenerative anterolisthesis of L4 upon L5. This was evident prior imaging studies listed above. No new radiographic findings in the lumbosacral spinal column. DATA REPOSITORY: RADIATION DOSE DELIVERED:
== END 2024-12-19 09:25 ==
LOC: DI 09:06
PROVIDERS: PCP Nurse Practitioner; Visit Provider Family Medicine
DX: M54.9 Dorsalgia, unspecified (principal)
CPT/HCPCS: 72072; 72110

== ENCOUNTER 2024-12-23 09:32 | Emergency (ER) | payer MEDICARE, MEDICAID, SELFPAY ==
[2024-12-23 09:35] VITALS: BP 138/81; PULSE 126; RESP 14; TEMP 36.7; O2SAT 99
[2024-12-23 09:50] VITALS: BP 138/81; PULSE 126; RESP 14; TEMP 36.7; O2SAT 99
--- NOTE | 2024-12-23 09:53 | ED.GENADUL_ITS ---
Discharge Plan Disposition Patient Disposition: Home Condition: Stable Discharge Details Clinical Impression: Acute UTI Primary Care Provider: Delisa Velazquez ED Provider: Jrodyn Eason Home Meds and New Rx's Prescriptions: New nitrofurantoin macrocrystal 100 mg capsule 100 mg PO BID 5 Days Qty: 10 0RF Rx Instructions: must administer with a meal/food Continued vit B [id number] ac-zinc 800 mcg- 12.5 mg tablet 1 tab PO DAILY albuterol sulfate 90 mcg/actuation HFA aerosol inhaler 1 - 2 puff Inhalation Q4H PRN Qty: 2 6RF atorvastatin 80 mg tablet 80 mg PO QPM Qty: 90 3RF estradiol [Vagifem] 10 mcg tablet 10 mcg VG Twice Weekly Qty: 24 12RF Probiotic 1 EACH capsule 1 ea PO DAILY Patient Comments: Patient may take more than 1 per day, depends on bloating. ct tears naturale ii 2 drp OU QID magnesium oxide 400 mg (241.3 mg magnesium) tablet 400 mg PO DAILY Qty: 90 3RF fluticasone propion-salmeterol [Advair HFA] 115-21 mcg/actuation HFA aerosol inhaler 2 puff inhalation BID Qty: 12 12RF pantoprazole 40 mg tablet,delayed release (DR/EC) See Rx Instructions .ROUTE .COMPLEX Qty: 30 12RF Dose Instruction: TAKE 1 TABLET BY MOUTH DAILY Rx Instructions: TAKE 1 TABLET BY MOUTH DAILY lidocaine 5 % adhesive patch,medicated 1 patch topical DAILY Qty: 15 0RF Rx Instructions: leave on most painful area for up to 12 hrs cholecalciferol (vitamin D3) 10 mcg (400 unit) capsule 10 mcg PO DAILY aspirin 81 mg tablet,delayed release (DR/EC) 81 mg PO DAILY Patient Comments: TAKE 1 TABLET BY MOUTH DAILY nitroglycerin 0.4 mg tablet, sublingual 0.4 mg sublingual Q5M PRN (Reason: chest pain) Patient Comments: DISSOLVE ONE TABLET UNDER TONGUE NEEDED FOR CHEST PAIN EVERY 5 MINUTES FOR UP TO 3 DOSES metoprolol succinate 50 mg tablet extended release 24 hr 50 mg PO DAILY Patient Comments: TAKE 1 TABLET BY MOUTH DAILY hydrocodone-acetaminophen 5-325 mg tablet Patient Comments: 1 tab orally every 8 hours As Needed for pain for 5 days, Max Daily Dose: 15 mg acetaminophen 500 mg tablet 500 mg PO Q6H PRN (Reason: pain) Qty: 60 2RF Discharge Instructions Instructions: Urinary Tract Infection, Adult ED Additional Instructions: CT exam shows no kidney stones. You were given an antibiotic here today but is usually just 1 dose however if you are not feeling better in the next 2 to 3 days please take another dose which was sent to the pharmacy on file. Clear liquids for the next 2 to 3 days advance with a bland diet as tolerated. There was an area on your liver that you need to discuss with your primary care provider about looking into further with an MRI. Follow up with primary care provider in 3-5 days. Return to ED sooner if any worsening or concerns. Please take Tylenol or Ibuprofen with food every 4-6 hours as needed for pain and swelling. You for allowing us to care for you today. Referrals: Delisa Velazquez NP [Primary Care Provider] - 1 week Discharge Data Discharge Date/Time-TO BE ENTERED AT DEPARTURE: 12/23/24 12:25 HPI General Mode of arrival: ambulatory . Date/Time Provider Initiated Documentation: 12/23/24 09:47 . Limitations to Documentation: no limitations . Information obtained by: patient, RN notes reviewed and old records reviewed . HPI Narrative: 69-year-old female presents to the ER with a chief complaint of urinary hesitancy since Tuesday. She reports lower back pain suprapubic pain, chills and hot sweats. She also endorses nausea and vomiting. She is tachycardic with a heart rate of 126 upon arrival. She did take a hydrocodone at 1:00 this morning with little to no relief. History of hyperlipidemia, coronary artery disease, anxiety obesity. Related Data Home Medications ?Medication ?Instructions ?Recorded ?Confirmed Lactobacillus acidophilus 10 1 ea PO DAILY 12/29/17 12/23/24 billion cell capsule (Probiotic) Tears Naturale Ii 2 drp OU QID 03/17/18 12/23/24 acetaminophen 500 mg tablet 500 mg PO Q6H PRN pain #60 tabs 06/30/21 12/23/24 magnesium oxide 400 mg (241.3 mg 400 mg PO DAILY #90 tabs 08/25/21 12/23/24 magnesium) tablet vitamin B complex with vit C-folic 1 tab PO DAILY 02/17/23 12/23/24 acid 800 mcg-zinc 12.5 mg tablet cholecalciferol (vitamin D3) 10 10 mcg PO DAILY 09/24/23 12/23/24 mcg (400 unit) capsule aspirin 81 mg tablet,delayed 81 mg PO DAILY 09/27/23 12/23/24 release nitroglycerin 0.4 mg sublingual 0.4 mg sublingual Q5M PRN chest 09/27/23 12/23/24 tablet pain fluticasone propionate 115 2 puff inhalation BID #12 grams 03/05/24 12/23/24 mcg-salmeterol 21 mcg/actuation HFA inhaler (Advair HFA) pantoprazole 40 mg tablet,delayed See Rx Instructions .Route 08/08/24 12/23/24 release .COMPLEX #30 tabs metoprolol succinate 50 mg 50 mg PO DAILY 09/01/24 12/23/24 tablet,extended release 24 hr albuterol sulfate 90 mcg/actuation 1 - 2 puff inhalation Q4H PRN ##2 12/10/24 12/23/24 aerosol inhaler atorvastatin 80 mg tablet 80 mg PO QPM #90 tabs 12/10/24 12/23/24 estradiol 10 mcg vaginal tablet 10 mcg vaginal Twice Weekly #24 12/10/24 12/23/24 (Vagifem) tab-caps lidocaine 5 % topical patch 1 patch topical DAILY #15 ea 12/21/24 12/23/24 hydrocodone 5 mg-acetaminophen 325 tab 12/23/24 mg tablet nitrofurantoin macrocrystal 100 mg 100 mg PO BID UTI 5 days #10 caps 12/23/24 capsule Previous Rx's ?Medication ?Instructions ?Recorded acetaminophen 500 mg tablet 500 mg PO Q6H PRN pain #60 tabs 06/30/21 magnesium oxide 400 mg (241.3 mg 400 mg PO DAILY #90 tabs 08/25/21 magnesium) tablet fluticasone propionate 115 2 puff inhalation BID #12 grams 03/05/24 mcg-salmeterol 21 mcg/actuation HFA inhaler (Advair HFA) pantoprazole 40 mg tablet,delayed See Rx Instructions .Route 08/08/24 release .COMPLEX #30 tabs albuterol sulfate 90 mcg/actuation 1 - 2 puff inhalation Q4H PRN ##2 12/10/24 aerosol inhaler atorvastatin 80 mg tablet 80 mg PO QPM #90 tabs 12/10/24 estradiol 10 mcg vaginal tablet 10 mcg vaginal Twice Weekly #24 12/10/24 (Vagifem) tab-caps lidocaine 5 % topical patch 1 patch topical DAILY #15 ea 12/21/24 nitrofurantoin macrocrystal 100 mg 100 mg PO BID UTI 5 days #10 caps 12/23/24 capsule Allergies Allergy/AdvReac Type Severity Reaction Status Date / Time ceftriaxone Allergy Intermediate ITCHING; Verified 12/23/24 09:44 RASH Sulfa (Sulfonamide Allergy Intermediate ITCHY RASH Verified 12/23/24 09:44 Antibiotics) rosuvastatin AdvReac Intermediate NAUSEA Verified 12/23/24 09:44 sertraline AdvReac Intermediate diarrhea Verified 12/23/24 09:44 General Stated Complaint: Urinary ANTHONY: 3 Review of Systems All systems reviewed & are unremarkable except as noted in HPI and below Gastrointestinal Gastrointestinal: Reports as per HPI Genitourinary Genitourinary: Reports as per HPI and Reports urinary hesitancy Musculoskeletal Musculoskeletal: Reports back pain Exam Narrative Exam Narrative: Constitutional: Alert and oriented x3. Appears stated age. Normal body habitus. Head: Normocephalic, no trauma. Eyes: Pupils PERRL, Red reflex noted, EOM's intact. Eyelids symmetrical without lesions, discharge, or swelling. ENT: Bilateral TM's WNL, External ear normal to inspection, no mastoid TTP, swelling, or erythema, Nasal turbinates WNL, no nasal discharge. Normal dentition, Posterior pharynx WNL, no exudate. Chest: RRR, Normal S1, S2, distal pulses intact. Resp: Lungs clear to auscultation bilaterally, no wheezes, rales, or rhonchi. Abdomen: Soft, non-distended, Normoactive bowel sounds all 4 quads. Musculoskeletal: Normal gait, Moves all 4 extremities without difficulty. Skin: No suspicious rashes or lesions. Capillary refill less than 2 sec. Neurologic: Cranial nerves II-XII intact. Alert and oriented x 3. Motor: No deficits noted. Sensory: Intact bilaterally all 4 extremities. Hematologic/Lymphatic: No ecchymosis, no lymphadenopathy. Course Vital Signs Vital signs: Vital Signs Temperature 36.7 C 12/23/24 09:35 Pulse 126 H 12/23/24 09:35 Respiratory Rate 14 12/23/24 09:35 Blood Pressure 138/81 12/23/24 09:35 Pulse Oximetry 99 12/23/24 09:35 Temperature 36.7 C 12/23/24 09:50 Temperature Source Oral 12/23/24 09:50 Pulse 126 H 12/23/24 09:50 Respiratory Rate 14 12/23/24 09:50 Blood Pressure 138/81 12/23/24 09:50 Blood Pressure Position Sitting 12/23/24 09:50 Pulse Oximetry 99 12/23/24 09:50 Oxygen Delivery Method Room Air 12/23/24 09:50 Oxygen Flow Rate 0 12/23/24 09:50 Pain Level 10 12/23/24 09:50 Comment codeine mixture at ~ 2-3am. 12/23/24 09:35 Medical Decision Making 69-year-old female presents to the ER with a chief complaint of urinary hesitancy since Tuesday. She reports lower back pain suprapubic pain, chills and hot sweats. She also endorses nausea and vomiting. She is tachycardic with a heart rate of 126 upon arrival. She did take a hydrocodone at 1:00 this morning with little to no relief. History of hyperlipidemia, coronary artery disease, anxiety obesity. Workup ordered including CBC CMP, urinalysis Zofran. Will consider CT imaging pending labs. Differential diagnose includes not limited to UTI, pyelonephr itis, kidney stone CT shows gastroenteritis type changes, a area of hypoattenuation around the liver also incidentally found recommend nonemergent MRI for follow-up. No evidence for kidney stones. Patient received 3 g of fosfomycin p.o. here in the department, Toradol and Zofran x 2. Will prescribe 1 additional dose of fosfomycin if no improvement in [address] results and lab results with patient who verbalized understanding. I did instruct her to follow-up with her PCP to discuss CT findings and schedule a possible outpatient MRI. Instructed to return for any worsening pain, fever or vomiting or concerns. Contacted by pharmacy and fosfomycin is not covered under the patient's insurance. Changed to 5 days of nitrofurantoin. Will instructed follow-up with PCP and return to the ER for any worsening. This text was generated using [employer] system, please disregard any oddities of phrase or misspellings. Medical Records Medical records reviewed: Yes I reviewed the patient's medical records. Lab Data Lab results reviewed: Yes I reviewed the patient's lab results. Labs: 12/23/24 09:37 Urine - Clean Catch Urine Culture - Pending Laboratory Tests Range/Units 12/23/24 12/23/24 09:37 10:02 WBC (4.4-10.8) 10^3/uL 13.02 H RBC (3.93-5.22) 10^6/uL 4.45 Hgb (11.2-15.7) g/dL 14.1 Hct (36.0-46.0) % 42.7 MCV (80-95) fL 96 H MCH (27.0-33.0) pg 31.7 MCHC (32.0-36.0) % 33.0 RDW (11.7-14.6) % 11.9 Plt Count (130-400) 10^3/uL 326 MPV (8.0-11.0) fL 10.0 Immature Gran % % 0.3 Neutrophils % % 61.6 Lymphocytes % % 26.3 Monocytes % % 9.8 Eosinophils % % 1.5 Basophils % % 0.5 Nucleated RBC % (0.0-0.3) % 0.0 Absolute Neutrophils (1.2-6.7) 10^3/uL 8.02 H Absolute Lymphocytes (1.2-3.4) 10^3/uL 3.42 H Absolute Monocytes (0.1-0.8) 10^3/uL 1.28 H Absolute Eosinophils (0.0-0.7) 10^3/uL 0.20 Absolute Basophils (0.0-0.2) 10^3/uL 0.07 Sodium (136-145) mmol/L 143 Potassium (3.5-5.1) mmol/L 3.1 L Chloride (98-107) mmol/L 102 Carbon Dioxide (21.0-32.0) mmol/L 31.0 Anion Gap (3-11) mmol/L 10.0 BUN (7-18) mg/dL 10 Creatinine (0.55-1.02) mg/dL 1.0 Est GFR (CKD-EPI 2020) (mL/min/1.73m2) 61.36 Glucose (74-106) mg/dL 128 H Calcium (8.5-10.1) mg/dL 10.0 Total Bilirubin (0.2-1.0) mg/dL 0.7 AST (15-37) U/L 32 ALT (14-59) U/L 28 Alkaline Phosphatase (46-116) U/L 77 Total Protein (6.4-8.2) g/dL 7.8 Albumin (3.4-5.0) g/dL 3.4 Urine Color (Yellow) Yellow Urine Clarity (Clear) Clear Urine pH (5-8) 6.0 Ur Specific [place] (1.005-1.025) 1.025 Urine Protein (Neg-Trace) mg/dL 30 H Urine Ketones (Negative) mg/dL Trace H Urine Blood (Negative) Trace-intact H Urine Nitrite (Negative) Negative Urine Bilirubin (Negative) Small H Urine Urobilinogen (Up to 0.2) mg/dL 0.2 Ur Leukocyte Esterase (Negative) Moderate H Urine RBC (0-2) HPF 0-2 Urine WBC (0-5) HPF 20-50 H Ur Epithelial Cells (Negative) HPF Many Urine Crystals (Negative) HPF Negative Urine Bacteria (Negative) HPF Few Urine Casts (Negative) LPF 0-2 Hyaline Urine Mucus (Negative) Negative Ur Culture Indicated? No/Sq. Contamination Urine Glucose (Negative) mg/dL Negative Quality:SDOH Health Related Social Needs: No Data to Display PFSH All Active Problems (Updated 12/23/24 @ 11:29 by Jordyn Eason NP) Acute UTI (Acute) Acute back pain (Acute) Obesity (Chronic) Diarrhea (Acute) Atypical chest pain (Acute) S/P cardiac catheterization (Acute) With DIETER to prox OM 1 and Mid RCA 09/24/2023 at [facility] [place] Chest pain of uncertain etiology (Acute) Right rotator cuff tear (Acute) Anterior dislocation of right shoulder (Acute 03/30/23) ILD (interstitial lung disease) (Acute) Anxiety (Chronic) Kuhn's esophagus (Chronic) EGD neg 2015 Depressive disorder (Chronic) Gastroesophageal reflux disease (Chronic) gastritis; HH Hyperlipidemia (Chronic 01/02/13) Malignant neoplasm of female breast (Chronic 07/28/93) stage I; lumpectomy, radiation, axillary resection, occurred remotely in her 30s as of 12/2021 no sign of recurrence, yearly mammogram Migraine with aura (Chronic) Peripheral neuralgia (Chronic) Cervical radiculopathy at C6 (Acute) Visual field defect (Acute) Pseudogout of hand (Acute) Painful orthopaedic hardware (Acute) Nicotine dependence (Acute) 12/2021- 09/01-08/30 ppd, 25 pk yr hx Generalized hyperhidrosis (Acute) Cervical cancer screening (Acute) To 2021. Previous testing 2015. Currently overdue. Episodic cannabis use (Acute) Medical History COVID-19 08/2020 Surgical History Hx of neck surgery H/O right wrist surgery S/P colonoscopy 03/30/19 Ligation of fallopian tube Tonsillectomy (~1958) EGD - IV Sedation (05/10/16) Cholecystectomy Reduction mammoplasty (~1994) right Breast, Lumpectomy (~1993) left Biopsy of breast (~2001) Family History Mother Personal history of malignant neoplasm SKIN Father Essential hypertension Hyperlipidemia Stroke Grandfather No problems noted. Grandfather No problems noted. Grandmother Personal history of malignant neoplasm BREAST Grandmother No problems noted. Brother Essential hypertension Personal history of malignant neoplasm THYROID Hyperlipidemia Brother No problems noted. Brother No problems noted. Brother No problems noted. Daughter No problems noted. Daughter No problems noted. Social History Smoking/Tobacco Use Status: Former Tobacco Use Quit status: considering quitting Smoking risk assessment performed?: Yes Alcohol Intake: current Alcohol Intake frequency: holidays/special occasions only Alcohol type: hard liquor Drug use: Current Sobriety Substance use type: marijuana Adopted: No Caregiver/Support person: No Foster care: No Household members: family Housing: house Number of Children: 2 number of grandchildren: 3 Communication Needs: None and Corrective Lenses Education Level: high school Do you need help understanding health information?: Rarely current occupation: Disabled-has results of issues related to her breast cancer surgery Pets and animals: Yes Pets and animals: dog(s) Do you think of yourself as: straight/heterosexual Current gender identity: female What is your relationship status?: living with partner How often do you talk on the phone with friends or family?: decline to answer How often do you get together with friends or relatives?: decline to answer How often do you attend temple or uatsdin services?: decline to answer Do you belong to any clubs or organized social groups?: no Panel score (0-1 are the most socially isolated patients): 1 What type of physical activity do you participate in: none Jessenia/Cheondoism: Temple Seatbelt use: always Helmet use: No Drive intox or ride w/intox escort car driver: No Working smoke detector in home: Yes Fire extinguisher in home: Yes Carbon monox detector in home: Yes Do you feel safe at home: Yes Do you feel safe in your relationship?: Yes History History 3 Para 2 Hx # Term Pregnancies Multiple births Hx # Pregnancies Ectopic pregnancies AB induced Hx Number of Living Children AB spontaneous
[2024-12-23 10:00] LABS: Bilirubin Small (Negative); Blood Trace-intact (Negative); Clarity Clear (Clear); Glucose Negative (Negative); Ketones Trace mg/dL (Negative); Leukocyte Esterase Moderate (Negative); Nitrite Negative (Negative); Specific Gravity 1.025 (1.005-1.025); Urobilinogen 0.2 mg/dL (Up to 0.2)
[2024-12-23 10:08] LABS: Bacteria Few HPF (Negative); C & S Indicated? No/Sq. Contamination; Casts 0-2 Hyaline LPF (Negative); Crystals Negative HPF (Negative); Epithelial Cells Many HPF (Negative); Mucus Negative (Negative); RBC 0-2 HPF (0-2); WBC 20-50 HPF (0-5)
[2024-12-23] MEDS: Ondansetron 4 MG/2 ML VIAL IVP ×2 (10:08→11:52)
[2024-12-23] MEDS: Normal Saline Flush 10 ML SYR IVP ×3 (10:09→11:52)
[2024-12-23 10:10] LABS: Abs Immature Grans 0.04 10^3/uL (0.0-0.06); Absolute Basophil Count 0.07 10^3/uL (0.0-0.2); Absolute Lymphocyte Count 3.42 10^3/uL (1.2-3.4); Absolute Neutrophil Count 8.02 10^3/uL (1.2-6.7); Basophils % 0.5 %; Eosinophils % 1.5 %; HCT 42.7 % (36.0-46.0); HGB 14.1 g/dL (11.2-15.7); Immature Grans % 0.3 %; Lymphocytes % 26.3 %; MCH 31.7 pg (27.0-33.0); MCV 96 fL (80-95); Monocytes % 9.8 %; Neutrophils % 61.6 %; Platelet Count 326 10^3/uL (130-400); RBC 4.45 10^6/uL (3.93-5.22); RDW 11.9 % (11.7-14.6); RDW-SD 41.5 fL; WBC 13.02 10^3/uL (4.4-10.8)
[2024-12-23 10:12] LABS: Absolute Monocyte Count 1.28 10^3/uL (0.1-0.8)
[2024-12-23] MEDS: Normal Saline 500 ML IV (10:12)
[2024-12-23] MEDS: Fosfomycin Tromethamine 3 GM PACKET PO (10:17)
[2024-12-23 10:26] LABS: ALT 28 U/L (14-59); AST 32 U/L (15-37); Albumin 3.4 g/dL (3.4-5.0); Alkaline Phosphatase 77 U/L (46-116); BUN 10 mg/dL (7-18); Bilirubin, Total 0.7 mg/dL (0.2-1.0); Chloride 102 mmol/L (98-107); Estimated GFR 61.36 (mL/min/1.73m2); Glucose 128 mg/dL (74-106); Potassium 3.1 mmol/L (3.5-5.1); Sodium 143 mmol/L (136-145); Total Protein 7.8 g/dL (6.4-8.2)
--- NOTE | 2024-12-23 10:37 | DI.CT_ITS ---
Exam(s) CT ABDOMEN PELVIS WO EXAM: CT ABDOMEN PELVIS WO CLINICAL HISTORY: Flank pain. TECHNIQUE: Imaging Protocol: Axial computed tomography images with coronal and sagittal reformatted images were created and reviewed. COMPARISON: CT CT ABDOMEN PELVIS WO from 09/12/[address] CHEST LUNG CANCER SCREEN from 03/21/[address] CHEST PE CTA from 09/24/2023 CT,NM,TMT NM MPI REST STRESS GRP from 10/01/2024 FINDINGS: ABDOMEN: Lung Bases: Coronary artery calcifications are present. Liver: Normal density. There is stable hypodensity seen in the liver consistent with cysts. There is a new area of decreased attenuation in the left lobe of the liver adjacent to the gallbladder fossa (series 7, image 22). Gallbladder and biliary tract: Status post cholecystectomy. There is stable appearance of the bile d uct. No significant biliary ductal dilatation is present. Pancreas: Normal density, no abnormal calcifications or inflammatory process. Spleen: Normal. Kidneys: Normal size, contour and axis.No radiodense stones or obstructive uropathy. No masses seen. There is a calcification in the right pelvis which was present on the prior examination and likely re flects a phlebolith. It lies adjacent to but not within the ureter. Incidental note is made of a re troaortic left renal vein. Adrenal glands: No mass is seen. Lymph nodes: Within normal limits. Abdominal Aorta: Abdominal portion non-dilated. Atherosclerotic calcification is present. PELVIS: Bladder:Symmetric distention, no gross wall thickening. Bowel: There are few diverticula seen throughout the colon but no evidence of acute diverticulitis. No bowel wall thickening or obstruction. There are fluid-filled loops of small bowel which can be se en with the enteritis or diarrheal illness. Please correlate clinically. Peritoneal cavity: No ascites, collection or mesenteric inflammatory response. No free air. Reproductive organs: Unremarkable as visualized. Bones: Within normal limits. Soft Tissues: There is a small fat containing umbilical hernia. IMPRESSION: 1. No evidence of nephrolithiasis or obstructive uropathy. 2. Fluid-filled loops of small bowel which can be seen with an enteritis or diarrheal illness. Pleas e correlate clinically. 3. New area of decreased attenuation in the left lobe of the liver adjacent to the gallbladder fossa. This may represent focal fatty infiltration. A nonemergent MRI of the liver is recommended for fur ther characterization. Mass cannot be entirely excluded. Unexpected findings RADIATION DOSE DELIVERED: 593.84mGy.cm Total DLP DATA REPOSITORY: All CT scans at this facility are submitted to the National Radiology Data Registry (NRDR) Dose Index Registry (DIR) with the [employer] (ACR). RADIATION OPTIMIZATION: All CT scans at this facility use at least one of these dose optimization te chniques: automated exposure control; mA and/or kV adjustment per patient size (includes targeted exa ms where dose is matched to clinical indication); or iterative reconstruction.
[2024-12-23] MEDS: Ketorolac 15 MG/ML VIAL IVP (11:05)
[2024-12-23] MEDS: Potassium Chloride 10 MEQ TABCR (11:19)
[2024-12-23 11:49] VITALS: BP 148/95; PULSE 94; RESP 16; TEMP 36.8; O2SAT 95
== END 2024-12-23 12:25 | disposition home or self-care (01) ==
PROVIDERS: Emergency Provider Registered Nurse Emergency; PCP Nurse Practitioner
DX: N39.0 Urinary tract infection, site not specified (principal); M54.59 Other low back pain; Z86.79 Personal history of other diseases of the circulatory system
CPT/HCPCS: 99284 ×2; 96376; 36415; 96374; 80053; 96361; 96375; 74176; 81003; 81015; 85025; 87086; J1885; J2405; J3490

== ENCOUNTER 2024-12-27 02:15 | Outpatient (CLI) | payer MEDICARE, MEDICAID, SELFPAY ==
--- NOTE | 2024-12-27 08:00 | DI.CTLCSR_ITS ---
Exam(s) CT CHEST LUNG CANCER SCREEN EXAM: CT CHEST LUNG CANCER SCREEN CLINICAL HISTORY: Screening for lung cancer,former cigarette smoker,z87.891 TECHNIQUE: Imaging Protocol: Axial computed tomography images with coronal and sagittal reformatted images were created and reviewed. Low dose screening protocol. COMPARISON: CT CT CHEST PE CTA from 09/24/2023 CR,XR XR PORTABLE CHEST AP from 09/01/2024 FINDINGS: Tracheobronchial tree: No bronchiectasis or mucus plugging. Mediastinum and Alexia: No dominant adenopathy or fluid collection. Pulmonary parenchyma: No consolidation or dominant measurable mass. Mild paraseptal emphysematous carlos nges. Mildly increased interstitial changes. Lung Nodules: None. Pleura: No effusion. No pneumothorax. Heart: The heart is not dilated. coronary artery stents are seen. No pericardial effusion. Aorta: Thoracic aorta non-dilated. Mild atherosclerotic changes. Upper abdomen: No acute findings. Bones: Unremarkable for age. Soft Tissues: Scarring the left lateral breast. IMPRESSION: No suspicious pulmonary nodules. Lung RADS Cat 1 - Negative: No nodules and definitely benign nodules Lung-RADS 1.0 CATEGORIES: Category 0 - Prior chest CT exam(s) being located for comparison. Category 1 - Annual screening in 12 months. No nodules or definitely benign nodules. Category 2 - Annual screening in 12 months. Benign appearance. Nodules with low likelihood of becomin g active cancer. Category 3 - 6-month follow-up. Probably benign. Short-term follow-up suggested. Nodules with low lik elihood of becoming active cancer. Category 4A - 3-month follow-up and CT/PET if >8 mm in size. Suspicious finding. Findings which requi re additional testing. Category 4B - Findings which require additional testing and tissue sampling. Category 4X - Category 3 or 4 nodules with additional features or imaging findings that increases the suspicion of malignancy. Modifier S- Potentially clinically significant findings (non lung cancer) RADIATION DOSE DELIVERED: !Error Total DLP DATA REPOSITORY: All CT scans at this facility are submitted to the National Radiology Data Registry (NRDR) Dose Index Registry (DIR) with the [employer] (ACR). RADIATION OPTIMIZATION: All CT scans at this facility use at least one of these dose optimization te chniques: automated exposure control; mA and/or kV adjustment per patient size (includes targeted exa ms where dose is matched to clinical indication); or iterative reconstruction.
== END 2024-12-27 02:35 ==
PROVIDERS: PCP Family Medicine; Visit Provider Physician Assistant Surgical
DX: Z87.891 Personal history of nicotine dependence (principal); Z12.2 Encounter for screening for malignant neoplasm of respiratory organs
CPT/HCPCS: 71271

== ENCOUNTER → 2025-01-08 09:18 | Outpatient (BNVA) | payer MEDICARE, MEDICAID, SELFPAY | PROVIDERS: PCP Nurse Practitioner; Referring Provider Nurse Practitioner; Visit Provider Student in an Organized Health Care Education/Training Program | DX: G56.22 Lesion of ulnar nerve, left upper limb (principal) | CPT/HCPCS: 99213 ==

== ENCOUNTER 2025-01-15 01:10 | Outpatient (CLI) | payer MEDICARE, MEDICAID, SELFPAY ==
[2025-01-15] MEDS: Gadoterate meglumine 20 ML VIAL 15 ML IVP (13:07)
[2025-01-15] MEDS: Normal Saline - Diluent 50 ML VIAL IJ (13:08)
--- NOTE | 2025-01-15 13:45 | DI.MRI_ITS ---
Exam(s) MR ABDOMEN WO/W EXAM: MR ABDOMEN WO/W CLINICAL HISTORY: abnormal liver appearance CT K76.9 LIVER DISEASE R93.2 ABNL FINDINGS LESION TECHNIQUE: Multiplanar multisequence MRI of the Abdomen was performed. CONTRAST MATERIAL: IV Contrast: 15 mL of Dotarem contrast administered. COMPARISON: CT CT CHEST PE CTA from 09/24/2023 CT,NM,TMT NM MPI REST STRESS GRP from 10/01/[address] ABDOMEN PELVIS WO from 12/23/2024 FINDINGS: Lung bases: Unremarkable. Liver: Tiny cyst dome of right lobe. 9 millimeters cyst dome of left lobe. 7 millimeters cyst anter ior left lobe. There is an ill-defined area of the gallbladder fossa measuring roughly 3 cm in maxim al dimension which is slightly hyperintense on T2 weighted images. No associated enhancement. The f indings are consistent with an area of focal fatty infiltration. Pancreas: Unremarkable. Gallbladder and Bile Ducts: status post cholecystectomy. No biliary dilatation. Adrenals: Unremarkable. Kidneys: There are a few tiny renal cysts. Spleen: Unremarkable. Aorta: Unremarkable. Soft Tissues: Unremarkable. Bone: Unremarkable. Lymph Nodes: Unremarkable. Stomach and bowel: Unremarkable. Peritoneal cavity: Unremarkable. No evidence of ascites. IMPRESSION: Lesion in question of the gallbladder fossa is consistent with focal fatty infiltration. DATA REPOSITORY:
== END 2025-01-15 01:30 ==
LOC: DI 01:10
PROVIDERS: PCP Nurse Practitioner; Visit Provider Nurse Practitioner
DX: K76.0 Fatty (change of) liver, not elsewhere classified (principal); R93.2 Abnormal findings on diagnostic imaging of liver and biliary tract
CPT/HCPCS: 74183

== ENCOUNTER 2025-01-21 10:44 | Emergency (ER) | payer MEDICARE, MEDICAID, SELFPAY ==
[2025-01-21] VITALS (18 sets, daily range): BP systolic 110–152; BP diastolic 61–73; PULSE 81–102; RESP 18; TEMP 36.8; O2SAT 93–99
--- NOTE | 2025-01-21 | DI.RAD_ITS ---
Exam(s) XR LUMBAR SPINE AP, LAT EXAM: XR LUMBAR SPINE AP, LAT CLINICAL HISTORY: back pain. TECHNIQUE: 2D digital imaging was performed. Five views. COMPARISON: CR XR LUMBAR SPINE COMPLETE from 12/19/2024 FINDINGS: BONES: No fracture or destructive lesion. Vertebral body heights are maintained. Facet degenerativ e changes from L3-4 through L5-S1. DISKS: Intervertebral disc spaces are maintained. ALIGNMENT: Degenerative mild spondylolisthesis at L4-5, unchanged from prior. Mild disc space narrow ing at L4-5 and L5-S1. SOFT TISSUE: Atherosclerotic calcification of the aorta is normal in diameter. Surgical clips in the right upper quadrant. IMPRESSION: Degenerative changes. No acute abnormality. The preliminary [facility] report was reviewed. DATA REPOSITORY: RADIATION DOSE DELIVERED:
--- NOTE | 2025-01-21 11:00 | DI.RAD_ITS ---
Exam(s) XR THORACIC SPINE COMPLETE EXAM: XR THORACIC SPINE COMPLETE CLINICAL HISTORY: back pain. TECHNIQUE: 2D digital imaging was performed. Three views. COMPARISON: CR XR THORACIC SPINE COMPLETE from 12/19/2024 FINDINGS: BONES: There is no fracture or destructive lesion. The vertebral bodies and posterior elements are un remarkable. ALIGNMENT: Within normal limits. DISKS: Small endplate osteophytes in the mid to lower thoracic levels with mild anterior disc space n arrowing. SOFT TISSUE: Visualized lungs are clear. IMPRESSION: No evidence of fracture. Mild degenerative changes. DATA REPOSITORY: RADIATION DOSE DELIVERED:
--- NOTE | 2025-01-21 11:10 | W.ED.GENAD ---
Discharge Plan Disposition Patient Disposition: Home Condition: Stable Discharge Details Clinical Impression: Back pain Primary Care Provider: Delisa Velazquez ED Provider: Annette Durán Home Meds and New Rx's Prescriptions: New methocarbamol 1,000 mg tablet 1,000 mg PO TID Qty: 20 0RF lidocaine [Lidoderm] 5 % adhesive patch,medicated 1 patch topical DAILY Qty: 15 0RF Rx Instructions: leave on most painful area for up to 12 hrs No Action vit B argfiup-C-ceqro ac-zinc 800 mcg- 12.5 mg tablet 1 tab PO DAILY albuterol sulfate 90 mcg/actuation HFA aerosol inhaler 1 - 2 puff Inhalation Q4H PRN Qty: 2 6RF atorvastatin 80 mg tablet 80 mg PO QPM Qty: 90 3RF estradiol [Vagifem] 10 mcg tablet 10 mcg VG Twice Weekly Qty: 24 12RF Probiotic 1 EACH capsule 1 ea PO DAILY Patient Comments: Patient may take more than 1 per day, depends on bloating. ct tears naturale ii 2 drp OU QID magnesium oxide 400 mg (241.3 mg magnesium) tablet 400 mg PO DAILY Qty: 90 3RF fluticasone propion-salmeterol [Advair HFA] 115-21 mcg/actuation HFA aerosol inhaler 2 puff inhalation BID Qty: 12 12RF pantoprazole 40 mg tablet,delayed release (DR/EC) See Rx Instructions .ROUTE .COMPLEX Qty: 30 12RF Dose Instruction: TAKE 1 TABLET BY MOUTH DAILY Rx Instructions: TAKE 1 TABLET BY MOUTH DAILY lidocaine 5 % adhesive patch,medicated 1 patch topical DAILY Qty: 15 0RF Rx Instructions: leave on most painful area for up to 12 hrs cholecalciferol (vitamin D3) 10 mcg (400 unit) capsule 10 mcg PO DAILY aspirin 81 mg tablet,delayed release (DR/EC) 81 mg PO DAILY Patient Comments: TAKE 1 TABLET BY MOUTH DAILY nitroglycerin 0.4 mg tablet, sublingual 0.4 mg sublingual Q5M PRN (Reason: chest pain) Patient Comments: DISSOLVE ONE TABLET UNDER TONGUE NEEDED FOR CHEST PAIN EVERY 5 MINUTES FOR UP TO 3 DOSES metoprolol succinate 50 mg tablet extended release 24 hr 50 mg PO DAILY Patient Comments: TAKE 1 TABLET BY MOUTH DAILY isosorbide mononitrate 30 mg tablet extended release 24 hr 30 mg PO DAILY acetaminophen 500 mg tablet 500 mg PO Q6H PRN (Reason: pain) Qty: 60 2RF Discharge Instructions Instructions: Low Back Pain ED Additional Instructions: Your x-rays today do not reveal any acute fracture of the bones in your back. Please take prescription medication as prescribed in addition to any Motrin and Tylenol to help with your symptoms and follow-up with your PCP for any ongoing issues and continued pain. HPI General Date/Time Provider Initiated Documentation: 01/21/25 10:54. Limitations to Documentation: no limitations. Information obtained by: patient. HPI Narrative: 69-year-old female with past medical history of CAD, breast cancer, presents for evaluation of low back pain. She reports that she woke up this morning and had severe lower back pain that radiates down both legs. She reports a burning sensation in her bilateral lower legs, but no tingling or numbness. Sensation seems to be intact. She denies any weakness or difficulty with walking, just pain with walking. She denies any change in bowel or bladder and there has been no incontinence. She denies any trauma. She denies any fever or chills. She has not had prior back surgery. Related Data Home Medications ?Medication ?Instructions ?Recorded ?Confirmed Lactobacillus acidophilus 10 1 ea PO DAILY 12/29/17 01/21/25 billion cell capsule (Probiotic) Tears Naturale Ii 2 drp OU QID 03/17/18 01/21/25 acetaminophen 500 mg tablet 500 mg PO Q6H PRN pain #60 tabs 06/30/21 01/21/25 magnesium oxide 400 mg (241.3 mg 400 mg PO DAILY #90 tabs 08/25/21 01/21/25 magnesium) tablet vitamin B complex with vit C-folic 1 tab PO DAILY 02/17/23 01/21/25 acid 800 mcg-zinc 12.5 mg tablet cholecalciferol (vitamin D3) 10 10 mcg PO DAILY 09/24/23 01/21/25 mcg (400 unit) capsule aspirin 81 mg tablet,delayed 81 mg PO DAILY 09/27/23 01/21/25 release nitroglycerin 0.4 mg sublingual 0.4 mg sublingual Q5M PRN chest 09/27/23 01/21/25 tablet pain fluticasone propionate 115 2 puff inhalation BID #12 grams 03/05/24 01/21/25 mcg-salmeterol 21 mcg/actuation HFA inhaler (Advair HFA) pantoprazole 40 mg tablet,delayed See Rx Instructions .Route 08/08/24 01/21/25 release .COMPLEX #30 tabs metoprolol succinate 50 mg 50 mg PO DAILY 09/01/24 01/21/25 tablet,extended release 24 hr albuterol sulfate 90 mcg/actuation 1 - 2 puff inhalation Q4H PRN ##2 12/10/24 01/21/25 aerosol inhaler atorvastatin 80 mg tablet 80 mg PO QPM #90 tabs 12/10/24 01/21/25 estradiol 10 mcg vaginal tablet 10 mcg vaginal Twice Weekly #24 12/10/24 01/21/25 (Vagifem) tab-caps lidocaine 5 % topical patch 1 patch topical DAILY #15 ea 12/21/24 01/21/25 isosorbide mononitrate 30 mg 30 mg PO DAILY 01/21/25 01/21/25 tablet,extended release 24 hr lidocaine 5 % topical patch 1 patch topical DAILY #15 ea 01/21/25 (Lidoderm) methocarbamol 1,000 mg tablet 1,000 mg PO TID #20 tabs 01/21/25 Previous Rx's ?Medication ?Instructions ?Recorded acetaminophen 500 mg tablet 500 mg PO Q6H PRN pain #60 tabs 06/30/21 magnesium oxide 400 mg (241.3 mg 400 mg PO DAILY #90 tabs 08/25/21 magnesium) tablet fluticasone propionate 115 2 puff inhalation BID #12 grams 03/05/24 mcg-salmeterol 21 mcg/actuation HFA inhaler (Advair HFA) pantoprazole 40 mg tablet,delayed See Rx Instructions .Route 08/08/24 release .COMPLEX #30 tabs albuterol sulfate 90 mcg/actuation 1 - 2 puff inhalation Q4H PRN ##2 12/10/24 aerosol inhaler atorvastatin 80 mg tablet 80 mg PO QPM #90 tabs 12/10/24 estradiol 10 mcg vaginal tablet 10 mcg vaginal Twice Weekly #24 12/10/24 (Vagifem) tab-caps lidocaine 5 % topical patch 1 patch topical DAILY #15 ea 12/21/24 lidocaine 5 % topical patch 1 patch topical DAILY #15 ea 01/21/25 (Lidoderm) methocarbamol 1,000 mg tablet 1,000 mg PO TID #20 tabs 01/21/25 Allergies Allergy/AdvReac Type Severity Reaction Status Date / Time ceftriaxone Allergy Intermediate ITCHING; Verified 01/21/25 10:56 RASH Sulfa (Sulfonamide Allergy Intermediate ITCHY RASH Verified 01/21/25 10:56 Antibiotics) semaglutide AdvReac Severe Nausea Verified 01/21/25 10:56 rosuvastatin AdvReac Intermediate NAUSEA Verified 01/21/25 10:56 sertraline AdvReac Intermediate diarrhea Verified 01/21/25 10:56 General Stated Complaint: Nk/Back Pain ANTHONY: 3 Exam Narrative Exam Narrative: Review of Systems: All systems reviewed & are unremarkable except as noted in HPI and below Well-developed, no acute distress NCAT RRR, no murmur Unlabored respiratory effort, clear bilaterally Nondistended abdomen , soft nontender Sensation intact bilateral lower extremities, strength equal and symmetric range of motion limited secondary to pain There is midline and paraspinal tenderness in the lower lumbar section of the spine no step-off or deformity appreciated no focal neurologic deficits Course Vital Signs Vital signs: Vital Signs Temperature 36.8 C 01/21/25 10:50 Pulse 102 H 01/21/25 10:50 Respiratory Rate 18 01/21/25 10:50 Blood Pressure 111/66 01/21/25 10:50 Pulse Oximetry 96 01/21/25 10:50 Temperature 36.8 C 01/21/25 10:50 Temperature Source Oral 01/21/25 10:50 Pulse 102 H 01/21/25 10:50 Respiratory Rate 18 01/21/25 10:50 Blood Pressure 111/66 01/21/25 10:50 Pulse Oximetry 96 01/21/25 10:50 Oxygen Delivery Method Room Air 01/21/25 10:50 Oxygen Flow Rate 0 01/21/25 10:50 Pain Level 10 01/21/25 11:06 Medical Decision Making Emergent evaluation of low back pain. Initial differential includes musculoskeletal spasm, sciatica, pathologic fracture with ligament metastasis. Patient does have remote history of breast cancer. Given her lack of trauma fall or recent change in activity that might have precipitated this severe pain, that is concerning. There is no acute neurologic deficit that is concerning for possible cauda equina or other neurologic emergency. Will give pain medication to improve symptoms and get x-ray imaging of her spine. X-rays reviewed and radiology report were also reviewed. There is no acute traumatic or pathologic injury noted. After medication, the patient reports significant improvement in her symptoms she is now able to ambulate. Will discharge with continued care as well as recommendations for close follow-up with her PCP if she has ongoing pain symptoms. Quality:SDOH Health Related Social Needs: No Data to Display PFSH All Active Problems (Updated 01/21/25 @ 13:23 by Annette Durán MD) Back pain (Acute) Fatty liver (Acute) Ulnar nerve palsy of left upper extremity (Acute) Acute UTI (Acute) Acute back pain (Acute) Obesity (Chronic) Diarrhea (Acute) Atypical chest pain (Acute) S/P cardiac catheterization (Acute) With DIETER to prox OM 1 and Mid RCA 09/24/2023 [place] [facility] [place] Chest pain of uncertain etiology (Acute) Right rotator cuff tear (Acute) Anterior dislocation of right shoulder (Acute 03/30/23) ILD (interstitial lung disease) (Acute) Anxiety (Chronic) Kuhn's esophagus (Chronic) EGD neg 2015 Depressive disorder (Chronic) Gastroesophageal reflux disease (Chronic) gastritis; HH Hyperlipidemia (Chronic 01/02/13) Malignant neoplasm of female breast (Chronic 07/28/93) stage I; lumpectomy, radiation, axillary resection, occurred remotely in her 30s as of 12/2021 no sign of recurrence, yearly mammogram Migraine with aura (Chronic) Peripheral neuralgia (Chronic) Cervical radiculopathy at C6 (Acute) Visual field defect (Acute) Pseudogout of hand (Acute) Painful orthopaedic hardware (Acute) Nicotine dependence (Acute) 12/2021- 09/01-08/30 ppd, 25 pk yr hx Generalized hyperhidrosis (Acute) Cervical cancer screening (Acute) To 2021. Previous testing 2015. Currently overdue. Episodic cannabis use (Acute) Medical History COVID-19 08/2020 Surgical History Hx of neck surgery H/O right wrist surgery S/P colonoscopy 03/30/19 Ligation of fallopian tube Tonsillectomy (~1958) EGD - IV Sedation (05/10/16) Cholecystectomy Reduction mammoplasty (~1994) right Breast, Lumpectomy (~1993) left Biopsy of breast (~2001) Family History Mother Personal history of malignant neoplasm SKIN Father Essential hypertension Hyperlipidemia Stroke Grandfather No problems noted. Grandfather No problems noted. Grandmother Personal history of malignant neoplasm BREAST Grandmother No problems noted. Brother Essential hypertension Personal history of malignant neoplasm THYROID Hyperlipidemia Brother No problems noted. Brother No problems noted. Brother No problems noted. Daughter No problems noted. Daughter No problems noted. Social History Smoking/Tobacco Use Status: Former Tobacco Use Quit status: considering quitting Smoking risk assessment performed?: Yes Alcohol Intake: current Alcohol Intake frequency: holidays/special occasions only Alcohol type: hard liquor Drug use: Current Sobriety Substance use type: does not use Details: patient state she stopped using marijuana 2 years ago Adopted: No Caregiver/Support person: No Foster care: No Household members: family Housing: house Number of Children: 2 number of grandchildren: 3 Communication Needs: None and Corrective Lenses Education Level: high school Do you need help understanding health information?: Rarely current occupation: Disabled-has results of issues related to her breast cancer surgery Pets and animals: Yes Pets and animals: dog(s) Do you think of yourself as: straight/heterosexual Current gender identity: female What is your relationship status?: living with partner How often do you talk on the phone with friends or family?: decline to answer How often do you get together with friends or relatives?: decline to answer How often do you attend oriental orthodox or caodaism services?: decline to answer Do you belong to any clubs or organized social groups?: no Panel score (0-1 are the most socially isolated patients): 1 What type of physical activity do you participate in: none Jessenia/Baptism: Christian Seatbelt use: always Helmet use: No Drive intox or ride w/intox line driver: No Working smoke detector in home: Yes Fire extinguisher in home: Yes Carbon monox detector in home: Yes Do you feel safe at home: Yes Do you feel safe in your relationship?: Yes History History 3 Para 2 Hx # Term Pregnancies Multiple births Hx # Pregnancies Ectopic pregnancies AB induced Hx Number of Living Children AB spontaneous
[2025-01-21] MEDS: Acetaminophen 500 MG TAB 1000 MG PO (11:19)
[2025-01-21] MEDS: Gabapentin 300 MG CAP 900 MG PO (11:19)
[2025-01-21] MEDS: Methocarbamol 500 MG TAB 1000 MG PO (11:20)
--- NOTE | 2025-01-21 13:11 | DI.VRAD_ITS ---
PROCEDURE INFORMATION: Exam: XR Thoracic Spine Exam date and time: 01/21/2025 11:38 AM Age: 69 years old Clinical indication: Other: Back pain TECHNIQUE: Imaging protocol: Radiologic exam of the thoracic spine. Views: 3 views. COMPARISON: CR XR THORACIC SPINE COMPLETE 12/19/2024 2:41 PM FINDINGS: Bones/joints: There is no evidence of acute fracture.There is no evidence of malalignment or dislocation. Chronic appearing midthoracic compression fractures Mild degenerative changes along the thoracic spine Soft tissues: Unremarkable. IMPRESSION: There is no evidence of acute fracture.There is no evidence of malalignment or dislocation. Dictated and Authenticated by: Alisson Aguilar MD. Orderin Leeanna Flores MD
--- NOTE | 2025-01-21 13:12 | DI.VRAD_ITS ---
PROCEDURE INFORMATION: Exam: XR Lumbosacral Spine Exam date and time: 01/21/2025 11:39 AM Age: 69 years old Clinical indication: Other: Back pain TECHNIQUE: Imaging protocol: Radiologic exam of the lumbosacral spine. Views: 2 or 3 views. COMPARISON: CR XR LUMBAR SPINE COMPLETE 12/19/2024 2:40 PM FINDINGS: Bones/joints: Anterolisthesis of L4 with respect to L5. Intervertebral disc space narrowing L4/L5 and L5/S1 consistent with degenerative disc disease. There is no evidence of acute fracture.There is no evidence of malalignment or dislocation. Soft tissues: Unremarkable. IMPRESSION: 1. Intervertebral disc space narrowing L4/L5 and L5/S1 consistent with degenerative disc disease. 2. There is no evidence of acute fracture.There is no evidence of malalignment or dislocation. Dictated and Authenticated by: Alisson Aguilar MD. Orderin Leeanna Flores MD
== END 2025-01-21 13:46 | disposition home or self-care (01) ==
PROVIDERS: Emergency Provider Emergency Medicine; PCP Nurse Practitioner
DX: M54.50 Low back pain, unspecified (principal); I25.10 Atherosclerotic heart disease of native coronary artery without angina pectoris; Z79.82 Long term (current) use of aspirin; Z87.891 Personal history of nicotine dependence
CPT/HCPCS: 99283; 72072; 72100

== ENCOUNTER 2025-02-19 11:26 | Emergency (ER) | payer MEDICARE, MEDICAID, SELFPAY ==
[2025-02-19 11:29] VITALS: BP 140/104; PULSE 107; RESP 16; TEMP 36.9; O2SAT 98
--- NOTE | 2025-02-19 12:01 | W.ED.GENAD ---
Discharge Plan Disposition Patient Disposition: Home Condition: Good Discharge Details Clinical Impression: Acute back pain, Lumbago with sciatica, right side, Back pain Primary Care Provider: Delisa Velazquez ED Provider: Latasha Alicia Home Meds and New Rx's Prescriptions: New gabapentin 300 mg capsule 300 mg PO TID Qty: 30 0RF Continued vit B qbbideu-D-aiaef ac-zinc 800 mcg- 12.5 mg tablet 1 tab PO DAILY albuterol sulfate 90 mcg/actuation HFA aerosol inhaler 1 - 2 puff Inhalation Q4H PRN Qty: 2 6RF atorvastatin 80 mg tablet 80 mg PO QPM Qty: 90 3RF estradiol [Vagifem] 10 mcg tablet 10 mcg VG Twice Weekly Qty: 24 12RF Probiotic 1 EACH capsule 1 ea PO DAILY Patient Comments: Patient may take more than 1 per day, depends on bloating. ct tears naturale ii 2 drp OU QID magnesium oxide 400 mg (241.3 mg magnesium) tablet 400 mg PO DAILY Qty: 90 3RF pantoprazole 40 mg tablet,delayed release (DR/EC) See Rx Instructions .ROUTE .COMPLEX Qty: 30 12RF Dose Instruction: TAKE 1 TABLET BY MOUTH DAILY Rx Instructions: TAKE 1 TABLET BY MOUTH DAILY cholecalciferol (vitamin D3) 10 mcg (400 unit) capsule 10 mcg PO DAILY aspirin 81 mg tablet,delayed release (DR/EC) 81 mg PO DAILY Patient Comments: TAKE 1 TABLET BY MOUTH DAILY nitroglycerin 0.4 mg tablet, sublingual 0.4 mg sublingual Q5M PRN (Reason: chest pain) Patient Comments: DISSOLVE ONE TABLET UNDER TONGUE NEEDED FOR CHEST PAIN EVERY 5 MINUTES FOR UP TO 3 DOSES metoprolol succinate 50 mg tablet extended release 24 hr 50 mg PO DAILY Patient Comments: TAKE 1 TABLET BY MOUTH DAILY isosorbide mononitrate 30 mg tablet extended release 24 hr 30 mg PO DAILY methocarbamol 1,000 mg tablet 1,000 mg PO TID Qty: 20 0RF lidocaine [Lidoderm] 5 % adhesive patch,medicated 1 patch topical DAILY Qty: 15 0RF Rx Instructions: leave on most painful area for up to 12 hrs acetaminophen 500 mg tablet 500 mg PO Q6H PRN (Reason: pain) Qty: 60 2RF Discharge Instructions Instructions: Low Back Pain ED, Sciatica ED Additional Instructions: Please continue to encourage hydration. Encourage movement as this will help wiht your muscle pain and spasm. Continue wtih Tylneol and/or Ibuprofen as needed for discomfort- take as directed on [facility] packaging. Please do not take more than 3,000mg of Tylenol a day. Please keep your upcoming MRI appointment as well as follow-up with [facility] cycle specialist. Please continue with your physical therapy. You may use topical patches such as Lidoderm patches which are available [id number] to help with your discomfort. I have prescribed you gabapentin which is a nerve pain medication you received from you her last time as well as today. Please take this as prescribed. Please follow-up with your primary care provider regarding continuing with this medication. If you develop any incontinence, change in bowel or bladder habits, numbness/tingling, weakness or other new/worsening symptoms please seek care urgently once again. Referrals: Delisa Velazquez NP [Primary Care Provider, Medicine] Discharge Data Discharge Date/Time-TO BE ENTERED AT DEPARTURE: 02/19/25 13:15 HPI General Date/Time Provider Initiated Documentation: 02/19/25 11:34. Limitations to Documentation: no limitations. Information obtained by: patient, RN notes reviewed and old records reviewed. History of Present Illness 69 year old F presents to the emergency department with the chief complaint of Acute on chronic back pain with right-sided sciatica, described as severe and similar to prior episodes, and is localized to the back. Patient extremity. Patient started experiencing this hour(s) (Worse this morning) and it has been constant. Immobilization improves symptom(s), Movement worsens symptoms . Patient notes no other symptoms.. Patient did receive the following treatments prior to arrival, other (Methocarbamol) Related Data Home Medications ?Medication ?Instructions ?Recorded ?Confirmed Lactobacillus acidophilus 10 1 ea PO DAILY 12/29/17 02/19/25 billion cell capsule (Probiotic) Tears Naturale Ii 2 drp OU QID 03/17/18 02/19/25 acetaminophen 500 mg tablet 500 mg PO Q6H PRN pain #60 tabs 06/30/21 02/19/25 magnesium oxide 400 mg (241.3 mg 400 mg PO DAILY #90 tabs 08/25/21 02/19/25 magnesium) tablet vitamin B complex with vit C-folic 1 tab PO DAILY 02/17/23 02/19/25 acid 800 mcg-zinc 12.5 mg tablet cholecalciferol (vitamin D3) 10 10 mcg PO DAILY 09/24/23 02/19/25 mcg (400 unit) capsule aspirin 81 mg tablet,delayed 81 mg PO DAILY 09/27/23 02/19/25 release nitroglycerin 0.4 mg sublingual 0.4 mg sublingual Q5M PRN chest 09/27/23 02/19/25 tablet pain pantoprazole 40 mg tablet,delayed See Rx Instructions .Route 08/08/24 02/19/25 release .COMPLEX #30 tabs metoprolol succinate 50 mg 50 mg PO DAILY 09/01/24 02/19/25 tablet,extended release 24 hr albuterol sulfate 90 mcg/actuation 1 - 2 puff inhalation Q4H PRN ##2 12/10/24 02/19/25 aerosol inhaler atorvastatin 80 mg tablet 80 mg PO QPM #90 tabs 12/10/24 02/19/25 estradiol 10 mcg vaginal tablet 10 mcg vaginal Twice Weekly #24 12/10/24 02/19/25 (Vagifem) tab-caps isosorbide mononitrate 30 mg 30 mg PO DAILY 01/21/25 02/19/25 tablet,extended release 24 hr lidocaine 5 % topical patch 1 patch topical DAILY #15 ea 01/21/25 02/19/25 (Lidoderm) methocarbamol 1,000 mg tablet 1,000 mg PO TID #20 tabs 01/21/25 02/19/25 gabapentin 300 mg capsule 300 mg PO TID #30 caps 02/19/25 Previous Rx's ?Medication ?Instructions ?Recorded acetaminophen 500 mg tablet 500 mg PO Q6H PRN pain #60 tabs 06/30/21 magnesium oxide 400 mg (241.3 mg 400 mg PO DAILY #90 tabs 08/25/21 magnesium) tablet pantoprazole 40 mg tablet,delayed See Rx Instructions .Route 08/08/24 release .COMPLEX #30 tabs albuterol sulfate 90 mcg/actuation 1 - 2 puff inhalation Q4H PRN ##2 12/10/24 aerosol inhaler atorvastatin 80 mg tablet 80 mg PO QPM #90 tabs 12/10/24 estradiol 10 mcg vaginal tablet 10 mcg vaginal Twice Weekly #24 12/10/24 (Vagifem) tab-caps lidocaine 5 % topical patch 1 patch topical DAILY #15 ea 01/21/25 (Lidoderm) methocarbamol 1,000 mg tablet 1,000 mg PO TID #20 tabs 01/21/25 gabapentin 300 mg capsule 300 mg PO TID #30 caps 02/19/25 Allergies Allergy/AdvReac Type Severity Reaction Status Date / Time ceftriaxone Allergy Intermediate ITCHING; Verified 02/19/25 11:32 RASH Sulfa (Sulfonamide Allergy Intermediate ITCHY RASH Verified 02/19/25 11:32 Antibiotics) semaglutide AdvReac Severe Nausea Verified 02/19/25 11:32 rosuvastatin AdvReac Intermediate NAUSEA Verified 02/19/25 11:32 sertraline AdvReac Intermediate diarrhea Verified 02/19/25 11:32 General Stated Complaint: Nk/Back Pain ANTHONY: 4 Review of Systems Constitutional Constitutional: Reports as per HPI, Denies chills, Denies fever(s) and Denies frequent falls Cardiovascular Cardiovascular: Denies chest pain, Denies dyspnea and Denies dyspnea on exertion Respiratory Respiratory: Denies cough, Denies dyspnea and Denies dyspnea on exertion Gastrointestinal Gastrointestinal: Denies abdominal pain, Denies change in bowel habits and Denies fecal incontinence Genitourinary Genitourinary: Reports as per HPI, Denies urinary incontinence and Denies urinary hesitancy Musculoskeletal Musculoskeletal: Reports as per HPI, Reports back pain, Denies muscle weakness, Denies numbness, Reports stiffness and Denies tingling Integumentary/Breasts Skin/Breast: Reports as per HPI and Denies rash Neurologic Neurologic: Reports as per HPI, Denies frequent falls, Denies localized weakness, Denies numbness, Denies radicular pain, Denies sensory deficit, Denies tingling and Denies paresthesias Exam Const General: cooperative, healthy appearing, comfortable, no acute distress, well developed and well groomed Nutritional Appearance: well nourished and overweight Orientation: alert and awake Resp Effort & Inspection: normal respiratory effort and able to speak in complete sentences Auscultation: clear to auscultation bilaterally, no rales, no rhonchi and no wheezes Cardio Rate: regular rate Rhythm: regular rhythm Heart Sounds: S1 normal and S2 normal Skin General skin exam: no rashes or lesions noted Neuro General: patient alert and patient awake Cognition: normal cognition Speech: speech normal Motor: muscle tone normal throughout, strength 5/5 throughout, no movement abnormalities noted and no fasciculations Sensory Exam: no sensory deficits noted (no saddle paresthesias) Extrem General: normal to inspection, full ROM, capillary refill normal, no joint enlargement, no pedal edema and no calf tenderness Course Vital Signs Vital signs: Vital Signs Temperature 36.9 C 02/19/25 11:29 Pulse 107 H 02/19/25 11:29 Respiratory Rate 16 02/19/25 11:29 Blood Pressure 140/104 H 02/19/25 11:29 Pulse Oximetry 98 02/19/25 11:29 Temperature 36.9 C 02/19/25 11:29 Pulse 107 H 02/19/25 11:29 Respiratory Rate 16 02/19/25 11:29 Blood Pressure 140/104 H 02/19/25 11:29 Pulse Oximetry 98 02/19/25 11:29 Pain Level 10 02/19/25 11:29 Medical Decision Making Patient is a pleasant 69 year old female presenting for acute on chornic back pain. Has known diagnosis of sciatica. She is scheduled for outpatient MRI in 2 days as arranged by her primary care for further evaluation of this chronic back pain. She is also recently been referred to physical therapy, she feels that this is working well and she has been doing a large amount of pool therapy. She is post to be seeing cycle specialist at [facility] after the MRI has been completed. Her previous exacerbations have occurred after times of being sedentary and today's pain seems to be exacerbated associated with her to being in a river all day yesterday and being sedentary for a long period of time. She denies any falls or trauma. Denies any fevers or chills. No infectious symptoms. She denies any incontinence, change in bowel or bladder habits. States that it has been limiting her movement secondary to her discomfort but not ericka weakness. She states that she did take the methocarbamol as previously prescribed earlier this morning but had no relief from this. States that when she was here recently, she received p.o. medication and felt ready to be discharged to home shortly after. When she was here last, she received acetaminophen, gabapentin orally when here previously. She did not receive a prescription Gabapentin 900mg at that time. On exam, patient appears nontoxic. She has no midline discomfort with palpation. Pain seems to be more over to the right side but was not elicited with palpation as much is movement of the patient. She does have a positive straight leg raise. She was able to move fairly well though. She has 2+ distal pulses. No pulsatile mass or abdominal pain. She has no saddle paresthesias. No CVA tenderness. No skin changes. Not see any indication at this point for infectious etiology, cauda equina. Seems to be an acute exacerbation of chronic back pain, likely associated with her prolonged time of being sedentary yesterday. Patient I discussed risk and benefit of more prolonged course of gabapentin given how well this worked for her last time. However, she reports being fairly sedated after her more recent dosing so instead of giving her a larger one-time dose, will give her smaller prescribed medications. Will do 300 mg 3 times daily. Shortly after receiving this, Tylenol, ibuprofen and a Lidoderm patch, patient requested discharge. She was able to ambulate without any antalgic gait and unassisted. I feel the dispo to home is appropriate at this time. She does have a friend that will be driving her home. Encouraged supportive care, lidocaine patches, heat/ice, continue to work with physical therapy. She will keep her upcoming appointment for the MRI and then subsequent follow-up with cycle specialist. Strict return precautions were discussed patient is in agreement with this plan. 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 (Acute) Acute back pain (Acute) Obesity (Chronic) Diarrhea (Acute) Atypical chest pain (Acute) S/P cardiac catheterization (Acute) With DIETER to prox OM 1 and Mid RCA 09/24/2023 at [facility] Chest pain of uncertain etiology (Acute) Right rotator cuff tear (Acute) Anterior dislocation of right shoulder (Acute 03/30/23) ILD (interstitial lung disease) (Acute) Anxiety (Chronic) Kuhn's esophagus (Chronic) EGD neg 2016 Depressive disorder (Chronic) Gastroesophageal reflux disease (Chronic) gastritis; HH Hyperlipidemia (Chronic 01/02/13) Malignant neoplasm of female breast (Chronic 07/28/93) stage I; lumpectomy, radiation, axillary resection, occurred remotely in her 30s as of 12/2021 no sign of recurrence, yearly mammogram Migraine with aura (Chronic) Peripheral neuralgia (Chronic) Cervical radiculopathy at C6 (Acute) Visual field defect (Acute) Pseudogout of hand (Acute) Painful orthopaedic hardware (Acute) Nicotine dependence (Acute) 12/2021- 09/01-08/30 ppd, 25 pk yr hx Generalized hyperhidrosis (Acute) Cervical cancer screening (Acute) To 2021. Previous testing 2016. Currently overdue. Episodic cannabis use (Acute) Medical History COVID-19 08/2020 Surgical History Hx of neck surgery H/O right wrist surgery S/P colonoscopy 03/30/19 Ligation of fallopian tube Tonsillectomy (~1958) EGD - IV Sedation (05/10/16) Cholecystectomy Reduction mammoplasty (~1994) right Breast, Lumpectomy (~1993) left Biopsy of breast (~2001) Family History Mother Personal history of malignant neoplasm SKIN Father Essential hypertension Hyperlipidemia Stroke Grandfather No problems noted. Grandfather No problems noted. Grandmother Personal history of malignant neoplasm BREAST Grandmother No problems noted. Brother Essential hypertension Personal history of malignant neoplasm THYROID Hyperlipidemia Brother No problems noted. Brother No problems noted. Brother No problems noted. Daughter No problems noted. Daughter No problems noted. Social History Smoking/Tobacco Use Status: Former Tobacco Use Quit status: considering quitting Smoking risk assessment performed?: Yes Alcohol Intake: current Alcohol Intake frequency: holidays/special occasions only Alcohol type: hard liquor Drug use: Current Sobriety Substance use type: does not use Details: patient state she stopped using marijuana 2 years ago Adopted: No Caregiver/Support person: No Foster care: No Household members: family Housing: house Number of Children: 2 number of grandchildren: 3 Communication Needs: None and Corrective Lenses Education Level: high school Do you need help understanding health information?: Rarely current occupation: Disabled-has results of issues related to her breast cancer surgery Pets and animals: Yes Pets and animals: dog(s) Do you think of yourself as: straight/heterosexual Current gender identity: female What is your relationship status?: living with partner How often do you talk on the phone with friends or family?: decline to answer How often do you get together with friends or relatives?: decline to answer How often do you attend zoroastrian or gnosticism services?: decline to answer Do you belong to any clubs or organized social groups?: no Panel score (0-1 are the most socially isolated patients): 1 What type of physical activity do you participate in: none Jessenia/Religious: Faith Seatbelt use: always Helmet use: No Drive intox or ride w/intox operator and truck driver: No Working smoke detector in home: Yes Fire extinguisher in home: Yes Carbon monox detector in home: Yes Do you feel safe at home: Yes Do you feel safe in your relationship?: Yes History History 3 Para 2 Hx # Term Pregnancies Multiple births Hx # Pregnancies Ectopic pregnancies AB induced Hx Number of Living Children AB spontaneous
[2025-02-19] MEDS: Gabapentin 300 MG CAP PO (12:20)
[2025-02-19] MEDS: Ibuprofen 600 MG TAB PO (12:20)
[2025-02-19] MEDS: Acetaminophen 500 MG TAB 1000 MG PO (12:20)
[2025-02-19] MEDS: Lidocaine 5% Patch 1 PATCH TP (12:21)
[2025-02-19 13:14] VITALS: BP 146/98; PULSE 104; RESP 16; O2SAT 96
== END 2025-02-19 13:15 | disposition home or self-care (01) ==
PROVIDERS: Emergency Provider Physician Assistant; PCP Nurse Practitioner
DX: M54.41 Lumbago with sciatica, right side (principal); E78.5 Hyperlipidemia, unspecified; Z79.82 Long term (current) use of aspirin; Z87.891 Personal history of nicotine dependence
CPT/HCPCS: 99283

== ENCOUNTER 2025-02-21 00:25 | Outpatient (CLI) | payer MEDICARE, MEDICAID, SELFPAY ==
--- NOTE | 2025-02-21 07:42 | DI.MRI_ITS ---
Exam(s) MR LUMBAR SPINE WO EXAM: MR LUMBAR SPINE WO CLINICAL HISTORY: LUMBAGO WITH RT SCIATICA,M54.41. TECHNIQUE: Multiplanar multisequence MRI of the Lumbar spine was performed. COMPARISON: CR,XR XR LUMBAR SPINE AP, LAT from 01/21/2025 FINDINGS: Bones: The last intervertebral disc space is designated the L5/S1 level for the numbering purpose of this examination. The vertebral body heights are well maintained. Alignment: Unremarkable. The marrow signal characteristics are unremarkable. Cord: The conus tip ends at the T12 level. It is of normal size and signal intensity. T12-L1: No focal disc herniation is present. No central spinal canal stenosis.No neural foraminal stenosis. L1-2:Mild loss of disc height. No significant disc bulging. No focal disc herniation is present. No central spinal canal stenosis.No neural foraminal stenosis. L2-3: No focal disc herniation is present. No central spinal canal stenosis.No neural foraminal stenosis. L3-4: mild disc bulging. Facet degenerative changes and ligamentous hypertrophy are present which cause mild right neural foraminal narrowing.No focal disc herniation is present. No central spinal canal stenosis. L4-5:Mild disc bulging. No focal disc herniation is present. Prominent facet degenerative changes and ligamentous hypertrophy cause [id number]-[id number] central canal stenosis and moderate left neural foraminal narrowing. L5-S1: No focal disc herniation is present. No central spinal canal stenosis.No neural foraminal stenosis. The visualized SI joints and sacrum are unremarkable. Soft tissues: The paraspinal soft tissues are unremarkable. IMPRESSION: Sqga-yi-snwfjeih central canal stenosis at L4-5 secondary to combination of disc bulging, facet degenerative changes and ligamentous hypertrophy. No disc herniation at any level. DATA REPOSITORY:
== END 2025-02-21 00:45 ==
PROVIDERS: PCP Family Medicine; Visit Provider Family Medicine
DX: M51.360 Other intervertebral disc degeneration, lumbar region with discogenic back pain only (principal); M54.41 Lumbago with sciatica, right side
CPT/HCPCS: 72148

== ENCOUNTER 2025-04-17 02:16 | Outpatient (CLI) | payer MEDICARE, MEDICAID, SELFPAY ==
--- NOTE | 2025-04-17 10:39 | DI.MAMMO_ITS ---
Exam(s) MG MAMMO SCREENING 60 MIN DUR EXAM: MG MAMMO SCREENING 60 MIN DUR CLINICAL HISTORY: breast cancer screening, hx breast cancer, Z85.3 TECHNIQUE: Mammograms were interpreted according to the usual protocol including computer analysis with CAD system, tomosynthesis and C-view imaging. COMPARISON: 2015 through 2023 FINDINGS: The breasts are composed of scattered fibroglandular densities, Breast Density category B. No suspicious masses or suspicious microcalcifications are seen. Post lumpectomy scarring is again noted in the upper outer quadrant of the left breast. Benign calcifications again noted in the left breast. No skin thickening or abnormal axillary lymph nodes are seen. There has been no significant change from prior exams. IMPRESSION: BI-RADS Category 2 - Benign Findings mammogram Yearly screening mammography is recommended. Breast Density - Category B - There are scattered areas of fibroglandular density. Breast density Category C or D implies that the patient has dense breast tissue. Dense breast tissue can make it harder to find cancer on a mammogram. Dense breast tissue is also associated with an increased risk of breast cancer. This information about the result of the mammogram report was provided to the patient to raise their awareness. Use this report when you speak with the patient about their risks for breast cancer, which includes their family history. At that time, you may recommend additional screening tests (Ultrasound or MRI) as these tests may add significant information. A negative radiographic report should not delay biopsy if a dominant or clinically suspicious mass is present. Up to ten percent of cancers are not identified on mammography. A negative report may reinforce clinical impression. Adenosis and dense breasts may obscure an underlying neoplasm. False positive reports average 6 to 10%. Patient will receive a letter notifying them of these results.
== END 2025-04-17 02:36 ==
PROVIDERS: PCP Family Medicine; Visit Provider Nurse Practitioner
DX: Z12.31 Encounter for screening mammogram for malignant neoplasm of breast (principal); Z85.3 Personal history of malignant neoplasm of breast; R92.323 Mammographic fibroglandular density, bilateral breasts
CPT/HCPCS: 77063; 77067

== ENCOUNTER 2025-04-30 15:02 | Emergency (ER) | payer MEDICARE, MEDICAID, SELFPAY ==
[2025-04-30] VITALS (27 sets, daily range): BP systolic 136–188; BP diastolic 75–116; PULSE 68–128; RESP 8–26; TEMP 37; O2SAT 88–99
--- NOTE | 2025-04-30 14:45 | RT.EKG_ITS ---
APPROVED REPORT Exam: Resting ECG Reason for Exam: STEMI Patient Location: E HR:118 bpm ECG Measurements Heart Rate 118 AXIS WI 154 P 52 QRSd 66 QRS -82 QT 318 T 65 QTc 446 Conclusion Sinus tachycardia...rate> 99 Inferior infarct, old...Q >35mS, II III aVF Anterior infarct, old...Q >40mS, abnormal ST-T, V2-V5
--- NOTE | 2025-04-30 15:00 | DI.CT_ITS ---
Exam(s) CT THORAX ABD/PEL CTA EXAM: CT THORAX ABD/PEL CTA CLINICAL HISTORY: chest pain radiating to the back, ?dissection. TECHNIQUE: Imaging Protocol: Axial CT angiography was performed with multi- slice acquisition and multi-planar and/or 3D reconstructions. Lung Computer Aided Detection (CAD) was utilized. CONTRAST MATERIAL: Intravenous: Omnipaque 350 contrast volume:100 mL Oral: No COMPARISON: MG MG MAMMO SCREENING 60 MIN DUR from 03/03/[address] CHEST PE CTA from 09/24/[address] ABDOMEN PELVIS WO from 12/23/2024 FINDINGS: CHEST: Tracheobronchial tree: Patent where visualized. There is no evidence of bronchiectasis. Pulmonary parenchyma: No consolidation or dominant measurable mass. No architectural distortion. Pulmonary Arteries: No evidence of filling defect to suggest pulmonary emboli. Mediastinum and Alexia: No dominant adenopathy or fluid collection. The esophagus is unremarkable. Visualized thyroid: Unremarkable. Pleura: No effusion or pneumothorax. Heart: The heart is not dilated. No coronary artery calcifications are seen. No pericardial effusion. Aorta: Thoracic aorta non-dilated. Mild atherosclerotic calcification is present. There is no evidence of dissection. Soft Tissues: The patient has had a prior left lumpectomy. Stable postsurgical changes are seen in the outer left breast adjacent to the chest wall. Bones: Within normal limits for the patient's age. ABDOMEN AND PELVIS: Abdomen: Celiac axis/mesenteric arteries: No evidence of occlusion or significant stenosis. Renal Arteries: No evidence of occlusion or significant stenosis. Aorta: No evidence of occlusion or significant stenosis. No aneurysm or dissection. Mild atherosclerotic calcification is present. Pelvis: Iliac Arteries: No evidence of occlusion or significant stenosis. Mild atherosclerotic calcification is present, but no significant stenosis is present. Common Femoral Arteries: No evidence of occlusion or significant stenosis. ABDOMEN: Liver: Normal density. There is a tiny hypodensity in the left lobe of the liver. It is too small for further characterization but likely reflects a small cyst. There is a hyperdense lesion adjacent to the gallbladder fossa. It is unchanged and likely reflects a hemangioma. No suspicious hepatic masses are seen. Portal, superior mesenteric and splenic veins: Unremarkable. Gallbladder and Biliary Tract: Status post cholecystectomy. There has been no change in appearance of the bile ducts compared to the prior examination. Pancreas: Normal density, no abnormal calcifications or inflammatory process. Spleen: Normal. Adrenals: No masses seen. Kidneys: Normal size, contour and axis. No radiodense stones or obstructive uropathy. There is a small cyst in the superior pole of the left kidney. No follow-up is recommended. No suspicious renal masses are present. Bowel: No obstruction or bowel wall thickening. There is no evidence of appendicitis. Peritoneal Cavity: No ascites, collection or mesenteric inflammatory response. No free air. Lymph Nodes: Within normal limits. Bones: Within normal limits for the patient's age. Soft Tissues: There is a small fat containing umbilical hernia. PELVIS: Bladder: Symmetric distention, no gross wall thickening. Reproductive Organs: Unremarkable as visualized. Lymph Nodes: Within normal limits. Bones: Within normal limits for the patient's age. IMPRESSION: 1. There is no acute abdominal or pelvic process. 2. There is no evidence of a thoracic aortic aneurysm or dissection. 3. No evidence of abdominal aortic aneurysm or dissection. 4. There is no evidence of a pulmonary embolism. 5. No acute pulmonary process. RADIATION DOSE DELIVERED: 747.22mGy.cm Total DLP DATA REPOSITORY: All CT scans at this facility are submitted to the National Radiology Data Registry (NRDR) Dose Index Registry (DIR) with the [employer] (A[employer]). RADIATION OPTIMIZATION: All CT scans at this facility use at least one of these dose optimization techniques: automated exposure control; mA and/or kV adjustment per patient size (includes targeted exams where dose is matched to clinical indication); or iterative reconstruction.
--- NOTE | 2025-04-30 15:10 | W.ED.GENAD ---
Discharge Plan Disposition Patient Disposition: Home Condition: Stable Discharge Details Clinical Impression: Chest pain Primary Care Provider: Delisa Velazquez ED Provider: Waylon Sloan Home Meds and New Rx's Prescriptions: Continued vit B zgyovwm-X-xhlyt ac-zinc 800 mcg- 12.5 mg tablet 1 tab PO DAILY albuterol sulfate 90 mcg/actuation HFA aerosol inhaler 1 - 2 puff Inhalation Q4H PRN Qty: 2 6RF atorvastatin 80 mg tablet 80 mg PO QPM Qty: 90 3RF estradiol [Vagifem] 10 mcg tablet 10 mcg VG Twice Weekly Qty: 24 12RF methocarbamol 750 mg tablet 750 mg PO TID Qty: 90 2RF methylprednisolone [Medrol (Constantino)] 4 mg tablets,dose pack See Rx Instructions PO PER PKG DIR Qty: 21 0RF Rx Instructions: PO PER PKG DIR Probiotic 1 EACH capsule 1 ea PO DAILY Patient Comments: Patient may take more than 1 per day, depends on bloating. ct tears naturale ii 2 drp OU QID magnesium oxide 400 mg (241.3 mg magnesium) tablet 400 mg PO DAILY Qty: 90 3RF pantoprazole 40 mg tablet,delayed release (DR/EC) See Rx Instructions .ROUTE .COMPLEX Qty: 30 12RF Dose Instruction: TAKE 1 TABLET BY MOUTH DAILY Rx Instructions: TAKE 1 TABLET BY MOUTH DAILY cholecalciferol (vitamin D3) 10 mcg (400 unit) capsule 10 mcg PO DAILY aspirin 81 mg tablet,delayed release (DR/EC) 81 mg PO DAILY Patient Comments: TAKE 1 TABLET BY MOUTH DAILY nitroglycerin 0.4 mg tablet, sublingual 0.4 mg sublingual Q5M PRN (Reason: chest pain) Patient Comments: DISSOLVE ONE TABLET UNDER TONGUE NEEDED FOR CHEST PAIN EVERY 5 MINUTES FOR UP TO 3 DOSES metoprolol succinate 50 mg tablet extended release 24 hr 50 mg PO DAILY Patient Comments: TAKE 1 TABLET BY MOUTH DAILY isosorbide mononitrate 30 mg tablet extended release 24 hr 30 mg PO DAILY lidocaine [Lidoderm] 5 % adhesive patch,medicated 1 patch topical DAILY Qty: 15 0RF Rx Instructions: leave on most painful area for up to 12 hrs acetaminophen 500 mg tablet 500 mg PO Q6H PRN (Reason: pain) Qty: 60 2RF Discharge Instructions Additional Instructions: Your blood work and CAT scan did not show any concerning findings at this time. I would recommend following up with either your surgical technology instructor or primary care provider. If you feel significant more ill or have new symptoms such as persistent vomiting return to the emergency department for reevaluation HPI General Mode of arrival: EMS. Date/Time Provider Initiated Documentation: 04/30/25 15:08. Limitations to Documentation: no limitations. Information obtained by: patient. History of Present Illness 69 year old F presents to the emergency department with the chief complaint of chest pain, described as moderate, Patient reports radiation to back. Patient started experiencing this hour(s) (1) and it has been now resolved. other things that improve symptom(s), (nitro) No exacerbating factors reported . Patient notes no other symptoms.. Patient did receive the following treatments prior to arrival, none Related Data Home Medications ?Medication ?Instructions ?Recorded ?Confirmed Lactobacillus acidophilus 10 1 ea PO DAILY 12/29/17 04/03/25 billion cell capsule (Probiotic) Tears Naturale Ii 2 drp OU QID 03/17/18 04/03/25 acetaminophen 500 mg tablet 500 mg PO Q6H PRN pain #60 tabs 06/30/21 04/03/25 magnesium oxide 400 mg (241.3 mg 400 mg PO DAILY #90 tabs 08/25/21 04/03/25 magnesium) tablet vitamin B complex with vit C-folic 1 tab PO DAILY 02/17/23 04/03/25 acid 800 mcg-zinc 12.5 mg tablet cholecalciferol (vitamin D3) 10 10 mcg PO DAILY 09/24/23 04/03/25 mcg (400 unit) capsule aspirin 81 mg tablet,delayed 81 mg PO DAILY 09/27/23 04/03/25 release nitroglycerin 0.4 mg sublingual 0.4 mg sublingual Q5M PRN chest 09/27/23 04/03/25 tablet pain pantoprazole 40 mg tablet,delayed See Rx Instructions .Route 08/08/24 04/03/25 release .COMPLEX #30 tabs metoprolol succinate 50 mg 50 mg PO DAILY 09/01/24 04/03/25 tablet,extended release 24 hr albuterol sulfate 90 mcg/actuation 1 - 2 puff inhalation Q4H PRN ##2 12/10/24 04/03/25 aerosol inhaler atorvastatin 80 mg tablet 80 mg PO QPM #90 tabs 12/10/24 04/03/25 estradiol 10 mcg vaginal tablet 10 mcg vaginal Twice Weekly #24 12/10/24 04/03/25 (Vagifem) tab-caps isosorbide mononitrate 30 mg 30 mg PO DAILY 01/21/25 04/03/25 tablet,extended release 24 hr lidocaine 5 % topical patch 1 patch topical DAILY #15 ea 01/21/25 04/03/25 (Lidoderm) methocarbamol 750 mg tablet 750 mg PO TID #90 tabs 04/03/25 04/03/25 methylprednisolone 4 mg tablets in See Rx Instructions PO PER PKG DIR 04/03/25 04/03/25 a dose pack (Medrol (Constantino)) #21 tabs Previous Rx's ?Medication ?Instructions ?Recorded acetaminophen 500 mg tablet 500 mg PO Q6H PRN pain #60 tabs 06/30/21 magnesium oxide 400 mg (241.3 mg 400 mg PO DAILY #90 tabs 08/25/21 magnesium) tablet pantoprazole 40 mg tablet,delayed See Rx Instructions .Route 08/08/24 release .COMPLEX #30 tabs albuterol sulfate 90 mcg/actuation 1 - 2 puff inhalation Q4H PRN ##2 12/10/24 aerosol inhaler atorvastatin 80 mg tablet 80 mg PO QPM #90 tabs 12/10/24 estradiol 10 mcg vaginal tablet 10 mcg vaginal Twice Weekly #24 12/10/24 (Vagifem) tab-caps lidocaine 5 % topical patch 1 patch topical DAILY #15 ea 01/21/25 (Lidoderm) methocarbamol 750 mg tablet 750 mg PO TID #90 tabs 04/03/25 methylprednisolone 4 mg tablets in See Rx Instructions PO PER PKG DIR 04/03/25 a dose pack (Medrol (Constantino)) #21 tabs Allergies Allergy/AdvReac Type Severity Reaction Status Date / Time ceftriaxone Allergy Intermediate ITCHING; Verified 04/03/25 13:04 RASH Sulfa (Sulfonamide Allergy Intermediate ITCHY RASH Verified 04/03/25 13:04 Antibiotics) semaglutide AdvReac Severe Nausea Verified 04/03/25 13:04 rosuvastatin AdvReac Intermediate NAUSEA Verified 04/03/25 13:04 sertraline AdvReac Intermediate diarrhea Verified 04/03/25 13:04 General Stated Complaint: Chest Pain ANTHONY: 3 Review of Systems All systems reviewed & are unremarkable except as noted in HPI and below Constitutional Constitutional: Denies chills, Denies fever(s) and Denies weakness Cardiovascular Cardiovascular: Reports chest pain and Denies dyspnea Respiratory Respiratory: Denies cough and Denies dyspnea Gastrointestinal Gastrointestinal: Denies abdominal pain and Denies vomiting Neurologic Neurologic: Denies weakness Exam Const General: no acute distress Orientation: alert HENOR Head: normal to inspection Ears: external ears normal General nose exam: external nose normal Mouth: moist mucous membranes Eyes General: appearance normal, both eyes and all related structures Neck Neck: normal visual inspection Resp Effort & Inspection: normal respiratory effort and able to speak in complete sentences Auscultation: clear to auscultation bilaterally Cardio Jugular venous pressure: no JVD Rate: regular rate GI Palpation: soft and nontender Skin General skin exam: no rashes or lesions noted Neuro General: patient alert and patient oriented x3 Extrem General: normal to inspection Psych Mental Status: mental status grossly normal Course Vital Signs Vital signs: Vital Signs Pulse 123 H 04/30/25 15:04 Respiratory Rate 20 04/30/25 15:04 Blood Pressure 164/107 H 04/30/25 15:04 Pulse Oximetry 95 04/30/25 15:04 Pulse 123 H 04/30/25 15:04 Respiratory Rate 20 04/30/25 15:04 Blood Pressure 164/107 H 04/30/25 15:04 Blood Pressure Position Sitting 04/30/25 15:04 Pulse Oximetry 95 04/30/25 15:04 Oxygen Delivery Method Room Air 04/30/25 15:04 Oxygen Flow Rate 0 04/30/25 15:04 Medical Decision Making 69-year-old female with a history of prior STEMI with 2 stents placed approximately 2 years ago per the patient comes in after she was at home watching TV when she started having left-sided chest pain rating to her back. Denies any vomiting, diaphoresis, increased pain with exertion. She was given 324 mg of aspirin with EMS as well as 2 doses of sublingual nitro and states her pain has now resolved. She is well-appearing speaking full sentences, she has no JVD, no leg, or calf tenderness. Clear lung sounds. Given her history we will proceed with CBC CMP and troponins and given she has the pain rating to her back I am going to proceed with a CTA to evaluate for possible dissection. Patient's labs including delta troponin negative and CTA is also unremarkable. She is stable and asymptomatic, does have pain with palpation to left side of her chest. Discussed results with her and given reassuring workup I feel she can follow-up with her PCP, return precautions given Differential Diagnosis Differential Diagnosis: NSTEMI, dissection Medical Records Medical records reviewed: Yes I reviewed the patient's medical records. Lab Data Lab results reviewed: Yes I reviewed the patient's lab results. 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 (Acute) Acute back pain (Acute) Obesity (Chronic) Diarrhea (Acute) Atypical chest pain (Acute) S/P cardiac catheterization (Acute) With DIETER to prox OM 1 and Mid RCA 09/24/2023 at [facility] [place] Chest pain of uncertain etiology (Acute) Right rotator cuff tear (Acute) Anterior dislocation of right shoulder (Acute 03/30/23) ILD (interstitial lung disease) (Acute) Anxiety (Chronic) Kuhn's esophagus (Chronic) EGD neg 2015 Depressive disorder (Chronic) Gastroesophageal reflux disease (Chronic) gastritis; HH Hyperlipidemia (Chronic 01/02/13) Malignant neoplasm of female breast (Chronic 07/28/93) stage I; lumpectomy, radiation, axillary resection, occurred remotely in her 30s as of 12/2021 no sign of recurrence, yearly mammogram Migraine with aura (Chronic) Peripheral neuralgia (Chronic) Cervical radiculopathy at C6 (Acute) Visual field defect (Acute) Pseudogout of hand (Acute) Painful orthopaedic hardware (Acute) Nicotine dependence (Acute) 12/2021- 1/-1/2 ppd, 25 pk yr hx Generalized hyperhidrosis (Acute) Cervical cancer screening (Acute) To 2021. Previous testing 2015. Currently overdue. Episodic cannabis use (Acute) Medical History COVID-19 08/2020 Surgical History Hx of neck surgery H/O right wrist surgery S/P colonoscopy 03/30/19 Ligation of fallopian tube Tonsillectomy (~1958) EGD - IV Sedation (05/10/16) Cholecystectomy Reduction mammoplasty (~1994) right Breast, Lumpectomy (~1993) left Biopsy of breast (~2001) Family History Mother Personal history of malignant neoplasm SKIN Father Essential hypertension Hyperlipidemia Stroke Grandfather No problems noted. Grandfather No problems noted. Grandmother Personal history of malignant neoplasm BREAST Grandmother No problems noted. Brother Essential hypertension Personal history of malignant neoplasm THYROID Hyperlipidemia Brother No problems noted. Brother No problems noted. Brother No problems noted. Daughter No problems noted. Daughter No problems noted. Social History Smoking/Tobacco Use Status: Former Tobacco Use Quit status: considering quitting Smoking risk assessment performed?: Yes Alcohol Intake: current Alcohol Intake frequency: holidays/special occasions only Alcohol type: hard liquor Drug use: Current Sobriety Substance use type: does not use Details: patient state she stopped using marijuana 2 years ago Adopted: No Caregiver/Support person: No Foster care: No Household members: family Housing: house Number of Children: 2 number of grandchildren: 3 Communication Needs: None and Corrective Lenses Education Level: high school Do you need help understanding health information?: Rarely current occupation: Disabled-has results of issues related to her breast cancer surgery Pets and animals: Yes Pets and animals: dog(s) Do you think of yourself as: straight/heterosexual Current gender identity: female What is your relationship status?: living with partner How often do you talk on the phone with friends or family?: decline to answer How often do you get together with friends or relatives?: decline to answer How often do you attend mu-ism or amish services?: decline to answer Do you belong to any clubs or organized social groups?: no Panel score (0-1 are the most socially isolated patients): 1 What type of physical activity do you participate in: none Jessenia/Spiritism: Mandaen Seatbelt use: always Helmet use: No Drive intox or ride w/intox cpr ambulance driver: No Working smoke detector in home: Yes Fire extinguisher in home: Yes Carbon monox detector in home: Yes Do you feel safe at home: Yes Do you feel safe in your relationship?: Yes History History 3 Para 2 Hx # Term Pregnancies Multiple births Hx # Pregnancies Ectopic pregnancies AB induced Hx Number of Living Children AB spontaneous
[2025-04-30 15:14] LABS: Abs Immature Grans 0.02 10^3/uL (0.0-0.06); HCT 40.4 % (36.0-46.0); HGB 13.5 g/dL (11.2-15.7); Immature Grans % 0.2 %; MCH 31.4 pg (27.0-33.0); MCHC 33.4 % (32.0-36.0); MCV 94 fL (80-95); MPV 10.0 fL (8.0-11.0); Platelet Count 308 10^3/uL (130-400); RBC 4.30 10^6/uL (3.93-5.22); RDW 13.4 % (11.7-14.6); RDW-SD 45.7 fL; WBC 11.86 10^3/uL (4.4-10.8)
[2025-04-30 15:31] LABS: INR 1.2 (0.9-1.1); PTT Activated 24.3 sec (20.6-30.2); Prothrombin Time 11.8 sec (9.1-11.1)
[2025-04-30] MEDS: Omnipaque 350 MG/ML 100 ML BTL IJ (15:32)
[2025-04-30] MEDS: Normal Saline - Diluent 50 ML VIAL IJ (15:32)
[2025-04-30] MEDS: Normal Saline Flush 10 ML SYR IVP (15:32)
[2025-04-30 15:47] LABS: ALT 43 U/L (14-59); AST 34 U/L (15-37); Albumin 4.2 g/dL (3.4-5.0); Alkaline Phosphatase 64 U/L (46-116); Anion Gap 7.4 mmol/L (3-11); BUN 17 mg/dL (7-18); Bilirubin, Total 0.4 mg/dL (0.2-1.0); CO2 30.6 mmol/L (21.0-32.0); Calcium 10.0 mg/dL (8.5-10.1); Chloride 104 mmol/L (98-107); Estimated GFR 94.15 (mL/min/1.73m2); Glucose 106 mg/dL (74-106); Magnesium 1.8 mg/dL (1.8-2.4); NT-proBNP 232 pg/mL (<300); Potassium 3.5 mmol/L (3.5-5.1); Sodium 142 mmol/L (136-145); Total Protein 7.3 g/dL (6.4-8.2); Troponin I 6 ng/L (<or=51)
--- NOTE | 2025-04-30 16:00 | RT.EKG_ITS ---
APPROVED REPORT Exam: Resting ECG Reason for Exam: Chest Pain Patient Location: E HR:80 bpm ECG Measurements Heart Rate 80 AXIS AZ 154 P 43 QRSd 75 QRS -72 QT 375 T 39 QTc 434 Conclusion Sinus rhythm...normal P axis, V-rate 60- 99 Probable left atrial enlargement...P >50mS, <-0.10mV V1 Inferior infarct, old...Q >35mS, II III aVF
[2025-04-30 16:47] LABS: Troponin I 8 ng/L (<or=51)
== END 2025-04-30 17:53 | disposition home or self-care (01) ==
PROVIDERS: Emergency Provider Emergency Medicine; PCP Nurse Practitioner
DX: R07.9 Chest pain, unspecified (principal)
CPT/HCPCS: 99285; 99284; 71275; 80053; 93005; 74174; 83735; 83880; 84484; 85025; 85610; 85730; 93010; J3490

== ENCOUNTER → 2025-05-27 13:43 | Outpatient (BNVA) | payer MEDICARE, MEDICAID, SELFPAY | PROVIDERS: Referring Provider Nurse Practitioner; Visit Provider Psychiatry & Neurology Neurology | DX: G56.22 Lesion of ulnar nerve, left upper limb (principal) | CPT/HCPCS: 95908 ==

== ENCOUNTER 2025-05-28 02:48 | Outpatient (CLI) | payer MEDICARE, MEDICAID, SELFPAY ==
[2025-05-28 11:08] LABS: TSH (W/Ref FT4) 2.18 uIU/mL (0.36-3.74)
== END 2025-05-28 02:49 | disposition home or self-care (01) ==
LOC: LBO 02:48
DX: R61 Generalized hyperhidrosis (principal); R79.89 Other specified abnormal findings of blood chemistry
CPT/HCPCS: 36415; 84443

== ENCOUNTER → 2025-06-19 08:34 | Outpatient (BNVA) | payer MEDICARE, MEDICAID, SELFPAY | PROVIDERS: Referring Provider Nurse Practitioner; Visit Provider Physician Assistant Surgical | DX: J84.9 Interstitial pulmonary disease, unspecified (principal); Z87.891 Personal history of nicotine dependence | CPT/HCPCS: 99214 ==

== ENCOUNTER 2025-06-24 02:49 | Outpatient (CLI) | payer MEDICARE, MEDICAID, SELFPAY ==
--- NOTE | 2025-06-25 07:49 | W.PFT ---
Date of service: 06/24/25 Time of Service: 08:11 Pulmonary Function Test Result Indications: Interstitial lung disease Impression 1. Good patient effort was noted. ATS standards for reproducibility were met 2. Normal spirometry 3. TLC was normal. No evidence of restrictive lung disease 4. DLCO was reduced at 71% predicted, indicating a mild defect in alveolar gas exchange
== END 2025-06-24 02:50 | disposition home or self-care (01) ==
LOC: RT 02:49
PROVIDERS: Visit Provider Physician Assistant Surgical
DX: J84.9 Interstitial pulmonary disease, unspecified (principal)
CPT/HCPCS: 94010; 94726; 94729

== ENCOUNTER → 2025-08-05 09:29 | Outpatient (BNVA) | payer MEDICARE, MEDICAID, SELFPAY | PROVIDERS: PCP Nurse Practitioner Family; Referring Provider Nurse Practitioner Family; Visit Provider Student in an Organized Health Care Education/Training Program | DX: K21.9 Gastro-esophageal reflux disease without esophagitis (principal); K44.9 Diaphragmatic hernia without obstruction or gangrene | CPT/HCPCS: 99213 ==